=== PATIENT | female | born 1950 | race Caucasian/White ===

== ENCOUNTER 2016-12-25 07:48 | Inpatient (IN) | payer MEDICARE ==
[~2016-12-25] VITALS: Ht 157.5 cm; Wt 95.3 kg
[~2016-12-25 07:48] MED LIST: ASPI-482 PO; BENA40TA2 PO; CARV12.52 PO; CEPH-264 PO; DILT90TA PO; DOXA8TAB59 PO; FOLI0.8T3 PO; GABA-586 PO; GLIP5TAB10 PO; GLYB5TAB3 PO; LINA5TAB4 PO; LOSA50TA2 PO; LOVA40TA2 PO; SEVE800T9 PO
--- NOTE | 2016-12-25 08:13 | PHYS DOC ---
Past Medical History Past Medical History: CHF, Diabetes-Type II, High Cholesterol, Hypertension Past Surgical History: Other Additional Past Surgical Histo: FISTULA LUE Alcohol Use: None Drug Use: None Adult General Chief Complaint Chief Complaint: OTHER COMPLAINTS HPI HPI Patient is a 66 year old female who presents with her brother for altered mental status. They report that she has been more confused than usual, mildly disoriented. Began sometime yesterday after she felt more tired than usual. She had a mechanical trip & fall yesterday when she returned home from dialysis. She denies loss of consciousness, no definite head trauma. She denies fever, headache, vision changes, chest pain, palpitations, shortness of breath (though brother thinks she is breathing heavily), abdominal pain, nausea , vomiting, diarrhea, extremity numbness/weakness. She makes very minimal urine , denies dysuria. Her PCP is Dr. Barron. She has been compliant with dialysis. Review of Systems Review of Systems Constitutional: Denies fever or chills Eyes: Denies change in visual acuity HENT: Denies nasal congestion or sore throat Respiratory: Denies cough or shortness of breath Cardiovascular: Denies chest pain or edema GI: Denies abdominal pain, nausea, vomiting, bloody stools or diarrhea : Denies dysuria or hematuria Musculoskeletal: Denies back pain or joint pain Integument: Denies rash or skin lesions Neurologic: Reports altered mental status. Denies headache, focal weakness or sensory changes Allergies Allergies Allergies Coded Allergies Type Severity Reaction Last Updated Verified No Known Drug Allergies 12/05/13 No Physical Exam Physical Exam Constitutional: Well developed, well nourished, no acute distress, non-toxic appearance. HENT: Normocephalic, atraumatic, bilateral external ears normal, oropharynx moist, nose normal. erythematous kathy to left face. Eyes: PERRLA, EOMI, conjunctiva normal, no discharge. Neck: supple, no stridor. no meningismus Cardiovascular: RRR, no murmurs, no edema. Lungs & Thorax: LCTAB, no wheezing, no respiratory distress. Abdomen: soft, nontender, nondistended. Skin: Warm, dry, no erythema, no rash. facial kathy as above. Back: No tenderness. tiny right mid back ecchymosis without tenderness, no spinal tenderness or step offs Extremities: No tenderness, no edema. no bony tenderness to upper or lower extremities Neurologic: Alert and oriented to person & place, CN2-12 grossly intact, symmetric strength/sensation to UE & LE, no focal deficits noted. Psychologic: Affect normal, judgement normal, mood normal. Current Patient Data Vital Signs Vital Signs Date Time Temp Pulse Resp B/P (MAP) Pulse Ox O2 Delivery O2 Flow Rate FiO2 12/25/16 07:55 98.3 70 16 132/58 (82) 94 Room Air 98.3 Lab Values Laboratory Tests Test 12/25/16 08:10 White Blood Count 4.1 x10^3/uL (4.0-11.0) Red Blood Count 3.56 x10^6/uL (3.50-5.40) Hemoglobin 10.8 g/dL (12.0-15.5) L Hematocrit 33.8 % (36.0-47.0) L Mean Corpuscular Volume 95 fL (79-100) Mean Corpuscular Hemoglobin 30 pg (25-35) Mean Corpuscular Hemoglobin Concent 32 g/dL (31-37) Red Cell Distribution Width 17.4 % (11.5-14.5) H Platelet Count 67 x10^3/uL (140-400) L Neutrophils (%) (Auto) 83 % (31-73) H Lymphocytes (%) (Auto) 5 % (24-48) L Monocytes (%) (Auto) 10 % (0-9) H Eosinophils (%) (Auto) 1 % (0-3) Basophils (%) (Auto) 1 % (0-3) Neutrophils # (Auto) 3.4 x10^3uL (1.8-7.7) Lymphocytes # (Auto) 0.2 x10^3/uL (1.0-4.8) L Monocytes # (Auto) 0.4 x10^3/uL (0.0-1.1) Eosinophils # (Auto) 0.0 x10^3/uL (0.0-0.7) Basophils # (Auto) 0.0 x10^3/uL (0.0-0.2) Segmented Neutrophils % 86 % (35-66) H Band Neutrophils % 5 % (0-9) Lymphocytes % 5 % (24-48) L Monocytes % 2 % (0-10) Eosinophils % 1 % (0-5) Basophils % 1 % (0-3) Platelet Estimate Decreased (ADEQUATE) Anisocytosis Slight Prothrombin Time 14.4 SEC (11.7-14.0) H Prothrombin Time INR 1.2 (0.8-1.1) H PTT 30 SEC (24-38) Sodium Level 132 mmol/L (136-145) L Potassium Level 4.8 mmol/L (3.5-5.1) Chloride Level 93 mmol/L (98-107) L Carbon Dioxide Level 30 mmol/L (21-32) Anion Gap 9 (6-14) Blood Urea Nitrogen 38 mg/dL (7-20) H Creatinine 5.4 mg/dL (0.6-1.0) H Estimated GFR (Cockcroft-Gault) 8.0 BUN/Creatinine Ratio 7 (6-20) Glucose Level 620 mg/dL (70-99) *H Calcium Level 8.9 mg/dL (8.5-10.1) Total Bilirubin 0.4 mg/dL (0.2-1.0) Aspartate Amino Transferase (AST) 13 U/L (15-37) L Alanine Aminotransferase (ALT) 15 U/L (14-59) Alkaline Phosphatase 99 U/L (46-116) Troponin I Quantitative 0.029 ng/mL (0.000-0.055) TE-Dia-F-Type Natriuretic Peptide > 32956 pg/mL (0-124) H Total Protein 7.7 g/dL (6.4-8.2) Albumin 3.2 g/dL (3.4-5.0) L Albumin/Globulin Ratio 0.7 (1.0-1.7) L Laboratory Tests 12/25/16 08:10 Laboratory Tests 12/25/16 08:10 EKG EKG interpreted by me: NSR rate 69, no STEMI, T waves inverted without deprsesion in 1 & aVL, QTc prolonged 473 ms, no ectopy.[] Radiology/Procedures Radiology/Procedures PROCEDURE: CT HEAD WO CONTRAST Indication change in mental status. Noncontrast images of the head were obtained. No prior imaging of the head is available. The calvarium appears unremarkable. The visualized paranasal sinuses appear normal. There is no subdural or epidural hematoma. There is no mass or midline shift. Some physiologic calcification of the basal ganglia is noted. IMPRESSION: No acute finding seen in the head PQRS Compliance Statement: One or more of the following individualized dose reduction techniques were utilized for this examination: 1. Automated exposure control 2. Adjustment of the mA and/or kV according to patient size 3. Use of iterative reconstruction technique DICTATED and SIGNED BY: NICK LAI MD DATE: 12/25/16837 []PROCEDURE: CHEST AP ONLY Indication change in mental status. Suspect CVA. Protocol study. A single view of the chest was obtained. Comparison is made to an examination 08/12/2015. There is mild cardiomegaly. Gross congestive heart failure is not seen. There is fullness in both hilar areas which is likely all vascular in nature. The appearance is virtually identical to an examination 05/02/2015. Occasional calcified left hilar lymph nodes are noted. There is no acute parenchymal infiltrate there is no significant pleural fluid. IMPRESSION: Mild cardiomegaly. No acute or focal process seen in the chest DICTATED and SIGNED BY: NICK LAI MD DATE: 12/25/16826 Course & Med Decision Making Course & Med Decision Making Pertinent Labs and Imaging studies reviewed. (See chart for details) The patient presents with dizziness. She is found to be hyperglycemic with glucose > 600, not in DKA. Due to her end-stage renal disease unlikely volume overload state did not administer IV fluids. Additional workup did not show any other acute process. I discussed with Dr. Mcmahan who agrees to admit to inpatient status. Per his recommendation we'll start insulin drip with initial dose of 30 units, to continue at 2 units per hour thereafter. Patient agrees with plan for admission. Consult placed to nephrology for dialysis. Patient admitted in stable condition. Critical care time: 35 minutes [] Dragon Disclaimer Dragon Disclaimer This electronic medical record was generated, in whole or in part, using a voice recognition dictation system. Departure Departure Impression: Primary Impression: Hyperglycemia Additional Impressions: Altered mental status End stage renal disease Elevated brain natriuretic peptide (BNP) level Disposition: ADMITTED INPATIENT Admitting Physician: Martin Mcmahan Condition: STABLE Referrals: MELIZA BIGGS (PCP) Problem Qualifiers JODIE HUITRON MD Dec 25, 2016 08:13
[2016-12-25 08:23] LABS: BASO % 1 % (0-3); EOS % 1 % (0-3); HEMATOCRIT 33.8 % (36.0-47.0); HEMOGLOBIN 10.8 g/dL (12.0-15.5); LYMPH # 0.2 x10^3/uL (1.0-4.8); LYMPH % 5 % (24-48); MEAN CORPUSCULAR HEMOGLOBIN 30 pg (25-35); MEAN CORPUSCULAR HGB CONC 32 g/dL (31-37); MEAN CORPUSCULAR VOLUME 95 fL (79-100); MONO % 10 % (0-9); NEUT % 83 % (31-73); PLATELET COUNT 67 x10^3/uL (140-400); RED BLOOD COUNT 3.56 x10^6/uL (3.50-5.40); RED CELL DISTRIBUTION WIDTH 17.4 % (11.5-14.5); WHITE BLOOD COUNT 4.1 x10^3/uL (4.0-11.0)
--- NOTE | 2016-12-25 08:28 | ACF ---
Admission Forms Criteria MENTAL STATUS CHANGE Clinical Indications for Inpatient Care (Place 'X' for any and all applicable criteria): Ongoing inpatient care may be needed for 1 or more of the following(1)(2)(3)(5)( 6): [ ]I. Suspected serious etiology (eg, medical disorder, LABORATORY ASSISTANT event) of altered mental status [ ]II. Danger to self or others not manageable at lower level of care [ ]III. Grave disability (eg, inability to perform self care necessary at lower level of care) [ ]IV. Agitation or inappropriate behavior interfering with care for primary condition (eg, attempting to discontinue lines or drains prematurely, unable to cooperate with respiratory care) [ ]V. Delirium [A] [D][E] as described by 1 or more of the following(26): [ ]a) Delirium due to alcohol or sedative [F] withdrawal [ ]b) Delirium of uncertain etiology that has not responded to appropriate empiric treatment [ ]c) Delirium that prevents performance of a life-sustaining function (eg, feeding or hydrating oneself) [ ]. General contraindications and/or Inappropriate clinical situations for Observational Care in patients with Mental Status Change, when ANY ONE of the following is required: [ ]a) Prediction of prolongation of LOS based on ANY ONE of the following may be considered as a contraindication for observational care 2, 3, 4, 5, 6, 7, 8, 9, 10, 11 [ ]i) Age > 65 yrs. [ ]ii) Patient arriving by ambulance [ ]iii) Patient with high acuity [ ]iv) Patient requiring vital sign monitoring [ ]v) Patient on IV medication [ ]b) Systolic blood pressures greater than or equal to 180mmHg 3, 12 [ ]c) Patient with altered mental status including delirium and other alteration of consciousness, (3) [ ]d) Patient whose discharge disposition will be to a nursing home home or rehabilitation home should not be managed in Emergency Department Observation Unit. CMS rule requires 3 days hospital stay before such placement.3,13 [ ]e) Patient with failure to thrive due to broad array of etiologies 3,16,17 [ ]f) Inability to ambulate 3,14 Extended stay beyond goal length of stay for the primary condition may be needed until ALL of the following are present(3)(5): [ ]a) Underlying medical etiology of mental status change is absent, or has been established and adequately treated [ ]b) Danger to self or others is absent or manageable at lower level of care. [ ]c) Behavior crisis management, including physical or chemical restraints, is not required or available at lower level of car [ ]d) Substance or alcohol withdrawal is absent or manageable at lower level of care. [ ]e) Behavioral symptoms (eg, agitation, somnolence, inappropriate behavior) are absent, or are manageable at lower level of care. The original [facility] [employer] content created by [employer] [facility] [employer] has been revised. The portions of the content which have been revised are identified through the use of italic text or in bold, and [facility] has neither reviewed nor approved the modified material. All other unmodified content is copyright [facility] [employer]. Please see references footnoted in the original [employer] [facility] [employer] edition 2016 BRENDAN BONILLA Dec 25, 2016 08:28
--- NOTE | 2016-12-25 08:29 | EKG ---
[facility] [address] [place] [address] Test Date: 2016-12-25 Test Time: 08:05:41 Pat Name: JONATAN NAIR Department: Room: Gender: F [employer]: : 1950 Requested By: JODIE HUITRON Order Number: [id number] Reading MD: Measurements Intervals [place] Rate: 69 P: 42 DC: 194 QRS: -26 QRSD: 102 T: 117 QT: 440 QTc: 473 Interpretive Statements SINUS RHYTHM LEFTWARD AXIS LVH WITH REPOLARIZATION ABNORMALITY PROLONGED QT ABNORMAL ECG RI6.01 No previous ECG available for comparison
--- NOTE | 2016-12-25 08:31 | RAD ---
Indication change in mental status. Suspect CVA. Protocol study. A single view of the chest was obtained. Comparison is made to an examination 08/12/2015. There is mild cardiomegaly. Gross congestive heart failure is not seen. There is fullness in both hilar areas which is likely all vascular in nature. The appearance is virtually identical to an examination 05/02/2015. Occasional calcified left hilar lymph nodes are noted. There is no acute parenchymal infiltrate there is no significant pleural fluid. IMPRESSION: Mild cardiomegaly. No acute or focal process seen in the chest
[2016-12-25 08:33] LABS: INR 1.2 (0.8-1.1); PROTHROMBIN TIME PATIENT 14.4 SEC (11.7-14.0)
[2016-12-25 08:40] LABS: ALBUMIN 3.2 g/dL (3.4-5.0); ALBUMIN/GLOBULIN RATIO 0.7 (1.0-1.7); CALCIUM 8.9 mg/dL (8.5-10.1); CREATININE 5.4 mg/dL (0.6-1.0); POTASSIUM 4.8 mmol/L (3.5-5.1); TOTAL BILIRUBIN 0.4 mg/dL (0.2-1.0); TOTAL PROTEIN 7.7 g/dL (6.4-8.2)
--- NOTE | 2016-12-25 08:43 | RAD ---
Indication change in mental status. Noncontrast images of the head were obtained. No prior imaging of the head is available. The calvarium appears unremarkable. The visualized paranasal sinuses appear normal. There is no subdural or epidural hematoma. There is no mass or midline shift. Some physiologic calcification of the basal ganglia is noted. IMPRESSION: No acute finding seen in the head PQRS Compliance Statement: One or more of the following individualized dose reduction techniques were utilized for this examination: 1. Automated exposure control 2. Adjustment of the mA and/or kV according to patient size 3. Use of iterative reconstruction technique
[2016-12-25 09:25] LABS: % BASOS 1 % (0-3); % EOS 1 % (0-5)
[2016-12-25 09:27] LABS: ANISOCYTOSIS SLIGHT; PLT ESTIMATE DECREASED (ADEQUATE)
[2016-12-25] MEDS ORDERED: INSULIN,REGULAR 150 UNIT DRIP 150 ML IV ONE ×2 (09:30→11:30)
[2016-12-25] MEDS ORDERED: INSULIN REGULAR 100 UNIT/ML 10ML VIAL. IV ONE ×2 (09:30→11:00)
[2016-12-25] MEDS ORDERED: ONDANSETRON PF 4 MG/2 ML VIAL. IV PRN (10:15)
[2016-12-25] MEDS ORDERED: DEXTROSE 50% 25 GM / 50ML DISP.SYRIN. IV PRN (10:15)
[2016-12-25] MEDS ORDERED: MORPHINE SULFATE 2 MG/ML DISP.SYRIN. IV PRN (10:15)
[2016-12-25] MEDS ORDERED: ACETAMINOPHEN 325 MG TABLET. PO PRN (10:15)
--- NOTE | 2016-12-25 10:44 | ACF ---
Admission Forms Criteria DIABETES Clinical Indications for Admission to Inpatient Care (Place 'X' for any and all applicable criteria): Admission is indicated by presence of ALL (if I & II) or ANY ONE (if III or IV) of the following (1)(2)(3)(4): [X]I. Diabetes is uncontrolled as indicated by ANY ONE of the following: [ ]a) Diabetic ketoacidosis as indicated by ALL of the following (8): [ ]i) Hyperglycemia (eg, plasma glucose greater than 200 mg/ dL (11.1 mmol/L)) [ ]ii) Acidosis (eg, arterial pH less than 7.30, serum bicarbonate level less than 15 mEq/L (mmol/L)) [ ]iii) Moderate ketonuria or ketonemia [ ]b) Hyperglycemic hyperosmolar state as indicated by ALL of the following(9)(10): [ ]i) Neurologic dysfunction (eg, stupor, coma, hemiparesis , seizure)(13) [ ]ii) Plasma glucose greater than 600 mg/dL (33.3 mmol/L) [ ]iii) Serum osmolality greater than 320 mOsm/kg (mmol/kg) [X]c) Severe signs or symptoms secondary to hyperglycemia indicated by ANY ONE of the following: [X]i) Altered mental status(10) [ ]ii) Significant hypovolemia or dehydration [ ]iii) Intractable nausea or vomiting [ ]iv) Unexplained fever or severe infection [ ]v) Severe electrolyte abnormality (eg, hypokalemia, hyperkalemia, hypernatremia) [X]II. Management at other levels of care (Also use Diabetes: Observation Care as appropriate) is not feasible because of ANY ONE of the following: [X]a) Condition was not adequately corrected with treatment at other levels of care. [ ]b) Treatment at other levels of care is not appropriate because of condition severity (eg, hyperosmolar coma). [ ]III. Contraindications and/or Inappropriate clinical situations for Observational Care in patients with Diabetes, when ANY ONE of the following is required: [ ]a) Patient require specific diagnostic workup or therapeutic intervention 22 [ ]b) Patient with abnormal vital signs or altered mental status 23 [ ]IV. General contraindications and/or Inappropriate clinical situations for Observational Care in patients with Diabetes, when ANY ONE of the following is required: [ ]a) Prediction of prolongation of LOS based on ANY ONE of the following may be considered as a contraindication for observational care 2, 3, 4, 5, 6, 7, 8, 9, 10, 11 [ ]i) Age > 65 yrs. [ ]ii) Patient arriving by ambulance [ ]iii) Patient with high acuity [ ]iv) Patient requiring vital sign monitoring [ ]v) Patient on IV medication [ ]b) Systolic blood pressures 180mmHg 3,12 [ ]c) Patient with altered mental status including delirium and other alteration of consciousness, (3) [ ]d) Patient whose discharge disposition will be to a alf home or rehabilitation home should not be managed in Emergency Department Observation Unit. CMS rule requires 3 days hospital stay before such placement.3,13 [ ]e) Patient with failure to thrive due to broad array of etiologies 3,16,17 [ ]f) Inability to ambulate 3,14 Extended stay beyond goal length of stay may be needed for(3)(20): [ ]a) Treatment of precipitating causes [ ]b) Development of hypoglycemia [ ]c) Complications of treatment [ ]d) Complications of decompensated diabetes (eg, acute gastric dilatation, persistent metabolic or neurologic derangement) [ ]e) Active Comorbidities [ ]f) Older patients( 65 years or older) The original [employer] content created by [employer] has been revised. The portions of the content which have been revised are identified through the use of italic text or in bold,and [facility] has neither reviewed nor approved the modified material. All other unmodified content is copyright [employer]. Please see references footnoted in the original [facility] edition 2016 Admission Criteria Met?: Yes BRENDAN BONILLA Dec 25, 2016 10:44
[2016-12-25] MEDS ORDERED: INSULIN REGULAR VIAL 150 UNIT in 0.9 % SODIUM CHLORIDE 150ML 150 ML IV PRN (11:00)
--- NOTE | 2016-12-25 11:28 | HP ---
ADMIT DATE: 12/25/2016 CHIEF COMPLAINT: Mental status change. HISTORY OF PRESENT ILLNESS: The patient is a pleasant elderly female well known to our service. She is on dialysis. She has multiple comorbidities. Today she presented with mental status change. She was noted to have a glucose of 620. I have discussed the case with the ER physician. We are going to admit the patient on insulin drip. PAST MEDICAL HISTORY: End-stage renal disease, on dialysis; diabetes; CHF; hyperlipidemia; hypertension; left upper extremity fistula. ALLERGIES: None. FAMILY HISTORY: Diabetes. SOCIAL HISTORY: She is . She does not drink, smoke, or take drugs. MEDICATIONS: Reviewed, please refer to the MRAD. REVIEW OF SYSTEMS: GENERAL: No history of weight change, weakness or fevers. SKIN: No bruising, hair changes or rashes. EYES: No blurred, double or loss of vision. NOSE AND THROAT: No history of nosebleeds, hoarseness or sore throat. HEART: No history of palpitations, chest pain or shortness of breath on exertion. LUNGS: Denies cough, hemoptysis, wheezing or shortness of breath. GASTROINTESTINAL: Denies changes in appetite, nausea, vomiting, diarrhea or constipation. GENITOURINARY: No history of frequency, urgency, hesitancy or nocturia. NEUROLOGIC: Denies history of numbness, tingling, tremor or weakness. PSYCHIATRIC: No history of panic, anxiety or depression. ENDOCRINE: No history of heat or cold intolerance, polyuria or polydipsia. EXTREMITIES: Denies muscle weakness, joint pain, pain on walking or stiffness. PHYSICAL EXAMINATION: VITAL SIGNS: Temperature afebrile, pulse 92, respirations 18, blood pressure 144/90. GENERAL: She is back alert now. Her is present. HEART: Normal S1, S2. LUNGS: Clear. ABDOMEN: Soft, obese. EXTREMITIES: 1+ edema. SKIN: No rashes, although she has a large birthmark on her face. ENDOCRINE: No thyromegaly. LYMPHATICS: No cervical nodes. HEMATOPOIETIC: No bruising. ASSESSMENT AND PLAN: Hyperglycemic, hyperosmolar state. The patient will be admitted on insulin drip. Consult Dr. Julio for her dialysis. Resume home medicines, PT, OT, frequent labs. REILLY JACOBO DO DR: Margy JOB#: [id number] / [id number]
[2016-12-25] MEDS: INSULIN ASPART 300 UNITS/3 ML INSULN.PEN SQ SCH ×2 (12:00→17:36)
[2016-12-25 12:16] VITALS: BP 147/64
[2016-12-25 14:15] VITALS: BP 128/58
[2016-12-25] MEDS: CARVEDILOL 12.5 MG TABLET. PO SCH (17:32)
[2016-12-25] MEDS: SEVELAMER CARBONATE 800 MG TABLET. PO SCH (17:32)
[2016-12-25 19:59] VITALS: BP 136/66
[2016-12-25] MEDS: ATORVASTATIN CALCIUM 10 MG TABLET. PO SCH (20:38)
[2016-12-25] MEDS: GABAPENTIN 300 MG CAPSULE. PO SCH (20:38)
[2016-12-25 22:05] VITALS: BP 140/63
[2016-12-26 02:08] VITALS: BP 100/56
[2016-12-26 05:40] LABS: BASO % 1 % (0-3); EOS % 1 % (0-3); HEMATOCRIT 32.4 % (36.0-47.0); HEMOGLOBIN 10.3 g/dL (12.0-15.5); LYMPH # 0.5 x10^3/uL (1.0-4.8); LYMPH % 13 % (24-48); MEAN CORPUSCULAR HEMOGLOBIN 30 pg (25-35); MEAN CORPUSCULAR HGB CONC 32 g/dL (31-37); MEAN CORPUSCULAR VOLUME 94 fL (79-100); MONO % 10 % (0-9); NEUT % 75 % (31-73); PLATELET COUNT 76 x10^3/uL (140-400); RED BLOOD COUNT 3.45 x10^6/uL (3.50-5.40); RED CELL DISTRIBUTION WIDTH 17.2 % (11.5-14.5); WHITE BLOOD COUNT 4.2 x10^3/uL (4.0-11.0)
[2016-12-26 06:04] LABS: CALCIUM 9.4 mg/dL (8.5-10.1); CREATININE 6.5 mg/dL (0.6-1.0); GFR 6.4; POTASSIUM 4.5 mmol/L (3.5-5.1)
[2016-12-26 07:32] VITALS: BP 137/65
[2016-12-26] MEDS: CARVEDILOL 12.5 MG TABLET. PO SCH ×2 (08:00→18:13)
[2016-12-26] MEDS: SEVELAMER CARBONATE 800 MG TABLET. PO SCH ×3 (08:00→18:13)
[2016-12-26] MEDS ORDERED: IV NORMAL SALINE 1000ML BAG 1,000 ML IV PRN ×2 (08:02)
[2016-12-26] MEDS ORDERED: DIALYSIS PATIENT. MC PRN ×2 (08:15)
[2016-12-26] MEDS ORDERED: LABETALOL 20 MG/4 ML DISP.SYRIN. IVP PRN (08:15)
[2016-12-26] MEDS ORDERED: diphenhydrAMINE 50 MG/ML VIAL IV PRN ×2 (08:15)
[2016-12-26] MEDS: INSULIN ASPART 300 UNITS/3 ML INSULN.PEN SQ SCH ×3 (08:30→18:18)
[2016-12-26] MEDS: LOSARTAN POTASSIUM 50 MG TABLET. PO SCH (09:00)
--- NOTE | 2016-12-26 09:55 | PDOC2 ---
CONSULT Date of Consult Date of Consult DATE: 12/26/16 TIME: 09:54 Reason for Consult Reason for Consult: ESRD Referring Physician Referring Physician: Martir Identification/Chief Complaint Chief Complaint Confusion, weakness Problems: Source Source: Chart review, Patient History of Present Illness Reason for Visit: as dictated Current Problem List Problem List Problems Medical Problems: (1) Altered mental status Status: Acute (2) Elevated brain natriuretic peptide (BNP) level Status: Acute (3) End stage renal disease Status: Acute (4) Hyperglycemia Status: Acute Current Medications Current Medications Current Medications Insulin Human Regular (NovoLIN R VIAL) 30 unit 1X ONCE IV ; Start 12/25/16 at 09:30; Stop 12/25/16 at 11:05; Status DC Insulin Human Regular 150 ml @ 0 mls/hr 1X ONCE IV ; Start 12/25/16 at 09:30; Stop 12/25/16 at 09:31; Status Cancel Ondansetron HCl (Zofran) 4 mg PRN Q8HRS PRN IV NAUSEA/VOMITING; Start 12/25/16 at 10:15; Stop 12/26/16 at 10:14 Morphine Sulfate 2 mg PRN Q2HR PRN IV PAIN; Start 12/25/16 at 10:15; Stop 12/26 at 10:14 Acetaminophen (Tylenol) 650 mg PRN Q4HRS PRN PO FEVER; Start 12/25/16 at 10:15 ; Stop 12/26/16 at 10:14 Dextrose (Dextrose 50%-Water Syringe) 12.5 gm PRN Q15MIN PRN IV SEE COMMENTS; Start 12/25/16 at 10:15 Insulin Human Regular 150 unit/ Sodium Chloride 151.5 ml @ 0 mls/hr CONT PRN IV SEE I/O RECORD; Start 12/25/16 at 11:00 Insulin Human Regular (NovoLIN R VIAL) 15 unit 1X ONCE IV Last administered on 12/25/16 11:20; Start 12/25/16 at 11:00; Stop 12/25/16 at 11:11; Status DC Insulin Aspart (NovoLOG) 0-5 UNITS TIDWMEALS SQ Last administered on 12/26/16 08:30; Start 12/25/16 at 12:00 Insulin Human Regular 150 ml @ 0 mls/hr 1X ONCE IV Last administered on 11:32; Start 12/25/16 at 11:30; Stop 12/25/16 at 11:31; Status DC Aspirin (Ecotrin) 81 mg DAILYWBKFT PO ; Start 12/26/16 at 08:00 Carvedilol (Coreg) 12.5 mg BIDWMEALS PO Last administered on 12/25/16 17:32; Start 12/25/16 at 17:00 Vitamin B Complex/ Vitamin C (Amaya-Amie) 1 tab DAILY PO ; Start 12/26/16 at 09: 00 Glipizide (Glucotrol) 5 mg DAILYWBKFT PO ; Start 12/26/16 at 08:00 Losartan Potassium (Cozaar) 100 mg DAILY PO ; Start 12/26/16 at 09:00 Sevelamer Carbonate (Renvela) 1,600 mg TIDWMEALS PO Last administered on 17:32; Start 12/25/16 at 17:00 Doxazosin Mesylate (Cardura) 8 mg DAILY PO ; Start 12/26/16 at 09:00 Gabapentin (Neurontin) 300 mg QHS PO Last administered on 12/25/16 20:38; Start 12/25/16 at 21:00 Atorvastatin Calcium (Lipitor) 10 mg QHS PO Last administered on 12/25/16 20: 38; Start 12/25/16 at 21:00 Sodium Chloride 1,000 ml @ 1,000 mls/hr Q1H PRN IV hypotension; Start 12/26/16 at 08:02; Stop 12/26/16 at 14:01 Diphenhydramine HCl (Benadryl) 25 mg 1X PRN PRN IV ITCHING; Start 12/26/16 at 08:15; Stop 12/27/16 at 08:14 Diphenhydramine HCl (Benadryl) 25 mg 1X PRN PRN IV ITCHING; Start 12/26/16 at 08:15; Stop 12/27/16 at 08:14 Labetalol HCl (Normodyne) 10 mg PRN Q1HR PRN IVP SBP > 180; Start 12/26/16 at 08:15; Stop 12/27/16 at 08:14 Sodium Chloride 1,000 ml @ 400 mls/hr Q2H30M PRN IV PATENCY; Start 12/26/16 at 08:02; Stop 12/26/16 at 20:01 Info (PHARMACY MONITORING -- do not chart) 1 each PRN DAILY PRN MC SEE COMMENTS ; Start 12/26/16 at 08:15 Info (PHARMACY MONITORING -- do not chart) 1 each PRN DAILY PRN MC SEE COMMENTS ; Start 12/26/16 at 08:15; Status UNV Active Scripts Active Keflex (Cephalexin) 500 Mg Capsule 1 Cap PO TID n/a Cozaar (Losartan Potassium) 50 Mg Tablet 100 Mg PO DAILY Reported Glipizide 5 Mg Tablet 1 Tab PO DAILY Carvedilol 12.5 Mg Tablet 1 Tab PO BID Aspir 81 (Aspirin) 81 Mg Tablet.dr 1 Tab PO DAILY Gabapentin 300 Mg Capsule 300 Mg PO HS Renvela (Sevelamer Carbonate) 800 Mg Tablet 2 Tab PO TID Nephro-Amie Tablet (Folic Acid/Vitamin B Comp W-C) 0.8 Mg Tablet 1 Tab PO DAILY Doxazosin Mesylate 8 Mg Tablet 1 Tab PO DAILY Lovastatin 40 Mg Tablet 1 Tab PO DAILY Allergies Allergies: Coded Allergies: No Known Drug Allergies (Unverified , 12/05/13) ROS Review of System GEN: no Fevers no Chills Weakness, confusion, fatigue EYES: + Visual Complaints (blurriness - now better) ENT: no EN Drainage no Hearing deficiets CVS: no Orthopnea no CP RESP: no SOB no ONEILL GI: no Nausea no Vomiting : no Dysuria no Urgency HEME: no easy bruising no Palp Ly Nodes NEURO no Focal Weakness no Sz PSYCH: no Suicidal Ideation no Depression SKIN: no Rashes ENDO: no Polyuria or Polydipsia no Hot/Cold Intolerance MU SK: no Arthraigia no Myalgia Physical Exam Physical Exam General Appearance: Awake Alert Oriented x 3 In no Distress Eyes: VIsion Unchanged Conjunctiva Normal EN: No EN Drainage Mucous Memb. moist Neck: no JVD no JVP Supple no Thyromegaly CVS: S1 S2 no Murmur No Gallop No Rub no Edema Resp: no Rales no Rhonchi no Acc. Muscle use GI: BAS +ve NO Bruit Non Tender Non Distended : no CVA tenderness; no Suprapubic Tenderness SKIN: no Rashes Breast Exam deferred Mu.Sk: Adequate ROM no Muscle Atrophy Heme: Unable to palpate Obvious LAD no Splenomegaly NEURO: Good Strength and Tone Cranial Nerves II - XII grossly intact Psych: no t Depressed no Active hallucination Vital Signs Vital Signs Date Time Temp Pulse Resp B/P (MAP) Pulse Ox O2 Delivery O2 Flow Rate FiO2 12/26/16 07:32 98.0 66 19 137/65 (89) 95 Room Air 98.0 Assessment & Plan ESRD: Seen on HD [place] well for now: Vitals on HD: 146/69 66 afeb Dialysis as below: F 180 NR 3.5 Hrs 3 K 2.5 Ca 140 Na 3 5 HC03 Qb 350 + Qd 500+ Heparin 0 Units Uf 4 Kgs or to dry weight as tolerated May give 25-50 gms of 25% Albumin if needed to maintain Hemodynamic stability Treatment plan reviewed and discussed with bookkeeping service sales agent Anemia: Epogen will be ordered if hgb < 10. Transfuse with next HD as needed. HTN: Current BP meds reviewed. See orders for changes. JULIAN - follow phos. PTh management as OP Discussed Plan of Care and prognosis etc. at length with pt OK to D/c From Renal Standpoint once FSBS are better controlled Labs Labs Laboratory Tests Test 12/25/16 08:10 12/25/16 12:19 12/25/16 14:14 12/25/16 15:45 White Blood Count 4.1 x10^3/uL (4.0-11.0) Red Blood Count 3.56 x10^6/uL (3.50-5.40) Hemoglobin 10.8 g/dL (12.0-15.5) Hematocrit 33.8 % (36.0-47.0) Mean Corpuscular Volume 95 fL (79-100) Mean Corpuscular Hemoglobin 30 pg (25-35) Mean Corpuscular Hemoglobin Concent 32 g/dL (31-37) Red Cell Distribution Width 17.4 % (11.5-14.5) Platelet Count 67 x10^3/uL (140-400) Neutrophils (%) (Auto) 83 % (31-73) Lymphocytes (%) (Auto) 5 % (24-48) Monocytes (%) (Auto) 10 % (0-9) Eosinophils (%) (Auto) 1 % (0-3) Basophils (%) (Auto) 1 % (0-3) Neutrophils # (Auto) 3.4 x10^3uL (1.8-7.7) Lymphocytes # (Auto) 0.2 x10^3/uL (1.0-4.8) Monocytes # (Auto) 0.4 x10^3/uL (0.0-1.1) Eosinophils # (Auto) 0.0 x10^3/uL (0.0-0.7) Basophils # (Auto) 0.0 x10^3/uL (0.0-0.2) Segmented Neutrophils % 86 % (35-66) Band Neutrophils % 5 % (0-9) Lymphocytes % 5 % (24-48) Monocytes % 2 % (0-10) Eosinophils % 1 % (0-5) Basophils % 1 % (0-3) Platelet Estimate Decreased (ADEQUATE) Anisocytosis Slight Prothrombin Time 14.4 SEC (11.7-14.0) Prothromb Time International Ratio 1.2 (0.8-1.1) Activated Partial Thromboplast Time 30 SEC (24-38) Sodium Level 132 mmol/L (136-145) Potassium Level 4.8 mmol/L (3.5-5.1) Chloride Level 93 mmol/L (98-107) Carbon Dioxide Level 30 mmol/L (21-32) Anion Gap 9 (6-14) Blood Urea Nitrogen 38 mg/dL (7-20) Creatinine 5.4 mg/dL (0.6-1.0) Estimated GFR (Cockcroft-Gault) 8.0 BUN/Creatinine Ratio 7 (6-20) Glucose Level 620 mg/dL (70-99) Calcium Level 8.9 mg/dL (8.5-10.1) Total Bilirubin 0.4 mg/dL (0.2-1.0) Aspartate Amino Transf (AST/SGOT) 13 U/L (15-37) Alanine Aminotransferase (ALT/SGPT) 15 U/L (14-59) Alkaline Phosphatase 99 U/L (46-116) Troponin I Quantitative 0.029 ng/mL (0.000-0.055) RJ-Pla-T-Type Natriuretic Peptide > 79412 pg/mL (0-124) Total Protein 7.7 g/dL (6.4-8.2) Albumin 3.2 g/dL (3.4-5.0) Albumin/Globulin Ratio 0.7 (1.0-1.7) Glucose (Fingerstick) 305 mg/dL (70-99) 212 mg/dL (70-99) 191 mg/dL (70-99) Test 12/25/16 16:41 12/25/16 17:52 12/25/16 19:54 12/25/16 20:55 Glucose (Fingerstick) 216 mg/dL (70-99) 208 mg/dL (70-99) 223 mg/dL (70-99) 206 mg/dL (70-99) Test 12/25/16 22:07 12/25/16 23:02 12/26/16 00:03 12/26/16 01:07 Glucose (Fingerstick) 201 mg/dL (70-99) 209 mg/dL (70-99) 166 mg/dL (70-99) 180 mg/dL (70-99) Test 12/26/16 02:06 12/26/16 03:46 12/26/16 05:00 12/26/16 05:18 Glucose (Fingerstick) 190 mg/dL (70-99) 190 mg/dL (70-99) 224 mg/dL (70-99) White Blood Count 4.2 x10^3/uL (4.0-11.0) Red Blood Count 3.45 x10^6/uL (3.50-5.40) Hemoglobin 10.3 g/dL (12.0-15.5) Hematocrit 32.4 % (36.0-47.0) Mean Corpuscular Volume 94 fL (79-100) Mean Corpuscular Hemoglobin 30 pg (25-35) Mean Corpuscular Hemoglobin Concent 32 g/dL (31-37) Red Cell Distribution Width 17.2 % (11.5-14.5) Platelet Count 76 x10^3/uL (140-400) Neutrophils (%) (Auto) 75 % (31-73) Lymphocytes (%) (Auto) 13 % (24-48) Monocytes (%) (Auto) 10 % (0-9) Eosinophils (%) (Auto) 1 % (0-3) Basophils (%) (Auto) 1 % (0-3) Neutrophils # (Auto) 3.1 x10^3uL (1.8-7.7) Lymphocytes # (Auto) 0.5 x10^3/uL (1.0-4.8) Monocytes # (Auto) 0.4 x10^3/uL (0.0-1.1) Eosinophils # (Auto) 0.1 x10^3/uL (0.0-0.7) Basophils # (Auto) 0.0 x10^3/uL (0.0-0.2) Sodium Level 137 mmol/L (136-145) Potassium Level 4.5 mmol/L (3.5-5.1) Chloride Level 98 mmol/L (98-107) Carbon Dioxide Level 27 mmol/L (21-32) Anion Gap 12 (6-14) Blood Urea Nitrogen 50 mg/dL (7-20) Creatinine 6.5 mg/dL (0.6-1.0) Estimated GFR (Cockcroft-Gault) 6.4 Glucose Level 220 mg/dL (70-99) Calcium Level 9.4 mg/dL (8.5-10.1) Test 12/26/16 07:35 Glucose (Fingerstick) 223 mg/dL (70-99) Laboratory Tests Test 12/25/16 12:19 12/25/16 14:14 12/25/16 15:45 12/25/16 16:41 Glucose (Fingerstick) 305 mg/dL (70-99) 212 mg/dL (70-99) 191 mg/dL (70-99) 216 mg/dL (70-99) Test 12/25/16 17:52 12/25/16 19:54 12/25/16 20:55 12/25/16 22:07 Glucose (Fingerstick) 208 mg/dL (70-99) 223 mg/dL (70-99) 206 mg/dL (70-99) 201 mg/dL (70-99) Test 12/25/16 23:02 12/26/16 00:03 12/26/16 01:07 12/26/16 02:06 Glucose (Fingerstick) 209 mg/dL (70-99) 166 mg/dL (70-99) 180 mg/dL (70-99) 190 mg/dL (70-99) Test 12/26/16 03:46 12/26/16 05:00 12/26/16 05:18 12/26/16 07:35 Glucose (Fingerstick) 190 mg/dL (70-99) 224 mg/dL (70-99) 223 mg/dL (70-99) White Blood Count 4.2 x10^3/uL (4.0-11.0) Red Blood Count 3.45 x10^6/uL (3.50-5.40) Hemoglobin 10.3 g/dL (12.0-15.5) Hematocrit 32.4 % (36.0-47.0) Mean Corpuscular Volume 94 fL (79-100) Mean Corpuscular Hemoglobin 30 pg (25-35) Mean Corpuscular Hemoglobin Concent 32 g/dL (31-37) Red Cell Distribution Width 17.2 % (11.5-14.5) Platelet Count 76 x10^3/uL (140-400) Neutrophils (%) (Auto) 75 % (31-73) Lymphocytes (%) (Auto) 13 % (24-48) Monocytes (%) (Auto) 10 % (0-9) Eosinophils (%) (Auto) 1 % (0-3) Basophils (%) (Auto) 1 % (0-3) Neutrophils # (Auto) 3.1 x10^3uL (1.8-7.7) Lymphocytes # (Auto) 0.5 x10^3/uL (1.0-4.8) Monocytes # (Auto) 0.4 x10^3/uL (0.0-1.1) Eosinophils # (Auto) 0.1 x10^3/uL (0.0-0.7) Basophils # (Auto) 0.0 x10^3/uL (0.0-0.2) Sodium Level 137 mmol/L (136-145) Potassium Level 4.5 mmol/L (3.5-5.1) Chloride Level 98 mmol/L (98-107) Carbon Dioxide Level 27 mmol/L (21-32) Anion Gap 12 (6-14) Blood Urea Nitrogen 50 mg/dL (7-20) Creatinine 6.5 mg/dL (0.6-1.0) Estimated GFR (Cockcroft-Gault) 6.4 Glucose Level 220 mg/dL (70-99) Calcium Level 9.4 mg/dL (8.5-10.1) CLEMENTE AVILES MD Dec 26, 2016 09:55
[2016-12-26] MEDS ORDERED: DEXTROSE 50% 25 GM / 50ML DISP.SYRIN. IV PRN (11:30)
[2016-12-26] MEDS ORDERED: INSULIN ASPART 300 UNITS/3 ML INSULN.PEN SQ SCH (11:30)
--- NOTE | 2016-12-26 11:31 | PDOC ---
PROGRESS NOTES Chief Complaint Chief Complaint 1. s/p HONK 2. DM2 on OHA with hgba1c 8 ion 2014 3. 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 AOCD 6. Overweight BMI 39 History of Present Illness History of Present Illness Requiring only 1 -2 units insulin gtt per hr Insulin naive HAving HD PLAN: Dc insulin gtt Start levemir 15 qhs Start novolog 8 TID Recheck hgba1c Glipizide might be an option? will see how her BS trends with novolog TOD with meals PT/OT HD per renal Dw LAUREN White Vitals Vitals Vital Signs Date Time Temp Pulse Resp B/P (MAP) Pulse Ox O2 Delivery O2 Flow Rate FiO2 12/26/16 07:32 98.0 66 19 137/65 (89) 95 Room Air 98.0 Physical Exam General: Alert, Oriented X3, No acute distress Heart: Regular rate, Normal S1, Normal S2, No murmurs Lungs: Clear Abdomen: Normal bowel sounds, Soft, No tenderness Extremities: No clubbing, No cyanosis, No edema Skin: No rashes, No breakdown, No significant lesion Labs LABS Laboratory Tests Test 12/25/16 12:19 12/25/16 14:14 12/25/16 15:45 12/25/16 16:41 Glucose (Fingerstick) 305 mg/dL (70-99) 212 mg/dL (70-99) 191 mg/dL (70-99) 216 mg/dL (70-99) Test 12/25/16 17:52 12/25/16 19:54 12/25/16 20:55 12/25/16 22:07 Glucose (Fingerstick) 208 mg/dL (70-99) 223 mg/dL (70-99) 206 mg/dL (70-99) 201 mg/dL (70-99) Test 12/25/16 23:02 12/26/16 00:03 12/26/16 01:07 12/26/16 02:06 Glucose (Fingerstick) 209 mg/dL (70-99) 166 mg/dL (70-99) 180 mg/dL (70-99) 190 mg/dL (70-99) Test 12/26/16 03:46 12/26/16 05:00 12/26/16 05:18 12/26/16 07:35 Glucose (Fingerstick) 190 mg/dL (70-99) 224 mg/dL (70-99) 223 mg/dL (70-99) White Blood Count 4.2 x10^3/uL (4.0-11.0) Red Blood Count 3.45 x10^6/uL (3.50-5.40) Hemoglobin 10.3 g/dL (12.0-15.5) Hematocrit 32.4 % (36.0-47.0) Mean Corpuscular Volume 94 fL (79-100) Mean Corpuscular Hemoglobin 30 pg (25-35) Mean Corpuscular Hemoglobin Concent 32 g/dL (31-37) Red Cell Distribution Width 17.2 % (11.5-14.5) Platelet Count 76 x10^3/uL (140-400) Neutrophils (%) (Auto) 75 % (31-73) Lymphocytes (%) (Auto) 13 % (24-48) Monocytes (%) (Auto) 10 % (0-9) Eosinophils (%) (Auto) 1 % (0-3) Basophils (%) (Auto) 1 % (0-3) Neutrophils # (Auto) 3.1 x10^3uL (1.8-7.7) Lymphocytes # (Auto) 0.5 x10^3/uL (1.0-4.8) Monocytes # (Auto) 0.4 x10^3/uL (0.0-1.1) Eosinophils # (Auto) 0.1 x10^3/uL (0.0-0.7) Basophils # (Auto) 0.0 x10^3/uL (0.0-0.2) Sodium Level 137 mmol/L (136-145) Potassium Level 4.5 mmol/L (3.5-5.1) Chloride Level 98 mmol/L (98-107) Carbon Dioxide Level 27 mmol/L (21-32) Anion Gap 12 (6-14) Blood Urea Nitrogen 50 mg/dL (7-20) Creatinine 6.5 mg/dL (0.6-1.0) Estimated GFR (Cockcroft-Gault) 6.4 Glucose Level 220 mg/dL (70-99) Calcium Level 9.4 mg/dL (8.5-10.1) Review of Systems Review of Systems no cp, soa, abd pain, emesis etc Assessment and Plan Assessmemt and Plan Problems Medical Problems: (1) Altered mental status Status: Acute (2) Elevated brain natriuretic peptide (BNP) level Status: Acute (3) End stage renal disease Status: Acute (4) Hyperglycemia Status: Acute Problems: Comment Review of Relevant I have reviewed the following items kathy (where applicable) has been applied. Labs Laboratory Tests Test 12/25/16 08:10 12/25/16 12:19 12/25/16 14:14 12/25/16 15:45 White Blood Count 4.1 x10^3/uL (4.0-11.0) Red Blood Count 3.56 x10^6/uL (3.50-5.40) Hemoglobin 10.8 g/dL (12.0-15.5) Hematocrit 33.8 % (36.0-47.0) Mean Corpuscular Volume 95 fL (79-100) Mean Corpuscular Hemoglobin 30 pg (25-35) Mean Corpuscular Hemoglobin Concent 32 g/dL (31-37) Red Cell Distribution Width 17.4 % (11.5-14.5) Platelet Count 67 x10^3/uL (140-400) Neutrophils (%) (Auto) 83 % (31-73) Lymphocytes (%) (Auto) 5 % (24-48) Monocytes (%) (Auto) 10 % (0-9) Eosinophils (%) (Auto) 1 % (0-3) Basophils (%) (Auto) 1 % (0-3) Neutrophils # (Auto) 3.4 x10^3uL (1.8-7.7) Lymphocytes # (Auto) 0.2 x10^3/uL (1.0-4.8) Monocytes # (Auto) 0.4 x10^3/uL (0.0-1.1) Eosinophils # (Auto) 0.0 x10^3/uL (0.0-0.7) Basophils # (Auto) 0.0 x10^3/uL (0.0-0.2) Segmented Neutrophils % 86 % (35-66) Band Neutrophils % 5 % (0-9) Lymphocytes % 5 % (24-48) Monocytes % 2 % (0-10) Eosinophils % 1 % (0-5) Basophils % 1 % (0-3) Platelet Estimate Decreased (ADEQUATE) Anisocytosis Slight Prothrombin Time 14.4 SEC (11.7-14.0) Prothromb Time International Ratio 1.2 (0.8-1.1) Activated Partial Thromboplast Time 30 SEC (24-38) Sodium Level 132 mmol/L (136-145) Potassium Level 4.8 mmol/L (3.5-5.1) Chloride Level 93 mmol/L (98-107) Carbon Dioxide Level 30 mmol/L (21-32) Anion Gap 9 (6-14) Blood Urea Nitrogen 38 mg/dL (7-20) Creatinine 5.4 mg/dL (0.6-1.0) Estimated GFR (Cockcroft-Gault) 8.0 BUN/Creatinine Ratio 7 (6-20) Glucose Level 620 mg/dL (70-99) Calcium Level 8.9 mg/dL (8.5-10.1) Total Bilirubin 0.4 mg/dL (0.2-1.0) Aspartate Amino Transf (AST/SGOT) 13 U/L (15-37) Alanine Aminotransferase (ALT/SGPT) 15 U/L (14-59) Alkaline Phosphatase 99 U/L (46-116) Troponin I Quantitative 0.029 ng/mL (0.000-0.055) UR-Qsc-R-Type Natriuretic Peptide > 46617 pg/mL (0-124) Total Protein 7.7 g/dL (6.4-8.2) Albumin 3.2 g/dL (3.4-5.0) Albumin/Globulin Ratio 0.7 (1.0-1.7) Glucose (Fingerstick) 305 mg/dL (70-99) 212 mg/dL (70-99) 191 mg/dL (70-99) Test 12/25/16 16:41 12/25/16 17:52 12/25/16 19:54 12/25/16 20:55 Glucose (Fingerstick) 216 mg/dL (70-99) 208 mg/dL (70-99) 223 mg/dL (70-99) 206 mg/dL (70-99) Test 12/25/16 22:07 12/25/16 23:02 12/26/16 00:03 12/26/16 01:07 Glucose (Fingerstick) 201 mg/dL (70-99) 209 mg/dL (70-99) 166 mg/dL (70-99) 180 mg/dL (70-99) Test 12/26/16 02:06 12/26/16 03:46 12/26/16 05:00 12/26/16 05:18 Glucose (Fingerstick) 190 mg/dL (70-99) 190 mg/dL (70-99) 224 mg/dL (70-99) White Blood Count 4.2 x10^3/uL (4.0-11.0) Red Blood Count 3.45 x10^6/uL (3.50-5.40) Hemoglobin 10.3 g/dL (12.0-15.5) Hematocrit 32.4 % (36.0-47.0) Mean Corpuscular Volume 94 fL (79-100) Mean Corpuscular Hemoglobin 30 pg (25-35) Mean Corpuscular Hemoglobin Concent 32 g/dL (31-37) Red Cell Distribution Width 17.2 % (11.5-14.5) Platelet Count 76 x10^3/uL (140-400) Neutrophils (%) (Auto) 75 % (31-73) Lymphocytes (%) (Auto) 13 % (24-48) Monocytes (%) (Auto) 10 % (0-9) Eosinophils (%) (Auto) 1 % (0-3) Basophils (%) (Auto) 1 % (0-3) Neutrophils # (Auto) 3.1 x10^3uL (1.8-7.7) Lymphocytes # (Auto) 0.5 x10^3/uL (1.0-4.8) Monocytes # (Auto) 0.4 x10^3/uL (0.0-1.1) Eosinophils # (Auto) 0.1 x10^3/uL (0.0-0.7) Basophils # (Auto) 0.0 x10^3/uL (0.0-0.2) Sodium Level 137 mmol/L (136-145) Potassium Level 4.5 mmol/L (3.5-5.1) Chloride Level 98 mmol/L (98-107) Carbon Dioxide Level 27 mmol/L (21-32) Anion Gap 12 (6-14) Blood Urea Nitrogen 50 mg/dL (7-20) Creatinine 6.5 mg/dL (0.6-1.0) Estimated GFR (Cockcroft-Gault) 6.4 Glucose Level 220 mg/dL (70-99) Calcium Level 9.4 mg/dL (8.5-10.1) Test 12/26/16 07:35 Glucose (Fingerstick) 223 mg/dL (70-99) Laboratory Tests Test 12/25/16 12:19 12/25/16 14:14 12/25/16 15:45 12/25/16 16:41 Glucose (Fingerstick) 305 mg/dL (70-99) 212 mg/dL (70-99) 191 mg/dL (70-99) 216 mg/dL (70-99) Test 12/25/16 17:52 12/25/16 19:54 12/25/16 20:55 12/25/16 22:07 Glucose (Fingerstick) 208 mg/dL (70-99) 223 mg/dL (70-99) 206 mg/dL (70-99) 201 mg/dL (70-99) Test 12/25/16 23:02 12/26/16 00:03 12/26/16 01:07 12/26/16 02:06 Glucose (Fingerstick) 209 mg/dL (70-99) 166 mg/dL (70-99) 180 mg/dL (70-99) 190 mg/dL (70-99) Test 12/26/16 03:46 12/26/16 05:00 12/26/16 05:18 12/26/16 07:35 Glucose (Fingerstick) 190 mg/dL (70-99) 224 mg/dL (70-99) 223 mg/dL (70-99) White Blood Count 4.2 x10^3/uL (4.0-11.0) Red Blood Count 3.45 x10^6/uL (3.50-5.40) Hemoglobin 10.3 g/dL (12.0-15.5) Hematocrit 32.4 % (36.0-47.0) Mean Corpuscular Volume 94 fL (79-100) Mean Corpuscular Hemoglobin 30 pg (25-35) Mean Corpuscular Hemoglobin Concent 32 g/dL (31-37) Red Cell Distribution Width 17.2 % (11.5-14.5) Platelet Count 76 x10^3/uL (140-400) Neutrophils (%) (Auto) 75 % (31-73) Lymphocytes (%) (Auto) 13 % (24-48) Monocytes (%) (Auto) 10 % (0-9) Eosinophils (%) (Auto) 1 % (0-3) Basophils (%) (Auto) 1 % (0-3) Neutrophils # (Auto) 3.1 x10^3uL (1.8-7.7) Lymphocytes # (Auto) 0.5 x10^3/uL (1.0-4.8) Monocytes # (Auto) 0.4 x10^3/uL (0.0-1.1) Eosinophils # (Auto) 0.1 x10^3/uL (0.0-0.7) Basophils # (Auto) 0.0 x10^3/uL (0.0-0.2) Sodium Level 137 mmol/L (136-145) Potassium Level 4.5 mmol/L (3.5-5.1) Chloride Level 98 mmol/L (98-107) Carbon Dioxide Level 27 mmol/L (21-32) Anion Gap 12 (6-14) Blood Urea Nitrogen 50 mg/dL (7-20) Creatinine 6.5 mg/dL (0.6-1.0) Estimated GFR (Cockcroft-Gault) 6.4 Glucose Level 220 mg/dL (70-99) Calcium Level 9.4 mg/dL (8.5-10.1) Medications Current Medications Insulin Human Regular (NovoLIN R VIAL) 30 unit 1X ONCE IV ; Start 12/25/16 at 09:30; Stop 12/25/16 at 11:05; Status DC Insulin Human Regular 150 ml @ 0 mls/hr 1X ONCE IV ; Start 12/25/16 at 09:30; Stop 12/25/16 at 09:31; Status Cancel Ondansetron HCl (Zofran) 4 mg PRN Q8HRS PRN IV NAUSEA/VOMITING; Start 12/25/16 at 10:15; Stop 12/26/16 at 10:14; Status DC Morphine Sulfate 2 mg PRN Q2HR PRN IV PAIN; Start 12/25/16 at 10:15; Stop 12/26 at 10:14; Status DC Acetaminophen (Tylenol) 650 mg PRN Q4HRS PRN PO FEVER; Start 12/25/16 at 10:15 ; Stop 12/26/16 at 10:14; Status DC Dextrose (Dextrose 50%-Water Syringe) 12.5 gm PRN Q15MIN PRN IV SEE COMMENTS; Start 12/25/16 at 10:15 Insulin Human Regular 150 unit/ Sodium Chloride 151.5 ml @ 0 mls/hr CONT PRN IV SEE I/O RECORD; Start 12/25/16 at 11:00 Insulin Human Regular (NovoLIN R VIAL) 15 unit 1X ONCE IV Last administered on 12/25/16 11:20; Start 12/25/16 at 11:00; Stop 12/25/16 at 11:11; Status DC Insulin Aspart (NovoLOG) 0-5 UNITS TIDWMEALS SQ Last administered on 12/26/16 08:30; Start 12/25/16 at 12:00 Insulin Human Regular 150 ml @ 0 mls/hr 1X ONCE IV Last administered on 11:32; Start 12/25/16 at 11:30; Stop 12/25/16 at 11:31; Status DC Aspirin (Ecotrin) 81 mg DAILYWBKFT PO ; Start 12/26/16 at 08:00 Carvedilol (Coreg) 12.5 mg BIDWMEALS PO Last administered on 12/25/16 17:32; Start 12/25/16 at 17:00 Vitamin B Complex/ Vitamin C (Amaya-Amie) 1 tab DAILY PO ; Start 12/26/16 at 09: 00 Glipizide (Glucotrol) 5 mg DAILYWBKFT PO ; Start 12/26/16 at 08:00 Losartan Potassium (Cozaar) 100 mg DAILY PO ; Start 12/26/16 at 09:00 Sevelamer Carbonate (Renvela) 1,600 mg TIDWMEALS PO Last administered on 17:32; Start 12/25/16 at 17:00 Doxazosin Mesylate (Cardura) 8 mg DAILY PO ; Start 12/26/16 at 09:00 Gabapentin (Neurontin) 300 mg QHS PO Last administered on 12/25/16 20:38; Start 12/25/16 at 21:00 Atorvastatin Calcium (Lipitor) 10 mg QHS PO Last administered on 12/25/16t 20: 38; Start 12/25/16 at 21:00 Sodium Chloride 1,000 ml @ 1,000 mls/hr Q1H PRN IV hypotension; Start 12/26/16 at 08:02; Stop 12/26/16 at 14:01 Diphenhydramine HCl (Benadryl) 25 mg 1X PRN PRN IV ITCHING; Start 12/26/16 at 08:15; Stop 12/27/16 at 08:14 Diphenhydramine HCl (Benadryl) 25 mg 1X PRN PRN IV ITCHING; Start 12/26/16 at 08:15; Stop 12/27/16 at 08:14 Labetalol HCl (Normodyne) 10 mg PRN Q1HR PRN IVP SBP > 180; Start 12/26/16 at 08:15; Stop 12/27/16 at 08:14 Sodium Chloride 1,000 ml @ 400 mls/hr Q2H30M PRN IV PATENCY; Start 12/26/16 at 08:02; Stop 12/26/16 at 20:01 Info (PHARMACY MONITORING -- do not chart) 1 each PRN DAILY PRN MC SEE COMMENTS ; Start 12/26/16 at 08:15 Info (PHARMACY MONITORING -- do not chart) 1 each PRN DAILY PRN MC SEE COMMENTS ; Start 12/26/16 at 08:15; Status UNV Active Scripts Active Keflex (Cephalexin) 500 Mg Capsule 1 Cap PO TID n/a Cozaar (Losartan Potassium) 50 Mg Tablet 100 Mg PO DAILY Reported Glipizide 5 Mg Tablet 1 Tab PO DAILY Carvedilol 12.5 Mg Tablet 1 Tab PO BID Aspir 81 (Aspirin) 81 Mg Tablet.dr 1 Tab PO DAILY Gabapentin 300 Mg Capsule 300 Mg PO HS Renvela (Sevelamer Carbonate) 800 Mg Tablet 2 Tab PO TID Nephro-Amie Tablet (Folic Acid/Vitamin B Comp W-C) 0.8 Mg Tablet 1 Tab PO DAILY Doxazosin Mesylate 8 Mg Tablet 1 Tab PO DAILY Lovastatin 40 Mg Tablet 1 Tab PO DAILY Vitals/I & O Vital Sign - Last 24 Hours 12/25/16 12/25/16 12/25/16 12/25/16 11:45 12:16 14:15 17:32 Temp 97.7 98.2 97.7 98.2 Pulse 70 71 70 70 Resp 18 19 20 B/P (MAP) 125/55 (78) 147/64 (91) 128/58 (81) 128/58 Pulse Ox 94 95 97 O2 Delivery Room Air Room Air Room Air 12/25/16 12/25/16 12/25/16 12/26/16 19:58 19:59 22:05 02:08 Temp 98.5 97.9 97.3 98.5 97.9 97.3 Pulse 76 76 68 Resp 16 16 18 B/P (MAP) 136/66 (89) 140/63 (88) 100/56 (71) Pulse Ox 93 95 93 O2 Delivery Room Air Room Air Room Air Room Air 12/26/16 07:32 Temp 98.0 98.0 Pulse 66 Resp 19 B/P (MAP) 137/65 (89) Pulse Ox 95 O2 Delivery Room Air Intake and Output 12/25/16 12/25/16 12/26/16 15:00 23:00 07:00 Intake Total 500 ml 0 ml Balance 500 ml 0 ml KARYN JUDD MD Dec 26, 2016 11:31
[2016-12-26 14:29] VITALS: BP 139/62
[2016-12-26] MEDS: ASPIRIN ENTERIC COATED 81 MG TABLET.DR. PO SCH (14:49)
[2016-12-26] MEDS: glipiZIDE 5 MG TABLET PO SCH (14:49)
[2016-12-26] MEDS: FOLIC/VIT B COMP W-C (RENAL) TABLET. PO SCH (14:49)
[2016-12-26] MEDS: DOXAZOSIN MESYLATE 4 MG TABLET. PO SCH (14:50)
[2016-12-26 19:10] VITALS: BP 144/67
[2016-12-26] MEDS: GABAPENTIN 300 MG CAPSULE. PO SCH (20:52)
[2016-12-26] MEDS: ATORVASTATIN CALCIUM 10 MG TABLET. PO SCH (20:52)
[2016-12-26] MEDS ORDERED: INSULIN DETEMIR 300 UNITS/3 ML INSULN.PEN. SQ SCH (21:00)
[2016-12-26 23:25] VITALS: BP 138/65
[2016-12-27 03:17] VITALS: BP 122/60
[2016-12-27 05:16] LABS: CREATININE 4.9 mg/dL (0.6-1.0); GFR 8.9; POTASSIUM 4.7 mmol/L (3.5-5.1)
[2016-12-27 07:15] VITALS: BP 126/59
[2016-12-27] MEDS: glipiZIDE 5 MG TABLET PO SCH (08:55)
[2016-12-27] MEDS: SEVELAMER CARBONATE 800 MG TABLET. PO SCH ×2 (08:55→11:31)
[2016-12-27] MEDS: LOSARTAN POTASSIUM 50 MG TABLET. PO SCH (08:55)
[2016-12-27] MEDS: ASPIRIN ENTERIC COATED 81 MG TABLET.DR. PO SCH (08:56)
[2016-12-27] MEDS: CARVEDILOL 12.5 MG TABLET. PO SCH (08:56)
[2016-12-27] MEDS: DOXAZOSIN MESYLATE 4 MG TABLET. PO SCH (08:56)
[2016-12-27] MEDS: FOLIC/VIT B COMP W-C (RENAL) TABLET. PO SCH (08:56)
[2016-12-27] MEDS: INSULIN ASPART 300 UNITS/3 ML INSULN.PEN SQ SCH ×2 (09:00→11:34)
[2016-12-27] MEDS ORDERED: INSULIN DETEMIR 300 UNITS/3 ML INSULN.PEN. SQ ONE (09:45)
[2016-12-27 11:00] VITALS: BP 130/62
[2016-12-27] MEDS ORDERED: GLIP5TAB10 PO (11:43)
[2016-12-27] MEDS ORDERED: INSU100V13 SQ (11:43)
--- NOTE | 2016-12-27 11:46 | PDOC3 ---
Discharge Summary Visit Information Date of Admission: Dec 25, 2016 Date of Discharge: Dec 27, 2016 Admitting Diagnosis Comment: 1. s/p HONK 2. DM2 on OHA with hgba1c 2014 3. 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 AOCD 6. Overweight BMI 39 Final Diagnosis Problems Medical Problems: (1) Altered mental status Status: Acute (2) Elevated brain natriuretic peptide (BNP) level Status: Acute (3) End stage renal disease Status: Acute (4) Hyperglycemia Status: Acute Brief Hospital Course Allergies Allergies Coded Allergies Type Severity Reaction Last Updated Verified No Known Drug Allergies 12/05/13 No Vital Signs Vital Signs Date Time Temp Pulse Resp B/P (MAP) Pulse Ox O2 Delivery O2 Flow Rate FiO2 12/27/16 08:56 73 126/59 12/27/16 08:00 Room Air 12/27/16 07:15 98.4 18 98 98.4 Lab Results Laboratory Tests Test 12/25/16 12:19 12/25/16 14:14 12/25/16 15:45 12/25/16 16:41 Glucose (Fingerstick) 305 mg/dL (70-99) 212 mg/dL (70-99) 191 mg/dL (70-99) 216 mg/dL (70-99) Test 12/25/16 17:52 12/25/16 19:54 12/25/16 20:55 12/25/16 22:07 Glucose (Fingerstick) 208 mg/dL (70-99) 223 mg/dL (70-99) 206 mg/dL (70-99) 201 mg/dL (70-99) Test 12/25/16 23:02 12/26/16 00:03 12/26/16 01:07 12/26/16 02:00 Glucose (Fingerstick) 209 mg/dL (70-99) 166 mg/dL (70-99) 180 mg/dL (70-99) Hemoglobin A1c 14.1 % (4.8-5.6) Test 12/26/16 02:06 12/26/16 03:46 12/26/16 05:00 12/26/16 05:18 Glucose (Fingerstick) 190 mg/dL (70-99) 190 mg/dL (70-99) 224 mg/dL (70-99) White Blood Count 4.2 x10^3/uL (4.0-11.0) Red Blood Count 3.45 x10^6/uL (3.50-5.40) Hemoglobin 10.3 g/dL (12.0-15.5) Hematocrit 32.4 % (36.0-47.0) Mean Corpuscular Volume 94 fL (79-100) Mean Corpuscular Hemoglobin 30 pg (25-35) Mean Corpuscular Hemoglobin Concent 32 g/dL (31-37) Red Cell Distribution Width 17.2 % (11.5-14.5) Platelet Count 76 x10^3/uL (140-400) Neutrophils (%) (Auto) 75 % (31-73) Lymphocytes (%) (Auto) 13 % (24-48) Monocytes (%) (Auto) 10 % (0-9) Eosinophils (%) (Auto) 1 % (0-3) Basophils (%) (Auto) 1 % (0-3) Neutrophils # (Auto) 3.1 x10^3uL (1.8-7.7) Lymphocytes # (Auto) 0.5 x10^3/uL (1.0-4.8) Monocytes # (Auto) 0.4 x10^3/uL (0.0-1.1) Eosinophils # (Auto) 0.1 x10^3/uL (0.0-0.7) Basophils # (Auto) 0.0 x10^3/uL (0.0-0.2) Sodium Level 137 mmol/L (136-145) Potassium Level 4.5 mmol/L (3.5-5.1) Chloride Level 98 mmol/L (98-107) Carbon Dioxide Level 27 mmol/L (21-32) Anion Gap 12 (6-14) Blood Urea Nitrogen 50 mg/dL (7-20) Creatinine 6.5 mg/dL (0.6-1.0) Estimated GFR (Cockcroft-Gault) 6.4 Glucose Level 220 mg/dL (70-99) Calcium Level 9.4 mg/dL (8.5-10.1) Test 12/26/16 07:35 12/26/16 10:03 12/26/16 11:19 12/26/16 12:32 Glucose (Fingerstick) 223 mg/dL (70-99) 172 mg/dL (70-99) 125 mg/dL (70-99) 98 mg/dL (70-99) Test 12/26/16 17:11 12/26/16 20:35 12/27/16 04:00 12/27/16 07:19 Glucose (Fingerstick) 222 mg/dL (70-99) 220 mg/dL (70-99) 312 mg/dL (70-99) Sodium Level 137 mmol/L (136-145) Potassium Level 4.7 mmol/L (3.5-5.1) Chloride Level 98 mmol/L (98-107) Carbon Dioxide Level 28 mmol/L (21-32) Anion Gap 11 (6-14) Blood Urea Nitrogen 28 mg/dL (7-20) Creatinine 4.9 mg/dL (0.6-1.0) Estimated GFR (Cockcroft-Gault) 8.9 Glucose Level 359 mg/dL (70-99) Calcium Level 9.0 mg/dL (8.5-10.1) Test 12/27/16 11:23 Glucose (Fingerstick) 194 mg/dL (70-99) Laboratory Tests Test 12/26/16 12:32 12/26/16 17:11 12/26/16 20:35 12/27/16 04:00 Glucose (Fingerstick) 98 mg/dL (70-99) 222 mg/dL (70-99) 220 mg/dL (70-99) Sodium Level 137 mmol/L (136-145) Potassium Level 4.7 mmol/L (3.5-5.1) Chloride Level 98 mmol/L (98-107) Carbon Dioxide Level 28 mmol/L (21-32) Anion Gap 11 (6-14) Blood Urea Nitrogen 28 mg/dL (7-20) Creatinine 4.9 mg/dL (0.6-1.0) Estimated GFR (Cockcroft-Gault) 8.9 Glucose Level 359 mg/dL (70-99) Calcium Level 9.0 mg/dL (8.5-10.1) Test 12/27/16 07:19 12/27/16 11:23 Glucose (Fingerstick) 312 mg/dL (70-99) 194 mg/dL (70-99) Brief Hospital Course Ms. Win is a 66 old [ female, can speak sami admitted for mild HONK, Needed insulin gtt but was only running at 1-2 units an hr, NEeded to start levemir 15 qhs, On OHA glyburide 5 BID at home. Hgba1c pending,. COmpliant. I think this time she neds to start some moderate dose long acting insulin, COunselled > 50% time, Pt seen and examined Dipso: Home dw RN and pt at bedtime PRoc: none COnsults: renal She is DM 2 with ESRD HD mWF PCP Dr. Barron Discharge Information Condition at Discharge: Improved, Stable Follow Up: Weeks ([address] Barron) Disposition/Orders: D/C to Home Scheduled Aspirin (Aspir 81), 1 TAB PO DAILY, (Reported) Carvedilol (Carvedilol), 1 TAB PO BID, (Reported) Cephalexin (Keflex), 1 CAP PO TID Doxazosin Mesylate (Doxazosin Mesylate), 1 TAB PO DAILY, (Reported) Folic Acid/Vitamin B Comp W-C (Nephro-Amie Tablet), 1 TAB PO DAILY, (Reported) Gabapentin (Gabapentin), 300 MG PO HS, (Reported) Glipizide (Glipizide), 1 TAB PO DAILY, (Reported) Glipizide (Glipizide), 1 TAB PO BID Losartan Potassium (Cozaar), 100 MG PO DAILY Lovastatin (Lovastatin), 1 TAB PO DAILY, (Reported) Sevelamer Carbonate (Renvela), 2 TAB PO TID, (Reported) KARYN JUDD MD Dec 27, 2016 11:46
--- NOTE | 2016-12-27 13:45 | PDOC ---
SUBJECTIVE ROS ESRD Doign well and awaiting D/c OBJECTIVE Vital Signs Vital Signs Date Time Temp Pulse Resp B/P (MAP) Pulse Ox O2 Delivery O2 Flow Rate FiO2 12/27/16 11:00 98.4 70 18 130/62 (84) 91 Room Air 98.4 I & 0 Intake and Output 12/27/16 07:00 Intake Total 855 ml Balance 855 ml Intake Oral 850 ml IV Total 5 ml PHYSICAL EXAM Physical Exam General Appearance: Awake: Alert Oriented x 3 Neck: No JVD or JVP Chest: CTA [place] Heart: S1 S2 Abdomen - Soft NTND Extremities - No Edema DIAGNOSIS/ASSESSMENT Assessment & Plan ESRD: Current fluid and E-lyte status does not necessitate emergent need for dialysis. Will re-evaluate for dialysis in the am and continue on MWF schedule. Problems: COMMENT/RELEVANT DATA Meds Current Medications Medications (Trade) Dose Ordered Sig/Theresa Start Time Stop Time Status Last Admin Dose Admin Acetaminophen (Tylenol) 650 mg PRN Q4HRS PRN 12/25/16 10:15 12/26/16 10:14 DC Aspirin (Ecotrin) 81 mg DAILYWBKFT 12/26/16 08:00 12/27/16 08:56 81 MG Atorvastatin Calcium (Lipitor) 10 mg QHS 12/25/16 21:00 12/26/16 20:52 10 MG Carvedilol (Coreg) 12.5 mg BIDWMEALS 12/25/16 17:00 12/27/16 08:56 12.5 MG Dextrose (Dextrose 50%-Water Syringe) 12.5 gm PRN Q15MIN PRN 12/26/16 11:30 Diphenhydramine HCl (Benadryl) 25 mg 1X PRN PRN 12/26/16 08:15 12/27/16 08:14 DC Doxazosin Mesylate (Cardura) 8 mg DAILY 12/26/16 09:00 12/27/16 08:56 8 MG Gabapentin (Neurontin) 300 mg QHS 12/25/16 21:00 12/26/16 20:52 300 MG Glipizide (Glucotrol) 5 mg BIDWMEALS 12/27/16 17:00 Info (PHARMACY MONITORING -- do not chart) 1 each PRN DAILY PRN 12/26/16 08:15 UNV Insulin Aspart (NovoLOG) 0-9 UNITS TIDWMEALS 12/26/16 12:00 12/27/16 11:34 4 UNITS Insulin Detemir (Levemir) 15 units ONCE ONCE 12/27/16 09:45 12/27/16 11:43 DC Insulin Human Regular 150 ml @ 0 mls/hr 1X ONCE 12/25/16 11:30 12/26/16 11:28 DC 12/25/16 11:32 0 MLS/HR Insulin Human Regular (NovoLIN R VIAL) 15 unit 1X ONCE 12/25/16 11:00 12/25/16 11:11 DC 12/25/16 11:20 15 UNIT Insulin Human Regular 150 unit/ Sodium Chloride 151.5 ml @ 0 mls/hr CONT PRN 12/25/16 11:00 12/26/16 11:28 DC Labetalol HCl (Normodyne) 10 mg PRN Q1HR PRN 12/26/16 08:15 12/27/16 08:14 DC Losartan Potassium (Cozaar) 100 mg DAILY 12/26/16 09:00 12/27/16 08:55 100 MG Morphine Sulfate 2 mg PRN Q2HR PRN 12/25/16 10:15 12/26/16 10:14 DC Ondansetron HCl (Zofran) 4 mg PRN Q8HRS PRN 12/25/16 10:15 12/26/16 10:14 DC Sevelamer Carbonate (Renvela) 1,600 mg TIDWMEALS 12/25/16 17:00 12/27/16 11:31 1,600 MG Sodium Chloride 1,000 ml @ 400 mls/hr Q2H30M PRN 12/26/16 08:02 12/26/16 20:01 DC Vitamin B Complex/ Vitamin C (Amaya-Amie) 1 tab DAILY 12/26/16 09:00 12/27/16 08:56 1 TAB Lab Laboratory Tests Test 12/26/16 17:11 12/26/16 20:35 12/27/16 04:00 12/27/16 07:19 Glucose (Fingerstick) 222 mg/dL (70-99) 220 mg/dL (70-99) 312 mg/dL (70-99) Sodium Level 137 mmol/L (136-145) Potassium Level 4.7 mmol/L (3.5-5.1) Chloride Level 98 mmol/L (98-107) Carbon Dioxide Level 28 mmol/L (21-32) Anion Gap 11 (6-14) Blood Urea Nitrogen 28 mg/dL (7-20) Creatinine 4.9 mg/dL (0.6-1.0) Estimated GFR (Cockcroft-Gault) 8.9 Glucose Level 359 mg/dL (70-99) Calcium Level 9.0 mg/dL (8.5-10.1) Test 12/27/16 11:23 Glucose (Fingerstick) 194 mg/dL (70-99) CLEMENTE AVILES MD Dec 27, 2016 13:45
[2016-12-27] MEDS ORDERED: glipiZIDE 5 MG TABLET PO SCH (17:00)
== END 2016-12-27 14:38 | disposition home or self-care (01) | DRG 637 ==
LOC: ER 07:48 → 2 SOUTH 08:51
PROVIDERS: ADMIT Internal Medicine; ATTEND Internal Medicine
PROC: 5A1D00Z (ICD-10-PCS; principal; 2016-12-26)
DX: E11.00 Type 2 diabetes mellitus with hyperosmolarity without nonketotic hyperglycemic-hyperosmolar coma (NKHHC) (principal); N18.6 End stage renal disease; I13.2 Hypertensive heart and chronic kidney disease with heart failure and with stage 5 chronic kidney disease, or end stage renal disease; E11.65 Type 2 diabetes mellitus with hyperglycemia; E11.22 Type 2 diabetes mellitus with diabetic chronic kidney disease; D63.8 Anemia in other chronic diseases classified elsewhere; E78.5 Hyperlipidemia, unspecified; E66.9 Obesity, unspecified; E78.00 Pure hypercholesterolemia, unspecified; W19.XXXA Unspecified fall, initial encounter; I50.9 Heart failure, unspecified; Z83.3 Family history of diabetes mellitus; Z99.2 Dependence on renal dialysis; Z68.38 Body mass index [BMI] 38.0-38.9, adult; Z79.899 Other long term (current) drug therapy; Z79.1 Long term (current) use of non-steroidal anti-inflammatories (NSAID); Z79.2 Long term (current) use of antibiotics; Z79.4 Long term (current) use of insulin; Y93.89 Activity, other specified; Y92.89 Other specified places as the place of occurrence of the external cause; Y99.8 Other external cause status; Z79.82 Long term (current) use of aspirin
CPT/HCPCS: 36415; 70450; 71010; 80048; 80053; 82962; 83036; 83880; 84484; 85007; 85027; 85610; 85730; 93005; 96374; 96375; J1815; 99291-25

== ENCOUNTER 2017-01-15 08:25 | Inpatient (IN) | payer MEDICARE ==
[~2017-01-15] VITALS: Ht 157.5 cm; Wt 97.2 kg
[~2017-01-15 08:25] MED LIST changes: +INSU100V13 SQ
[2017-01-15 09:01] LABS: BASO % 1 % (0-3); EOS % 1 % (0-3); HEMATOCRIT 35.8 % (36.0-47.0); HEMOGLOBIN 11.3 g/dL (12.0-15.5); LYMPH # 0.3 x10^3/uL (1.0-4.8); LYMPH % 6 % (24-48); MEAN CORPUSCULAR HEMOGLOBIN 30 pg (25-35); MEAN CORPUSCULAR HGB CONC 31 g/dL (31-37); MEAN CORPUSCULAR VOLUME 94 fL (79-100); MONO % 7 % (0-9); NEUT % 86 % (31-73); PLATELET COUNT 97 x10^3/uL (140-400); RED BLOOD COUNT 3.81 x10^6/uL (3.50-5.40); RED CELL DISTRIBUTION WIDTH 17.4 % (11.5-14.5); WHITE BLOOD COUNT 5.4 x10^3/uL (4.0-11.0)
[2017-01-15 09:11] LABS: CALCIUM 9.8 mg/dL (8.5-10.1); CREATININE 5.2 mg/dL (0.6-1.0); GFR 8.3; POTASSIUM 5.2 mmol/L (3.5-5.1)
--- NOTE | 2017-01-15 09:16 | RAD ---
Left lower extremity venous ultrasound, 01/15/2017 : History: Leg swelling and cellulitis Duplex evaluation including grayscale, color flow and spectral Doppler analysis was performed. The femoral and popliteal veins show no filling defects to suggest DVT. The visualized calf veins are unremarkable. IMPRESSION: There is no sonographic evidence of deep vein thrombosis in the left lower extremity
[2017-01-15 09:18] LABS: ALBUMIN 3.2 g/dL (3.4-5.0); ALBUMIN/GLOBULIN RATIO 0.7 (1.0-1.7); TOTAL BILIRUBIN 0.4 mg/dL (0.2-1.0); TOTAL PROTEIN 7.7 g/dL (6.4-8.2)
--- NOTE | 2017-01-15 09:29 | PHYS DOC ---
Past Medical History Past Medical History: CAD, CHF, Diabetes-Type II, High Cholesterol, Hypertension, Renal Disease, Renal Failure Past Surgical History: Other Additional Past Surgical Histo: FISTULA LUE Alcohol Use: None Drug Use: None Adult General Chief Complaint Chief Complaint: LOWER EXTREMITY SWELLING [facility] HPI Patient is a 66 year old female resents to the emergency department with an abscess on her right lateral part of her breast. Patient also has cellulitis in the left lower leg with a diabetic ulcers noted. Patient does have swelling noted in the left lower leg. Patient states her glucoses been running approximately 200 at home. She is a dialysis patient which she has dialysis on Thursday and Thursday. Patient denies any fever, chills or any nausea or vomiting. She denies any drainage or discharge coming from either areas. Review of Systems Review of Systems Constitutional: Denies fever or chills [] Eyes: Denies change in visual acuity, redness, or eye pain [] HENT: Denies nasal congestion or sore throat [] Respiratory: Denies cough or shortness of breath [] Cardiovascular: No additional information not addressed in HPI [] GI: Denies abdominal pain, nausea, vomiting, bloody stools or diarrhea [] : Denies dysuria or hematuria [] Musculoskeletal: Denies back pain or joint pain [] Integument: Denies rash or skin lesions. Abscess right lateral breast, cellulitis with diabetic ulcers left lower leg. Neurologic: Denies headache, focal weakness or sensory changes [] Endocrine: Denies polyuria or polydipsia [] Allergies Allergies Allergies Coded Allergies Type Severity Reaction Last Updated Verified No Known Drug Allergies 12/05/13 No Physical Exam Physical Exam Constitutional: Well developed, well nourished, no acute distress, non-toxic appearance. [] HENT: Normocephalic, atraumatic, bilateral external ears normal, oropharynx moist, no oral exudates, nose normal. [] Eyes: PERRLA, EOMI, conjunctiva normal, no discharge. [] Neck: Normal range of motion, no tenderness, supple, no stridor. [] Cardiovascular:Heart rate regular rhythm, no murmur [] Lungs & Thorax: Bilateral breath sounds clear to auscultation [] Skin: Warm, dry, no erythema, no rash. She'll with an area on the right lateral breast that appears to be the size of a half dollar and is hard tender red with no drainage or discharge noted. Patient with 2 diabetic ulcers on the left lower leg with redness and bruising noted around the outer part of the area. Lower extremity appears to be swollen. Peripheral pulses palpable. Patient with good sensation to the feet. Back: No tenderness Extremities: No tenderness, no cyanosis, no clubbing, ROM intact, no edema. [] Neurologic: Alert and oriented X 3, normal motor function, normal sensory function, no focal deficits noted. [] Psychologic: Affect normal, judgement normal, mood normal. [] Current Patient Data Vital Signs Vital Signs Date Time Temp Pulse Resp B/P (MAP) Pulse Ox O2 Delivery O2 Flow Rate FiO2 01/15/17 08:30 98.3 62 16 151/65 (93) 98 Room Air 98.3 Lab Values EKG EKG [] Radiology/Procedures Radiology/Procedures [] Course & Med Decision Making Course & Med Decision Making Pertinent Labs and Imaging studies reviewed. (See chart for details) Spoke with Dr. Mcmahan regards to patient being admitted for left lower leg cellulitis and diabetic ulcers as well as an abscess to the right lateral breast. CBC was normal at this time. Cultures have been obtained. She'll be started on clindamycin. Dr. Mcmahan agrees with admission for this patient as well as ID consult. Patient agrees with admission at this time. Glucoses are elevated. Dr. Mcmahan is aware that this is a dialysis patient she has dialysis on Thursday. [] Dragon Disclaimer Dragon Disclaimer This electronic medical record was generated, in whole or in part, using a voice recognition dictation system. Departure Departure Impression: Primary Impression: Cellulitis Additional Impressions: Diabetic calf ulcer Abscess of right breast Disposition: ADMITTED INPATIENT Admitting Physician: Martin Mcmahan Condition: STABLE Referrals: CATHIE CAMPBELL MD (PCP) Problem Qualifiers SIVAN PINEDO TARIFF COUNSEL Jan 15, 2017 09:29
[2017-01-15] MEDS ORDERED: CLINDAMYCIN 600MG PREMIX 50 ML IV ONE (10:00)
[2017-01-15 10:09] LABS: ANISOCYTOSIS SLIGHT; PLT ESTIMATE DECREASED (ADEQUATE)
--- NOTE | 2017-01-15 10:41 | ACF ---
Admit Criteria Forms Admit Criteria Forms Admit Criteria Forms CELLULITIS Clinical Indications for Admission to Inpatient Care (Place 'X' for any and all applicable criteria): Admission is indicated for ANY ONE of the following(1)(2)(3)(4)(5): [ ]I. Limb-threatening infection [X ]II. High-risk comorbid condition as indicated by ANY ONE of the following: [X ]a) Uncontrolled diabetes (eg, HbA1c greater than 10% (0.1)) [ ]b) Cirrhosis [ ]c) Neutropenia [ ]d) Asplenia [ ]e) Immunosuppression [ ]f) Symptomatic heart failure [ ]III. Failure of outpatient therapy as indicated by ALL of the following: [ ]a) Progression or no improvement after adequate trial (minimum of 48 hours, with longer period for stable lower extremity infection) [ ]b) Adequate antibiotic regimen as indicated by use of ANY ONE of the following: [ ]i) First-generation cephalosporin (e.g., cephalexin) [ ]ii) Antistaphylococcal penicillin (e.g., dicloxacillin) [ ]iii) Penicillin-allergic patient regimen (clindamycin, extended-spectrum fluoroquinolone, or doxycycline) [ ]iv) Resistant organism (eg, methicillin-resistant Staphylococcus aureus) regimen (6) [ ]c) Outpatient intravenous therapy regimen is not appropriate due to ANY ONE of the following. (7)(8)(9)(10): [ ]i) It was tried and was not successful (eg, progression of infection). [ ]ii) It is not available or cannot be arranged in a clinically appropriate time frame (e.g., the next day). [ ]iii) Clinical presentation (eg, acuity of infection, rapidity of progression, confirmed or suspected bacteremia) is judged to require ALL of the following: [ ]1) Immediate initiation of intravenous therapy ( eg, cannot wait for next day) [ ]2) Intensity of patient monitoring and observation (eg, vital sign measurement, checks for infection progression) that cannot be provided at other than inpatient level of care [ ]IV. Mental status changes [ ]V. Bacteremia [ ]. Hemodynamic instability [ ]VII. Suspected necrotizing soft tissue infection (e.g., gas in tissue)(11)( 12) [ ]VIII. Orbital infection (13)(14) [ ]IX. Associated surgical procedure (e.g., abscess drainage, debridement) not amenable to outpatient, emergency department, or observation care [ ]X. Cutaneous gangrene [ ]XI. High fever (temperature greater than 39.5 degrees C (103.1 degrees F) (oral)) not responsive to outpatient, emergency department, or observation care therapy [ ]XIII. Inpatient admission required rather than observation care (Also use Cellulitis: Observation Care as appropriate) because of ANY ONE of the following : [ ]a) Periorbital or perineal infection that is severe or worsening [ ]b) Severe pain requiring acute inpatient management [ ]c) IV fluid to replace significant ongoing (e.g., for over 24 hours) losses (greater than 3L/m2 per day) [ ]d) Compartment syndrome monitoring (17) [ ]e) Strict or protective (eg, laminar flow) isolation [ ]f) Urgent debridement or skin grafting [ ]g) Bone or joint debridement [ ]h) Immediate inpatient surgery [ ]i) Other condition, treatment or monitoring requiring inpatient admission Extended stay beyond goal length of stay may be needed for (1)(18): [ ]a) Necrotizing soft tissue infection or fasciitis [ ]b) Gram-negative infection [ ]c) Methicillin-resistant Staphylococcal aureus (MRSA) infection [ ]d) Peripheral venous insufficiency with cellulitis [ ]e) Extensive edema [ ]f) Sepsis or continued Hemodynamic instability [ ]g) Continued high fever or mental status change [ ]h) Bacteremia [ ]i) Active serious comorbid conditions ( eg, heart failure, renal insufficiency) The original [facility] content created by [employer] has been revised. The portions of the content which have been revised are identified through the use of italic text or in bold, and [facility] has neither reviewed nor approved the modified material. All other unmodified content is copyright [facility] Please see references footnoted in the original [facility] [place] edition 2016 JOVANNY CORTES Jan 15, 2017 10:41
--- NOTE | 2017-01-15 11:30 | PDOC1 ---
History and Physical Date of Admission Date of Admission DATE: 01/15/17 TIME: 11:27 Identification/Chief Complaint Chief Complaint Breast lesion Leg cellulitis ESRD Problems: History of Present Illness History of Present Illness Elderly female well known to us with ESRD on HD. Presents with complaints of a R breast lesion and L leg cellulitis Also has Hyperkalemia and Hyperglycemia DW RN and ER doc Pt seen and examined Total time 34 minutes Current Medications Current Medications Current Medications Clindamycin Phosphate 50 ml @ 100 mls/hr Q8HRS IV ; Start 01/15/17 at 16:00 Clindamycin Phosphate 50 ml @ 100 mls/hr 1X ONCE IV Last administered on 01/15t 10:13; Start 01/15/17 at 10:00; Stop 01/15/17 at 10:29; Status DC Active Scripts Active Glipizide 5 Mg Tablet 1 Tab PO BID Levemir (Insulin Detemir) 100 Unit/1 Ml Vial 15 Unit SQ QHS 30 Days Keflex (Cephalexin) 500 Mg Capsule 1 Cap PO TID n/a Cozaar (Losartan Potassium) 50 Mg Tablet 100 Mg PO DAILY Reported Carvedilol 12.5 Mg Tablet 1 Tab PO BID Aspir 81 (Aspirin) 81 Mg Tablet.dr 1 Tab PO DAILY Gabapentin 300 Mg Capsule 300 Mg PO HS Renvela (Sevelamer Carbonate) 800 Mg Tablet 2 Tab PO TID Nephro-Amie Tablet (Folic Acid/Vitamin B Comp W-C) 0.8 Mg Tablet 1 Tab PO DAILY Doxazosin Mesylate 8 Mg Tablet 1 Tab PO DAILY Lovastatin 40 Mg Tablet 1 Tab PO DAILY Allergies Allergies: Coded Allergies: No Known Drug Allergies (Unverified , 12/05/13) Vitals Vitals Vital Signs Date Time Temp Pulse Resp B/P (MAP) Pulse Ox O2 Delivery O2 Flow Rate FiO2 01/15/17 08:30 98.3 150/72 (98) 98 Room Air 98.3 Labs Labs Laboratory Tests Test 01/15/17 08:45 White Blood Count 5.4 x10^3/uL (4.0-11.0) Red Blood Count 3.81 x10^6/uL (3.50-5.40) Hemoglobin 11.3 g/dL (12.0-15.5) Hematocrit 35.8 % (36.0-47.0) Mean Corpuscular Volume 94 fL (79-100) Mean Corpuscular Hemoglobin 30 pg (25-35) Mean Corpuscular Hemoglobin Concent 31 g/dL (31-37) Red Cell Distribution Width 17.4 % (11.5-14.5) Platelet Count 97 x10^3/uL (140-400) Neutrophils (%) (Auto) 86 % (31-73) Lymphocytes (%) (Auto) 6 % (24-48) Monocytes (%) (Auto) 7 % (0-9) Eosinophils (%) (Auto) 1 % (0-3) Basophils (%) (Auto) 1 % (0-3) Neutrophils # (Auto) 4.6 x10^3uL (1.8-7.7) Lymphocytes # (Auto) 0.3 x10^3/uL (1.0-4.8) Monocytes # (Auto) 0.4 x10^3/uL (0.0-1.1) Eosinophils # (Auto) 0.0 x10^3/uL (0.0-0.7) Basophils # (Auto) 0.0 x10^3/uL (0.0-0.2) Segmented Neutrophils % 87 % (35-66) Band Neutrophils % 1 % (0-9) Lymphocytes % 5 % (24-48) Monocytes % 7 % (0-10) Platelet Estimate Decreased (ADEQUATE) Anisocytosis Slight Sodium Level 136 mmol/L (136-145) Potassium Level 5.2 mmol/L (3.5-5.1) Chloride Level 96 mmol/L (98-107) Carbon Dioxide Level 30 mmol/L (21-32) Anion Gap 10 (6-14) Blood Urea Nitrogen 37 mg/dL (7-20) Creatinine 5.2 mg/dL (0.6-1.0) Estimated GFR (Cockcroft-Gault) 8.3 BUN/Creatinine Ratio 7 (6-20) Glucose Level 324 mg/dL (70-99) Calcium Level 9.8 mg/dL (8.5-10.1) Total Bilirubin 0.4 mg/dL (0.2-1.0) Aspartate Amino Transf (AST/SGOT) 11 U/L (15-37) Alanine Aminotransferase (ALT/SGPT) 14 U/L (14-59) Alkaline Phosphatase 84 U/L (46-116) Total Protein 7.7 g/dL (6.4-8.2) Albumin 3.2 g/dL (3.4-5.0) Albumin/Globulin Ratio 0.7 (1.0-1.7) Laboratory Tests Test 01/15/17 08:45 White Blood Count 5.4 x10^3/uL (4.0-11.0) Red Blood Count 3.81 x10^6/uL (3.50-5.40) Hemoglobin 11.3 g/dL (12.0-15.5) Hematocrit 35.8 % (36.0-47.0) Mean Corpuscular Volume 94 fL (79-100) Mean Corpuscular Hemoglobin 30 pg (25-35) Mean Corpuscular Hemoglobin Concent 31 g/dL (31-37) Red Cell Distribution Width 17.4 % (11.5-14.5) Platelet Count 97 x10^3/uL (140-400) Neutrophils (%) (Auto) 86 % (31-73) Lymphocytes (%) (Auto) 6 % (24-48) Monocytes (%) (Auto) 7 % (0-9) Eosinophils (%) (Auto) 1 % (0-3) Basophils (%) (Auto) 1 % (0-3) Neutrophils # (Auto) 4.6 x10^3uL (1.8-7.7) Lymphocytes # (Auto) 0.3 x10^3/uL (1.0-4.8) Monocytes # (Auto) 0.4 x10^3/uL (0.0-1.1) Eosinophils # (Auto) 0.0 x10^3/uL (0.0-0.7) Basophils # (Auto) 0.0 x10^3/uL (0.0-0.2) Segmented Neutrophils % 87 % (35-66) Band Neutrophils % 1 % (0-9) Lymphocytes % 5 % (24-48) Monocytes % 7 % (0-10) Platelet Estimate Decreased (ADEQUATE) Anisocytosis Slight Sodium Level 136 mmol/L (136-145) Potassium Level 5.2 mmol/L (3.5-5.1) Chloride Level 96 mmol/L (98-107) Carbon Dioxide Level 30 mmol/L (21-32) Anion Gap 10 (6-14) Blood Urea Nitrogen 37 mg/dL (7-20) Creatinine 5.2 mg/dL (0.6-1.0) Estimated GFR (Cockcroft-Gault) 8.3 BUN/Creatinine Ratio 7 (6-20) Glucose Level 324 mg/dL (70-99) Calcium Level 9.8 mg/dL (8.5-10.1) Total Bilirubin 0.4 mg/dL (0.2-1.0) Aspartate Amino Transf (AST/SGOT) 11 U/L (15-37) Alanine Aminotransferase (ALT/SGPT) 14 U/L (14-59) Alkaline Phosphatase 84 U/L (46-116) Total Protein 7.7 g/dL (6.4-8.2) Albumin 3.2 g/dL (3.4-5.0) Albumin/Globulin Ratio 0.7 (1.0-1.7) VTE Prophylaxis Ordered VTE Prophylaxis Devices: Yes VTE Pharmacological Prophylaxi: Yes REILLY JACOBO III DO Jan 15, 2017 11:30
[2017-01-15 12:00] VITALS: BP 138/66
[2017-01-15] MEDS: LOSARTAN POTASSIUM 50 MG TABLET. PO SCH (12:51)
[2017-01-15] MEDS: SEVELAMER CARBONATE 800 MG TABLET. PO SCH ×2 (12:51→17:55)
[2017-01-15] MEDS: ASPIRIN ENTERIC COATED 81 MG TABLET.DR. PO SCH (12:52)
[2017-01-15] MEDS: CARVEDILOL 12.5 MG TABLET. PO SCH ×2 (12:52→17:55)
[2017-01-15] MEDS: glipiZIDE 5 MG TABLET PO SCH ×2 (12:52→20:39)
[2017-01-15] MEDS: DOXAZOSIN MESYLATE 4 MG TABLET. PO SCH (12:52)
[2017-01-15] MEDS: FOLIC/VIT B COMP W-C (RENAL) TABLET. PO SCH (12:52)
[2017-01-15] MEDS ORDERED: NON FORMULARY ITEM (Cephalexin (Keflex) 1 CAP) PO SCH (14:00)
[2017-01-15 15:00] VITALS: BP 125/53
--- NOTE | 2017-01-15 17:02 | PDOC2 ---
CONSULT Date of Consult Date of Consult DATE: 01/15/17 TIME: 16:56 Reason for Consult Reason for Consult: Right breast mass/abscess Referring Physician Referring Physician: Dr Mcmahan Identification/Chief Complaint Chief Complaint Right breast mass/abscess Problems: History of Present Illness Reason for Visit: Patient is a 66 year old female resents to the emergency department 01/15/17 with an abscess on her right lateral part of her breast. Patient also has cellulitis in the left lower leg with a diabetic ulcers noted. Patient does have swelling noted in the left lower leg. Patient states her glucoses been running approximately 200 at home. She is a dialysis patient which she has dialysis on Thursday and Thursday. Patient denies any fever, chills or any nausea or vomiting. She denies any drainage or discharge coming from either areas. I was asked to evaluate right breast mass/abscess Current Problem List Problem List Problems Medical Problems: (1) Abscess of right breast Status: Acute (2) Diabetic calf ulcer Status: Acute Current Medications Current Medications Current Medications Clindamycin Phosphate 50 ml @ 100 mls/hr Q8HRS IV ; Start 01/15/17 at 16:00 Clindamycin Phosphate 50 ml @ 100 mls/hr 1X ONCE IV Last administered on 01/15 10:13; Start 01/15/17 at 10:00; Stop 01/15/17 at 10:29; Status DC Aspirin (Ecotrin) 81 mg DAILY PO Last administered on 01/15/17 12:52; Start at 12:00 Carvedilol (Coreg) 12.5 mg BIDWMEALS PO Last administered on 01/15/17 12:52; Start 01/15/17 at 12:00 Vitamin B Complex/ Vitamin C (Amaya-Amie) 1 tab DAILY PO Last administered on 12:52; Start 01/15/17 at 12:00 Glipizide (Glucotrol) 5 mg BID PO Last administered on 01/15/17 12:52; Start 01/15/17 at 12:00 Losartan Potassium (Cozaar) 100 mg DAILY PO Last administered on 01/15/17 12: 51; Start 01/15/17 at 12:00 Sevelamer Carbonate (Renvela) 1,600 mg TIDWMEALS PO Last administered on 12:51; Start 01/15/17 at 12:00 Non-Formulary Medication 1 cap TID PO ; Start 01/15/17 at 14:00; Status UNV Doxazosin Mesylate (Cardura) 8 mg DAILY PO Last administered on 01/15/17 12:52 ; Start 01/15/17 at 12:00 Gabapentin (Neurontin) 300 mg QHS PO ; Start 01/15/17 at 21:00 Insulin Detemir (Levemir) 15 units QHS SQ ; Start 01/15/17 at 21:00 Atorvastatin Calcium (Lipitor) 10 mg QHS PO ; Start 01/15/17 at 21:00 Active Scripts Active Glipizide 5 Mg Tablet 1 Tab PO BID Levemir (Insulin Detemir) 100 Unit/1 Ml Vial 15 Unit SQ QHS 30 Days Keflex (Cephalexin) 500 Mg Capsule 1 Cap PO TID n/a Cozaar (Losartan Potassium) 50 Mg Tablet 100 Mg PO DAILY Reported Carvedilol 12.5 Mg Tablet 1 Tab PO BID Aspir 81 (Aspirin) 81 Mg Tablet.dr 1 Tab PO DAILY Gabapentin 300 Mg Capsule 300 Mg PO HS Renvela (Sevelamer Carbonate) 800 Mg Tablet 2 Tab PO TID Nephro-Amie Tablet (Folic Acid/Vitamin B Comp W-C) 0.8 Mg Tablet 1 Tab PO DAILY Doxazosin Mesylate 8 Mg Tablet 1 Tab PO DAILY Lovastatin 40 Mg Tablet 1 Tab PO DAILY Allergies Allergies: Coded Allergies: No Known Drug Allergies (Unverified , 12/05/13) ROS Review of System A 12 point review of systems was performed and pertinent positives are mentioned in the history of presenting illness and the rest of the system review is negative. Physical Exam General: Alert, Oriented X3, Cooperative, No acute distress HEENT: Atraumatic Lungs: Clear to auscultation Heart: Normal S1, Normal S2 Abdomen: No tenderness Extremities: No clubbing Skin: No rashes Neuro: Normal speech Psych/Mental Status: Mental status NL MUSCULOSKELETAL: No deformity Vitals VITALS Vital Signs Date Time Temp Pulse Resp B/P (MAP) Pulse Ox O2 Delivery O2 Flow Rate FiO2 01/15/17 15:00 97.6 67 20 125/53 (77) 97 Room Air 97.6 Labs Labs Laboratory Tests Test 01/15/17 08:45 01/15/17 11:44 01/15/17 16:30 White Blood Count 5.4 x10^3/uL (4.0-11.0) Red Blood Count 3.81 x10^6/uL (3.50-5.40) Hemoglobin 11.3 g/dL (12.0-15.5) Hematocrit 35.8 % (36.0-47.0) Mean Corpuscular Volume 94 fL (79-100) Mean Corpuscular Hemoglobin 30 pg (25-35) Mean Corpuscular Hemoglobin Concent 31 g/dL (31-37) Red Cell Distribution Width 17.4 % (11.5-14.5) Platelet Count 97 x10^3/uL (140-400) Neutrophils (%) (Auto) 86 % (31-73) Lymphocytes (%) (Auto) 6 % (24-48) Monocytes (%) (Auto) 7 % (0-9) Eosinophils (%) (Auto) 1 % (0-3) Basophils (%) (Auto) 1 % (0-3) Neutrophils # (Auto) 4.6 x10^3uL (1.8-7.7) Lymphocytes # (Auto) 0.3 x10^3/uL (1.0-4.8) Monocytes # (Auto) 0.4 x10^3/uL (0.0-1.1) Eosinophils # (Auto) 0.0 x10^3/uL (0.0-0.7) Basophils # (Auto) 0.0 x10^3/uL (0.0-0.2) Segmented Neutrophils % 87 % (35-66) Band Neutrophils % 1 % (0-9) Lymphocytes % 5 % (24-48) Monocytes % 7 % (0-10) Platelet Estimate Decreased (ADEQUATE) Anisocytosis Slight Sodium Level 136 mmol/L (136-145) Potassium Level 5.2 mmol/L (3.5-5.1) Chloride Level 96 mmol/L (98-107) Carbon Dioxide Level 30 mmol/L (21-32) Anion Gap 10 (6-14) Blood Urea Nitrogen 37 mg/dL (7-20) Creatinine 5.2 mg/dL (0.6-1.0) Estimated GFR (Cockcroft-Gault) 8.3 BUN/Creatinine Ratio 7 (6-20) Glucose Level 324 mg/dL (70-99) Calcium Level 9.8 mg/dL (8.5-10.1) Total Bilirubin 0.4 mg/dL (0.2-1.0) Aspartate Amino Transf (AST/SGOT) 11 U/L (15-37) Alanine Aminotransferase (ALT/SGPT) 14 U/L (14-59) Alkaline Phosphatase 84 U/L (46-116) Total Protein 7.7 g/dL (6.4-8.2) Albumin 3.2 g/dL (3.4-5.0) Albumin/Globulin Ratio 0.7 (1.0-1.7) Glucose (Fingerstick) 274 mg/dL (70-99) 281 mg/dL (70-99) Laboratory Tests Test 01/15/17 08:45 01/15/17 11:44 01/15/17 16:30 White Blood Count 5.4 x10^3/uL (4.0-11.0) Red Blood Count 3.81 x10^6/uL (3.50-5.40) Hemoglobin 11.3 g/dL (12.0-15.5) Hematocrit 35.8 % (36.0-47.0) Mean Corpuscular Volume 94 fL (79-100) Mean Corpuscular Hemoglobin 30 pg (25-35) Mean Corpuscular Hemoglobin Concent 31 g/dL (31-37) Red Cell Distribution Width 17.4 % (11.5-14.5) Platelet Count 97 x10^3/uL (140-400) Neutrophils (%) (Auto) 86 % (31-73) Lymphocytes (%) (Auto) 6 % (24-48) Monocytes (%) (Auto) 7 % (0-9) Eosinophils (%) (Auto) 1 % (0-3) Basophils (%) (Auto) 1 % (0-3) Neutrophils # (Auto) 4.6 x10^3uL (1.8-7.7) Lymphocytes # (Auto) 0.3 x10^3/uL (1.0-4.8) Monocytes # (Auto) 0.4 x10^3/uL (0.0-1.1) Eosinophils # (Auto) 0.0 x10^3/uL (0.0-0.7) Basophils # (Auto) 0.0 x10^3/uL (0.0-0.2) Segmented Neutrophils % 87 % (35-66) Band Neutrophils % 1 % (0-9) Lymphocytes % 5 % (24-48) Monocytes % 7 % (0-10) Platelet Estimate Decreased (ADEQUATE) Anisocytosis Slight Sodium Level 136 mmol/L (136-145) Potassium Level 5.2 mmol/L (3.5-5.1) Chloride Level 96 mmol/L (98-107) Carbon Dioxide Level 30 mmol/L (21-32) Anion Gap 10 (6-14) Blood Urea Nitrogen 37 mg/dL (7-20) Creatinine 5.2 mg/dL (0.6-1.0) Estimated GFR (Cockcroft-Gault) 8.3 BUN/Creatinine Ratio 7 (6-20) Glucose Level 324 mg/dL (70-99) Calcium Level 9.8 mg/dL (8.5-10.1) Total Bilirubin 0.4 mg/dL (0.2-1.0) Aspartate Amino Transf (AST/SGOT) 11 U/L (15-37) Alanine Aminotransferase (ALT/SGPT) 14 U/L (14-59) Alkaline Phosphatase 84 U/L (46-116) Total Protein 7.7 g/dL (6.4-8.2) Albumin 3.2 g/dL (3.4-5.0) Albumin/Globulin Ratio 0.7 (1.0-1.7) Glucose (Fingerstick) 274 mg/dL (70-99) 281 mg/dL (70-99) Assessment/Plan Assessment/Plan 1. Right breast mass/abscess - There is evidence of erythema, warmth, and a central area of discoloration suggestive of an abscess. Rest of the breast examination is unremarkable examination of the left breast does not reveal any masses. I will consult surgery for further evaluation. I will obtain ultrasound. 2.Anemia due to end-stage renal disease. 3. Thrombocytopenia. This is likely reactive. I will continue to monitor. 4. End-stage renal disease - she is on hemodialysis. IRENE CAROLINA MD Jan 15, 2017 17:02
[2017-01-15 17:05] VITALS: BP 125/53
[2017-01-15] MEDS: CLINDAMYCIN 600MG PREMIX 50 ML IV SCH ×2 (17:54→22:20)
[2017-01-15 19:00] VITALS: BP 127/61
[2017-01-15] MEDS: ATORVASTATIN CALCIUM 10 MG TABLET. PO SCH (20:39)
[2017-01-15] MEDS: GABAPENTIN 300 MG CAPSULE. PO SCH (20:39)
[2017-01-15] MEDS: INSULIN DETEMIR 300 UNITS/3 ML INSULN.PEN. SQ SCH (20:47)
[2017-01-15 23:00] VITALS: BP 126/63
[2017-01-16 03:00] VITALS: BP 127/64
[2017-01-16 05:16] LABS: BASO % 1 % (0-3); EOS % 1 % (0-3); HEMATOCRIT 33.8 % (36.0-47.0); HEMOGLOBIN 10.8 g/dL (12.0-15.5); LYMPH # 0.4 x10^3/uL (1.0-4.8); LYMPH % 9 % (24-48); MEAN CORPUSCULAR HEMOGLOBIN 30 pg (25-35); MEAN CORPUSCULAR HGB CONC 32 g/dL (31-37); MEAN CORPUSCULAR VOLUME 94 fL (79-100); MONO % 10 % (0-9); NEUT % 80 % (31-73); PLATELET COUNT 97 x10^3/uL (140-400); RED BLOOD COUNT 3.61 x10^6/uL (3.50-5.40); RED CELL DISTRIBUTION WIDTH 17.3 % (11.5-14.5); WHITE BLOOD COUNT 4.8 x10^3/uL (4.0-11.0)
[2017-01-16 05:38] LABS: CALCIUM 9.3 mg/dL (8.5-10.1); CREATININE 6.4 mg/dL (0.6-1.0); GFR 6.6; POTASSIUM 5.1 mmol/L (3.5-5.1)
[2017-01-16] MEDS: CLINDAMYCIN 600MG PREMIX 50 ML IV SCH ×2 (06:21→14:00)
[2017-01-16 07:00] VITALS: BP 137/59
[2017-01-16] MEDS: DOXAZOSIN MESYLATE 4 MG TABLET. PO SCH (08:13)
[2017-01-16] MEDS: FOLIC/VIT B COMP W-C (RENAL) TABLET. PO SCH (08:13)
[2017-01-16] MEDS: SEVELAMER CARBONATE 800 MG TABLET. PO SCH ×3 (08:13→18:23)
[2017-01-16] MEDS: ASPIRIN ENTERIC COATED 81 MG TABLET.DR. PO SCH (08:14)
[2017-01-16] MEDS: CARVEDILOL 12.5 MG TABLET. PO SCH ×2 (08:14→18:23)
[2017-01-16] MEDS: glipiZIDE 5 MG TABLET PO SCH ×2 (08:14→20:17)
[2017-01-16] MEDS: LOSARTAN POTASSIUM 50 MG TABLET. PO SCH (08:14)
[2017-01-16] MEDS ORDERED: DIALYSIS PATIENT. MC PRN (09:00)
--- NOTE | 2017-01-16 09:07 | RAD ---
Right breast ultrasound 01/15/2017 at 1726 hours Indication: Right breast abscess for 2 to 3 days Comparison: None available Technique: Sonographic evaluation of the right breast at the 10:00 position in the area of abnormality was performed. Findings: There is a hypoechoic 1.1 x 1.4 x 1.8 cm region in the right breast at the 10:00 position, 14 cm from the nipple (upper outer quadrant). There is associated skin thickening and edema. There is no internal vascularity. Internal echoes are identified and multiple per the cyber engineer. Impression: 1.1 x 1.4 x 1.8 cm hypoechoic region with internal echoes is suggestive of an abscess. There is associated skin thickening and edema suggesting a component of cellulitis. Recommend follow-up breast ultrasound after treatment completion as well as short-term mammographic correlation.
--- NOTE | 2017-01-16 09:54 | PDOC2 ---
ABHISHEK BRITO IT COMPLIANCE ANALYST 01/16/17 0954: CONSULT Date of Consult Date of Consult DATE: 01/16/17 TIME: 09:46 Reason for Consult Reason for Consult: breast abscess Referring Physician Referring Physician: Dr Guzman Identification/Chief Complaint Chief Complaint breast swelling Problems: Source Source: Chart review, Patient History of Present Illness Reason for Visit: Reports breast lump for about a week, the swelling worsened, she denies pain to the area, no drainage to area. She also reports sore to left leg that has been causing her pain. She has never had a mammogram in past. Past Medical History Cardiovascular: CAD, CHF, HTN, Hyperlipidemia Renal/: Chronic renal failure Endocrine: Diabetes Past Surgical History Past Surgical History: Other Family History Family History: Cancer (breast in mother) Social History ALCOHOL: none Drugs: None Lives: Alone Current Problem List Problem List Problems Medical Problems: (1) Abscess of right breast Status: Acute (2) Diabetic calf ulcer Status: Acute Current Medications Current Medications Current Medications Clindamycin Phosphate 50 ml @ 100 mls/hr Q8HRS IV Last administered on 06:21; Start 01/15/17 at 16:00 Clindamycin Phosphate 50 ml @ 100 mls/hr 1X ONCE IV Last administered on 01/15 10:13; Start 01/15/17 at 10:00; Stop 01/15/17 at 10:29; Status DC Aspirin (Ecotrin) 81 mg DAILY PO Last administered on 01/16/17 08:14; Start at 12:00 Carvedilol (Coreg) 12.5 mg BIDWMEALS PO Last administered on 01/16/17 08:14; Start 01/15/17 at 12:00 Vitamin B Complex/ Vitamin C (Amaya-Amie) 1 tab DAILY PO Last administered on 08:13; Start 01/15/17 at 12:00 Glipizide (Glucotrol) 5 mg BID PO Last administered on 01/16/17 08:14; Start 01/15/17 at 12:00 Losartan Potassium (Cozaar) 100 mg DAILY PO Last administered on 01/16/17 08: 14; Start 01/15/17 at 12:00 Sevelamer Carbonate (Renvela) 1,600 mg TIDWMEALS PO Last administered on 08:13; Start 01/15/17 at 12:00 Non-Formulary Medication 1 cap TID PO ; Start 01/15/17 at 14:00; Status UNV Doxazosin Mesylate (Cardura) 8 mg DAILY PO Last administered on 01/16/17 08:13 ; Start 01/15/17 at 12:00 Gabapentin (Neurontin) 300 mg QHS PO Last administered on 01/15/17 20:39; Start 01/15/17 at 21:00 Insulin Detemir (Levemir) 15 units QHS SQ Last administered on 01/15/17 20:47 ; Start 01/15/17 at 21:00 Atorvastatin Calcium (Lipitor) 10 mg QHS PO Last administered on 01/15/17 20: 39; Start 01/15/17 at 21:00 Info (PHARMACY MONITORING -- do not chart) 1 each PRN DAILY PRN MC SEE COMMENTS ; Start 01/16/17 at 09:00 Active Scripts Active Glipizide 5 Mg Tablet 1 Tab PO BID Levemir (Insulin Detemir) 100 Unit/1 Ml Vial 15 Unit SQ QHS 30 Days Keflex (Cephalexin) 500 Mg Capsule 1 Cap PO TID n/a Cozaar (Losartan Potassium) 50 Mg Tablet 100 Mg PO DAILY Reported Carvedilol 12.5 Mg Tablet 1 Tab PO BID Aspir 81 (Aspirin) 81 Mg Tablet.dr 1 Tab PO DAILY Gabapentin 300 Mg Capsule 300 Mg PO HS Renvela (Sevelamer Carbonate) 800 Mg Tablet 2 Tab PO TID Nephro-Amie Tablet (Folic Acid/Vitamin B Comp W-C) 0.8 Mg Tablet 1 Tab PO DAILY Doxazosin Mesylate 8 Mg Tablet 1 Tab PO DAILY Lovastatin 40 Mg Tablet 1 Tab PO DAILY Allergies Allergies: Coded Allergies: No Known Drug Allergies (Unverified , 12/05/13) ROS General: No: Chills, Other (fevers) PSYCHOLOGICAL ROS: No: Anxiety, Depression Eyes: No Blurry vision, No Double vision HEENT: No: Heacaches, Sore Throat Hematological and Lymphatic: No: Bleeding Problems, Blood Clots Respiratory: No: Cough, Shortness of breath Cardiovascular: No Chest Pain, No Palpitations Gastrointestinal: No Nausea, No Vomiting Genitourinary: No Dysuria, No Hematuria Musculoskeletal: Yes Joint Pain, Yes Muscle Pain Neurological: No Confusion, No Impaired Coord/balance Skin: Yes Other (see hpi) Physical Exam Physical Exam right breast 10 oclock position--erythematous lesion with central pustule, no drainage, nontender, no axillary adenopathy Left breast without masses or lesions General: Alert, Oriented X3, Cooperative, No acute distress HEENT: PERRLA, Mucous membr. moist/pink Lungs: Clear to auscultation, Normal air movement Heart: Regular rate, Normal S1, Normal S2, No murmurs Abdomen: Soft, No tenderness Extremities: No clubbing, No cyanosis Skin: Other (lesion to left lower extr, bandage in place) Vitals VITALS Vital Signs Date Time Temp Pulse Resp B/P (MAP) Pulse Ox O2 Delivery O2 Flow Rate FiO2 01/16/17 08:14 66 127/64 01/16/17 07:00 97.1 18 91 Room Air 97.1 Labs Labs Laboratory Tests Test 01/15/17 08:45 01/15/17 11:44 01/15/17 16:30 01/15/17 20:41 White Blood Count 5.4 x10^3/uL (4.0-11.0) Red Blood Count 3.81 x10^6/uL (3.50-5.40) Hemoglobin 11.3 g/dL (12.0-15.5) Hematocrit 35.8 % (36.0-47.0) Mean Corpuscular Volume 94 fL (79-100) Mean Corpuscular Hemoglobin 30 pg (25-35) Mean Corpuscular Hemoglobin Concent 31 g/dL (31-37) Red Cell Distribution Width 17.4 % (11.5-14.5) Platelet Count 97 x10^3/uL (140-400) Neutrophils (%) (Auto) 86 % (31-73) Lymphocytes (%) (Auto) 6 % (24-48) Monocytes (%) (Auto) 7 % (0-9) Eosinophils (%) (Auto) 1 % (0-3) Basophils (%) (Auto) 1 % (0-3) Neutrophils # (Auto) 4.6 x10^3uL (1.8-7.7) Lymphocytes # (Auto) 0.3 x10^3/uL (1.0-4.8) Monocytes # (Auto) 0.4 x10^3/uL (0.0-1.1) Eosinophils # (Auto) 0.0 x10^3/uL (0.0-0.7) Basophils # (Auto) 0.0 x10^3/uL (0.0-0.2) Segmented Neutrophils % 87 % (35-66) Band Neutrophils % 1 % (0-9) Lymphocytes % 5 % (24-48) Monocytes % 7 % (0-10) Platelet Estimate Decreased (ADEQUATE) Anisocytosis Slight Sodium Level 136 mmol/L (136-145) Potassium Level 5.2 mmol/L (3.5-5.1) Chloride Level 96 mmol/L (98-107) Carbon Dioxide Level 30 mmol/L (21-32) Anion Gap 10 (6-14) Blood Urea Nitrogen 37 mg/dL (7-20) Creatinine 5.2 mg/dL (0.6-1.0) Estimated GFR (Cockcroft-Gault) 8.3 BUN/Creatinine Ratio 7 (6-20) Glucose Level 324 mg/dL (70-99) Calcium Level 9.8 mg/dL (8.5-10.1) Total Bilirubin 0.4 mg/dL (0.2-1.0) Aspartate Amino Transf (AST/SGOT) 11 U/L (15-37) Alanine Aminotransferase (ALT/SGPT) 14 U/L (14-59) Alkaline Phosphatase 84 U/L (46-116) Total Protein 7.7 g/dL (6.4-8.2) Albumin 3.2 g/dL (3.4-5.0) Albumin/Globulin Ratio 0.7 (1.0-1.7) Glucose (Fingerstick) 274 mg/dL (70-99) 281 mg/dL (70-99) 257 mg/dL (70-99) Test 01/16/17 03:25 01/16/17 08:01 White Blood Count 4.8 x10^3/uL (4.0-11.0) Red Blood Count 3.61 x10^6/uL (3.50-5.40) Hemoglobin 10.8 g/dL (12.0-15.5) Hematocrit 33.8 % (36.0-47.0) Mean Corpuscular Volume 94 fL (79-100) Mean Corpuscular Hemoglobin 30 pg (25-35) Mean Corpuscular Hemoglobin Concent 32 g/dL (31-37) Red Cell Distribution Width 17.3 % (11.5-14.5) Platelet Count 97 x10^3/uL (140-400) Neutrophils (%) (Auto) 80 % (31-73) Lymphocytes (%) (Auto) 9 % (24-48) Monocytes (%) (Auto) 10 % (0-9) Eosinophils (%) (Auto) 1 % (0-3) Basophils (%) (Auto) 1 % (0-3) Neutrophils # (Auto) 3.8 x10^3uL (1.8-7.7) Lymphocytes # (Auto) 0.4 x10^3/uL (1.0-4.8) Monocytes # (Auto) 0.5 x10^3/uL (0.0-1.1) Eosinophils # (Auto) 0.1 x10^3/uL (0.0-0.7) Basophils # (Auto) 0.0 x10^3/uL (0.0-0.2) Sodium Level 135 mmol/L (136-145) Potassium Level 5.1 mmol/L (3.5-5.1) Chloride Level 96 mmol/L (98-107) Carbon Dioxide Level 30 mmol/L (21-32) Anion Gap 9 (6-14) Blood Urea Nitrogen 46 mg/dL (7-20) Creatinine 6.4 mg/dL (0.6-1.0) Estimated GFR (Cockcroft-Gault) 6.6 Glucose Level 238 mg/dL (70-99) Calcium Level 9.3 mg/dL (8.5-10.1) Glucose (Fingerstick) 227 mg/dL (70-99) Laboratory Tests Test 01/15/17 11:44 01/15/17 16:30 01/15/17 20:41 01/16/17 03:25 Glucose (Fingerstick) 274 mg/dL (70-99) 281 mg/dL (70-99) 257 mg/dL (70-99) White Blood Count 4.8 x10^3/uL (4.0-11.0) Red Blood Count 3.61 x10^6/uL (3.50-5.40) Hemoglobin 10.8 g/dL (12.0-15.5) Hematocrit 33.8 % (36.0-47.0) Mean Corpuscular Volume 94 fL (79-100) Mean Corpuscular Hemoglobin 30 pg (25-35) Mean Corpuscular Hemoglobin Concent 32 g/dL (31-37) Red Cell Distribution Width 17.3 % (11.5-14.5) Platelet Count 97 x10^3/uL (140-400) Neutrophils (%) (Auto) 80 % (31-73) Lymphocytes (%) (Auto) 9 % (24-48) Monocytes (%) (Auto) 10 % (0-9) Eosinophils (%) (Auto) 1 % (0-3) Basophils (%) (Auto) 1 % (0-3) Neutrophils # (Auto) 3.8 x10^3uL (1.8-7.7) Lymphocytes # (Auto) 0.4 x10^3/uL (1.0-4.8) Monocytes # (Auto) 0.5 x10^3/uL (0.0-1.1) Eosinophils # (Auto) 0.1 x10^3/uL (0.0-0.7) Basophils # (Auto) 0.0 x10^3/uL (0.0-0.2) Sodium Level 135 mmol/L (136-145) Potassium Level 5.1 mmol/L (3.5-5.1) Chloride Level 96 mmol/L (98-107) Carbon Dioxide Level 30 mmol/L (21-32) Anion Gap 9 (6-14) Blood Urea Nitrogen 46 mg/dL (7-20) Creatinine 6.4 mg/dL (0.6-1.0) Estimated GFR (Cockcroft-Gault) 6.6 Glucose Level 238 mg/dL (70-99) Calcium Level 9.3 mg/dL (8.5-10.1) Test 01/16/17 08:01 Glucose (Fingerstick) 227 mg/dL (70-99) Assessment/Plan Assessment/Plan us reviewed, mass c/w abscess and cellulitis ESRD, CHF, HTN, HLD NPO, will review with Dr Falk about surgery timing ALLISON FALK MD 01/16/17 4355: CONSULT Allergies Allergies: Coded Allergies: No Known Drug Allergies (Unverified , 12/05/13) Assessment/Plan Assessment/Plan pt seen, interviewed and examined to OR for debridement Dr Ahumada will follow over the weekend Thanks for consult ABHISHEK BRITO APRN Jan 16, 2017 09:54 ALLISON FALK MD Jan 16, 2017 16:28
--- NOTE | 2017-01-16 10:26 | PDOC ---
PROGRESS NOTES Chief Complaint Chief Complaint R breast abscess LEft leg DM ulcer ESRD on HD AOCD Obesity DM 2 insulin requiring History of Present Illness History of Present Illness R breast lateral induration appreciable, tender to touch some moderate erythema - strated few days ago (Was just here 1 month ago for unrelated problems) NO fevers WBC 4.8 - US does confirm an abscess: 1.1 x 1.4 x 1.8 cm hypoechoic region with internal echoes is suggestive of an abscess. There is associated skin thickening and edema suggesting a component of cellulitis. Recommend follow-up breast ultrasound after treatment completion as well as short-term mammographic correlation. LEft leg DM ulcer inspected - dressing on, admits to might have traumatized it 1 week ago ON broad spectrum per iD GS consulted BS on high side CREat 6 US legs neg DVT PLAn: Will need I and D for the abscess Send aspirate to lab Follow CX cont IV antibiotics Add wound care REsume home insulin, might need adjusting if needed Hgba1c pending Follow ID recs HD per renal LAbs ryan Dw pt Vitals Vitals Vital Signs Date Time Temp Pulse Resp B/P (MAP) Pulse Ox O2 Delivery O2 Flow Rate FiO2 01/16/17 08:14 66 127/64 01/16/17 07:00 97.1 18 91 Room Air 97.1 Physical Exam General: Alert, Oriented X3, Cooperative, No acute distress Heart: Regular rate, Normal S1, Normal S2, No murmurs Lungs: Clear Abdomen: Soft, No tenderness Extremities: No clubbing, No cyanosis Skin: Other (lesion to left lower extr, bandage in place) Labs LABS Laboratory Tests Test 01/15/17 11:44 01/15/17 16:30 01/15/17 20:41 01/16/17 03:25 Glucose (Fingerstick) 274 mg/dL (70-99) 281 mg/dL (70-99) 257 mg/dL (70-99) White Blood Count 4.8 x10^3/uL (4.0-11.0) Red Blood Count 3.61 x10^6/uL (3.50-5.40) Hemoglobin 10.8 g/dL (12.0-15.5) Hematocrit 33.8 % (36.0-47.0) Mean Corpuscular Volume 94 fL (79-100) Mean Corpuscular Hemoglobin 30 pg (25-35) Mean Corpuscular Hemoglobin Concent 32 g/dL (31-37) Red Cell Distribution Width 17.3 % (11.5-14.5) Platelet Count 97 x10^3/uL (140-400) Neutrophils (%) (Auto) 80 % (31-73) Lymphocytes (%) (Auto) 9 % (24-48) Monocytes (%) (Auto) 10 % (0-9) Eosinophils (%) (Auto) 1 % (0-3) Basophils (%) (Auto) 1 % (0-3) Neutrophils # (Auto) 3.8 x10^3uL (1.8-7.7) Lymphocytes # (Auto) 0.4 x10^3/uL (1.0-4.8) Monocytes # (Auto) 0.5 x10^3/uL (0.0-1.1) Eosinophils # (Auto) 0.1 x10^3/uL (0.0-0.7) Basophils # (Auto) 0.0 x10^3/uL (0.0-0.2) Sodium Level 135 mmol/L (136-145) Potassium Level 5.1 mmol/L (3.5-5.1) Chloride Level 96 mmol/L (98-107) Carbon Dioxide Level 30 mmol/L (21-32) Anion Gap 9 (6-14) Blood Urea Nitrogen 46 mg/dL (7-20) Creatinine 6.4 mg/dL (0.6-1.0) Estimated GFR (Cockcroft-Gault) 6.6 Glucose Level 238 mg/dL (70-99) Calcium Level 9.3 mg/dL (8.5-10.1) Test 01/16/17 08:01 Glucose (Fingerstick) 227 mg/dL (70-99) Review of Systems Review of Systems breast pain, leg pain, all else is neg Assessment and Plan Assessmemt and Plan Problems Medical Problems: (1) Abscess of right breast Status: Acute (2) Diabetic calf ulcer Status: Acute Problems: Comment Review of Relevant I have reviewed the following items kathy (where applicable) has been applied. Labs Laboratory Tests Test 01/15/17 08:45 01/15/17 11:44 01/15/17 16:30 01/15/17 20:41 White Blood Count 5.4 x10^3/uL (4.0-11.0) Red Blood Count 3.81 x10^6/uL (3.50-5.40) Hemoglobin 11.3 g/dL (12.0-15.5) Hematocrit 35.8 % (36.0-47.0) Mean Corpuscular Volume 94 fL (79-100) Mean Corpuscular Hemoglobin 30 pg (25-35) Mean Corpuscular Hemoglobin Concent 31 g/dL (31-37) Red Cell Distribution Width 17.4 % (11.5-14.5) Platelet Count 97 x10^3/uL (140-400) Neutrophils (%) (Auto) 86 % (31-73) Lymphocytes (%) (Auto) 6 % (24-48) Monocytes (%) (Auto) 7 % (0-9) Eosinophils (%) (Auto) 1 % (0-3) Basophils (%) (Auto) 1 % (0-3) Neutrophils # (Auto) 4.6 x10^3uL (1.8-7.7) Lymphocytes # (Auto) 0.3 x10^3/uL (1.0-4.8) Monocytes # (Auto) 0.4 x10^3/uL (0.0-1.1) Eosinophils # (Auto) 0.0 x10^3/uL (0.0-0.7) Basophils # (Auto) 0.0 x10^3/uL (0.0-0.2) Segmented Neutrophils % 87 % (35-66) Band Neutrophils % 1 % (0-9) Lymphocytes % 5 % (24-48) Monocytes % 7 % (0-10) Platelet Estimate Decreased (ADEQUATE) Anisocytosis Slight Sodium Level 136 mmol/L (136-145) Potassium Level 5.2 mmol/L (3.5-5.1) Chloride Level 96 mmol/L (98-107) Carbon Dioxide Level 30 mmol/L (21-32) Anion Gap 10 (6-14) Blood Urea Nitrogen 37 mg/dL (7-20) Creatinine 5.2 mg/dL (0.6-1.0) Estimated GFR (Cockcroft-Gault) 8.3 BUN/Creatinine Ratio 7 (6-20) Glucose Level 324 mg/dL (70-99) Calcium Level 9.8 mg/dL (8.5-10.1) Total Bilirubin 0.4 mg/dL (0.2-1.0) Aspartate Amino Transf (AST/SGOT) 11 U/L (15-37) Alanine Aminotransferase (ALT/SGPT) 14 U/L (14-59) Alkaline Phosphatase 84 U/L (46-116) Total Protein 7.7 g/dL (6.4-8.2) Albumin 3.2 g/dL (3.4-5.0) Albumin/Globulin Ratio 0.7 (1.0-1.7) Glucose (Fingerstick) 274 mg/dL (70-99) 281 mg/dL (70-99) 257 mg/dL (70-99) Test 01/16/17 03:25 01/16/17 08:01 White Blood Count 4.8 x10^3/uL (4.0-11.0) Red Blood Count 3.61 x10^6/uL (3.50-5.40) Hemoglobin 10.8 g/dL (12.0-15.5) Hematocrit 33.8 % (36.0-47.0) Mean Corpuscular Volume 94 fL (79-100) Mean Corpuscular Hemoglobin 30 pg (25-35) Mean Corpuscular Hemoglobin Concent 32 g/dL (31-37) Red Cell Distribution Width 17.3 % (11.5-14.5) Platelet Count 97 x10^3/uL (140-400) Neutrophils (%) (Auto) 80 % (31-73) Lymphocytes (%) (Auto) 9 % (24-48) Monocytes (%) (Auto) 10 % (0-9) Eosinophils (%) (Auto) 1 % (0-3) Basophils (%) (Auto) 1 % (0-3) Neutrophils # (Auto) 3.8 x10^3uL (1.8-7.7) Lymphocytes # (Auto) 0.4 x10^3/uL (1.0-4.8) Monocytes # (Auto) 0.5 x10^3/uL (0.0-1.1) Eosinophils # (Auto) 0.1 x10^3/uL (0.0-0.7) Basophils # (Auto) 0.0 x10^3/uL (0.0-0.2) Sodium Level 135 mmol/L (136-145) Potassium Level 5.1 mmol/L (3.5-5.1) Chloride Level 96 mmol/L (98-107) Carbon Dioxide Level 30 mmol/L (21-32) Anion Gap 9 (6-14) Blood Urea Nitrogen 46 mg/dL (7-20) Creatinine 6.4 mg/dL (0.6-1.0) Estimated GFR (Cockcroft-Gault) 6.6 Glucose Level 238 mg/dL (70-99) Calcium Level 9.3 mg/dL (8.5-10.1) Glucose (Fingerstick) 227 mg/dL (70-99) Laboratory Tests Test 01/15/17 11:44 01/15/17 16:30 01/15/17 20:41 01/16/17 03:25 Glucose (Fingerstick) 274 mg/dL (70-99) 281 mg/dL (70-99) 257 mg/dL (70-99) White Blood Count 4.8 x10^3/uL (4.0-11.0) Red Blood Count 3.61 x10^6/uL (3.50-5.40) Hemoglobin 10.8 g/dL (12.0-15.5) Hematocrit 33.8 % (36.0-47.0) Mean Corpuscular Volume 94 fL (79-100) Mean Corpuscular Hemoglobin 30 pg (25-35) Mean Corpuscular Hemoglobin Concent 32 g/dL (31-37) Red Cell Distribution Width 17.3 % (11.5-14.5) Platelet Count 97 x10^3/uL (140-400) Neutrophils (%) (Auto) 80 % (31-73) Lymphocytes (%) (Auto) 9 % (24-48) Monocytes (%) (Auto) 10 % (0-9) Eosinophils (%) (Auto) 1 % (0-3) Basophils (%) (Auto) 1 % (0-3) Neutrophils # (Auto) 3.8 x10^3uL (1.8-7.7) Lymphocytes # (Auto) 0.4 x10^3/uL (1.0-4.8) Monocytes # (Auto) 0.5 x10^3/uL (0.0-1.1) Eosinophils # (Auto) 0.1 x10^3/uL (0.0-0.7) Basophils # (Auto) 0.0 x10^3/uL (0.0-0.2) Sodium Level 135 mmol/L (136-145) Potassium Level 5.1 mmol/L (3.5-5.1) Chloride Level 96 mmol/L (98-107) Carbon Dioxide Level 30 mmol/L (21-32) Anion Gap 9 (6-14) Blood Urea Nitrogen 46 mg/dL (7-20) Creatinine 6.4 mg/dL (0.6-1.0) Estimated GFR (Cockcroft-Gault) 6.6 Glucose Level 238 mg/dL (70-99) Calcium Level 9.3 mg/dL (8.5-10.1) Test 01/16/17 08:01 Glucose (Fingerstick) 227 mg/dL (70-99) Microbiology 01/15/17 Blood Culture - Preliminary, Resulted NO GROWTH AFTER 1 DAY Medications Current Medications Clindamycin Phosphate 50 ml @ 100 mls/hr Q8HRS IV Last administered on 06:21; Start 01/15/17 at 16:00 Clindamycin Phosphate 50 ml @ 100 mls/hr 1X ONCE IV Last administered on 01/15 10:13; Start 01/15/17 at 10:00; Stop 01/15/17 at 10:29; Status DC Aspirin (Ecotrin) 81 mg DAILY PO Last administered on 01/16/17 08:14; Start at 12:00 Carvedilol (Coreg) 12.5 mg BIDWMEALS PO Last administered on 01/16/17 08:14; Start 01/15/17 at 12:00 Vitamin B Complex/ Vitamin C (Amaya-Amie) 1 tab DAILY PO Last administered on 08:13; Start 01/15/17 at 12:00 Glipizide (Glucotrol) 5 mg BID PO Last administered on 01/16/17 08:14; Start 01/15/17 at 12:00 Losartan Potassium (Cozaar) 100 mg DAILY PO Last administered on 01/16/17 08: 14; Start 01/15/17 at 12:00 Sevelamer Carbonate (Renvela) 1,600 mg TIDWMEALS PO Last administered on 08:13; Start 01/15/17 at 12:00 Non-Formulary Medication 1 cap TID PO ; Start 01/15/17 at 14:00; Status UNV Doxazosin Mesylate (Cardura) 8 mg DAILY PO Last administered on 01/16/17 08:13 ; Start 01/15/17 at 12:00 Gabapentin (Neurontin) 300 mg QHS PO Last administered on 01/15/17 20:39; Start 01/15/17 at 21:00 Insulin Detemir (Levemir) 15 units QHS SQ Last administered on 01/15/17 20:47 ; Start 01/15/17 at 21:00 Atorvastatin Calcium (Lipitor) 10 mg QHS PO Last administered on 01/15/17 20: 39; Start 01/15/17 at 21:00 Info (PHARMACY MONITORING -- do not chart) 1 each PRN DAILY PRN MC SEE COMMENTS ; Start 01/16/17 at 09:00 Active Scripts Active Glipizide 5 Mg Tablet 1 Tab PO BID Levemir (Insulin Detemir) 100 Unit/1 Ml Vial 15 Unit SQ QHS 30 Days Keflex (Cephalexin) 500 Mg Capsule 1 Cap PO TID n/a Cozaar (Losartan Potassium) 50 Mg Tablet 100 Mg PO DAILY Reported Carvedilol 12.5 Mg Tablet 1 Tab PO BID Aspir 81 (Aspirin) 81 Mg Tablet. 1 Tab PO DAILY Gabapentin 300 Mg Capsule 300 Mg PO HS Renvela (Sevelamer Carbonate) 800 Mg Tablet 2 Tab PO TID Nephro-Amie Tablet (Folic Acid/Vitamin B Comp W-C) 0.8 Mg Tablet 1 Tab PO DAILY Doxazosin Mesylate 8 Mg Tablet 1 Tab PO DAILY Lovastatin 40 Mg Tablet 1 Tab PO DAILY Vitals/I & O Vital Sign - Last 24 Hours 01/15/17 01/15/17 01/15/17 01/15/17 12:00 12:51 12:52 12:52 Temp 97.9 97.9 Pulse 63 63 63 63 Resp 20 B/P (MAP) 138/66 (90) 138/66 138/66 138/66 Pulse Ox 97 O2 Delivery Room Air 01/15/17 01/15/17 01/15/17 01/15/17 15:00 16:37 17:05 17:55 Temp 97.6 97.6 97.6 97.6 Pulse 67 67 67 Resp 20 B/P (MAP) 125/53 (77) 125/53 (77) 125/53 Pulse Ox 97 97 O2 Delivery Room Air Room Air 01/15/17 01/15/17 01/15/17 01/16/17 19:00 20:00 23:00 03:00 Temp 98.1 97.5 97.5 98.1 97.5 97.5 Pulse 69 70 66 Resp 18 18 20 B/P (MAP) 127/61 (83) 126/63 (84) 127/64 (85) Pulse Ox 90 95 90 O2 Delivery Room Air Room Air Room Air Room Air 01/16/17 01/16/17 01/16/17 01/16/17 07:00 08:13 08:14 08:14 Temp 97.1 97.1 Pulse 66 66 66 66 Resp 18 B/P (MAP) 137/59 (85) 127/64 127/64 127/64 Pulse Ox 91 O2 Delivery Room Air Intake and Output 01/15/17 01/15/17 01/16/17 15:00 23:00 07:00 Intake Total 300 ml 850 ml 50 ml Output Total 0 ml Balance 300 ml 850 ml 50 ml KARYN JUDD MD Jan 16, 2017 10:26
[2017-01-16] MEDS ORDERED: IV RINGERS,LACTATED 1000ML 1,000 ML IV SCH (11:49)
[2017-01-16] MEDS ORDERED: LIDOCAINE 1% 1 ML SYRINGE. ID PRN (12:00)
[2017-01-16] MEDS ORDERED: ONDANSETRON PF 4 MG/2 ML VIAL. IV PRN (12:00)
[2017-01-16] MEDS ORDERED: HYDROmorphone 2 MG/ML VIAL IV PRN (12:00)
[2017-01-16] MEDS ORDERED: MORPHINE SULFATE 2 MG/ML DISP.SYRIN. IV PRN (12:00)
[2017-01-16] MEDS ORDERED: fentaNYL PF VIAL 100 MCG/2 ML VIAL IV PRN ×2 (12:00)
[2017-01-16] MEDS ORDERED: PROCHLORPERAZINE 10 MG/2 ML VIAL. IV PRN (12:00)
--- NOTE | 2017-01-16 12:16 | PDOC2 ---
CONSULT Date of Consult Date of Consult DATE: 01/16/17 TIME: 12:13 Reason for Consult Reason for Consult: ESRD Referring Physician Referring Physician: ODALIS Identification/Chief Complaint Chief Complaint L LE AND RIGHT BREAST PAIN Problems: Source Source: Chart review, Patient History of Present Illness Reason for Visit: THIS IS A 66 YR OLD ADMITTED WITH A DX OF RIGHT BREAST MASS VS CELLULITIS AND L LE CELLULITIS. SHE HAS ESRD AND IS ON HD ON MWF. LAST OP HD WAS ON THURSDAY. LABS ARE C/W ESRD Past Medical History Cardiovascular: CAD, CHF, HTN, Hyperlipidemia Heme/Onc: Anemia NOS Renal/: Chronic renal failure Endocrine: Diabetes, Hyperparathyroidism Past Surgical History Past Surgical History: Other Family History Family History: Cancer (breast in mother) Social History ALCOHOL: none Drugs: None Lives: Alone Current Problem List Problem List Problems Medical Problems: (1) Abscess of right breast Status: Acute (2) Diabetic calf ulcer Status: Acute Current Medications Current Medications Current Medications Clindamycin Phosphate 50 ml @ 100 mls/hr Q8HRS IV Last administered on 06:21; Start 01/15/17 at 16:00 Clindamycin Phosphate 50 ml @ 100 mls/hr 1X ONCE IV Last administered on 01/15 10:13; Start 01/15/17 at 10:00; Stop 01/15/17 at 10:29; Status DC Aspirin (Ecotrin) 81 mg DAILY PO Last administered on 01/16/17 08:14; Start at 12:00 Carvedilol (Coreg) 12.5 mg BIDWMEALS PO Last administered on 01/16/17 08:14; Start 01/15/17 at 12:00 Vitamin B Complex/ Vitamin C (Amaya-Amie) 1 tab DAILY PO Last administered on 08:13; Start 01/15/17 at 12:00 Glipizide (Glucotrol) 5 mg BID PO Last administered on 01/16/17 08:14; Start 01/15/17 at 12:00 Losartan Potassium (Cozaar) 100 mg DAILY PO Last administered on 01/16/17 08: 14; Start 01/15/17 at 12:00 Sevelamer Carbonate (Renvela) 1,600 mg TIDWMEALS PO Last administered on 08:13; Start 01/15/17 at 12:00 Non-Formulary Medication 1 cap TID PO ; Start 01/15/17 at 14:00; Status UNV Doxazosin Mesylate (Cardura) 8 mg DAILY PO Last administered on 01/16/17 08:13 ; Start 01/15/17 at 12:00 Gabapentin (Neurontin) 300 mg QHS PO Last administered on 01/15/17 20:39; Start 01/15/17 at 21:00 Insulin Detemir (Levemir) 15 units QHS SQ Last administered on 01/15/17 20:47 ; Start 01/15/17 at 21:00 Atorvastatin Calcium (Lipitor) 10 mg QHS PO Last administered on 01/15/17 20: 39; Start 01/15/17 at 21:00 Info (PHARMACY MONITORING -- do not chart) 1 each PRN DAILY PRN MC SEE COMMENTS ; Start 01/16/17 at 09:00 Ondansetron HCl (Zofran) 4 mg PRN Q6HRS PRN IV NAUSEA/VOMITING; Start 01/16/17 at 12:00; Stop 01/17/17 at 11:59 Fentanyl Citrate (Fentanyl 2ml Vial) 25 mcg PRN Q5MIN PRN IV MILD PAIN; Start 01/16/17 at 12:00; Stop 01/17/17 at 11:59 Fentanyl Citrate (Fentanyl 2ml Vial) 50 mcg PRN Q5MIN PRN IV MODERATE PAIN; Start 01/16/17 at 12:00; Stop 01/17/17 at 11:59 Morphine Sulfate 1 mg PRN Q10MIN PRN IV SEVERE PAIN; Start 01/16/17 at 12:00; Stop 01/17/17 at 11:59 Ringer's Solution 1,000 ml @ 30 mls/hr Q24H IV ; Start 01/16/17 at 11:49; Stop 01/16/17 at 23:48 Lidocaine HCl 2 ml PRN 1X PRN ID PRIOR TO IV START; Start 01/16/17 at 12:00; Stop 01/17/17 at 11:59 Hydromorphone HCl (Dilaudid) 0.5 mg PRN Q10MIN PRN IV SEV PAIN, Second choice; Start 01/16/17 at 12:00; Stop 01/17/17 at 11:59 Prochlorperazine Edisylate (Compazine) 5 mg PACU PRN PRN IV NAUSEA, MRX1; Start 01/16/17 at 12:00; Stop 01/17/17 at 11:59 Active Scripts Active Glipizide 5 Mg Tablet 1 Tab PO BID Levemir (Insulin Detemir) 100 Unit/1 Ml Vial 15 Unit SQ QHS 30 Days Keflex (Cephalexin) 500 Mg Capsule 1 Cap PO TID n/a Cozaar (Losartan Potassium) 50 Mg Tablet 100 Mg PO DAILY Reported Carvedilol 12.5 Mg Tablet 1 Tab PO BID Aspir 81 (Aspirin) 81 Mg Tablet.dr 1 Tab PO DAILY Gabapentin 300 Mg Capsule 300 Mg PO HS Renvela (Sevelamer Carbonate) 800 Mg Tablet 2 Tab PO TID Nephro-Amie Tablet (Folic Acid/Vitamin B Comp W-C) 0.8 Mg Tablet 1 Tab PO DAILY Doxazosin Mesylate 8 Mg Tablet 1 Tab PO DAILY Lovastatin 40 Mg Tablet 1 Tab PO DAILY Allergies Allergies: Coded Allergies: No Known Drug Allergies (Unverified , 12/05/13) ROS General: YES: Fatigue, Appetite PSYCHOLOGICAL ROS: YES: Anxiety, Depression Eyes: Yes Decreased vision HEENT: YES: Heacaches Respiratory: YES: Cough Gastrointestinal: Yes Constipation Genitourinary: YES Other (ANURIA) Musculoskeletal: Yes Muscular Weakness, Yes Pain In: (L LE AND REDNESS) Neurological: Yes Weakness Skin: Yes Skin Lesion Changes Physical Exam General: Alert, Oriented X3, Cooperative, No acute distress HEENT: Atraumatic, PERRLA Lungs: Clear to auscultation Heart: Regular rate, Normal S1, Normal S2 Abdomen: Normal bowel sounds, Soft Extremities: No clubbing Neuro: Normal speech, Cranial nerves 3-12 NL Psych/Mental Status: Mental status NL, Mood NL MUSCULOSKELETAL: No deformity, No swelling Vitals VITALS Vital Signs Date Time Temp Pulse Resp B/P (MAP) Pulse Ox O2 Delivery O2 Flow Rate FiO2 01/16/17 08:14 66 127/64 01/16/17 07:00 97.1 18 91 Room Air 97.1 Labs Labs Laboratory Tests Test 01/15/17 08:45 01/15/17 11:44 01/15/17 16:30 01/15/17 20:41 White Blood Count 5.4 x10^3/uL (4.0-11.0) Red Blood Count 3.81 x10^6/uL (3.50-5.40) Hemoglobin 11.3 g/dL (12.0-15.5) Hematocrit 35.8 % (36.0-47.0) Mean Corpuscular Volume 94 fL (79-100) Mean Corpuscular Hemoglobin 30 pg (25-35) Mean Corpuscular Hemoglobin Concent 31 g/dL (31-37) Red Cell Distribution Width 17.4 % (11.5-14.5) Platelet Count 97 x10^3/uL (140-400) Neutrophils (%) (Auto) 86 % (31-73) Lymphocytes (%) (Auto) 6 % (24-48) Monocytes (%) (Auto) 7 % (0-9) Eosinophils (%) (Auto) 1 % (0-3) Basophils (%) (Auto) 1 % (0-3) Neutrophils # (Auto) 4.6 x10^3uL (1.8-7.7) Lymphocytes # (Auto) 0.3 x10^3/uL (1.0-4.8) Monocytes # (Auto) 0.4 x10^3/uL (0.0-1.1) Eosinophils # (Auto) 0.0 x10^3/uL (0.0-0.7) Basophils # (Auto) 0.0 x10^3/uL (0.0-0.2) Segmented Neutrophils % 87 % (35-66) Band Neutrophils % 1 % (0-9) Lymphocytes % 5 % (24-48) Monocytes % 7 % (0-10) Platelet Estimate Decreased (ADEQUATE) Anisocytosis Slight Sodium Level 136 mmol/L (136-145) Potassium Level 5.2 mmol/L (3.5-5.1) Chloride Level 96 mmol/L (98-107) Carbon Dioxide Level 30 mmol/L (21-32) Anion Gap 10 (6-14) Blood Urea Nitrogen 37 mg/dL (7-20) Creatinine 5.2 mg/dL (0.6-1.0) Estimated GFR (Cockcroft-Gault) 8.3 BUN/Creatinine Ratio 7 (6-20) Glucose Level 324 mg/dL (70-99) Calcium Level 9.8 mg/dL (8.5-10.1) Total Bilirubin 0.4 mg/dL (0.2-1.0) Aspartate Amino Transf (AST/SGOT) 11 U/L (15-37) Alanine Aminotransferase (ALT/SGPT) 14 U/L (14-59) Alkaline Phosphatase 84 U/L (46-116) Total Protein 7.7 g/dL (6.4-8.2) Albumin 3.2 g/dL (3.4-5.0) Albumin/Globulin Ratio 0.7 (1.0-1.7) Glucose (Fingerstick) 274 mg/dL (70-99) 281 mg/dL (70-99) 257 mg/dL (70-99) Test 01/16/17 03:25 01/16/17 08:01 White Blood Count 4.8 x10^3/uL (4.0-11.0) Red Blood Count 3.61 x10^6/uL (3.50-5.40) Hemoglobin 10.8 g/dL (12.0-15.5) Hematocrit 33.8 % (36.0-47.0) Mean Corpuscular Volume 94 fL (79-100) Mean Corpuscular Hemoglobin 30 pg (25-35) Mean Corpuscular Hemoglobin Concent 32 g/dL (31-37) Red Cell Distribution Width 17.3 % (11.5-14.5) Platelet Count 97 x10^3/uL (140-400) Neutrophils (%) (Auto) 80 % (31-73) Lymphocytes (%) (Auto) 9 % (24-48) Monocytes (%) (Auto) 10 % (0-9) Eosinophils (%) (Auto) 1 % (0-3) Basophils (%) (Auto) 1 % (0-3) Neutrophils # (Auto) 3.8 x10^3uL (1.8-7.7) Lymphocytes # (Auto) 0.4 x10^3/uL (1.0-4.8) Monocytes # (Auto) 0.5 x10^3/uL (0.0-1.1) Eosinophils # (Auto) 0.1 x10^3/uL (0.0-0.7) Basophils # (Auto) 0.0 x10^3/uL (0.0-0.2) Sodium Level 135 mmol/L (136-145) Potassium Level 5.1 mmol/L (3.5-5.1) Chloride Level 96 mmol/L (98-107) Carbon Dioxide Level 30 mmol/L (21-32) Anion Gap 9 (6-14) Blood Urea Nitrogen 46 mg/dL (7-20) Creatinine 6.4 mg/dL (0.6-1.0) Estimated GFR (Cockcroft-Gault) 6.6 Glucose Level 238 mg/dL (70-99) Calcium Level 9.3 mg/dL (8.5-10.1) Glucose (Fingerstick) 227 mg/dL (70-99) Laboratory Tests Test 01/15/17 16:30 01/15/17 20:41 01/16/17 03:25 01/16/17 08:01 Glucose (Fingerstick) 281 mg/dL (70-99) 257 mg/dL (70-99) 227 mg/dL (70-99) White Blood Count 4.8 x10^3/uL (4.0-11.0) Red Blood Count 3.61 x10^6/uL (3.50-5.40) Hemoglobin 10.8 g/dL (12.0-15.5) Hematocrit 33.8 % (36.0-47.0) Mean Corpuscular Volume 94 fL (79-100) Mean Corpuscular Hemoglobin 30 pg (25-35) Mean Corpuscular Hemoglobin Concent 32 g/dL (31-37) Red Cell Distribution Width 17.3 % (11.5-14.5) Platelet Count 97 x10^3/uL (140-400) Neutrophils (%) (Auto) 80 % (31-73) Lymphocytes (%) (Auto) 9 % (24-48) Monocytes (%) (Auto) 10 % (0-9) Eosinophils (%) (Auto) 1 % (0-3) Basophils (%) (Auto) 1 % (0-3) Neutrophils # (Auto) 3.8 x10^3uL (1.8-7.7) Lymphocytes # (Auto) 0.4 x10^3/uL (1.0-4.8) Monocytes # (Auto) 0.5 x10^3/uL (0.0-1.1) Eosinophils # (Auto) 0.1 x10^3/uL (0.0-0.7) Basophils # (Auto) 0.0 x10^3/uL (0.0-0.2) Sodium Level 135 mmol/L (136-145) Potassium Level 5.1 mmol/L (3.5-5.1) Chloride Level 96 mmol/L (98-107) Carbon Dioxide Level 30 mmol/L (21-32) Anion Gap 9 (6-14) Blood Urea Nitrogen 46 mg/dL (7-20) Creatinine 6.4 mg/dL (0.6-1.0) Estimated GFR (Cockcroft-Gault) 6.6 Glucose Level 238 mg/dL (70-99) Calcium Level 9.3 mg/dL (8.5-10.1) Assessment/Plan Assessment/Plan IMP ESRD DM II HTN ANEMIA L LE CELLULITIS R BREAST MASS VS CELLULITIS PLAN ANTIBIOTICS HD TODAY UF TO DW START JORGE PINEDA MD Jan 16, 2017 12:16
[2017-01-16] MEDS: IV NORMAL SALINE 1000ML BAG 1,000 ML IV SCH (14:51)
[2017-01-16] MEDS ORDERED: FAMOTIDINE 20 MG/2 ML VIAL ONE (15:08)
[2017-01-16] MEDS ORDERED: ONDANSETRON PF 4 MG/2 ML VIAL. ONE (15:08)
[2017-01-16] MEDS ORDERED: PROPOFOL 20 ML IV ONE (15:08)
[2017-01-16] MEDS ORDERED: LIDOCAINE 2% PF Vial for OR 5 ML VIAL. ONE (15:08)
[2017-01-16] MEDS ORDERED: ePHEDrine PF IN SALINE 50 MG/5 ML DISP.SYRIN IV ONE (15:32)
[2017-01-16] MEDS ORDERED: 0.9 % SODIUM CHLORIDE 50 ML VIAL. IJ ONE (15:45)
[2017-01-16] MEDS ORDERED: VASOPRESSIN 20 UNIT/ML VIAL. ONE (15:45)
[2017-01-16] MEDS ORDERED: BUPIVACAINE-EPI 0.5%-1:200000 50 ML VIAL. ONE (15:53)
[2017-01-16] MEDS ORDERED: fentaNYL PF VIAL 100 MCG/2 ML VIAL ONE (15:58)
[2017-01-16] MEDS ORDERED: NEOMY/BACITR/POLYMYXIN OINT PACKET. TP ONE (16:02)
--- NOTE | 2017-01-16 16:12 | PDOC ---
PROGRESS NOTES Subjective Subjective c/c - f/u of Right breast mass/abscess Objective Objective Vital Signs Date Time Temp Pulse Resp B/P (MAP) Pulse Ox O2 Delivery O2 Flow Rate FiO2 01/16/17 14:43 98.1 71 16 136/68 96 Room Air 98.1 Intake and Output 01/16/17 07:00 Intake Total 1200 ml Output Total 0 ml Balance 1200 ml Intake Oral 1000 ml IV Total 200 ml Output Urine Total 0 ml Physical Exam Heart: Normal S1, Normal S2 General: Alert, Oriented X3 Lungs: Clear to auscultation Assessment Assessment Problems Medical Problems: (1) Abscess of right breast Status: Acute (2) Diabetic calf ulcer Status: Acute Assessment/Plan 1. Right breast mass/abscess - There is evidence of erythema, warmth, and a central area of discoloration suggestive of an abscess. Rest of the breast examination is unremarkable examination of the left breast does not reveal any masses. Appreciate surgery evaluation. Ultrasound 01/16/17 : 1.1 x 1.4 x 1.8 cm hypoechoic region with internal echoes is suggestive of an abscess. There is associated skin thickening and edema suggesting a component of cellulitis. Recommend follow-up breast ultrasound after treatment completion as well as short-term mammographic correlation. 2.Anemia due to end-stage renal disease. 3. Thrombocytopenia. This is likely reactive. I will continue to monitor. 4. End-stage renal disease - she is on hemodialysis. Comment Review of Relevant I have reviewed the following items kathy (where applicable) has been applied. Labs Laboratory Tests Test 01/15/17 08:45 01/15/17 11:44 01/15/17 16:30 01/15/17 20:41 White Blood Count 5.4 x10^3/uL (4.0-11.0) Red Blood Count 3.81 x10^6/uL (3.50-5.40) Hemoglobin 11.3 g/dL (12.0-15.5) Hematocrit 35.8 % (36.0-47.0) Mean Corpuscular Volume 94 fL (79-100) Mean Corpuscular Hemoglobin 30 pg (25-35) Mean Corpuscular Hemoglobin Concent 31 g/dL (31-37) Red Cell Distribution Width 17.4 % (11.5-14.5) Platelet Count 97 x10^3/uL (140-400) Neutrophils (%) (Auto) 86 % (31-73) Lymphocytes (%) (Auto) 6 % (24-48) Monocytes (%) (Auto) 7 % (0-9) Eosinophils (%) (Auto) 1 % (0-3) Basophils (%) (Auto) 1 % (0-3) Neutrophils # (Auto) 4.6 x10^3uL (1.8-7.7) Lymphocytes # (Auto) 0.3 x10^3/uL (1.0-4.8) Monocytes # (Auto) 0.4 x10^3/uL (0.0-1.1) Eosinophils # (Auto) 0.0 x10^3/uL (0.0-0.7) Basophils # (Auto) 0.0 x10^3/uL (0.0-0.2) Segmented Neutrophils % 87 % (35-66) Band Neutrophils % 1 % (0-9) Lymphocytes % 5 % (24-48) Monocytes % 7 % (0-10) Platelet Estimate Decreased (ADEQUATE) Anisocytosis Slight Sodium Level 136 mmol/L (136-145) Potassium Level 5.2 mmol/L (3.5-5.1) Chloride Level 96 mmol/L (98-107) Carbon Dioxide Level 30 mmol/L (21-32) Anion Gap 10 (6-14) Blood Urea Nitrogen 37 mg/dL (7-20) Creatinine 5.2 mg/dL (0.6-1.0) Estimated GFR (Cockcroft-Gault) 8.3 BUN/Creatinine Ratio 7 (6-20) Glucose Level 324 mg/dL (70-99) Calcium Level 9.8 mg/dL (8.5-10.1) Total Bilirubin 0.4 mg/dL (0.2-1.0) Aspartate Amino Transf (AST/SGOT) 11 U/L (15-37) Alanine Aminotransferase (ALT/SGPT) 14 U/L (14-59) Alkaline Phosphatase 84 U/L (46-116) Total Protein 7.7 g/dL (6.4-8.2) Albumin 3.2 g/dL (3.4-5.0) Albumin/Globulin Ratio 0.7 (1.0-1.7) Glucose (Fingerstick) 274 mg/dL (70-99) 281 mg/dL (70-99) 257 mg/dL (70-99) Test 01/16/17 03:25 01/16/17 08:01 White Blood Count 4.8 x10^3/uL (4.0-11.0) Red Blood Count 3.61 x10^6/uL (3.50-5.40) Hemoglobin 10.8 g/dL (12.0-15.5) Hematocrit 33.8 % (36.0-47.0) Mean Corpuscular Volume 94 fL (79-100) Mean Corpuscular Hemoglobin 30 pg (25-35) Mean Corpuscular Hemoglobin Concent 32 g/dL (31-37) Red Cell Distribution Width 17.3 % (11.5-14.5) Platelet Count 97 x10^3/uL (140-400) Neutrophils (%) (Auto) 80 % (31-73) Lymphocytes (%) (Auto) 9 % (24-48) Monocytes (%) (Auto) 10 % (0-9) Eosinophils (%) (Auto) 1 % (0-3) Basophils (%) (Auto) 1 % (0-3) Neutrophils # (Auto) 3.8 x10^3uL (1.8-7.7) Lymphocytes # (Auto) 0.4 x10^3/uL (1.0-4.8) Monocytes # (Auto) 0.5 x10^3/uL (0.0-1.1) Eosinophils # (Auto) 0.1 x10^3/uL (0.0-0.7) Basophils # (Auto) 0.0 x10^3/uL (0.0-0.2) Sodium Level 135 mmol/L (136-145) Potassium Level 5.1 mmol/L (3.5-5.1) Chloride Level 96 mmol/L (98-107) Carbon Dioxide Level 30 mmol/L (21-32) Anion Gap 9 (6-14) Blood Urea Nitrogen 46 mg/dL (7-20) Creatinine 6.4 mg/dL (0.6-1.0) Estimated GFR (Cockcroft-Gault) 6.6 Glucose Level 238 mg/dL (70-99) Calcium Level 9.3 mg/dL (8.5-10.1) Glucose (Fingerstick) 227 mg/dL (70-99) Laboratory Tests Test 01/15/17 16:30 01/15/17 20:41 01/16/17 03:25 01/16/17 08:01 Glucose (Fingerstick) 281 mg/dL (70-99) 257 mg/dL (70-99) 227 mg/dL (70-99) White Blood Count 4.8 x10^3/uL (4.0-11.0) Red Blood Count 3.61 x10^6/uL (3.50-5.40) Hemoglobin 10.8 g/dL (12.0-15.5) Hematocrit 33.8 % (36.0-47.0) Mean Corpuscular Volume 94 fL (79-100) Mean Corpuscular Hemoglobin 30 pg (25-35) Mean Corpuscular Hemoglobin Concent 32 g/dL (31-37) Red Cell Distribution Width 17.3 % (11.5-14.5) Platelet Count 97 x10^3/uL (140-400) Neutrophils (%) (Auto) 80 % (31-73) Lymphocytes (%) (Auto) 9 % (24-48) Monocytes (%) (Auto) 10 % (0-9) Eosinophils (%) (Auto) 1 % (0-3) Basophils (%) (Auto) 1 % (0-3) Neutrophils # (Auto) 3.8 x10^3uL (1.8-7.7) Lymphocytes # (Auto) 0.4 x10^3/uL (1.0-4.8) Monocytes # (Auto) 0.5 x10^3/uL (0.0-1.1) Eosinophils # (Auto) 0.1 x10^3/uL (0.0-0.7) Basophils # (Auto) 0.0 x10^3/uL (0.0-0.2) Sodium Level 135 mmol/L (136-145) Potassium Level 5.1 mmol/L (3.5-5.1) Chloride Level 96 mmol/L (98-107) Carbon Dioxide Level 30 mmol/L (21-32) Anion Gap 9 (6-14) Blood Urea Nitrogen 46 mg/dL (7-20) Creatinine 6.4 mg/dL (0.6-1.0) Estimated GFR (Cockcroft-Gault) 6.6 Glucose Level 238 mg/dL (70-99) Calcium Level 9.3 mg/dL (8.5-10.1) Microbiology 01/15/17 Blood Culture - Preliminary, Resulted NO GROWTH AFTER 1 DAY Medications Current Medications Clindamycin Phosphate 50 ml @ 100 mls/hr Q8HRS IV Last administered on 06:21; Start 01/15/17 at 16:00; Stop 01/16/17 at 15:43; Status DC Clindamycin Phosphate 50 ml @ 100 mls/hr 1X ONCE IV Last administered on 01/15 10:13; Start 01/15/17 at 10:00; Stop 01/15/17 at 10:29; Status DC Aspirin (Ecotrin) 81 mg DAILY PO Last administered on 01/16/17 08:14; Start at 12:00 Carvedilol (Coreg) 12.5 mg BIDWMEALS PO Last administered on 01/16/17 08:14; Start 01/15/17 at 12:00 Vitamin B Complex/ Vitamin C (Amaya-Amie) 1 tab DAILY PO Last administered on 08:13; Start 01/15/17 at 12:00 Glipizide (Glucotrol) 5 mg BID PO Last administered on 01/16/17 08:14; Start 01/15/17 at 12:00 Losartan Potassium (Cozaar) 100 mg DAILY PO Last administered on 01/16/17 08: 14; Start 01/15/17 at 12:00 Sevelamer Carbonate (Renvela) 1,600 mg TIDWMEALS PO Last administered on 08:13; Start 01/15/17 at 12:00 Non-Formulary Medication 1 cap TID PO ; Start 01/15/17 at 14:00; Status UNV Doxazosin Mesylate (Cardura) 8 mg DAILY PO Last administered on 01/16/17 08:13 ; Start 01/15/17 at 12:00 Gabapentin (Neurontin) 300 mg QHS PO Last administered on 01/15/17 20:39; Start 01/15/17 at 21:00 Insulin Detemir (Levemir) 15 units QHS SQ Last administered on 01/15/17 20:47 ; Start 01/15/17 at 21:00 Atorvastatin Calcium (Lipitor) 10 mg QHS PO Last administered on 01/15/17 20: 39; Start 01/15/17 at 21:00 Info (PHARMACY MONITORING -- do not chart) 1 each PRN DAILY PRN MC SEE COMMENTS ; Start 01/16/17 at 09:00 Ondansetron HCl (Zofran) 4 mg PRN Q6HRS PRN IV NAUSEA/VOMITING; Start 01/16/17 at 12:00; Stop 01/17/17 at 11:59 Fentanyl Citrate (Fentanyl 2ml Vial) 25 mcg PRN Q5MIN PRN IV MILD PAIN; Start 01/16/17 at 12:00; Stop 01/17/17 at 11:59 Fentanyl Citrate (Fentanyl 2ml Vial) 50 mcg PRN Q5MIN PRN IV MODERATE PAIN; Start 01/16/17 at 12:00; Stop 01/17/17 at 11:59 Morphine Sulfate 1 mg PRN Q10MIN PRN IV SEVERE PAIN; Start 01/16/17 at 12:00; Stop 01/17/17 at 11:59 Ringer's Solution 1,000 ml @ 30 mls/hr Q24H IV ; Start 01/16/17 at 11:49; Stop 01/16/17 at 23:48 Lidocaine HCl 2 ml PRN 1X PRN ID PRIOR TO IV START; Start 01/16/17 at 12:00; Stop 01/17/17 at 11:59 Hydromorphone HCl (Dilaudid) 0.5 mg PRN Q10MIN PRN IV SEV PAIN, Second choice; Start 01/16/17 at 12:00; Stop 01/17/17 at 11:59 Prochlorperazine Edisylate (Compazine) 5 mg PACU PRN PRN IV NAUSEA, MRX1; Start 01/16/17 at 12:00; Stop 01/17/17 at 11:59 Darbepoetin Franklin (Aranesp) 60 mcg WEEKLYHS SQ ; Start 01/23/17 at 21:00 Sodium Chloride 1,000 ml @ 75 mls/hr [id number] IV Last administered on 14:51; Start 01/16/17 at 15:00 Propofol 20 ml @ As Directed STK-MED ONCE IV ; Start 01/16/17 at 15:08; Stop at 15:09; Status DC Lidocaine HCl (Lidocaine Pf 2% Vial) 5 ml STK-MED ONCE .ROUTE ; Start 01/16/17 at 15:08; Stop 01/16/17 at 15:09; Status DC Famotidine (Pepcid) 20 mg STK-MED ONCE .ROUTE ; Start 01/16/17 at 15:08; Stop at 15:09; Status DC Ondansetron HCl (Zofran) 4 mg STK-MED ONCE .ROUTE ; Start 01/16/17 at 15:08; Stop 01/16/17 at 15:09; Status DC Ephedrine Sulfate 50 mg STK-MED ONCE IV ; Start 01/16/17 at 15:32; Stop at 15:33; Status DC Vancomycin HCl (Vanco Per Pharmacy) 1 each PRN DAILY PRN MC SEE COMMENTS; Start 01/16/17 at 15:45 Piperacillin Sod/ Tazobactam Sod 2.25 gm/Sodium Chloride 50 ml @ 100 mls/hr Q8HRS IV ; Start 01/16/17 at 17:01 Sodium Chloride (Sodium Chloride) 50 ml STK-MED ONCE IJ ; Start 01/16/17 at 15: 45; Stop 01/16/17 at 15:46; Status DC Vasopressin (Vasostrict) 20 unit STK-MED ONCE .ROUTE ; Start 01/16/17 at 15:45; Stop 01/16/17 at 15:46; Status DC Vancomycin HCl 2 gm/Sodium Chloride 500 ml @ 250 mls/hr 1X ONCE IV ; Start at 16:30; Stop 01/16/17 at 18:29 Bupivacaine HCl/ Epinephrine Bitart (Marcaine-Epi 0.5%-1:[id number]) 50 ml STK-MED ONCE .ROUTE Last administered on 01/16/17t 15:55; Start 01/16/17 at 15:53; Stop 01/16/17 at 15:54; Status DC Fentanyl Citrate (Fentanyl 2ml Vial) 100 mcg STK-MED ONCE .ROUTE ; Start at 15:58; Stop 01/16/17 at 15:59; Status DC Neomycin/ Polymyxin/ Bacitracin (Triple Antibiotic Ointment) 1 pkt STK-MED ONCE TP ; Start 01/16/17 at 16:02; Stop 01/16/17 at 16:03; Status DC Active Scripts Active Glipizide 5 Mg Tablet 1 Tab PO BID Levemir (Insulin Detemir) 100 Unit/1 Ml Vial 15 Unit SQ QHS 30 Days Keflex (Cephalexin) 500 Mg Capsule 1 Cap PO TID n/a Cozaar (Losartan Potassium) 50 Mg Tablet 100 Mg PO DAILY Reported Carvedilol 12.5 Mg Tablet 1 Tab PO BID Aspir 81 (Aspirin) 81 Mg Tablet.dr 1 Tab PO DAILY Gabapentin 300 Mg Capsule 300 Mg PO HS Renvela (Sevelamer Carbonate) 800 Mg Tablet 2 Tab PO TID Nephro-Amie Tablet (Folic Acid/Vitamin B Comp W-C) 0.8 Mg Tablet 1 Tab PO DAILY Doxazosin Mesylate 8 Mg Tablet 1 Tab PO DAILY Lovastatin 40 Mg Tablet 1 Tab PO DAILY Vitals/I & O Vital Sign - Last 24 Hours 01/15/17 01/15/17 01/15/17 01/15/17 16:37 17:05 17:55 19:00 Temp 97.6 98.1 97.6 98.1 Pulse 67 67 69 Resp 18 B/P (MAP) 125/53 (77) 125/53 127/61 (83) Pulse Ox 97 90 O2 Delivery Room Air Room Air 01/15/17 01/15/17 01/16/17 01/16/17 20:00 23:00 03:00 07:00 Temp 97.5 97.5 97.1 97.5 97.5 97.1 Pulse 70 66 66 Resp 18 20 18 B/P (MAP) 126/63 (84) 127/64 (85) 137/59 (85) Pulse Ox 95 90 91 O2 Delivery Room Air Room Air Room Air Room Air 01/16/17 01/16/17 01/16/17 01/16/17 08:00 08:13 08:14 08:14 Pulse 66 66 66 B/P (MAP) 127/64 127/64 127/64 O2 Delivery Room Air 01/16/17 14:43 Temp 98.1 98.1 Pulse 71 Resp 16 B/P (MAP) 136/68 Pulse Ox 96 O2 Delivery Room Air Intake and Output 701/15/17 01/16/17 15:00 23:00 07:00 Intake Total 300 ml 850 ml 50 ml Output Total 0 ml Balance 300 ml 850 ml 50 ml Nutrition Consultation Dietary Evaluation: Recommendations by RD: Increase Calorie Intake Comments: Rec. resume the renal/ada diets as medically appropriate Rec. double meats at meals to increase protein intake Expected Outcomes/Goals: meet 75% estimated nutrition needs Malnutrition Findings: Weight Status: Obese IRENE CAROLINA MD Jan 16, 2017 16:12
[2017-01-16] MEDS ORDERED: PHENYLEPHRINE in 0.9% NACL PF 1 MG/10 ML DISP.SYRIN. IV ONE (16:13)
--- NOTE | 2017-01-16 16:26 | PDOC4 ---
Operative Note Operative Note Date of procedure: January 16, 2017 Procedure: Debridement skin and subcutaneous tissue right axilla Preoperative diagnosis: Right axillary mass/abscess Postoperative diagnosis: Same Surgeon: Jered Anesthesia: Gen. LMA Indications: Hoa is a 66-year-old end-stage renal patient on hemodialysis with a painful palpable fullness in the right axilla. It is erythematous and has "pointed". She's here for debridement Operative report: Patient brought to the operating suite and while still on her hospital bed given a general LMA. The right axilla was prepped and draped in usual sterile fashion. Half percent Marcaine with epinephrine was infiltrated around the periphery of the lesion. Using cautery an elliptical skin incision was made in the skin and underlying process were removed en bloc. Cultures were made. Wound was irrigated, evacuated and checked for adequate hemostasis. When present and a correct sponge count had been obtained the wound was dressed with antibiotic ointment and 1 inch plain Nu Gauze soaked in saline. Sterile dressing applied. Patient awakened from her anesthetic and taken to the recovery room in satisfactory condition.. ALLISON FALK MD Jan 16, 2017 16:26
[2017-01-16] MEDS ORDERED: VANCOMYCIN 2 GM in IV NORMAL SALINE 500ML BAG 500 ML IV ONE (16:30)
[2017-01-16] MEDS: VANCOMYCIN PER PHARMACY MC PRN (17:41)
[2017-01-16] MEDS: PIPERACILLIN/TAZOBACTAM 2.25 GM in IV NORMAL SALINE 50ML 50 ML IV SCH ×2 (18:24→23:06)
[2017-01-16 19:00] VITALS: BP 144/66
[2017-01-16 19:15] VITALS: BP 157/85
[2017-01-16] MEDS: ATORVASTATIN CALCIUM 10 MG TABLET. PO SCH (20:16)
[2017-01-16] MEDS: GABAPENTIN 300 MG CAPSULE. PO SCH (20:16)
[2017-01-16] MEDS: INSULIN DETEMIR 300 UNITS/3 ML INSULN.PEN. SQ SCH (20:23)
[2017-01-16 23:06] VITALS: BP 117/53
[2017-01-17 03:57] VITALS: BP 128/59
[2017-01-17] MEDS: IV NORMAL SALINE 1000ML BAG 1,000 ML IV SCH ×2 (04:20→17:40)
[2017-01-17] MEDS: PIPERACILLIN/TAZOBACTAM 2.25 GM in IV NORMAL SALINE 50ML 50 ML IV SCH ×3 (05:00→20:58)
[2017-01-17 07:00] VITALS: BP 130/57
--- NOTE | 2017-01-17 07:27 | PDOC2 ---
IM Consult Reason for consult LLE cellulitis and DM ulcers Referring physician Dr. Lentz Date of Admission DATE: 01/17/17 TIME: 07:13 Chief Complaint Chief Complaint This 66 year old female has been admitted with a chief complaint of leg pain but found to have right axillary/breast mass. HPI: Reports right breast lump for about a week. Denies trauma or bug bites. Has never occurred before. It was not painful/red/hot. The swelling continued so she presented to [facility] ER. She also reports sore to left leg that has been causing her pain, She has had some problems with these in the past. Has been on HD for 4 years M/W/F. Taken to OR 01/16 for I and D of breast area Problems: Past Medical History Cardiovascular: CAD, CHF, HTN, Hyperlipidemia Heme/Onc: Anemia NOS Renal/: Chronic renal failure Endocrine: Diabetes, Hyperparathyroidism Past Surgical History Past Surgical History: Other Past Family History Family History: Cancer (breast in mother) Review of Symptoms Review of Symptoms General ROS: Neg Psychological ROS: negative Ophthalmic ROS: negative ENT ROS: negative Allergy and Immunology ROS: negative Hematology and Lymphatic: negative Endocrine ROS: negative Respiratory ROS: no cold, cough, dyspnea. Cardiovascular ROS: no chest pain or dyspnea on exertion Gastrointestinal ROS: no abdominal pain, change in bowel habits, or black or bloody stools Genito-Urinary ROS: no dysuria, trouble voiding, or hematuria Musculoskeletal ROS: As above Neurological ROS: negative Dermatological ROS: As above Medications Current Medications Bupivacaine HCl/ Epinephrine Bitart (Marcaine-Epi 0.5%-1:[id number]) 50 ml STK-MED ONCE .ROUTE Last administered on 01/16/17t 15:55; Start 01/16/17 at 15:53; Stop 01/16/17 at 15:54; Status DC Darbepoetin Franklin (Aranesp) 60 mcg WEEKLYHS SQ ; Start 01/23/17 at 21:00 Ephedrine Sulfate 50 mg STK-MED ONCE IV ; Start 01/16/17 at 15:32; Stop at 15:33; Status DC Famotidine (Pepcid) 20 mg STK-MED ONCE .ROUTE ; Start 01/16/17 at 15:08; Stop at 15:09; Status DC Fentanyl Citrate (Fentanyl 2ml Vial) 25 mcg PRN Q5MIN PRN IV MILD PAIN; Start 01/16/17 at 12:00; Stop 01/17/17 at 11:59 Fentanyl Citrate (Fentanyl 2ml Vial) 50 mcg PRN Q5MIN PRN IV MODERATE PAIN; Start 01/16/17 at 12:00; Stop 01/17/17 at 11:59 Fentanyl Citrate (Fentanyl 2ml Vial) 100 mcg STK-MED ONCE .ROUTE ; Start at 15:58; Stop 01/16/17 at 15:59; Status DC Hydromorphone HCl (Dilaudid) 0.5 mg PRN Q10MIN PRN IV SEV PAIN, Second choice; Start 01/16/17 at 12:00; Stop 01/17/17 at 11:59 Info (PHARMACY MONITORING -- do not chart) 1 each PRN DAILY PRN MC SEE COMMENTS ; Start 01/16/17 at 09:00 Lidocaine HCl 2 ml PRN 1X PRN ID PRIOR TO IV START; Start 01/16/17 at 12:00; Stop 01/17/17 at 11:59 Lidocaine HCl (Lidocaine Pf 2% Vial) 5 ml STK-MED ONCE .ROUTE ; Start 01/16/17 at 15:08; Stop 01/16/17 at 15:09; Status DC Morphine Sulfate 1 mg PRN Q10MIN PRN IV SEVERE PAIN; Start 01/16/17 at 12:00; Stop 01/17/17 at 11:59 Neomycin/ Polymyxin/ Bacitracin (Triple Antibiotic Ointment) 1 pkt STK-MED ONCE TP Last administered on 01/16/17t 15:55; Start 01/16/17 at 16:02; Stop at 16:03; Status DC Ondansetron HCl (Zofran) 4 mg PRN Q6HRS PRN IV NAUSEA/VOMITING; Start 01/16/17 at 12:00; Stop 01/17/17 at 11:59 Ondansetron HCl (Zofran) 4 mg STK-MED ONCE .ROUTE ; Start 01/16/17 at 15:08; Stop 01/16/17 at 15:09; Status DC Phenylephrine HCl 1 mg STK-MED ONCE IV ; Start 01/16/17 at 16:13; Stop 01/16/17 at 16:14; Status DC Piperacillin Sod/ Tazobactam Sod 2.25 gm/Sodium Chloride 50 ml @ 100 mls/hr Q8HRS IV Last administered on 01/17/17 05:00; Start 01/16/17 at 17:01 Prochlorperazine Edisylate (Compazine) 5 mg PACU PRN PRN IV NAUSEA, MRX1; Start 01/16/17 at 12:00; Stop 01/17/17 at 11:59 Propofol 20 ml @ As Directed STK-MED ONCE IV ; Start 01/16/17 at 15:08; Stop at 15:09; Status DC Ringer's Solution 1,000 ml @ 30 mls/hr Q24H IV ; Start 01/16/17 at 11:49; Stop 01/16/17 at 23:48; Status DC Sodium Chloride 1,000 ml @ 75 mls/hr [id number] IV Last administered on 14:51; Start 01/16/17 at 15:00 Sodium Chloride (Sodium Chloride) 50 ml STK-MED ONCE IJ ; Start 01/16/17 at 15: 45; Stop 01/16/17 at 15:46; Status DC Vancomycin HCl 1 each 1X ONCE MC ; Start 01/19/17 at 05:00; Stop 01/19/17 at 05 :01 Vancomycin HCl (Vanco Per Pharmacy) 1 each PRN DAILY PRN MC SEE COMMENTS Last administered on 01/16/17 17:41; Start 01/16/17 at 15:45 Vancomycin HCl 2 gm/Sodium Chloride 500 ml @ 250 mls/hr 1X ONCE IV Last administered on 01/16/17 19:27; Start 01/16/17 at 16:30; Stop 01/16/17 at 18:29 ; Status DC Vasopressin (Vasostrict) 20 unit STK-MED ONCE .ROUTE ; Start 01/16/17 at 15:45; Stop 01/16/17 at 15:46; Status DC Allergy Allergies Coded Allergies Type Severity Reaction Last Updated Verified No Known Drug Allergies 12/05/13 No Physical Exam Physical Exam General appearance - alert,well appearing, and in no distress Mental Status - alert, oriented to person, place, and time, affect appropriate to mood Head - PERRLA, OC/Op - dentures Chest - clear to auscultation, no wheezes, rales or rhonchi, symmetric air entry Heart - S1 and S2 normal Abdomen - soft, nontender, nondistended, no masses or organomegaly, Obese Neurological - alert and oriented Musculoskeletal - no muscular tenderness noted, Right axillary area wound dressed. packed and clean. Min serosanginous drainage Extremities - no pedal edema Skin - warm and dry. Lat LLE mild to mod erythema. Min tender. No gross swelling. Min ulceration Labs Laboratory Tests Test 01/15/17 08:45 01/15/17 11:44 01/15/17 16:30 01/15/17 20:41 White Blood Count 5.4 x10^3/uL (4.0-11.0) Red Blood Count 3.81 x10^6/uL (3.50-5.40) Hemoglobin 11.3 g/dL (12.0-15.5) Hematocrit 35.8 % (36.0-47.0) Mean Corpuscular Volume 94 fL (79-100) Mean Corpuscular Hemoglobin 30 pg (25-35) Mean Corpuscular Hemoglobin Concent 31 g/dL (31-37) Red Cell Distribution Width 17.4 % (11.5-14.5) Platelet Count 97 x10^3/uL (140-400) Neutrophils (%) (Auto) 86 % (31-73) Lymphocytes (%) (Auto) 6 % (24-48) Monocytes (%) (Auto) 7 % (0-9) Eosinophils (%) (Auto) 1 % (0-3) Basophils (%) (Auto) 1 % (0-3) Neutrophils # (Auto) 4.6 x10^3uL (1.8-7.7) Lymphocytes # (Auto) 0.3 x10^3/uL (1.0-4.8) Monocytes # (Auto) 0.4 x10^3/uL (0.0-1.1) Eosinophils # (Auto) 0.0 x10^3/uL (0.0-0.7) Basophils # (Auto) 0.0 x10^3/uL (0.0-0.2) Segmented Neutrophils % 87 % (35-66) Band Neutrophils % 1 % (0-9) Lymphocytes % 5 % (24-48) Monocytes % 7 % (0-10) Platelet Estimate Decreased (ADEQUATE) Anisocytosis Slight Sodium Level 136 mmol/L (136-145) Potassium Level 5.2 mmol/L (3.5-5.1) Chloride Level 96 mmol/L (98-107) Carbon Dioxide Level 30 mmol/L (21-32) Anion Gap 10 (6-14) Blood Urea Nitrogen 37 mg/dL (7-20) Creatinine 5.2 mg/dL (0.6-1.0) Estimated GFR (Cockcroft-Gault) 8.3 BUN/Creatinine Ratio 7 (6-20) Glucose Level 324 mg/dL (70-99) Calcium Level 9.8 mg/dL (8.5-10.1) Total Bilirubin 0.4 mg/dL (0.2-1.0) Aspartate Amino Transf (AST/SGOT) 11 U/L (15-37) Alanine Aminotransferase (ALT/SGPT) 14 U/L (14-59) Alkaline Phosphatase 84 U/L (46-116) Total Protein 7.7 g/dL (6.4-8.2) Albumin 3.2 g/dL (3.4-5.0) Albumin/Globulin Ratio 0.7 (1.0-1.7) Glucose (Fingerstick) 274 mg/dL (70-99) 281 mg/dL (70-99) 257 mg/dL (70-99) Test 01/16/17 03:25 01/16/17 08:01 01/16/17 17:14 01/16/17 20:15 White Blood Count 4.8 x10^3/uL (4.0-11.0) Red Blood Count 3.61 x10^6/uL (3.50-5.40) Hemoglobin 10.8 g/dL (12.0-15.5) Hematocrit 33.8 % (36.0-47.0) Mean Corpuscular Volume 94 fL (79-100) Mean Corpuscular Hemoglobin 30 pg (25-35) Mean Corpuscular Hemoglobin Concent 32 g/dL (31-37) Red Cell Distribution Width 17.3 % (11.5-14.5) Platelet Count 97 x10^3/uL (140-400) Neutrophils (%) (Auto) 80 % (31-73) Lymphocytes (%) (Auto) 9 % (24-48) Monocytes (%) (Auto) 10 % (0-9) Eosinophils (%) (Auto) 1 % (0-3) Basophils (%) (Auto) 1 % (0-3) Neutrophils # (Auto) 3.8 x10^3uL (1.8-7.7) Lymphocytes # (Auto) 0.4 x10^3/uL (1.0-4.8) Monocytes # (Auto) 0.5 x10^3/uL (0.0-1.1) Eosinophils # (Auto) 0.1 x10^3/uL (0.0-0.7) Basophils # (Auto) 0.0 x10^3/uL (0.0-0.2) Sodium Level 135 mmol/L (136-145) Potassium Level 5.1 mmol/L (3.5-5.1) Chloride Level 96 mmol/L (98-107) Carbon Dioxide Level 30 mmol/L (21-32) Anion Gap 9 (6-14) Blood Urea Nitrogen 46 mg/dL (7-20) Creatinine 6.4 mg/dL (0.6-1.0) Estimated GFR (Cockcroft-Gault) 6.6 Glucose Level 238 mg/dL (70-99) Calcium Level 9.3 mg/dL (8.5-10.1) Glucose (Fingerstick) 227 mg/dL (70-99) 186 mg/dL (70-99) 198 mg/dL (70-99) Laboratory Tests Test 01/16/17 08:01 01/16/17 17:14 01/16/17 20:15 Glucose (Fingerstick) 227 mg/dL (70-99) 186 mg/dL (70-99) 198 mg/dL (70-99) Vitals Vital Signs Date Time Temp Pulse Resp B/P (MAP) Pulse Ox O2 Delivery O2 Flow Rate FiO2 01/17/17 03:57 97.3 62 18 128/59 (82) 92 Room Air 97.3 01/16/17 17:25 3 Assessment Assessment UNABLE TO SEE 01/16 WAS IN OR Right breast mass developed over 5 days s/p I and D 01/16 LLE mild erythema ? cellulitis CKD on HD DM Plan Plan I d/c'd the Clindamycin 01/16 Cont Vanc/zosyn started 7/14 F/u labs and cults Local wound care Thank you CRYSTAL MARQUEZ MD Jan 17, 2017 07:27
[2017-01-17] MEDS: VANCOMYCIN PER PHARMACY MC PRN (08:51)
[2017-01-17] MEDS: CARVEDILOL 12.5 MG TABLET. PO SCH ×2 (09:11→17:08)
[2017-01-17] MEDS: ASPIRIN ENTERIC COATED 81 MG TABLET.DR. PO SCH (09:12)
[2017-01-17] MEDS: LOSARTAN POTASSIUM 50 MG TABLET. PO SCH (09:12)
[2017-01-17] MEDS: FOLIC/VIT B COMP W-C (RENAL) TABLET. PO SCH (09:12)
[2017-01-17] MEDS: SEVELAMER CARBONATE 800 MG TABLET. PO SCH ×3 (09:12→17:08)
[2017-01-17] MEDS: DOXAZOSIN MESYLATE 4 MG TABLET. PO SCH (09:13)
[2017-01-17 10:42] VITALS: BP 120/54
--- NOTE | 2017-01-17 11:10 | PDOC ---
PROGRESS NOTES Chief Complaint Chief Complaint R breast abscess s/p I and D 01/16/17 LEft leg DM ulcer ESRD on HD AOCD Obesity DM 2 insulin requiring History of Present Illness History of Present Illness s/p I and D - area of sx inspected, packing in, bloody, non tender, looks good - left to heal via secondary intention No fevers NO White ct Low BS this am - I just stuck to her home regimen Eating ok AMbulating fine PLAn:\ Dec levemir to 10 qhs from 15 Ambulate Follow wound cx and GS Cont vanc and zosyn for now Vitals Vitals Vital Signs Date Time Temp Pulse Resp B/P (MAP) Pulse Ox O2 Delivery O2 Flow Rate FiO2 01/17/17 10:42 97.7 67 18 120/54 (76) 94 Room Air 97.7 01/16/17 17:25 3 Physical Exam General: Alert, Oriented X3 Heart: Normal S1, Normal S2 Lungs: Clear Abdomen: Normal bowel sounds, Soft Extremities: No clubbing Skin: Other (lesion to left lower extr, bandage in place) Labs LABS Laboratory Tests Test 01/16/17 17:14 01/16/17 20:15 01/17/17 07:17 01/17/17 07:51 Glucose (Fingerstick) 186 mg/dL (70-99) 198 mg/dL (70-99) 59 mg/dL (70-99) 72 mg/dL (70-99) Test 01/17/17 10:06 Glucose (Fingerstick) 124 mg/dL (70-99) Review of Systems Review of Systems denies 14 pt reviewed Assessment and Plan Assessmemt and Plan Problems Medical Problems: (1) Abscess of right breast Status: Acute (2) Diabetic calf ulcer Status: Acute Problems: Comment Review of Relevant I have reviewed the following items kathy (where applicable) has been applied. Labs Laboratory Tests Test 01/15/17 11:44 01/15/17 16:30 01/15/17 20:41 01/16/17 03:25 Glucose (Fingerstick) 274 mg/dL (70-99) 281 mg/dL (70-99) 257 mg/dL (70-99) White Blood Count 4.8 x10^3/uL (4.0-11.0) Red Blood Count 3.61 x10^6/uL (3.50-5.40) Hemoglobin 10.8 g/dL (12.0-15.5) Hematocrit 33.8 % (36.0-47.0) Mean Corpuscular Volume 94 fL (79-100) Mean Corpuscular Hemoglobin 30 pg (25-35) Mean Corpuscular Hemoglobin Concent 32 g/dL (31-37) Red Cell Distribution Width 17.3 % (11.5-14.5) Platelet Count 97 x10^3/uL (140-400) Neutrophils (%) (Auto) 80 % (31-73) Lymphocytes (%) (Auto) 9 % (24-48) Monocytes (%) (Auto) 10 % (0-9) Eosinophils (%) (Auto) 1 % (0-3) Basophils (%) (Auto) 1 % (0-3) Neutrophils # (Auto) 3.8 x10^3uL (1.8-7.7) Lymphocytes # (Auto) 0.4 x10^3/uL (1.0-4.8) Monocytes # (Auto) 0.5 x10^3/uL (0.0-1.1) Eosinophils # (Auto) 0.1 x10^3/uL (0.0-0.7) Basophils # (Auto) 0.0 x10^3/uL (0.0-0.2) Sodium Level 135 mmol/L (136-145) Potassium Level 5.1 mmol/L (3.5-5.1) Chloride Level 96 mmol/L (98-107) Carbon Dioxide Level 30 mmol/L (21-32) Anion Gap 9 (6-14) Blood Urea Nitrogen 46 mg/dL (7-20) Creatinine 6.4 mg/dL (0.6-1.0) Estimated GFR (Cockcroft-Gault) 6.6 Glucose Level 238 mg/dL (70-99) Calcium Level 9.3 mg/dL (8.5-10.1) Test 01/16/17 08:01 01/16/17 17:14 01/16/17 20:15 01/17/17 07:17 Glucose (Fingerstick) 227 mg/dL (70-99) 186 mg/dL (70-99) 198 mg/dL (70-99) 59 mg/dL (70-99) Test 01/17/17 07:51 7/15/17 10:06 Glucose (Fingerstick) 72 mg/dL (70-99) 124 mg/dL (70-99) Laboratory Tests Test 01/16/17 17:14 01/16/17 20:15 01/17/17 07:17 01/17/17 07:51 Glucose (Fingerstick) 186 mg/dL (70-99) 198 mg/dL (70-99) 59 mg/dL (70-99) 72 mg/dL (70-99) Test 01/17/17 10:06 Glucose (Fingerstick) 124 mg/dL (70-99) Microbiology 01/15/17 Blood Culture - Preliminary, Resulted NO GROWTH AFTER 2 DAYS Medications Current Medications Clindamycin Phosphate 50 ml @ 100 mls/hr Q8HRS IV Last administered on 06:21; Start 01/15/17 at 16:00; Stop 01/16/17 at 15:43; Status DC Clindamycin Phosphate 50 ml @ 100 mls/hr 1X ONCE IV Last administered on 01/15 10:13; Start 01/15/17 at 10:00; Stop 01/15/17 at 10:29; Status DC Aspirin (Ecotrin) 81 mg DAILY PO Last administered on 01/17/17 09:12; Start at 12:00 Carvedilol (Coreg) 12.5 mg BIDWMEALS PO Last administered on 01/17/17 09:11; Start 01/15/17 at 12:00 Vitamin B Complex/ Vitamin C (Amaya-Amie) 1 tab DAILY PO Last administered on 09:12; Start 01/15/17 at 12:00 Glipizide (Glucotrol) 5 mg BID PO Last administered on 01/16/17 20:17; Start 01/15/17 at 12:00 Losartan Potassium (Cozaar) 100 mg DAILY PO Last administered on 01/17/17 09: 12; Start 01/15/17 at 12:00 Sevelamer Carbonate (Renvela) 1,600 mg TIDWMEALS PO Last administered on 09:12; Start 01/15/17 at 12:00 Non-Formulary Medication 1 cap TID PO ; Start 01/15/17 at 14:00; Status UNV Doxazosin Mesylate (Cardura) 8 mg DAILY PO Last administered on 01/17/17 09:13 ; Start 01/15/17 at 12:00 Gabapentin (Neurontin) 300 mg QHS PO Last administered on 01/16/17 20:16; Start 01/15/17 at 21:00 Insulin Detemir (Levemir) 15 units QHS SQ Last administered on 01/16/17 20:23 ; Start 01/15/17 at 21:00; Stop 01/17/17 at 09:41; Status DC Atorvastatin Calcium (Lipitor) 10 mg QHS PO Last administered on 01/16/17 20: 16; Start 01/15/17 at 21:00 Info (PHARMACY MONITORING -- do not chart) 1 each PRN DAILY PRN MC SEE COMMENTS ; Start 01/16/17 at 09:00 Ondansetron HCl (Zofran) 4 mg PRN Q6HRS PRN IV NAUSEA/VOMITING; Start 01/16/17 at 12:00; Stop 01/17/17 at 11:59 Fentanyl Citrate (Fentanyl 2ml Vial) 25 mcg PRN Q5MIN PRN IV MILD PAIN; Start 01/16/17 at 12:00; Stop 01/17/17 at 11:59 Fentanyl Citrate (Fentanyl 2ml Vial) 50 mcg PRN Q5MIN PRN IV MODERATE PAIN; Start 01/16/17 at 12:00; Stop 01/17/17 at 11:59 Morphine Sulfate 1 mg PRN Q10MIN PRN IV SEVERE PAIN; Start 01/16/17 at 12:00; Stop 01/17/17 at 11:59 Ringer's Solution 1,000 ml @ 30 mls/hr Q24H IV ; Start 01/16/17 at 11:49; Stop 01/16/17 at 23:48; Status DC Lidocaine HCl 2 ml PRN 1X PRN ID PRIOR TO IV START; Start 01/16/17 at 12:00; Stop 01/17/17 at 11:59 Hydromorphone HCl (Dilaudid) 0.5 mg PRN Q10MIN PRN IV SEV PAIN, Second choice; Start 01/16/17 at 12:00; Stop 01/17/17 at 11:59 Prochlorperazine Edisylate (Compazine) 5 mg PACU PRN PRN IV NAUSEA, MRX1; Start 01/16/17 at 12:00; Stop 01/17/17 at 11:59 Darbepoetin Franklin (Aranesp) 60 mcg WEEKLYHS SQ ; Start 01/23/17 at 21:00 Sodium Chloride 1,000 ml @ 75 mls/hr [id number] IV Last administered on t 14:51; Start 01/16/17 at 15:00 Propofol 20 ml @ As Directed STK-MED ONCE IV ; Start 01/16/17 at 15:08; Stop at 15:09; Status DC Lidocaine HCl (Lidocaine Pf 2% Vial) 5 ml STK-MED ONCE .ROUTE ; Start 01/16/17 at 15:08; Stop 01/16/17 at 15:09; Status DC Famotidine (Pepcid) 20 mg STK-MED ONCE .ROUTE ; Start 01/16/17 at 15:08; Stop at 15:09; Status DC Ondansetron HCl (Zofran) 4 mg STK-MED ONCE .ROUTE ; Start 01/16/17 at 15:08; Stop 01/16/17 at 15:09; Status DC Ephedrine Sulfate 50 mg STK-MED ONCE IV ; Start 01/16/17 at 15:32; Stop at 15:33; Status DC Vancomycin HCl (Vanco Per Pharmacy) 1 each PRN DAILY PRN MC SEE COMMENTS Last administered on 01/17/17 08:51; Start 01/16/17 at 15:45 Piperacillin Sod/ Tazobactam Sod 2.25 gm/Sodium Chloride 50 ml @ 100 mls/hr Q8HRS IV Last administered on 01/17/17 05:00; Start 01/16/17 at 17:01 Sodium Chloride (Sodium Chloride) 50 ml STK-MED ONCE IJ ; Start 01/16/17 at 15: 45; Stop 01/16/17 at 15:46; Status DC Vasopressin (Vasostrict) 20 unit STK-MED ONCE .ROUTE ; Start 01/16/17 at 15:45; Stop 01/16/17 at 15:46; Status DC Vancomycin HCl 2 gm/Sodium Chloride 500 ml @ 250 mls/hr 1X ONCE IV Last administered on 01/16/17 19:27; Start 01/16/17 at 16:30; Stop 01/16/17 at 18:29 ; Status DC Bupivacaine HCl/ Epinephrine Bitart (Marcaine-Epi 0.5%-1:[id number]) 50 ml STK-MED ONCE .ROUTE Last administered on 01/16/17 15:55; Start 01/16/17 at 15:53; Stop 01/16/17 at 15:54; Status DC Fentanyl Citrate (Fentanyl 2ml Vial) 100 mcg STK-MED ONCE .ROUTE ; Start at 15:58; Stop 01/16/17 at 15:59; Status DC Neomycin/ Polymyxin/ Bacitracin (Triple Antibiotic Ointment) 1 pkt STK-MED ONCE TP Last administered on 01/16/17 15:55; Start 01/16/17 at 16:02; Stop at 16:03; Status DC Phenylephrine HCl 1 mg STK-MED ONCE IV ; Start 01/16/17 at 16:13; Stop 01/16/17 at 16:14; Status DC Vancomycin HCl 1 each 1X ONCE MC ; Start 01/19/17 at 05:00; Stop 01/19/17 at 05 :01 Insulin Detemir (Levemir) 10 units QHS SQ ; Start 01/17/17 at 21:00 Active Scripts Active Glipizide 5 Mg Tablet 1 Tab PO BID Levemir (Insulin Detemir) 100 Unit/1 Ml Vial 15 Unit SQ QHS 30 Days Keflex (Cephalexin) 500 Mg Capsule 1 Cap PO TID n/a Cozaar (Losartan Potassium) 50 Mg Tablet 100 Mg PO DAILY Reported Carvedilol 12.5 Mg Tablet 1 Tab PO BID Aspir 81 (Aspirin) 81 Mg Tablet.dr 1 Tab PO DAILY Gabapentin 300 Mg Capsule 300 Mg PO HS Renvela (Sevelamer Carbonate) 800 Mg Tablet 2 Tab PO TID Nephro-Amie Tablet (Folic Acid/Vitamin B Comp W-C) 0.8 Mg Tablet 1 Tab PO DAILY Doxazosin Mesylate 8 Mg Tablet 1 Tab PO DAILY Lovastatin 40 Mg Tablet 1 Tab PO DAILY Vitals/I & O Vital Sign - Last 24 Hours 01/16/17 01/16/17 01/16/17 01/16/17 14:43 16:25 16:40 16:55 Temp 98.1 96.8 96.8 98.1 96.8 96.8 Pulse 71 66 66 66 Resp 16 16 17 20 B/P (MAP) 136/68 123/39 124/47 123/35 Pulse Ox 96 96 96 98 O2 Delivery Room Air Simple Mask Room Air Simple Mask O2 Flow Rate 8 8 01/16/17 01/16/17 01/16/17 01/16/17 17:10 17:25 18:23 19:00 Temp 97 96.8 97.0 96.8 Pulse 67 68 71 68 Resp 19 20 18 B/P (MAP) 120/37 142/42 136/68 144/66 (92) Pulse Ox 98 94 98 O2 Delivery Nasal Cannula Nasal Cannula Room Air O2 Flow Rate 5 3 01/16/17 01/16/17 01/16/17 01/17/17 19:15 20:07 23:06 03:57 Temp 97.5 97.3 97.5 97.3 Pulse 72 68 62 Resp 18 18 B/P (MAP) 157/85 (109) 117/53 (74) 128/59 (82) Pulse Ox 97 92 O2 Delivery Room Air Room Air Room Air 01/17/17 01/17/17 01/17/17 01/17/17 07:00 08:14 09:11 09:12 Temp 97.7 97.7 Pulse 63 63 63 Resp 18 B/P (MAP) 130/57 (81) 130/57 130/57 Pulse Ox 92 O2 Delivery Room Air Room Air 01/17/17 01/17/17 09:13 10:42 Temp 97.7 97.7 Pulse 63 67 Resp 18 B/P (MAP) 130/57 120/54 (76) Pulse Ox 94 O2 Delivery Room Air Intake and Output 01/16/17 01/16/17 01/17/17 15:00 23:00 07:00 Intake Total 300 ml 1120 ml 220 ml Output Total 0 ml Balance 300 ml 1120 ml 220 ml Nutrition Consultation Dietary Evaluation: Recommendations by RD: Increase Calorie Intake Comments: Rec. resume the renal/ada diets as medically appropriate Rec. double meats at meals to increase protein intake Expected Outcomes/Goals: meet 75% estimated nutrition needs Malnutrition Findings: Weight Status: Obese KARYN JUDD MD Jan 17, 2017 11:10
--- NOTE | 2017-01-17 11:43 | PDOC ---
Renal-Progress Notes Subjective Notes Notes FEELING BETTER, NO PAIN History of Present Illness Hx of present illness STABLE Vitals Vitals Vital Signs Date Time Temp Pulse Resp B/P (MAP) Pulse Ox O2 Delivery O2 Flow Rate FiO2 01/17/17 10:42 97.7 67 18 120/54 (76) 94 Room Air 97.7 01/16/17 17:25 3 Weight Weight [ ] I.O. Intake and Output Intake and Output 01/17/17 07:00 Intake Total 1640 ml Output Total 0 ml Balance 1640 ml Intake Oral 1240 ml IV Total 400 ml Output Urine Total 0 ml Estimated Blood Loss 0 ml # Voids 3 Labs Labs Laboratory Tests Test 01/16/17 17:14 01/16/17 20:15 01/17/17 07:17 01/17/17 07:51 Glucose (Fingerstick) 186 mg/dL (70-99) 198 mg/dL (70-99) 59 mg/dL (70-99) 72 mg/dL (70-99) Test 01/17/17 10:06 Glucose (Fingerstick) 124 mg/dL (70-99) Micro Micro Microbiology 01/15/17 Blood Culture - Preliminary, Resulted NO GROWTH AFTER 2 DAYS Review of Systems Constitutional: yes: alert, oriented Ears/Nose/Throat: Yes: no symptom reported Pulmonary: Yes no symptom reported Cardiovascular: Yes no symptom reported Musculoskeletal: Yes: muscle stiffness Skin: Yes no symptom reported Psychiatric/Neurological: Yes: no symptom reported Endocrine: Yes: no symptom reported Physical Exam General Appearance: no apparent distress Skin: warm Respiratory: bilateral CTA Heart: S1S2 Abdomen: soft, bowel sounds present Genitourinary: bladder flat Extremities: pulses present Neurology: alert, oriented Assessment Assessment IMP HTN ESRD ANEMIA L LE CELLULITIS RIGHT BREAST ABSCESS? PLAN HD THURSDAY ANTIBIOTICS JORGE BECKER MD Jan 17, 2017 11:42
[2017-01-17] MEDS: glipiZIDE 5 MG TABLET PO SCH ×2 (12:11→20:58)
[2017-01-17 15:04] VITALS: BP 144/60
--- NOTE | 2017-01-17 16:39 | PDOC ---
Provider Note Provider Note no concerns bandage dry cont abx. plan for wound care to assess wound thursday. JARROD LEMOS MD Jan 17, 2017 16:39
[2017-01-17 19:52] VITALS: BP 129/63
[2017-01-17] MEDS: GABAPENTIN 300 MG CAPSULE. PO SCH (20:57)
[2017-01-17] MEDS: ATORVASTATIN CALCIUM 10 MG TABLET. PO SCH (20:57)
[2017-01-17] MEDS: INSULIN DETEMIR 300 UNITS/3 ML INSULN.PEN. SQ SCH (20:58)
[2017-01-17 23:33] VITALS: BP 126/63
[2017-01-18 03:30] VITALS: BP 132/65
[2017-01-18] MEDS: PIPERACILLIN/TAZOBACTAM 2.25 GM in IV NORMAL SALINE 50ML 50 ML IV SCH ×3 (05:48→21:01)
[2017-01-18 07:00] VITALS: BP 129/61
[2017-01-18] MEDS: VANCOMYCIN PER PHARMACY MC PRN (07:49)
[2017-01-18] MEDS: CARVEDILOL 12.5 MG TABLET. PO SCH ×2 (08:35→17:20)
[2017-01-18] MEDS: SEVELAMER CARBONATE 800 MG TABLET. PO SCH ×3 (08:35→17:19)
[2017-01-18] MEDS: DOXAZOSIN MESYLATE 4 MG TABLET. PO SCH (08:36)
[2017-01-18] MEDS: LOSARTAN POTASSIUM 50 MG TABLET. PO SCH (08:36)
[2017-01-18] MEDS: glipiZIDE 5 MG TABLET PO SCH ×2 (08:36→21:01)
[2017-01-18] MEDS: FOLIC/VIT B COMP W-C (RENAL) TABLET. PO SCH (08:37)
[2017-01-18] MEDS: ASPIRIN ENTERIC COATED 81 MG TABLET.DR. PO SCH (08:37)
[2017-01-18 11:00] VITALS: BP 121/58
--- NOTE | 2017-01-18 11:26 | PDOC ---
PROGRESS NOTES Chief Complaint Chief Complaint R breast abscess s/p I and D 01/16/17 LEft leg DM ulcer ESRD on HD AOCD Obesity DM 2 insulin requiring History of Present Illness History of Present Illness R megan looking good! She is looking good, no pain whatsoever Needs wound care consult per GS NO hypoglycemia today (we are at a lower dose levemir than home dose) Gram stain neg NEg BC GPC on wound breast PLAN: Cont present antibiotic Wound care thursday MIght be able to dc on PO antibiotic thursday - await speciation and sensitivities Vitals Vitals Vital Signs Date Time Temp Pulse Resp B/P (MAP) Pulse Ox O2 Delivery O2 Flow Rate FiO2 01/18/17 08:36 71 129/61 01/18/17 08:00 Room Air 01/18/17 07:00 97.9 20 95 97.9 Physical Exam General: Alert, Oriented X3 Heart: Normal S1, Normal S2 Lungs: Clear Abdomen: Normal bowel sounds, Soft Extremities: No clubbing Skin: Other (lesion to left lower extr, bandage in place) Labs LABS Laboratory Tests Test 01/17/17 16:18 01/17/17 20:37 01/18/17 07:43 Glucose (Fingerstick) 115 mg/dL (70-99) 80 mg/dL (70-99) 237 mg/dL (70-99) Review of Systems Review of Systems denies 14 pt Assessment and Plan Assessmemt and Plan Problems Medical Problems: (1) Abscess of right breast Status: Acute (2) Diabetic calf ulcer Status: Acute Problems: Comment Review of Relevant I have reviewed the following items kathy (where applicable) has been applied. Labs Laboratory Tests Test 01/16/17 17:14 01/16/17 20:15 01/17/17 07:17 01/17/17 07:51 Glucose (Fingerstick) 186 mg/dL (70-99) 198 mg/dL (70-99) 59 mg/dL (70-99) 72 mg/dL (70-99) Test 01/17/17 10:06 01/17/17 16:18 01/17/17 20:37 01/18/17 07:43 Glucose (Fingerstick) 124 mg/dL (70-99) 115 mg/dL (70-99) 80 mg/dL (70-99) 237 mg/dL (70-99) Laboratory Tests Test 01/17/17 16:18 01/17/17 20:37 01/18/17 07:43 Glucose (Fingerstick) 115 mg/dL (70-99) 80 mg/dL (70-99) 237 mg/dL (70-99) Microbiology 01/15/17 Blood Culture - Preliminary, Resulted NO GROWTH AFTER 3 DAYS 01/16/17 Gram Stain - Final, Complete Medications Current Medications Clindamycin Phosphate 50 ml @ 100 mls/hr Q8HRS IV Last administered on 06:21; Start 01/15/17 at 16:00; Stop 01/16/17 at 15:43; Status DC Clindamycin Phosphate 50 ml @ 100 mls/hr 1X ONCE IV Last administered on 01/15 10:13; Start 01/15/17 at 10:00; Stop 01/15/17 at 10:29; Status DC Aspirin (Ecotrin) 81 mg DAILY PO Last administered on 01/18/17 08:37; Start at 12:00 Carvedilol (Coreg) 12.5 mg BIDWMEALS PO Last administered on 01/18/17 08:35; Start 01/15/17 at 12:00 Vitamin B Complex/ Vitamin C (Amaya-Amie) 1 tab DAILY PO Last administered on 08:37; Start 01/15/17 at 12:00 Glipizide (Glucotrol) 5 mg BID PO Last administered on 01/18/17 08:36; Start 01/15/17 at 12:00 Losartan Potassium (Cozaar) 100 mg DAILY PO Last administered on 01/18/17 08: 36; Start 01/15/17 at 12:00 Sevelamer Carbonate (Renvela) 1,600 mg TIDWMEALS PO Last administered on 08:35; Start 01/15/17 at 12:00 Non-Formulary Medication 1 cap TID PO ; Start 01/15/17 at 14:00; Status UNV Doxazosin Mesylate (Cardura) 8 mg DAILY PO Last administered on 01/18/17 08:36 ; Start 01/15/17 at 12:00 Gabapentin (Neurontin) 300 mg QHS PO Last administered on 01/17/17 20:57; Start 01/15/17 at 21:00 Insulin Detemir (Levemir) 15 units QHS SQ Last administered on 01/16/17 20:23 ; Start 01/15/17 at 21:00; Stop 01/17/17 at 09:41; Status DC Atorvastatin Calcium (Lipitor) 10 mg QHS PO Last administered on 01/17/17 20: 57; Start 01/15/17 at 21:00 Info (PHARMACY MONITORING -- do not chart) 1 each PRN DAILY PRN MC SEE COMMENTS ; Start 01/16/17 at 09:00 Ondansetron HCl (Zofran) 4 mg PRN Q6HRS PRN IV NAUSEA/VOMITING; Start 01/16/17 at 12:00; Stop 01/17/17 at 11:59; Status DC Fentanyl Citrate (Fentanyl 2ml Vial) 25 mcg PRN Q5MIN PRN IV MILD PAIN; Start 01/16/17 at 12:00; Stop 01/17/17 at 11:59; Status DC Fentanyl Citrate (Fentanyl 2ml Vial) 50 mcg PRN Q5MIN PRN IV MODERATE PAIN; Start 01/16/17 at 12:00; Stop 01/17/17 at 11:59; Status DC Morphine Sulfate 1 mg PRN Q10MIN PRN IV SEVERE PAIN; Start 01/16/17 at 12:00; Stop 01/17/17 at 11:59; Status DC Ringer's Solution 1,000 ml @ 30 mls/hr Q24H IV ; Start 01/16/17 at 11:49; Stop 01/16/17 at 23:48; Status DC Lidocaine HCl 2 ml PRN 1X PRN ID PRIOR TO IV START; Start 01/16/17 at 12:00; Stop 01/17/17 at 11:59; Status DC Hydromorphone HCl (Dilaudid) 0.5 mg PRN Q10MIN PRN IV SEV PAIN, Second choice; Start 01/16/17 at 12:00; Stop 01/17/17 at 11:59; Status DC Prochlorperazine Edisylate (Compazine) 5 mg PACU PRN PRN IV NAUSEA, MRX1; Start 01/16/17 at 12:00; Stop 01/17/17 at 11:59; Status DC Darbepoetin Franklin (Aranesp) 60 mcg WEEKLYHS SQ ; Start 01/23/17 at 21:00 Sodium Chloride 1,000 ml @ 75 mls/hr [id number] IV Last administered on 14:51; Start 01/16/17 at 15:00; Stop 01/18/17 at 05:56; Status DC Propofol 20 ml @ As Directed STK-MED ONCE IV ; Start 01/16/17 at 15:08; Stop at 15:09; Status DC Lidocaine HCl (Lidocaine Pf 2% Vial) 5 ml STK-MED ONCE .ROUTE ; Start 01/16/17 at 15:08; Stop 01/16/17 at 15:09; Status DC Famotidine (Pepcid) 20 mg STK-MED ONCE .ROUTE ; Start 01/16/17 at 15:08; Stop at 15:09; Status DC Ondansetron HCl (Zofran) 4 mg STK-MED ONCE .ROUTE ; Start 01/16/17 at 15:08; Stop 01/16/17 at 15:09; Status DC Ephedrine Sulfate 50 mg STK-MED ONCE IV ; Start 01/16/17 at 15:32; Stop at 15:33; Status DC Vancomycin HCl (Vanco Per Pharmacy) 1 each PRN DAILY PRN MC SEE COMMENTS Last administered on 01/18/17 07:49; Start 01/16/17 at 15:45 Piperacillin Sod/ Tazobactam Sod 2.25 gm/Sodium Chloride 50 ml @ 100 mls/hr Q8HRS IV Last administered on 01/18/17 05:48; Start 01/16/17 at 17:01 Sodium Chloride (Sodium Chloride) 50 ml STK-MED ONCE IJ ; Start 01/16/17 at 15: 45; Stop 01/16/17 at 15:46; Status DC Vasopressin (Vasostrict) 20 unit STK-MED ONCE .ROUTE ; Start 01/16/17 at 15:45; Stop 01/16/17 at 15:46; Status DC Vancomycin HCl 2 gm/Sodium Chloride 500 ml @ 250 mls/hr 1X ONCE IV Last administered on 01/16/17 19:27; Start 01/16/17 at 16:30; Stop 01/16/17 at 18:29 ; Status DC Bupivacaine HCl/ Epinephrine Bitart (Marcaine-Epi 0.5%-1:[id number]) 50 ml STK-MED ONCE .ROUTE Last administered on 01/16/17t 15:55; Start 01/16/17 at 15:53; Stop 01/16/17 at 15:54; Status DC Fentanyl Citrate (Fentanyl 2ml Vial) 100 mcg STK-MED ONCE .ROUTE ; Start at 15:58; Stop 01/16/17 at 15:59; Status DC Neomycin/ Polymyxin/ Bacitracin (Triple Antibiotic Ointment) 1 pkt STK-MED ONCE TP Last administered on 01/16/17t 15:55; Start 01/16/17 at 16:02; Stop at 16:03; Status DC Phenylephrine HCl 1 mg STK-MED ONCE IV ; Start 01/16/17 at 16:13; Stop 01/16/17 at 16:14; Status DC Vancomycin HCl 1 each 1X ONCE MC ; Start 01/19/17 at 05:00; Stop 01/19/17 at 05 :01 Insulin Detemir (Levemir) 10 units QHS SQ ; Start 01/17/17 at 21:00 Active Scripts Active Glipizide 5 Mg Tablet 1 Tab PO BID Levemir (Insulin Detemir) 100 Unit/1 Ml Vial 15 Unit SQ QHS 30 Days Keflex (Cephalexin) 500 Mg Capsule 1 Cap PO TID n/a Cozaar (Losartan Potassium) 50 Mg Tablet 100 Mg PO DAILY Reported Carvedilol 12.5 Mg Tablet 1 Tab PO BID Aspir 81 (Aspirin) 81 Mg Tablet.dr 1 Tab PO DAILY Gabapentin 300 Mg Capsule 300 Mg PO HS Renvela (Sevelamer Carbonate) 800 Mg Tablet 2 Tab PO TID Nephro-Amie Tablet (Folic Acid/Vitamin B Comp W-C) 0.8 Mg Tablet 1 Tab PO DAILY Doxazosin Mesylate 8 Mg Tablet 1 Tab PO DAILY Lovastatin 40 Mg Tablet 1 Tab PO DAILY Vitals/I & O Vital Sign - Last 24 Hours 01/17/17 01/17/17 01/17/17 01/17/17 15:04 17:08 19:10 19:52 Temp 97.7 96.9 97.7 96.9 Pulse 69 69 75 Resp 18 20 B/P (MAP) 144/60 (88) 144/60 129/63 (85) Pulse Ox 93 92 O2 Delivery Room Air Room Air Room Air 01/17/17 01/18/17 01/18/17 01/18/17 23:33 03:30 07:00 08:00 Temp 97.0 97.0 97.9 97.0 97.0 97.9 Pulse 78 77 71 Resp 20 20 20 B/P (MAP) 126/63 (84) 132/65 (87) 129/61 (83) Pulse Ox 95 93 95 O2 Delivery Room Air Room Air Room Air Room Air 01/18/17 01/18/17 01/18/17 08:35 08:36 08:36 Pulse 71 71 71 B/P (MAP) 129/61 129/61 129/61 Intake and Output 01/17/17 01/17/17 01/18/17 15:00 23:00 07:00 Intake Total 600 ml 950 ml 460 ml Balance 600 ml 950 ml 460 ml Nutrition Consultation Dietary Evaluation: Recommendations by RD: Increase Calorie Intake Comments: Rec. resume the renal/ada diets as medically appropriate Rec. double meats at meals to increase protein intake Expected Outcomes/Goals: meet 75% estimated nutrition needs Malnutrition Findings: Weight Status: Obese KARYN JUDD MD Jan 18, 2017 11:25
--- NOTE | 2017-01-18 12:58 | PDOC ---
Infectious Disease Note Subjective Subjective Doing well. min pain. Legs better ROS ROS GEN: Denies fevers, chills, sweats HEENT: Denies blurred vision, sore throat CV: Denies chest pain RESP: Denies shortness of air, cough GI: Denies n/v/d NEURO: Denies confusion, dizziness MSK: Denies weakness, joint pain/swelling Vital Sign Vital Signs Vital Signs Date Time Temp Pulse Resp B/P (MAP) Pulse Ox O2 Delivery O2 Flow Rate FiO2 01/18/17 11:00 97.9 67 20 121/58 (79) 96 Room Air 97.9 Physical Exam PHYSICAL EXAM GENERAL: NAD, Alert, in chair and just finished eating HEENT: PERRL, NECK: Supple, no JVD, no LN LUNGS: Clear HEART: S1S2, no gallop, no murmur ABD: Soft, NT, no organomegaly, no rebound, obese EXT: No edema, no cyanosis/LLE wound is dressed. 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 post op wound dressed IV: ok Labs Lab Laboratory Tests Test 01/17/17 16:18 01/17/17 20:37 01/18/17 07:43 Glucose (Fingerstick) 115 mg/dL (70-99) 80 mg/dL (70-99) 237 mg/dL (70-99) Objective Assessment Right breast mass developed over 5 days s/p I and D 01/16. Staph aureus LLE mild erythema ? cellulitis - better CKD on HD DM Plan Plan of Care Cont Vanc/zosyn started 01/16 F/u labs and cults Local wound care D/w family CRYSTAL MARQUEZ MD Jan 18, 2017 12:58
--- NOTE | 2017-01-18 13:10 | PDOC ---
Renal-Progress Notes Subjective Notes Notes FEELS WELL History of Present Illness Hx of present illness STABLE Vitals Vitals Vital Signs Date Time Temp Pulse Resp B/P (MAP) Pulse Ox O2 Delivery O2 Flow Rate FiO2 01/18/17 11:00 97.9 67 20 121/58 (79) 96 Room Air 97.9 Weight Weight [ ] I.O. Intake and Output Intake and Output 01/18/17 07:00 Intake Total 2009 ml Balance 2009 ml Intake Oral 1910 ml IV Total 100 ml Labs Labs Laboratory Tests Test 01/17/17 16:18 01/17/17 20:37 01/18/17 07:43 Glucose (Fingerstick) 115 mg/dL (70-99) 80 mg/dL (70-99) 237 mg/dL (70-99) Micro Micro Microbiology 01/15/17 Blood Culture - Preliminary, Resulted NO GROWTH AFTER 3 DAYS 01/16/17 Anaerobic/Aerobic Culture, Resulted Pending 01/16/17 Anaerobic Culture Result 1 (SHEFALI), Resulted Pending 01/16/17 Aerobic Culture - Preliminary, Resulted 01/16/17 Aerobic Culture Result 1 (SHEFALI) - Preliminary, Resulted Review of Systems Constitutional: yes: alert, oriented Ears/Nose/Throat: Yes: no symptom reported Pulmonary: Yes no symptom reported Cardiovascular: Yes no symptom reported Musculoskeletal: Yes: muscle stiffness Skin: Yes no symptom reported Psychiatric/Neurological: Yes: no symptom reported Endocrine: Yes: no symptom reported Physical Exam General Appearance: no apparent distress Skin: warm Respiratory: bilateral CTA Heart: S1S2 Abdomen: soft, bowel sounds present Genitourinary: bladder flat Extremities: pulses present Neurology: alert, oriented Assessment Assessment IMP HTN ESRD ANEMIA L LE CELLULITIS RIGHT BREAST LESION-S/P I&D PLAN HD TOMORROW ANTIBIOTICS WOUND CARE JORGE BECKER MD Jan 18, 2017 13:09
[2017-01-18 15:00] VITALS: BP 128/62
--- NOTE | 2017-01-18 16:51 | PDOC ---
Provider Note Provider Note pt without c/o nurse changed the packing and reports the wound appears healthy cont wound care. JARROD LEMOS MD Jan 18, 2017 16:51
[2017-01-18 19:00] VITALS: BP 125/65
[2017-01-18] MEDS: GABAPENTIN 300 MG CAPSULE. PO SCH (21:01)
[2017-01-18] MEDS: ATORVASTATIN CALCIUM 10 MG TABLET. PO SCH (21:01)
[2017-01-18] MEDS: INSULIN DETEMIR 300 UNITS/3 ML INSULN.PEN. SQ SCH (21:07)
[2017-01-18 23:08] VITALS: BP 111/60
[2017-01-19 03:19] VITALS: BP 113/58
[2017-01-19] MEDS ORDERED: VANCOMYCIN RANDOM LEVEL. MC ONE (05:00)
[2017-01-19] MEDS: PIPERACILLIN/TAZOBACTAM 2.25 GM in IV NORMAL SALINE 50ML 50 ML IV SCH ×2 (05:36→14:33)
[2017-01-19 06:03] LABS: HEMATOCRIT 32.9 % (36.0-47.0); HEMOGLOBIN 10.3 g/dL (12.0-15.5); RED BLOOD COUNT 3.48 x10^6/uL (3.50-5.40); WHITE BLOOD COUNT 4.7 x10^3/uL (4.0-11.0)
[2017-01-19 06:44] LABS: CALCIUM 8.7 mg/dL (8.5-10.1); CREATININE 7.3 mg/dL (0.6-1.0); GFR 5.6; POTASSIUM 5.5 mmol/L (3.5-5.1)
[2017-01-19 07:00] VITALS: BP 139/38
[2017-01-19] MEDS: VANCOMYCIN PER PHARMACY MC PRN ×2 (08:09→12:34)
[2017-01-19] MEDS ORDERED: IV NORMAL SALINE 1000ML BAG 1,000 ML IV PRN ×2 (08:55→09:38)
[2017-01-19] MEDS ORDERED: DIALYSIS PATIENT. MC PRN ×3 (09:00→09:45)
--- NOTE | 2017-01-19 09:37 | PDOC ---
Dialysis Progress Note Dialysis Note Dialysis Note Seen on Hemodialysis, tolerating treatment Okay so far Vitals on Hemodialysis: 137/38 69 afeb General Appearance: Awake: Alert Oriented x 3 Neck: No JVD or JVP Chest: CTA [place] Heart: S1 S2 Abdomen - Soft NTND Extremities - No Edema ESRD: Dialysis as below F 180 NR 3.5 Hrs 2 K 2.5 Ca 140 Na 35 HC03 Qb 350 + Qd 500+ Heparin 0 Units Uf 3 Kgs or to dry weight as tolerated May give 25-50 gms of 25% Albumin if needed to maintain Hemodynamic stability Treatment plan reviewed and discussed with automatic pilot mechanic Wts are grossly discrepant from OP Dry wt - so will need to be reweighed Vitals Vital Signs Vital Signs Date Time Temp Pulse Resp B/P (MAP) Pulse Ox O2 Delivery O2 Flow Rate FiO2 01/19/17 07:00 97.5 66 20 139/38 (71) 90 Room Air 97.5 01/16/17 17:25 3 Labs Last Labs Laboratory Tests Test 01/17/17 10:06 01/17/17 16:18 01/17/17 20:37 01/18/17 07:43 Glucose (Fingerstick) 124 mg/dL (70-99) 115 mg/dL (70-99) 80 mg/dL (70-99) 237 mg/dL (70-99) Test 01/18/17 11:10 01/18/17 16:34 01/18/17 20:51 01/19/17 04:40 Glucose (Fingerstick) 288 mg/dL (70-99) 208 mg/dL (70-99) 278 mg/dL (70-99) White Blood Count 4.7 x10^3/uL (4.0-11.0) Red Blood Count 3.48 x10^6/uL (3.50-5.40) Hemoglobin 10.3 g/dL (12.0-15.5) Hematocrit 32.9 % (36.0-47.0) Mean Corpuscular Volume 95 fL (79-100) Mean Corpuscular Hemoglobin 30 pg (25-35) Mean Corpuscular Hemoglobin Concent 31 g/dL (31-37) Red Cell Distribution Width 18.0 % (11.5-14.5) Platelet Count 87 x10^3/uL (140-400) Test 01/19/17 04:45 01/19/17 07:27 Sodium Level 136 mmol/L (136-145) Potassium Level 5.5 mmol/L (3.5-5.1) Chloride Level 97 mmol/L (98-107) Carbon Dioxide Level 26 mmol/L (21-32) Anion Gap 13 (6-14) Blood Urea Nitrogen 49 mg/dL (7-20) Creatinine 7.3 mg/dL (0.6-1.0) Estimated GFR (Cockcroft-Gault) 5.6 Glucose Level 175 mg/dL (70-99) Calcium Level 8.7 mg/dL (8.5-10.1) Random Vancomycin Level 20.2 mcg/mL Glucose (Fingerstick) 150 mg/dL (70-99) Laboratory Tests Test 01/18/17 11:10 01/18/17 16:34 01/18/17 20:51 01/19/17 04:40 Glucose (Fingerstick) 288 mg/dL (70-99) 208 mg/dL (70-99) 278 mg/dL (70-99) White Blood Count 4.7 x10^3/uL (4.0-11.0) Red Blood Count 3.48 x10^6/uL (3.50-5.40) Hemoglobin 10.3 g/dL (12.0-15.5) Hematocrit 32.9 % (36.0-47.0) Mean Corpuscular Volume 95 fL (79-100) Mean Corpuscular Hemoglobin 30 pg (25-35) Mean Corpuscular Hemoglobin Concent 31 g/dL (31-37) Red Cell Distribution Width 18.0 % (11.5-14.5) Platelet Count 87 x10^3/uL (140-400) Test 01/19/17 04:45 01/19/17 07:27 Sodium Level 136 mmol/L (136-145) Potassium Level 5.5 mmol/L (3.5-5.1) Chloride Level 97 mmol/L (98-107) Carbon Dioxide Level 26 mmol/L (21-32) Anion Gap 13 (6-14) Blood Urea Nitrogen 49 mg/dL (7-20) Creatinine 7.3 mg/dL (0.6-1.0) Estimated GFR (Cockcroft-Gault) 5.6 Glucose Level 175 mg/dL (70-99) Calcium Level 8.7 mg/dL (8.5-10.1) Random Vancomycin Level 20.2 mcg/mL Glucose (Fingerstick) 150 mg/dL (70-99) Assessment Assessment Problems Medical Problems: (1) Abscess of right breast Status: Acute (2) Diabetic calf ulcer Status: Acute Problems: Plan Plan of Care Problems Medical Problems: (1) Abscess of right breast Status: Acute (2) Diabetic calf ulcer Status: Acute CLEMENTE AVILES MD Jan 19, 2017 09:37
[2017-01-19] MEDS ORDERED: diphenhydrAMINE 50 MG/ML VIAL IV PRN ×2 (09:45)
--- NOTE | 2017-01-19 10:17 | PDOC ---
PROGRESS NOTES Chief Complaint Chief Complaint R breast abscess s/p I and D 01/16/17 LEft leg DM ulcer ESRD on HD AOCD Obesity DM 2 insulin requiring History of Present Illness History of Present Illness R megan looking good! She is looking good, no pain whatsoever Needs wound care consult per GS NO hypoglycemia today (we are at a lower dose levemir than home dose) Gram stain neg NEg BC GPC on wound breast PLAN: Cont present antibiotic Wound care thursday MIght be able to dc on PO antibiotic thursday - await speciation and sensitivities HD per renal Vitals Vitals Vital Signs Date Time Temp Pulse Resp B/P (MAP) Pulse Ox O2 Delivery O2 Flow Rate FiO2 01/19/17 07:00 97.5 66 20 139/38 (71) 90 Room Air 97.5 Physical Exam General: Alert, Oriented X3 Heart: Normal S1, Normal S2 Lungs: Clear Abdomen: Normal bowel sounds, Soft Extremities: No clubbing Skin: Other (lesion to left lower extr, bandage in place) Labs LABS Laboratory Tests Test 01/18/17 11:10 01/18/17 16:34 01/18/17 20:51 01/19/17 04:40 Glucose (Fingerstick) 288 mg/dL (70-99) 208 mg/dL (70-99) 278 mg/dL (70-99) White Blood Count 4.7 x10^3/uL (4.0-11.0) Red Blood Count 3.48 x10^6/uL (3.50-5.40) Hemoglobin 10.3 g/dL (12.0-15.5) Hematocrit 32.9 % (36.0-47.0) Mean Corpuscular Volume 95 fL (79-100) Mean Corpuscular Hemoglobin 30 pg (25-35) Mean Corpuscular Hemoglobin Concent 31 g/dL (31-37) Red Cell Distribution Width 18.0 % (11.5-14.5) Platelet Count 87 x10^3/uL (140-400) Test 01/19/17 04:45 01/19/17 07:27 Sodium Level 136 mmol/L (136-145) Potassium Level 5.5 mmol/L (3.5-5.1) Chloride Level 97 mmol/L (98-107) Carbon Dioxide Level 26 mmol/L (21-32) Anion Gap 13 (6-14) Blood Urea Nitrogen 49 mg/dL (7-20) Creatinine 7.3 mg/dL (0.6-1.0) Estimated GFR (Cockcroft-Gault) 5.6 Glucose Level 175 mg/dL (70-99) Calcium Level 8.7 mg/dL (8.5-10.1) Random Vancomycin Level 20.2 mcg/mL Glucose (Fingerstick) 150 mg/dL (70-99) Review of Systems Review of Systems neg 14 pt reviewed Assessment and Plan Assessmemt and Plan Problems Medical Problems: (1) Abscess of right breast Status: Acute (2) Diabetic calf ulcer Status: Acute Problems: Comment Review of Relevant I have reviewed the following items kathy (where applicable) has been applied. Labs Laboratory Tests Test 01/17/17 16:18 01/17/17 20:37 01/18/17 07:43 01/18/17 11:10 Glucose (Fingerstick) 115 mg/dL (70-99) 80 mg/dL (70-99) 237 mg/dL (70-99) 288 mg/dL (70-99) Test 01/18/17 16:34 01/18/17 20:51 01/19/17 04:40 01/19/17 04:45 Glucose (Fingerstick) 208 mg/dL (70-99) 278 mg/dL (70-99) White Blood Count 4.7 x10^3/uL (4.0-11.0) Red Blood Count 3.48 x10^6/uL (3.50-5.40) Hemoglobin 10.3 g/dL (12.0-15.5) Hematocrit 32.9 % (36.0-47.0) Mean Corpuscular Volume 95 fL (79-100) Mean Corpuscular Hemoglobin 30 pg (25-35) Mean Corpuscular Hemoglobin Concent 31 g/dL (31-37) Red Cell Distribution Width 18.0 % (11.5-14.5) Platelet Count 87 x10^3/uL (140-400) Sodium Level 136 mmol/L (136-145) Potassium Level 5.5 mmol/L (3.5-5.1) Chloride Level 97 mmol/L (98-107) Carbon Dioxide Level 26 mmol/L (21-32) Anion Gap 13 (6-14) Blood Urea Nitrogen 49 mg/dL (7-20) Creatinine 7.3 mg/dL (0.6-1.0) Estimated GFR (Cockcroft-Gault) 5.6 Glucose Level 175 mg/dL (70-99) Calcium Level 8.7 mg/dL (8.5-10.1) Random Vancomycin Level 20.2 mcg/mL Test 01/19/17 07:27 Glucose (Fingerstick) 150 mg/dL (70-99) Laboratory Tests Test 01/18/17 11:10 01/18/17 16:34 01/18/17 20:51 01/19/17 04:40 Glucose (Fingerstick) 288 mg/dL (70-99) 208 mg/dL (70-99) 278 mg/dL (70-99) White Blood Count 4.7 x10^3/uL (4.0-11.0) Red Blood Count 3.48 x10^6/uL (3.50-5.40) Hemoglobin 10.3 g/dL (12.0-15.5) Hematocrit 32.9 % (36.0-47.0) Mean Corpuscular Volume 95 fL (79-100) Mean Corpuscular Hemoglobin 30 pg (25-35) Mean Corpuscular Hemoglobin Concent 31 g/dL (31-37) Red Cell Distribution Width 18.0 % (11.5-14.5) Platelet Count 87 x10^3/uL (140-400) Test 01/19/17 04:45 01/19/17 07:27 Sodium Level 136 mmol/L (136-145) Potassium Level 5.5 mmol/L (3.5-5.1) Chloride Level 97 mmol/L (98-107) Carbon Dioxide Level 26 mmol/L (21-32) Anion Gap 13 (6-14) Blood Urea Nitrogen 49 mg/dL (7-20) Creatinine 7.3 mg/dL (0.6-1.0) Estimated GFR (Cockcroft-Gault) 5.6 Glucose Level 175 mg/dL (70-99) Calcium Level 8.7 mg/dL (8.5-10.1) Random Vancomycin Level 20.2 mcg/mL Glucose (Fingerstick) 150 mg/dL (70-99) Microbiology 01/15/17 Blood Culture - Preliminary, Resulted NO GROWTH AFTER 4 DAYS 01/16/17 Anaerobic/Aerobic Culture, Resulted Pending 01/16/17 Anaerobic Culture Result 1 (SHEFALI), Resulted Pending 01/16/17 Aerobic Culture - Preliminary, Resulted 01/16/17 Aerobic Culture Result 1 (SHEFALI) - Preliminary, Resulted Medications Current Medications Clindamycin Phosphate 50 ml @ 100 mls/hr Q8HRS IV Last administered on 06:21; Start 01/15/17 at 16:00; Stop 01/16/17 at 15:43; Status DC Clindamycin Phosphate 50 ml @ 100 mls/hr 1X ONCE IV Last administered on 01/15 10:13; Start 01/15/17 at 10:00; Stop 01/15/17 at 10:29; Status DC Aspirin (Ecotrin) 81 mg DAILY PO Last administered on 01/18/17 08:37; Start at 12:00 Carvedilol (Coreg) 12.5 mg BIDWMEALS PO Last administered on 01/18/17 17:20; Start 01/15/17 at 12:00 Vitamin B Complex/ Vitamin C (Amaya-Amie) 1 tab DAILY PO Last administered on 08:37; Start 01/15/17 at 12:00 Glipizide (Glucotrol) 5 mg BID PO Last administered on 01/18/17 21:01; Start 01/15/17 at 12:00 Losartan Potassium (Cozaar) 100 mg DAILY PO Last administered on 01/18/17 08: 36; Start 01/15/17 at 12:00 Sevelamer Carbonate (Renvela) 1,600 mg TIDWMEALS PO Last administered on 17:19; Start 01/15/17 at 12:00 Non-Formulary Medication 1 cap TID PO ; Start 01/15/17 at 14:00; Status UNV Doxazosin Mesylate (Cardura) 8 mg DAILY PO Last administered on 01/18/17 08:36 ; Start 01/15/17 at 12:00 Gabapentin (Neurontin) 300 mg QHS PO Last administered on 01/18/17 21:01; Start 01/15/17 at 21:00 Insulin Detemir (Levemir) 15 units QHS SQ Last administered on 01/16/17t 20:23 ; Start 01/15/17 at 21:00; Stop 01/17/17 at 09:41; Status DC Atorvastatin Calcium (Lipitor) 10 mg QHS PO Last administered on 01/18/17 21: 01; Start 01/15/17 at 21:00 Info (PHARMACY MONITORING -- do not chart) 1 each PRN DAILY PRN MC SEE COMMENTS ; Start 01/16/17 at 09:00 Ondansetron HCl (Zofran) 4 mg PRN Q6HRS PRN IV NAUSEA/VOMITING; Start 01/16/17 at 12:00; Stop 01/17/17 at 11:59; Status DC Fentanyl Citrate (Fentanyl 2ml Vial) 25 mcg PRN Q5MIN PRN IV MILD PAIN; Start 01/16/17 at 12:00; Stop 01/17/17 at 11:59; Status DC Fentanyl Citrate (Fentanyl 2ml Vial) 50 mcg PRN Q5MIN PRN IV MODERATE PAIN; Start 01/16/17 at 12:00; Stop 01/17/17 at 11:59; Status DC Morphine Sulfate 1 mg PRN Q10MIN PRN IV SEVERE PAIN; Start 01/16/17 at 12:00; Stop 01/17/17 at 11:59; Status DC Ringer's Solution 1,000 ml @ 30 mls/hr Q24H IV ; Start 01/16/17 at 11:49; Stop 01/16/17 at 23:48; Status DC Lidocaine HCl 2 ml PRN 1X PRN ID PRIOR TO IV START; Start 01/16/17 at 12:00; Stop 01/17/17 at 11:59; Status DC Hydromorphone HCl (Dilaudid) 0.5 mg PRN Q10MIN PRN IV SEV PAIN, Second choice; Start 01/16/17 at 12:00; Stop 01/17/17 at 11:59; Status DC Prochlorperazine Edisylate (Compazine) 5 mg PACU PRN PRN IV NAUSEA, MRX1; Start 01/16/17 at 12:00; Stop 01/17/17 at 11:59; Status DC Darbepoetin Franklin (Aranesp) 60 mcg [id number] SQ ; Start 01/23/17 at 21:00 Sodium Chloride 1,000 ml @ 75 mls/hr [id number] IV Last administered on 14:51; Start 01/16/17 at 15:00; Stop 01/18/17 at 05:56; Status DC Propofol 20 ml @ As Directed STK-MED ONCE IV ; Start 01/16/17 at 15:08; Stop at 15:09; Status DC Lidocaine HCl (Lidocaine Pf 2% Vial) 5 ml STK-MED ONCE .ROUTE ; Start 01/16/17 at 15:08; Stop 01/16/17 at 15:09; Status DC Famotidine (Pepcid) 20 mg STK-MED ONCE .ROUTE ; Start 01/16/17 at 15:08; Stop at 15:09; Status DC Ondansetron HCl (Zofran) 4 mg STK-MED ONCE .ROUTE ; Start 01/16/17 at 15:08; Stop 01/16/17 at 15:09; Status DC Ephedrine Sulfate 50 mg STK-MED ONCE IV ; Start 01/16/17 at 15:32; Stop at 15:33; Status DC Vancomycin HCl (Vanco Per Pharmacy) 1 each PRN DAILY PRN MC SEE COMMENTS Last administered on 01/19/17 08:09; Start 01/16/17 at 15:45 Piperacillin Sod/ Tazobactam Sod 2.25 gm/Sodium Chloride 50 ml @ 100 mls/hr Q8HRS IV Last administered on 01/19/17 05:36; Start 01/16/17 at 17:01 Sodium Chloride (Sodium Chloride) 50 ml STK-MED ONCE IJ ; Start 01/16/17 at 15: 45; Stop 01/16/17 at 15:46; Status DC Vasopressin (Vasostrict) 20 unit STK-MED ONCE .ROUTE ; Start 01/16/17 at 15:45; Stop 01/16/17 at 15:46; Status DC Vancomycin HCl 2 gm/Sodium Chloride 500 ml @ 250 mls/hr 1X ONCE IV Last administered on 01/16/17 19:27; Start 01/16/17 at 16:30; Stop 01/16/17 at 18:29 ; Status DC Bupivacaine HCl/ Epinephrine Bitart (Marcaine-Epi 0.5%-[id number]) 50 ml STK-MED ONCE .ROUTE Last administered on 01/16/17 15:55; Start 01/16/17 at 15:53; Stop 01/16/17 at 15:54; Status DC Fentanyl Citrate (Fentanyl 2ml Vial) 100 mcg STK-MED ONCE .ROUTE ; Start at 15:58; Stop 01/16/17 at 15:59; Status DC Neomycin/ Polymyxin/ Bacitracin (Triple Antibiotic Ointment) 1 pkt STK-MED ONCE TP Last administered on 01/16/17 15:55; Start 01/16/17 at 16:02; Stop at 16:03; Status DC Phenylephrine HCl 1 mg STK-MED ONCE IV ; Start 01/16/17 at 16:13; Stop 01/16/17 at 16:14; Status DC Vancomycin HCl 1 each 1X ONCE MC Last administered on 01/19/17 05:00; Start 01/19/17 at 05:00; Stop 01/19/17 at 05:01; Status DC Insulin Detemir (Levemir) 10 units QHS SQ Last administered on 01/18/17 21:07 ; Start 01/17/17 at 21:00 Vancomycin HCl 500 mg/Sodium Chloride 100 ml @ 100 mls/hr QMWF IV ; Start 01/19 at 16:00 Sodium Chloride 1,000 ml @ 1,000 mls/hr Q1H PRN IV hypotension; Start 01/19/17 at 08:55; Stop 01/19/17 at 14:54 Info (PHARMACY MONITORING -- do not chart) 1 each PRN DAILY PRN MC SEE COMMENTS ; Start 01/19/17 at 09:00; Status UNV Sodium Chloride 1,000 ml @ 1,000 mls/hr Q1H PRN IV hypotension; Start 01/19/17 at 09:38; Stop 01/19/17 at 15:37 Diphenhydramine HCl (Benadryl) 25 mg 1X PRN PRN IV ITCHING; Start 01/19/17 at 09:45; Stop 01/20/17 at 09:44 Diphenhydramine HCl (Benadryl) 25 mg 1X PRN PRN IV ITCHING; Start 01/19/17 at 09:45; Stop 01/20/17 at 09:44 Heparin Sodium (Porcine) (Heparin Sodium) 2,000 unit 1X PRN PRN INT CAT AP catheter pack; Start 01/19/17 at 09:45; Stop 01/20/17 at 09:44 Heparin Sodium (Porcine) (Heparin Sodium) 2,000 unit 1X PRN PRN INT CAT [employer] catheter pack; Start 01/19/17 at 09:45; Stop 01/20/17 at 09:44 Info (PHARMACY MONITORING -- do not chart) 1 each PRN DAILY PRN MC SEE COMMENTS ; Start 01/19/17 at 09:45; Status UNV Info (PHARMACY MONITORING -- do not chart) 1 each PRN DAILY PRN MC SEE COMMENTS ; Start 01/19/17 at 09:45; Status UNV Active Scripts Active Glipizide 5 Mg Tablet 1 Tab PO BID Levemir (Insulin Detemir) 100 Unit/1 Ml Vial 15 Unit SQ QHS 30 Days Keflex (Cephalexin) 500 Mg Capsule 1 Cap PO TID n/a Cozaar (Losartan Potassium) 50 Mg Tablet 100 Mg PO DAILY Reported Carvedilol 12.5 Mg Tablet 1 Tab PO BID Aspir 81 (Aspirin) 81 Mg Tablet.dr 1 Tab PO DAILY Gabapentin 300 Mg Capsule 300 Mg PO HS Renvela (Sevelamer Carbonate) 800 Mg Tablet 2 Tab PO TID Nephro-Amie Tablet (Folic Acid/Vitamin B Comp W-C) 0.8 Mg Tablet 1 Tab PO DAILY Doxazosin Mesylate 8 Mg Tablet 1 Tab PO DAILY Lovastatin 40 Mg Tablet 1 Tab PO DAILY Vitals/I & O Vital Sign - Last 24 Hours 01/18/17 01/18/17 01/18/17 01/18/17 11:00 15:00 17:20 19:00 Temp 97.9 97.9 97.9 97.9 Pulse 67 65 65 Resp 20 20 B/P (MAP) 121/58 (79) 128/62 (84) 128/62 Pulse Ox 96 96 O2 Delivery Room Air Room Air Room Air 01/18/17 01/18/17 01/19/17 01/19/17 19:00 23:08 03:19 07:00 Temp 97.4 97.5 97.8 97.5 97.4 97.5 97.8 97.5 Pulse 67 68 67 66 Resp 20 21 21 20 B/P (MAP) 125/65 (85) 111/60 (77) 113/58 (76) 139/38 (71) Pulse Ox 96 94 96 90 O2 Delivery Room Air Room Air Room Air Room Air Intake and Output 01/18/17 01/18/17 01/19/17 15:00 23:00 07:00 Intake Total 600 ml 950 ml 340 ml Balance 600 ml 950 ml 340 ml Nutrition Consultation Dietary Evaluation: Recommendations by RD: Increase Calorie Intake Comments: Rec. resume the renal/ada diets as medically appropriate Rec. double meats at meals to increase protein intake Expected Outcomes/Goals: meet 75% estimated nutrition needs Malnutrition Findings: Weight Status: Obese KARYN JUDD MD Jan 19, 2017 10:17
[2017-01-19 11:00] VITALS: BP 137/101
[2017-01-19] MEDS: SEVELAMER CARBONATE 800 MG TABLET. PO SCH ×3 (12:00→18:06)
--- NOTE | 2017-01-19 12:10 | PDOC ---
Infectious Disease Note Subjective Subjective Feeling alright Pain controlled Appetite ok ROS ROS GEN: Denies fevers, chills, sweats CV: Denies chest pain RESP: Denies shortness of air, cough GI: Denies n/v/d Vital Sign Vital Signs Vital Signs Date Time Temp Pulse Resp B/P (MAP) Pulse Ox O2 Delivery O2 Flow Rate FiO2 01/19/17 11:00 71 137/101 (113) 01/19/17 07:00 97.5 20 90 Room Air 97.5 Physical Exam PHYSICAL EXAM GENERAL: Alert, dialyzing HEENT: OP/OC pink, dentures in place NECK: Supple, no JVD, no LN LUNGS: Clear HEART: S1 and S2 ABD: Obese, soft, NT EXT: No edema, no cyanosis. LUE AV fistula IS TECHNICIAN: Alert, oriented x 3, no focal neurologic deficit SKIN: No rash. Right breast wound packed, + drainage on dressing Labs Lab Laboratory Tests Test 01/18/17 16:34 01/18/17 20:51 01/19/17 04:40 01/19/17 04:45 Glucose (Fingerstick) 208 mg/dL (70-99) 278 mg/dL (70-99) White Blood Count 4.7 x10^3/uL (4.0-11.0) Red Blood Count 3.48 x10^6/uL (3.50-5.40) Hemoglobin 10.3 g/dL (12.0-15.5) Hematocrit 32.9 % (36.0-47.0) Mean Corpuscular Volume 95 fL (79-100) Mean Corpuscular Hemoglobin 30 pg (25-35) Mean Corpuscular Hemoglobin Concent 31 g/dL (31-37) Red Cell Distribution Width 18.0 % (11.5-14.5) Platelet Count 87 x10^3/uL (140-400) Sodium Level 136 mmol/L (136-145) Potassium Level 5.5 mmol/L (3.5-5.1) Chloride Level 97 mmol/L (98-107) Carbon Dioxide Level 26 mmol/L (21-32) Anion Gap 13 (6-14) Blood Urea Nitrogen 49 mg/dL (7-20) Creatinine 7.3 mg/dL (0.6-1.0) Estimated GFR (Cockcroft-Gault) 5.6 Glucose Level 175 mg/dL (70-99) Calcium Level 8.7 mg/dL (8.5-10.1) Random Vancomycin Level 20.2 mcg/mL Test 01/19/17 07:27 01/19/17 11:04 Glucose (Fingerstick) 150 mg/dL (70-99) 117 mg/dL (70-99) Micro taphylococcus aureus Heavy growth Methicillin resistant (MRSA) Based on resistance to oxacillin this isolate would be resistant to all currently available beta-lactam antimicrobial agents, with the exception of the newer cephalosporins with anti-MRSA activity, such as Ceftaroline ANTIMICROBIAL SUSCEPTIBILITY Final Comment S = Susceptible; I = Intermediate; R = Resistant P = Positive; N = Negative MICS are expressed in micrograms per mL Antibiotic RSLT#1 RSLT#2 RSLT#3 RSLT#4 Ciprofloxacin S Clindamycin S Erythromycin R Gentamicin S Levofloxacin S Linezolid S Oxacillin R Penicillin R Rifampin S CONTINUED ON NEXT PAGE RUN DATE: 01/19/17 PAGE 2 RUN TIME: 1319 [facility] [address] [place] [address] Jose Butt M.D., Production Cor[employer]ator SPEC: [id number] PATIENT: JONATAN NAIR [id number] ( Continued) Procedure Result ANTIMICROBIAL SUSCEPTIBILITY Final (continued) Tetracycline S Trimethoprim/Sulfa S Vancomycin S Objective Assessment Right breast mass developed over 5 days s/p I and D 01/16. Staph aureus MRSA LLE mild erythema ? cellulitis - better. looks post trauma with old blood blister now CKD on HD DM Plan Plan of Care Cont Vanc started 01/16. Change to po soon D/c Zosyn Contact isolation F/u labs Local wound care D/w son Attending Co-Sign Attending Co-Sign The patient was seen and interviewed as well as examined at the bedside. The chart was reviewed. The case was discussed. Agree with the plan of care. ALBERTO ARRIAZA APRN Jan 19, 2017 12:10 CRYSTAL MARQUEZ MD Jan 19, 2017 16:58
--- NOTE | 2017-01-19 12:36 | PDOC ---
Provider Note Provider Note SURG seen in dialysis no new complaints right axillary dressing intact no new surg recs continue dressing changes ask WC to see ALLISON FALK MD Jan 19, 2017 12:36
[2017-01-19] MEDS: LOSARTAN POTASSIUM 50 MG TABLET. PO SCH (14:33)
[2017-01-19] MEDS: FOLIC/VIT B COMP W-C (RENAL) TABLET. PO SCH (14:33)
[2017-01-19] MEDS: glipiZIDE 5 MG TABLET PO SCH ×2 (14:34→21:01)
[2017-01-19] MEDS: CARVEDILOL 12.5 MG TABLET. PO SCH ×2 (14:34→18:06)
[2017-01-19] MEDS: ASPIRIN ENTERIC COATED 81 MG TABLET.DR. PO SCH (14:34)
[2017-01-19] MEDS: DOXAZOSIN MESYLATE 4 MG TABLET. PO SCH (14:35)
[2017-01-19 15:00] VITALS: BP 113/60
--- NOTE | 2017-01-19 15:07 | PDOC ---
PROGRESS NOTES Subjective Subjective c/c - f/u of Right breast mass/abscess Objective Objective Vital Signs Date Time Temp Pulse Resp B/P (MAP) Pulse Ox O2 Delivery O2 Flow Rate FiO2 01/19/17 14:35 71 137/101 01/19/17 07:00 97.5 20 90 Room Air 97.5 01/16/17 17:25 3 Intake and Output 01/19/17 07:00 Intake Total 1890 ml Balance 1890 ml Intake Oral 1790 ml IV Total 100 ml # Bowel Movements 2 Physical Exam Heart: Normal S1, Normal S2 General: Alert, Oriented X3 Lungs: Clear to auscultation Assessment Assessment Problems Medical Problems: (1) Abscess of right breast Status: Acute (2) Diabetic calf ulcer Status: Acute Assessment/Plan 1. Right breast mass/abscess - There is evidence of erythema, warmth, and a central area of discoloration suggestive of an abscess. Rest of the breast examination is unremarkable examination of the left breast does not reveal any masses. Appreciate surgery evaluation. Ultrasound 01/16/17 : 1.1 x 1.4 x 1.8 cm hypoechoic region with internal echoes is suggestive of an abscess. There is associated skin thickening and edema suggesting a component of cellulitis. s/p Debridement skin and subcutaneous tissue right axilla 01/16/17. 2.Anemia due to end-stage renal disease. 3. Thrombocytopenia. This is likely reactive. I will continue to monitor. 4. End-stage renal disease - she is on hemodialysis. Comment Review of Relevant I have reviewed the following items kathy (where applicable) has been applied. Labs Laboratory Tests Test 01/17/17 16:18 01/17/17 20:37 01/18/17 07:43 01/18/17 11:10 Glucose (Fingerstick) 115 mg/dL (70-99) 80 mg/dL (70-99) 237 mg/dL (70-99) 288 mg/dL (70-99) Test 01/18/17 16:34 01/18/17 20:51 01/19/17 04:40 01/19/17 04:45 Glucose (Fingerstick) 208 mg/dL (70-99) 278 mg/dL (70-99) White Blood Count 4.7 x10^3/uL (4.0-11.0) Red Blood Count 3.48 x10^6/uL (3.50-5.40) Hemoglobin 10.3 g/dL (12.0-15.5) Hematocrit 32.9 % (36.0-47.0) Mean Corpuscular Volume 95 fL (79-100) Mean Corpuscular Hemoglobin 30 pg (25-35) Mean Corpuscular Hemoglobin Concent 31 g/dL (31-37) Red Cell Distribution Width 18.0 % (11.5-14.5) Platelet Count 87 x10^3/uL (140-400) Sodium Level 136 mmol/L (136-145) Potassium Level 5.5 mmol/L (3.5-5.1) Chloride Level 97 mmol/L (98-107) Carbon Dioxide Level 26 mmol/L (21-32) Anion Gap 13 (6-14) Blood Urea Nitrogen 49 mg/dL (7-20) Creatinine 7.3 mg/dL (0.6-1.0) Estimated GFR (Cockcroft-Gault) 5.6 Glucose Level 175 mg/dL (70-99) Calcium Level 8.7 mg/dL (8.5-10.1) Random Vancomycin Level 20.2 mcg/mL Test 01/19/17 07:27 01/19/17 11:04 Glucose (Fingerstick) 150 mg/dL (70-99) 117 mg/dL (70-99) Laboratory Tests Test 01/18/17 16:34 01/18/17 20:51 01/19/17 04:40 01/19/17 04:45 Glucose (Fingerstick) 208 mg/dL (70-99) 278 mg/dL (70-99) White Blood Count 4.7 x10^3/uL (4.0-11.0) Red Blood Count 3.48 x10^6/uL (3.50-5.40) Hemoglobin 10.3 g/dL (12.0-15.5) Hematocrit 32.9 % (36.0-47.0) Mean Corpuscular Volume 95 fL (79-100) Mean Corpuscular Hemoglobin 30 pg (25-35) Mean Corpuscular Hemoglobin Concent 31 g/dL (31-37) Red Cell Distribution Width 18.0 % (11.5-14.5) Platelet Count 87 x10^3/uL (140-400) Sodium Level 136 mmol/L (136-145) Potassium Level 5.5 mmol/L (3.5-5.1) Chloride Level 97 mmol/L (98-107) Carbon Dioxide Level 26 mmol/L (21-32) Anion Gap 13 (6-14) Blood Urea Nitrogen 49 mg/dL (7-20) Creatinine 7.3 mg/dL (0.6-1.0) Estimated GFR (Cockcroft-Gault) 5.6 Glucose Level 175 mg/dL (70-99) Calcium Level 8.7 mg/dL (8.5-10.1) Random Vancomycin Level 20.2 mcg/mL Test 01/19/17 07:27 01/19/17 11:04 Glucose (Fingerstick) 150 mg/dL (70-99) 117 mg/dL (70-99) Microbiology 01/15/17 Blood Culture - Preliminary, Resulted NO GROWTH AFTER 4 DAYS 01/16/17 Anaerobic/Aerobic Culture - Preliminary, Resulted 01/16/17 Anaerobic Culture Result 1 (SHEFALI) - Preliminary, Resulted 01/16/17 Aerobic Culture - Final, Resulted 01/16/17 Aerobic Culture Result 1 (SHEFALI) - Final, Resulted 01/16/17 Antimicrobic Susceptibility - Final, Resulted Medications Current Medications Clindamycin Phosphate 50 ml @ 100 mls/hr Q8HRS IV Last administered on 06:21; Start 01/15/17 at 16:00; Stop 01/16/17 at 15:43; Status DC Clindamycin Phosphate 50 ml @ 100 mls/hr 1X ONCE IV Last administered on 01/15 10:13; Start 01/15/17 at 10:00; Stop 01/15/17 at 10:29; Status DC Aspirin (Ecotrin) 81 mg DAILY PO Last administered on 01/19/17 14:34; Start at 12:00 Carvedilol (Coreg) 12.5 mg BIDWMEALS PO Last administered on 01/19/17 14:34; Start 01/15/17 at 12:00 Vitamin B Complex/ Vitamin C (Amaya-Amie) 1 tab DAILY PO Last administered on 14:33; Start 01/15/17 at 12:00 Glipizide (Glucotrol) 5 mg BID PO Last administered on 01/19/17 14:34; Start 01/15/17 at 12:00 Losartan Potassium (Cozaar) 100 mg DAILY PO Last administered on 01/19/17 14: 33; Start 01/15/17 at 12:00 Sevelamer Carbonate (Renvela) 1,600 mg TIDWMEALS PO Last administered on 14:33; Start 01/15/17 at 12:00 Non-Formulary Medication 1 cap TID PO ; Start 01/15/17 at 14:00; Status UNV Doxazosin Mesylate (Cardura) 8 mg DAILY PO Last administered on 01/19/17 14:35 ; Start 01/15/17 at 12:00 Gabapentin (Neurontin) 300 mg QHS PO Last administered on 01/18/17 21:01; Start 01/15/17 at 21:00 Insulin Detemir (Levemir) 15 units QHS SQ Last administered on 01/16/17 20:23 ; Start 01/15/17 at 21:00; Stop 01/17/17 at 09:41; Status DC Atorvastatin Calcium (Lipitor) 10 mg QHS PO Last administered on 01/18/17 21: 01; Start 01/15/17 at 21:00 Info (PHARMACY MONITORING -- do not chart) 1 each PRN DAILY PRN MC SEE COMMENTS ; Start 01/16/17 at 09:00 Ondansetron HCl (Zofran) 4 mg PRN Q6HRS PRN IV NAUSEA/VOMITING; Start 01/16/17 at 12:00; Stop 01/17/17 at 11:59; Status DC Fentanyl Citrate (Fentanyl 2ml Vial) 25 mcg PRN Q5MIN PRN IV MILD PAIN; Start 01/16/17 at 12:00; Stop 01/17/17 at 11:59; Status DC Fentanyl Citrate (Fentanyl 2ml Vial) 50 mcg PRN Q5MIN PRN IV MODERATE PAIN; Start 01/16/17 at 12:00; Stop 01/17/17 at 11:59; Status DC Morphine Sulfate 1 mg PRN Q10MIN PRN IV SEVERE PAIN; Start 01/16/17 at 12:00; Stop 01/17/17 at 11:59; Status DC Ringer's Solution 1,000 ml @ 30 mls/hr Q24H IV ; Start 01/16/17 at 11:49; Stop 01/16/17 at 23:48; Status DC Lidocaine HCl 2 ml PRN 1X PRN ID PRIOR TO IV START; Start 01/16/17 at 12:00; Stop 01/17/17 at 11:59; Status DC Hydromorphone HCl (Dilaudid) 0.5 mg PRN Q10MIN PRN IV SEV PAIN, Second choice; Start 01/16/17 at 12:00; Stop 01/17/17 at 11:59; Status DC Prochlorperazine Edisylate (Compazine) 5 mg PACU PRN PRN IV NAUSEA, MRX1; Start 01/16/17 at 12:00; Stop 01/17/17 at 11:59; Status DC Darbepoetin Franklin (Aranesp) 60 mcg [id number] SQ ; Start 01/23/17 at 21:00 Sodium Chloride 1,000 ml @ 75 mls/hr [id number] IV Last administered on t 14:51; Start 01/16/17 at 15:00; Stop 01/18/17 at 05:56; Status DC Propofol 20 ml @ As Directed STK-MED ONCE IV ; Start 01/16/17 at 15:08; Stop at 15:09; Status DC Lidocaine HCl (Lidocaine Pf 2% Vial) 5 ml STK-MED ONCE .ROUTE ; Start 01/16/17 at 15:08; Stop 01/16/17 at 15:09; Status DC Famotidine (Pepcid) 20 mg STK-MED ONCE .ROUTE ; Start 01/16/17 at 15:08; Stop at 15:09; Status DC Ondansetron HCl (Zofran) 4 mg STK-MED ONCE .ROUTE ; Start 01/16/17 at 15:08; Stop 01/16/17 at 15:09; Status DC Ephedrine Sulfate 50 mg STK-MED ONCE IV ; Start 01/16/17 at 15:32; Stop at 15:33; Status DC Vancomycin HCl (Vanco Per Pharmacy) 1 each PRN DAILY PRN MC SEE COMMENTS Last administered on 01/19/17t 12:34; Start 01/16/17 at 15:45 Piperacillin Sod/ Tazobactam Sod 2.25 gm/Sodium Chloride 50 ml @ 100 mls/hr Q8HRS IV Last administered on 01/19/17 14:33; Start 01/16/17 at 17:01 Sodium Chloride (Sodium Chloride) 50 ml STK-MED ONCE IJ ; Start 01/16/17 at 15: 45; Stop 01/16/17 at 15:46; Status DC Vasopressin (Vasostrict) 20 unit STK-MED ONCE .ROUTE ; Start 01/16/17 at 15:45; Stop 01/16/17 at 15:46; Status DC Vancomycin HCl 2 gm/Sodium Chloride 500 ml @ 250 mls/hr 1X ONCE IV Last administered on 01/16/17 19:27; Start 01/16/17 at 16:30; Stop 01/16/17 at 18:29 ; Status DC Bupivacaine HCl/ Epinephrine Bitart (Marcaine-Epi 0.5%-1:[id number]) 50 ml STK-MED ONCE .ROUTE Last administered on 01/16/17 15:55; Start 01/16/17 at 15:53; Stop 01/16/17 at 15:54; Status DC Fentanyl Citrate (Fentanyl 2ml Vial) 100 mcg STK-MED ONCE .ROUTE ; Start at 15:58; Stop 01/16/17 at 15:59; Status DC Neomycin/ Polymyxin/ Bacitracin (Triple Antibiotic Ointment) 1 pkt STK-MED ONCE TP Last administered on 01/16/17 15:55; Start 01/16/17 at 16:02; Stop at 16:03; Status DC Phenylephrine HCl 1 mg STK-MED ONCE IV ; Start 01/16/17 at 16:13; Stop 01/16/17 at 16:14; Status DC Vancomycin HCl 1 each 1X ONCE MC Last administered on 01/19/17 05:00; Start 01/19/17 at 05:00; Stop 01/19/17 at 05:01; Status DC Insulin Detemir (Levemir) 10 units QHS SQ Last administered on 01/18/17 21:07 ; Start 01/17/17 at 21:00 Vancomycin HCl 500 mg/Sodium Chloride 100 ml @ 100 mls/hr QMWF IV ; Start 01/19 at 16:00 Sodium Chloride 1,000 ml @ 1,000 mls/hr Q1H PRN IV hypotension; Start 01/19/17 at 08:55; Stop 01/19/17 at 14:54; Status DC Info (PHARMACY MONITORING -- do not chart) 1 each PRN DAILY PRN MC SEE COMMENTS ; Start 01/19/17 at 09:00; Status UNV Sodium Chloride 1,000 ml @ 1,000 mls/hr Q1H PRN IV hypotension; Start 01/19/17 at 09:38; Stop 01/19/17 at 15:37 Diphenhydramine HCl (Benadryl) 25 mg 1X PRN PRN IV ITCHING; Start 01/19/17 at 09:45; Stop 01/20/17 at 09:44 Diphenhydramine HCl (Benadryl) 25 mg 1X PRN PRN IV ITCHING; Start 01/19/17 at 09:45; Stop 01/20/17 at 09:44 Heparin Sodium (Porcine) (Heparin Sodium) 2,000 unit 1X PRN PRN INT CAT AP catheter pack; Start 01/19/17 at 09:45; Stop 01/20/17 at 09:44 Heparin Sodium (Porcine) (Heparin Sodium) 2,000 unit 1X PRN PRN INT CAT [employer] catheter pack; Start 01/19/17 at 09:45; Stop 01/20/17 at 09:44 Info (PHARMACY MONITORING -- do not chart) 1 each PRN DAILY PRN MC SEE COMMENTS ; Start 01/19/17 at 09:45; Status UNV Info (PHARMACY MONITORING -- do not chart) 1 each PRN DAILY PRN MC SEE COMMENTS ; Start 01/19/17 at 09:45; Status UNV Active Scripts Active Glipizide 5 Mg Tablet 1 Tab PO BID Levemir (Insulin Detemir) 100 Unit/1 Ml Vial 15 Unit SQ QHS 30 Days Keflex (Cephalexin) 500 Mg Capsule 1 Cap PO TID n/a Cozaar (Losartan Potassium) 50 Mg Tablet 100 Mg PO DAILY Reported Carvedilol 12.5 Mg Tablet 1 Tab PO BID Aspir 81 (Aspirin) 81 Mg Tablet.dr 1 Tab PO DAILY Gabapentin 300 Mg Capsule 300 Mg PO HS Renvela (Sevelamer Carbonate) 800 Mg Tablet 2 Tab PO TID Nephro-Amie Tablet (Folic Acid/Vitamin B Comp W-C) 0.8 Mg Tablet 1 Tab PO DAILY Doxazosin Mesylate 8 Mg Tablet 1 Tab PO DAILY Lovastatin 40 Mg Tablet 1 Tab PO DAILY Vitals/I & O Vital Sign - Last 24 Hours 01/18/17 01/18/17 01/18/17 01/18/17 17:20 19:00 19:00 23:08 Temp 97.4 97.5 97.4 97.5 Pulse 65 67 68 Resp 20 21 B/P (MAP) 128/62 125/65 (85) 111/60 (77) Pulse Ox 96 94 O2 Delivery Room Air Room Air Room Air 01/19/17 01/19/17 01/19/17 01/19/17 03:19 07:00 11:00 14:33 Temp 97.8 97.5 97.8 97.5 Pulse 67 66 71 71 Resp 21 20 B/P (MAP) 113/58 (76) 139/38 (71) 137/101 (113) 137/101 Pulse Ox 96 90 O2 Delivery Room Air Room Air 01/19/17 01/19/17 14:34 14:35 Pulse 71 71 B/P (MAP) 137/101 137/101 Intake and Output 01/18/17 01/18/17 01/19/17 15:00 23:00 07:00 Intake Total 600 ml 950 ml 340 ml Balance 600 ml 950 ml 340 ml Nutrition Consultation Dietary Evaluation: Recommendations by RD: Increase Calorie Intake Comments: Rec. resume the renal/ada diets as medically appropriate Rec. double meats at meals to increase protein intake Expected Outcomes/Goals: meet 75% estimated nutrition needs Malnutrition Findings: Weight Status: Obese IRENE CAROLINA MD Jan 19, 2017 15:07
[2017-01-19] MEDS: VANCOMYCIN 500 MG in IV NORMAL SALINE 100ML 100 ML IV SCH (15:54)
[2017-01-19 19:00] VITALS: BP 130/62
[2017-01-19] MEDS: GABAPENTIN 300 MG CAPSULE. PO SCH (21:00)
[2017-01-19] MEDS: ATORVASTATIN CALCIUM 10 MG TABLET. PO SCH (21:00)
[2017-01-19] MEDS: INSULIN DETEMIR 300 UNITS/3 ML INSULN.PEN. SQ SCH (21:09)
[2017-01-19 23:00] VITALS: BP 103/55
[2017-01-20 03:00] VITALS: BP 112/62
[2017-01-20 07:00] VITALS: BP 136/61
[2017-01-20] MEDS: LOSARTAN POTASSIUM 50 MG TABLET. PO SCH (08:47)
[2017-01-20] MEDS: SEVELAMER CARBONATE 800 MG TABLET. PO SCH ×3 (08:47→17:03)
[2017-01-20] MEDS: DOXAZOSIN MESYLATE 4 MG TABLET. PO SCH (08:48)
[2017-01-20] MEDS: FOLIC/VIT B COMP W-C (RENAL) TABLET. PO SCH (08:48)
[2017-01-20] MEDS: CARVEDILOL 12.5 MG TABLET. PO SCH ×2 (08:48→17:03)
[2017-01-20] MEDS: ASPIRIN ENTERIC COATED 81 MG TABLET.DR. PO SCH (08:48)
[2017-01-20] MEDS: glipiZIDE 5 MG TABLET PO SCH ×2 (08:49→22:05)
--- NOTE | 2017-01-20 09:38 | PDOC ---
SUBJECTIVE ROS ESRD Doing and feeling well overall today CVS: no Orthopnea, no CP RESP: no SOB, no ONEILL GI: no Nausea, no Vomiting : no Dysuria, no Urgency OBJECTIVE Vital Signs Vital Signs Date Time Temp Pulse Resp B/P (MAP) Pulse Ox O2 Delivery O2 Flow Rate FiO2 01/20/17 08:48 72 136/61 01/20/17 07:00 98.3 20 93 Room Air 98.3 I & 0 Intake and Output 01/20/17 07:00 Intake Total 660 ml Balance 660 ml Intake Oral 660 ml # Voids 3 # Bowel Movements 1 PHYSICAL EXAM Physical Exam GEN: Awake, Oriented x 3, In no distress EYES: Vision Unchanged, Conjunctiva Normal EN: No EN Drainage, Mucous Membranes mosit NECK: no JVD, min JVP, Supple, no Thyromegaly CVS: S1S2, + Murmur, No Gallop, No Rub,no Edema RESP: no Rales, no Rhonchi,n Acc. Muscle Use GI: BS + ve, NO Bruit, Non Tender, Non Distended : n o CVA tenderness, no Suprapubic Tenderness DIAGNOSIS/ASSESSMENT Assessment & Plan ESRD: Current fluid and E-lyte status does not necessitate emergent need for dialysis. Will re-evaluate for dialysis in the am and continue on MWF schedule. ^K - anticipate resolution with Yesterdays HD Breast Abscess - MRSA - will co-ordinate IV Abx with Hd if needed as OP - await ID reccs ANEMIA; Aranap as ordered, Transfuse with next HD as needed HTN: Current BP meds as reviewed. See orders for changes. BONE & MINERAL: follow phos levels and alter binder regimen based on PO intake and trend Discussed Plan of Care with pt at bedside Problems: COMMENT/RELEVANT DATA Meds Current Medications Medications (Trade) Dose Ordered Sig/Theresa Start Time Stop Time Status Last Admin Dose Admin Aspirin (Ecotrin) 81 mg DAILY 01/15/17 12:00 01/20/17 08:48 81 MG Atorvastatin Calcium (Lipitor) 10 mg QHS 01/15/17 21:00 01/19/17 21:00 10 MG Bupivacaine HCl/ Epinephrine Bitart (Marcaine-Epi 0.5%-1:[id number]) 50 ml STK-MED ONCE 01/16/17 15:53 01/16/17 15:54 DC 01/16/17 15:55 5 ML Carvedilol (Coreg) 12.5 mg BIDWMEALS 01/15/17 12:00 01/20/17 08:48 12.5 MG Clindamycin Phosphate 50 ml @ 100 mls/hr 1X ONCE 01/15/17 10:00 01/15/17 10:29 DC 01/15/17 10:13 100 MLS/HR Darbepoetin Franklin (Aranesp) 60 mcg WEEKLYHS 01/23/17 21:00 Diphenhydramine HCl (Benadryl) 25 mg 1X PRN PRN 01/19/17 09:45 01/20/17 09:44 Doxazosin Mesylate (Cardura) 8 mg DAILY 01/15/17 12:00 01/20/17 08:48 8 MG Ephedrine Sulfate 50 mg STK-MED ONCE 01/16/17 15:32 01/16/17 15:33 DC Famotidine (Pepcid) 20 mg STK-MED ONCE 01/16/17 15:08 01/16/17 15:09 DC Fentanyl Citrate (Fentanyl 2ml Vial) 100 mcg STK-MED ONCE 01/16/17 15:58 01/16/17 15:59 DC Gabapentin (Neurontin) 300 mg QHS 01/15/17 21:00 01/19/17 21:00 300 MG Glipizide (Glucotrol) 5 mg BID 01/15/17 12:00 01/20/17 08:49 5 MG Heparin Sodium (Porcine) (Heparin Sodium) 2,000 unit 1X PRN PRN 01/19/17 09:45 01/20/17 09:44 Hydromorphone HCl (Dilaudid) 0.5 mg PRN Q10MIN PRN 01/16/17 12:00 01/17/17 11:59 DC Info (PHARMACY MONITORING -- do not chart) 1 each PRN DAILY PRN 01/19/17 09:45 UNV Insulin Detemir (Levemir) 10 units QHS 01/17/17 21:00 01/19/17 21:09 10 UNITS Lidocaine HCl (Lidocaine Pf 2% Vial) 5 ml STK-MED ONCE 01/16/17 15:08 01/16/17 15:09 DC Losartan Potassium (Cozaar) 100 mg DAILY 01/15/17 12:00 7/18/17 08:47 100 MG Morphine Sulfate 1 mg PRN Q10MIN PRN 01/16/17 12:00 01/17/17 11:59 DC Neomycin/ Polymyxin/ Bacitracin (Triple Antibiotic Ointment) 1 pkt STK-MED ONCE 01/16/17 16:02 01/16/17 16:03 DC 01/16/17 15:55 1 PKT Non-Formulary Medication 1 cap TID 01/15/17 14:00 UNV Ondansetron HCl (Zofran) 4 mg STK-MED ONCE 01/16/17 15:08 01/16/17 15:09 DC Phenylephrine HCl 1 mg STK-MED ONCE 01/16/17 16:13 01/16/17 16:14 DC Piperacillin Sod/ Tazobactam Sod 2.25 gm/Sodium Chloride 50 ml @ 100 mls/hr Q8HRS 01/16/17 17:01 01/19/17 16:58 DC 01/19/17 14:33 100 MLS/HR Prochlorperazine Edisylate (Compazine) 5 mg PACU PRN PRN 01/16/17 12:00 01/17/17 11:59 DC Propofol 20 ml @ As Directed STK-MED ONCE 01/16/17 15:08 01/16/17 15:09 DC Ringer's Solution 1,000 ml @ 30 mls/hr Q24H 01/16/17 11:49 01/16/17 23:48 DC Sevelamer Carbonate (Renvela) 1,600 mg TIDWMEALS 01/15/17 12:00 01/20/17 08:47 1,600 MG Sodium Chloride 1,000 ml @ 1,000 mls/hr Q1H PRN 01/19/17 09:38 01/19/17 15:37 DC Sodium Chloride (Sodium Chloride) 50 ml STK-MED ONCE 01/16/17 15:45 01/16/17 15:46 DC Vancomycin HCl (Vanco Per Pharmacy) 1 each PRN DAILY PRN 01/16/17 15:45 01/19/17 12:34 1 EACH Vancomycin HCl 500 mg/Sodium Chloride 100 ml @ 100 mls/hr QMWF 01/19/17 16:00 01/19/17 15:54 100 MLS/HR Vancomycin HCl 2 gm/Sodium Chloride 500 ml @ 250 mls/hr 1X ONCE 01/16/17 16:30 01/16/17 18:29 DC 01/16/17 19:27 250 MLS/HR Vasopressin (Vasostrict) 20 unit STK-MED ONCE 01/16/17 15:45 01/16/17 15:46 DC Vitamin B Complex/ Vitamin C (Amaya-Amie) 1 tab DAILY 01/15/17 12:00 01/20/17 08:48 1 TAB Lab Laboratory Tests Test 01/19/17 11:04 01/19/17 16:22 01/19/17 21:01 01/20/17 07:14 Glucose (Fingerstick) 117 mg/dL (70-99) 106 mg/dL (70-99) 144 mg/dL (70-99) 159 mg/dL (70-99) CLEMENTE AVILES MD Jan 20, 2017 09:38
[2017-01-20] MEDS ORDERED: MAGNESIUM SULFATE 2GM 50 ML IV PRN (09:45)
--- NOTE | 2017-01-20 10:29 | PDOC ---
Provider Note Provider Note SURG POD 4 no new complaints right axillary dressing intact path is PND no new surg recs await path, cultures ALLISON FALK MD Jan 20, 2017 10:29
[2017-01-20 10:51] VITALS: BP 123/64
--- NOTE | 2017-01-20 11:31 | PDOC ---
Infectious Disease Note Subjective Subjective Feeling alright Pain controlled Appetite ok ROS ROS GEN: Denies fevers, chills, sweats HEENT: Denies blurred vision, sore throat CV: Denies chest pain RESP: Denies shortness of air, cough GI: Denies n/v/d NEURO: Denies confusion, dizziness MSK: Denies weakness, joint pain/swelling Vital Sign Vital Signs Vital Signs Date Time Temp Pulse Resp B/P (MAP) Pulse Ox O2 Delivery O2 Flow Rate FiO2 01/20/17 10:51 99.0 73 20 123/64 (83) 95 Room Air 99.0 Physical Exam PHYSICAL EXAM GENERAL: NAD, Alert HEENT: PERRL, OC/OP NECK: Supple, no JVD, no LN LUNGS: Clear HEART: S1S2, no gallop, no murmur ABD: Soft, NT, no organomegaly, no rebound EXT: No edema, no cyanosis [employer]: Alert, oriented x 3, no focal neurologic deficit SKIN: No rash IV: ok Labs Lab Laboratory Tests Test 01/19/17 16:22 01/19/17 21:01 01/20/17 07:14 01/20/17 10:29 Glucose (Fingerstick) 106 mg/dL (70-99) 144 mg/dL (70-99) 159 mg/dL (70-99) 187 mg/dL (70-99) Objective Assessment Right breast mass developed over 5 days s/p I and D 01/16. Staph aureus MRSA LLE mild erythema ? cellulitis - better. looks post trauma with old blood blister now CKD on HD DM Plan Plan of Care Cont Vanc started 01/16. Contact isolation F/u labs Local wound care d/w son pt can be d/c ed on po zyvox or iv vanc through HD for 1 more wk BULMARO AVILES MD Jan 20, 2017 11:31
--- NOTE | 2017-01-20 12:26 | PDOC ---
PROGRESS NOTES Subjective Subjective c/c - f/u of Right breast mass/abscess ROS - no fever Objective Objective Vital Signs Date Time Temp Pulse Resp B/P (MAP) Pulse Ox O2 Delivery O2 Flow Rate FiO2 01/20/17 10:51 99.0 73 20 123/64 (83) 95 Room Air 99.0 01/16/17 17:25 3 Intake and Output 01/20/17 07:00 Intake Total 660 ml Balance 660 ml Intake Oral 660 ml # Voids 3 # Bowel Movements 1 Physical Exam General: Alert, Oriented X3 Neuro: Normal speech Psych/Mental Status: Mental status NL Assessment Assessment Problems Medical Problems: (1) Abscess of right breast Status: Acute (2) Diabetic calf ulcer Status: Acute Assessment/Plan 1. Right breast mass/abscess - There is evidence of erythema, warmth, and a central area of discoloration suggestive of an abscess. Rest of the breast examination is unremarkable examination of the left breast does not reveal any masses. Appreciate surgery evaluation. Ultrasound 01/16/17 : 1.1 x 1.4 x 1.8 cm hypoechoic region with internal echoes is suggestive of an abscess. There is associated skin thickening and edema suggesting a component of cellulitis. s/p Debridement skin and subcutaneous tissue right axilla 01/16/17. Appreciate surgical management. f/u with surgery. f/u with PCP for routine mammograms. No further recommendations. Please call if needed. 2.Anemia due to end-stage renal disease. 3. Thrombocytopenia. This is likely reactive. I will continue to monitor. 4. End-stage renal disease - she is on hemodialysis. Comment Review of Relevant I have reviewed the following items kathy (where applicable) has been applied. Labs Laboratory Tests Test 01/18/17 16:34 01/18/17 20:51 01/19/17 04:40 01/19/17 04:45 Glucose (Fingerstick) 208 mg/dL (70-99) 278 mg/dL (70-99) White Blood Count 4.7 x10^3/uL (4.0-11.0) Red Blood Count 3.48 x10^6/uL (3.50-5.40) Hemoglobin 10.3 g/dL (12.0-15.5) Hematocrit 32.9 % (36.0-47.0) Mean Corpuscular Volume 95 fL (79-100) Mean Corpuscular Hemoglobin 30 pg (25-35) Mean Corpuscular Hemoglobin Concent 31 g/dL (31-37) Red Cell Distribution Width 18.0 % (11.5-14.5) Platelet Count 87 x10^3/uL (140-400) Sodium Level 136 mmol/L (136-145) Potassium Level 5.5 mmol/L (3.5-5.1) Chloride Level 97 mmol/L (98-107) Carbon Dioxide Level 26 mmol/L (21-32) Anion Gap 13 (6-14) Blood Urea Nitrogen 49 mg/dL (7-20) Creatinine 7.3 mg/dL (0.6-1.0) Estimated GFR (Cockcroft-Gault) 5.6 Glucose Level 175 mg/dL (70-99) Calcium Level 8.7 mg/dL (8.5-10.1) Random Vancomycin Level 20.2 mcg/mL Test 01/19/17 07:27 01/19/17 11:04 01/19/17 16:22 01/19/17 21:01 Glucose (Fingerstick) 150 mg/dL (70-99) 117 mg/dL (70-99) 106 mg/dL (70-99) 144 mg/dL (70-99) Test 01/20/17 07:14 01/20/17 10:29 Glucose (Fingerstick) 159 mg/dL (70-99) 187 mg/dL (70-99) Laboratory Tests Test 01/19/17 16:22 01/19/17 21:01 01/20/17 07:14 01/20/17 10:29 Glucose (Fingerstick) 106 mg/dL (70-99) 144 mg/dL (70-99) 159 mg/dL (70-99) 187 mg/dL (70-99) Microbiology 01/15/17 Blood Culture - Final, Complete NO GROWTH AFTER 5 DAYS 01/16/17 Anaerobic/Aerobic Culture - Final, Complete 01/16/17 Anaerobic Culture Result 1 (SHEFALI) - Final, Complete 01/16/17 Aerobic Culture - Final, Complete 01/16/17 Aerobic Culture Result 1 (SHEFALI) - Final, Complete 01/16/17 Antimicrobic Susceptibility - Final, Complete Medications Current Medications Clindamycin Phosphate 50 ml @ 100 mls/hr Q8HRS IV Last administered on 06:21; Start 01/15/17 at 16:00; Stop 01/16/17 at 15:43; Status DC Clindamycin Phosphate 50 ml @ 100 mls/hr 1X ONCE IV Last administered on 01/15 10:13; Start 01/15/17 at 10:00; Stop 01/15/17 at 10:29; Status DC Aspirin (Ecotrin) 81 mg DAILY PO Last administered on 01/20/17 08:48; Start at 12:00 Carvedilol (Coreg) 12.5 mg BIDWMEALS PO Last administered on 01/20/17 08:48; Start 01/15/17 at 12:00 Vitamin B Complex/ Vitamin C (Amaya-Amie) 1 tab DAILY PO Last administered on 08:48; Start 01/15/17 at 12:00 Glipizide (Glucotrol) 5 mg BID PO Last administered on 01/20/17 08:49; Start 01/15/17 at 12:00 Losartan Potassium (Cozaar) 100 mg DAILY PO Last administered on 01/20/17 08: 47; Start 01/15/17 at 12:00 Sevelamer Carbonate (Renvela) 1,600 mg TIDWMEALS PO Last administered on 08:47; Start 01/15/17 at 12:00 Non-Formulary Medication 1 cap TID PO ; Start 01/15/17 at 14:00; Status UNV Doxazosin Mesylate (Cardura) 8 mg DAILY PO Last administered on 01/20/17 08:48 ; Start 01/15/17 at 12:00 Gabapentin (Neurontin) 300 mg QHS PO Last administered on 01/19/17 21:00; Start 01/15/17 at 21:00 Insulin Detemir (Levemir) 15 units QHS SQ Last administered on 01/16/17 20:23 ; Start 01/15/17 at 21:00; Stop 01/17/17 at 09:41; Status DC Atorvastatin Calcium (Lipitor) 10 mg QHS PO Last administered on 01/19/17 21: 00; Start 01/15/17 at 21:00 Info (PHARMACY MONITORING -- do not chart) 1 each PRN DAILY PRN MC SEE COMMENTS ; Start 01/16/17 at 09:00 Ondansetron HCl (Zofran) 4 mg PRN Q6HRS PRN IV NAUSEA/VOMITING; Start 01/16/17 at 12:00; Stop 01/17/17 at 11:59; Status DC Fentanyl Citrate (Fentanyl 2ml Vial) 25 mcg PRN Q5MIN PRN IV MILD PAIN; Start 01/16/17 at 12:00; Stop 01/17/17 at 11:59; Status DC Fentanyl Citrate (Fentanyl 2ml Vial) 50 mcg PRN Q5MIN PRN IV MODERATE PAIN; Start 01/16/17 at 12:00; Stop 01/17/17 at 11:59; Status DC Morphine Sulfate 1 mg PRN Q10MIN PRN IV SEVERE PAIN; Start 01/16/17 at 12:00; Stop 01/17/17 at 11:59; Status DC Ringer's Solution 1,000 ml @ 30 mls/hr Q24H IV ; Start 01/16/17 at 11:49; Stop 01/16/17 at 23:48; Status DC Lidocaine HCl 2 ml PRN 1X PRN ID PRIOR TO IV START; Start 01/16/17 at 12:00; Stop 01/17/17 at 11:59; Status DC Hydromorphone HCl (Dilaudid) 0.5 mg PRN Q10MIN PRN IV SEV PAIN, Second choice; Start 01/16/17 at 12:00; Stop 01/17/17 at 11:59; Status DC Prochlorperazine Edisylate (Compazine) 5 mg PACU PRN PRN IV NAUSEA, MRX1; Start 01/16/17 at 12:00; Stop 01/17/17 at 11:59; Status DC Darbepoetin Franklin (Aranesp) 60 mcg WEEKLYHS SQ ; Start 01/23/17 at 21:00 Sodium Chloride 1,000 ml @ 75 mls/hr [id number] IV Last administered on t 14:51; Start 01/16/17 at 15:00; Stop 01/18/17 at 05:56; Status DC Propofol 20 ml @ As Directed STK-MED ONCE IV ; Start 01/16/17 at 15:08; Stop at 15:09; Status DC Lidocaine HCl (Lidocaine Pf 2% Vial) 5 ml STK-MED ONCE .ROUTE ; Start 01/16/17 at 15:08; Stop 01/16/17 at 15:09; Status DC Famotidine (Pepcid) 20 mg STK-MED ONCE .ROUTE ; Start 01/16/17 at 15:08; Stop at 15:09; Status DC Ondansetron HCl (Zofran) 4 mg STK-MED ONCE .ROUTE ; Start 01/16/17 at 15:08; Stop 01/16/17 at 15:09; Status DC Ephedrine Sulfate 50 mg STK-MED ONCE IV ; Start 01/16/17 at 15:32; Stop at 15:33; Status DC Vancomycin HCl (Vanco Per Pharmacy) 1 each PRN DAILY PRN MC SEE COMMENTS Last administered on 01/19/17 12:34; Start 01/16/17 at 15:45 Piperacillin Sod/ Tazobactam Sod 2.25 gm/Sodium Chloride 50 ml @ 100 mls/hr Q8HRS IV Last administered on 01/19/17 14:33; Start 01/16/17 at 17:01; Stop at 16:58; Status DC Sodium Chloride (Sodium Chloride) 50 ml STK-MED ONCE IJ ; Start 01/16/17 at 15: 45; Stop 01/16/17 at 15:46; Status DC Vasopressin (Vasostrict) 20 unit STK-MED ONCE .ROUTE ; Start 01/16/17 at 15:45; Stop 01/16/17 at 15:46; Status DC Vancomycin HCl 2 gm/Sodium Chloride 500 ml @ 250 mls/hr 1X ONCE IV Last administered on 01/16/17 19:27; Start 01/16/17 at 16:30; Stop 01/16/17 at 18:29 ; Status DC Bupivacaine HCl/ Epinephrine Bitart (Marcaine-Epi 0.5%-1:[id number]) 50 ml STK-MED ONCE .ROUTE Last administered on 01/16/17 15:55; Start 01/16/17 at 15:53; Stop 01/16/17 at 15:54; Status DC Fentanyl Citrate (Fentanyl 2ml Vial) 100 mcg STK-MED ONCE .ROUTE ; Start at 15:58; Stop 01/16/17 at 15:59; Status DC Neomycin/ Polymyxin/ Bacitracin (Triple Antibiotic Ointment) 1 pkt STK-MED ONCE TP Last administered on 01/16/17 15:55; Start 01/16/17 at 16:02; Stop at 16:03; Status DC Phenylephrine HCl 1 mg STK-MED ONCE IV ; Start 01/16/17 at 16:13; Stop 01/16/17 at 16:14; Status DC Vancomycin HCl 1 each 1X ONCE MC Last administered on 01/19/17 05:00; Start 01/19/17 at 05:00; Stop 01/19/17 at 05:01; Status DC Insulin Detemir (Levemir) 10 units QHS SQ Last administered on 01/19/17 21:09 ; Start 01/17/17 at 21:00 Vancomycin HCl 500 mg/Sodium Chloride 100 ml @ 100 mls/hr QMWF IV Last administered on 01/19/17 15:54; Start 01/19/17 at 16:00 Sodium Chloride 1,000 ml @ 1,000 mls/hr Q1H PRN IV hypotension; Start 01/19/17 at 08:55; Stop 01/19/17 at 14:54; Status DC Info (PHARMACY MONITORING -- do not chart) 1 each PRN DAILY PRN MC SEE COMMENTS ; Start 01/19/17 at 09:00; Status UNV Sodium Chloride 1,000 ml @ 1,000 mls/hr Q1H PRN IV hypotension; Start 01/19/17 at 09:38; Stop 01/19/17 at 15:37; Status DC Diphenhydramine HCl (Benadryl) 25 mg 1X PRN PRN IV ITCHING; Start 01/19/17 at 09:45; Stop 01/20/17 at 09:44; Status DC Diphenhydramine HCl (Benadryl) 25 mg 1X PRN PRN IV ITCHING; Start 01/19/17 at 09:45; Stop 01/20/17 at 09:44; Status DC Heparin Sodium (Porcine) (Heparin Sodium) 2,000 unit 1X PRN PRN INT CAT AP catheter pack; Start 01/19/17 at 09:45; Stop 01/20/17 at 09:44; Status DC Heparin Sodium (Porcine) (Heparin Sodium) 2,000 unit 1X PRN PRN INT CAT RAIL CAR WELDER catheter pack; Start 01/19/17 at 09:45; Stop 01/20/17 at 09:44; Status DC Info (PHARMACY MONITORING -- do not chart) 1 each PRN DAILY PRN MC SEE COMMENTS ; Start 01/19/17 at 09:45; Status UNV Info (PHARMACY MONITORING -- do not chart) 1 each PRN DAILY PRN MC SEE COMMENTS ; Start 01/19/17 at 09:45; Status UNV Magnesium Sulfate/ Dextrose 50 ml @ 25 mls/hr PRN DAILY PRN IV for Mag < 1.7 on am labs; Start 01/20/17 at 09:45 Active Scripts Active Glipizide 5 Mg Tablet 1 Tab PO BID Levemir (Insulin Detemir) 100 Unit/1 Ml Vial 15 Unit SQ QHS 30 Days Keflex (Cephalexin) 500 Mg Capsule 1 Cap PO TID n/a Cozaar (Losartan Potassium) 50 Mg Tablet 100 Mg PO DAILY Reported Carvedilol 12.5 Mg Tablet 1 Tab PO BID Aspir 81 (Aspirin) 81 Mg Tablet.dr 1 Tab PO DAILY Gabapentin 300 Mg Capsule 300 Mg PO HS Renvela (Sevelamer Carbonate) 800 Mg Tablet 2 Tab PO TID Nephro-Amie Tablet (Folic Acid/Vitamin B Comp W-C) 0.8 Mg Tablet 1 Tab PO DAILY Doxazosin Mesylate 8 Mg Tablet 1 Tab PO DAILY Lovastatin 40 Mg Tablet 1 Tab PO DAILY Vitals/I & O Vital Sign - Last 24 Hours 01/19/17 01/19/17 01/19/17 01/19/17 14:33 14:34 14:35 15:00 Temp 98.0 98.0 Pulse 71 71 71 75 Resp 20 B/P (MAP) 137/101 137/101 137/101 113/60 (77) Pulse Ox 92 O2 Delivery Room Air 01/19/17 01/19/17 01/19/17 01/19/17 18:06 19:00 19:05 23:00 Temp 98.8 99.5 98.8 99.5 Pulse 75 82 75 Resp 19 17 B/P (MAP) 113/60 130/62 (84) 103/55 (71) Pulse Ox 95 94 O2 Delivery Room Air Room Air Room Air 01/20/17 01/20/17 01/20/17 01/20/17 03:00 07:00 08:47 08:48 Temp 97.7 98.3 97.7 98.3 Pulse 74 72 72 72 Resp 17 20 B/P (MAP) 112/62 (79) 136/61 (86) 136/61 136/61 Pulse Ox 93 93 O2 Delivery Room Air Room Air 01/20/17 01/20/17 08:48 10:51 Temp 99.0 99.0 Pulse 72 73 Resp 20 B/P (MAP) 136/61 123/64 (83) Pulse Ox 95 O2 Delivery Room Air Intake and Output 01/19/17 01/19/17 01/20/17 15:00 23:00 07:00 Intake Total 240 ml 120 ml 300 ml Balance 240 ml 120 ml 300 ml Nutrition Consultation Dietary Evaluation: Recommendations by RD: Increase Calorie Intake Comments: Rec. resume the renal/ada diets as medically appropriate Rec. double meats at meals to increase protein intake Expected Outcomes/Goals: meet 75% estimated nutrition needs Malnutrition Findings: Weight Status: Obese IRENE CAROLINA MD Jan 20, 2017 12:26
--- NOTE | 2017-01-20 14:24 | PDOC ---
PROGRESS NOTES Chief Complaint Chief Complaint R breast abscess s/p I and D 01/16/17 MRSA R breast on final wound cx LEft leg DM ulcer ESRD on HD AOCD Obesity DM 2 insulin requiring History of Present Illness History of Present Illness R breast looks good BUT GREW MRSA On wound BS , BP everything else is good NAEROBIC-AEROBIC CULTURE Final Final report ANAEROBIC RES 1 Final Comment No anaerobic growth in 72 hours. AEROBIC CULT Final Final report AEROBIC RES 1 Final Staphylococcus aureus Heavy growth Methicillin resistant (MRSA) Based on resistance to oxacillin this isolate would be resistant to all currently available beta-lactam antimicrobial agents, with the exception of the newer cephalosporins with anti-MRSA activity, such as Ceftaroline ANTIMICROBIAL SUSCEPTIBILITY Final Comment S = Susceptible; I = Intermediate; R = Resistant P = Positive; N = Negative MICS are expressed in micrograms per mL Antibiotic RSLT#1 RSLT#2 RSLT#3 RSLT#4 Ciprofloxacin S Clindamycin S Erythromycin R Gentamicin S Levofloxacin S Linezolid S Oxacillin R Penicillin R Rifampin S PLAN: sara palmsytracy VAnc in this renal HD pt HD per renal Follow ID recs MRSA result new today 01/20 - Vitals Vitals Vital Signs Date Time Temp Pulse Resp B/P (MAP) Pulse Ox O2 Delivery O2 Flow Rate FiO2 01/20/17 10:51 99.0 73 20 123/64 (83) 95 Room Air 99.0 Physical Exam General: Alert, Oriented X3 Heart: Normal S1, Normal S2 Lungs: Clear Abdomen: Normal bowel sounds, Soft Extremities: No clubbing Skin: Other (lesion to left lower extr, bandage in place) Labs LABS Laboratory Tests Test 01/19/17 16:22 01/19/17 21:01 01/20/17 07:14 01/20/17 10:29 Glucose (Fingerstick) 106 mg/dL (70-99) 144 mg/dL (70-99) 159 mg/dL (70-99) 187 mg/dL (70-99) Review of Systems Review of Systems denies 14 pt reviewed Assessment and Plan Assessmemt and Plan Problems Medical Problems: (1) Abscess of right breast Status: Acute (2) Diabetic calf ulcer Status: Acute Problems: Comment Review of Relevant I have reviewed the following items kathy (where applicable) has been applied. Labs Laboratory Tests Test 01/18/17 16:34 01/18/17 20:51 01/19/17 04:40 01/19/17 04:45 Glucose (Fingerstick) 208 mg/dL (70-99) 278 mg/dL (70-99) White Blood Count 4.7 x10^3/uL (4.0-11.0) Red Blood Count 3.48 x10^6/uL (3.50-5.40) Hemoglobin 10.3 g/dL (12.0-15.5) Hematocrit 32.9 % (36.0-47.0) Mean Corpuscular Volume 95 fL (79-100) Mean Corpuscular Hemoglobin 30 pg (25-35) Mean Corpuscular Hemoglobin Concent 31 g/dL (31-37) Red Cell Distribution Width 18.0 % (11.5-14.5) Platelet Count 87 x10^3/uL (140-400) Sodium Level 136 mmol/L (136-145) Potassium Level 5.5 mmol/L (3.5-5.1) Chloride Level 97 mmol/L (98-107) Carbon Dioxide Level 26 mmol/L (21-32) Anion Gap 13 (6-14) Blood Urea Nitrogen 49 mg/dL (7-20) Creatinine 7.3 mg/dL (0.6-1.0) Estimated GFR (Cockcroft-Gault) 5.6 Glucose Level 175 mg/dL (70-99) Calcium Level 8.7 mg/dL (8.5-10.1) Random Vancomycin Level 20.2 mcg/mL Test 01/19/17 07:27 01/19/17 11:04 01/19/17 16:22 01/19/17 21:01 Glucose (Fingerstick) 150 mg/dL (70-99) 117 mg/dL (70-99) 106 mg/dL (70-99) 144 mg/dL (70-99) Test 01/20/17 07:14 01/20/17 10:29 Glucose (Fingerstick) 159 mg/dL (70-99) 187 mg/dL (70-99) Laboratory Tests Test 01/19/17 16:22 01/19/17 21:01 01/20/17 07:14 01/20/17 10:29 Glucose (Fingerstick) 106 mg/dL (70-99) 144 mg/dL (70-99) 159 mg/dL (70-99) 187 mg/dL (70-99) Microbiology 01/15/17 Blood Culture - Final, Complete NO GROWTH AFTER 5 DAYS 01/16/17 Anaerobic/Aerobic Culture - Final, Complete 01/16/17 Anaerobic Culture Result 1 (SHEFALI) - Final, Complete 01/16/17 Aerobic Culture - Final, Complete 01/16/17 Aerobic Culture Result 1 (SHEFALI) - Final, Complete 01/16/17 Antimicrobic Susceptibility - Final, Complete Medications Current Medications Clindamycin Phosphate 50 ml @ 100 mls/hr Q8HRS IV Last administered on 06:21; Start 01/15/17 at 16:00; Stop 01/16/17 at 15:43; Status DC Clindamycin Phosphate 50 ml @ 100 mls/hr 1X ONCE IV Last administered on 01/15 10:13; Start 01/15/17 at 10:00; Stop 01/15/17 at 10:29; Status DC Aspirin (Ecotrin) 81 mg DAILY PO Last administered on 01/20/17 08:48; Start at 12:00 Carvedilol (Coreg) 12.5 mg BIDWMEALS PO Last administered on 01/20/17 08:48; Start 01/15/17 at 12:00 Vitamin B Complex/ Vitamin C (Amaya-Amie) 1 tab DAILY PO Last administered on 08:48; Start 01/15/17 at 12:00 Glipizide (Glucotrol) 5 mg BID PO Last administered on 01/20/17 08:49; Start 01/15/17 at 12:00 Losartan Potassium (Cozaar) 100 mg DAILY PO Last administered on 01/20/17 08: 47; Start 01/15/17 at 12:00 Sevelamer Carbonate (Renvela) 1,600 mg TIDWMEALS PO Last administered on 12:37; Start 01/15/17 at 12:00 Non-Formulary Medication 1 cap TID PO ; Start 01/15/17 at 14:00; Status UNV Doxazosin Mesylate (Cardura) 8 mg DAILY PO Last administered on 01/20/17 08:48 ; Start 01/15/17 at 12:00 Gabapentin (Neurontin) 300 mg QHS PO Last administered on 01/19/17 21:00; Start 01/15/17 at 21:00 Insulin Detemir (Levemir) 15 units QHS SQ Last administered on 01/16/17 20:23 ; Start 01/15/17 at 21:00; Stop 01/17/17 at 09:41; Status DC Atorvastatin Calcium (Lipitor) 10 mg QHS PO Last administered on 01/19/17 21: 00; Start 01/15/17 at 21:00 Info (PHARMACY MONITORING -- do not chart) 1 each PRN DAILY PRN MC SEE COMMENTS ; Start 01/16/17 at 09:00 Ondansetron HCl (Zofran) 4 mg PRN Q6HRS PRN IV NAUSEA/VOMITING; Start 01/16/17 at 12:00; Stop 01/17/17 at 11:59; Status DC Fentanyl Citrate (Fentanyl 2ml Vial) 25 mcg PRN Q5MIN PRN IV MILD PAIN; Start 01/16/17 at 12:00; Stop 01/17/17 at 11:59; Status DC Fentanyl Citrate (Fentanyl 2ml Vial) 50 mcg PRN Q5MIN PRN IV MODERATE PAIN; Start 01/16/17 at 12:00; Stop 01/17/17 at 11:59; Status DC Morphine Sulfate 1 mg PRN Q10MIN PRN IV SEVERE PAIN; Start 01/16/17 at 12:00; Stop 01/17/17 at 11:59; Status DC Ringer's Solution 1,000 ml @ 30 mls/hr Q24H IV ; Start 01/16/17 at 11:49; Stop 01/16/17 at 23:48; Status DC Lidocaine HCl 2 ml PRN 1X PRN ID PRIOR TO IV START; Start 01/16/17 at 12:00; Stop 01/17/17 at 11:59; Status DC Hydromorphone HCl (Dilaudid) 0.5 mg PRN Q10MIN PRN IV SEV PAIN, Second choice; Start 01/16/17 at 12:00; Stop 01/17/17 at 11:59; Status DC Prochlorperazine Edisylate (Compazine) 5 mg PACU PRN PRN IV NAUSEA, MRX1; Start 01/16/17 at 12:00; Stop 01/17/17 at 11:59; Status DC Darbepoetin Franklin (Aranesp) 60 mcg WEEKLYHS SQ ; Start 01/23/17 at 21:00 Sodium Chloride 1,000 ml @ 75 mls/hr [id number] IV Last administered on 14:51; Start 01/16/17 at 15:00; Stop 01/18/17 at 05:56; Status DC Propofol 20 ml @ As Directed STK-MED ONCE IV ; Start 01/16/17 at 15:08; Stop at 15:09; Status DC Lidocaine HCl (Lidocaine Pf 2% Vial) 5 ml STK-MED ONCE .ROUTE ; Start 01/16/17 at 15:08; Stop 01/16/17 at 15:09; Status DC Famotidine (Pepcid) 20 mg STK-MED ONCE .ROUTE ; Start 01/16/17 at 15:08; Stop at 15:09; Status DC Ondansetron HCl (Zofran) 4 mg STK-MED ONCE .ROUTE ; Start 01/16/17 at 15:08; Stop 01/16/17 at 15:09; Status DC Ephedrine Sulfate 50 mg STK-MED ONCE IV ; Start 01/16/17 at 15:32; Stop at 15:33; Status DC Vancomycin HCl (Vanco Per Pharmacy) 1 each PRN DAILY PRN MC SEE COMMENTS Last administered on 01/19/17 12:34; Start 01/16/17 at 15:45 Piperacillin Sod/ Tazobactam Sod 2.25 gm/Sodium Chloride 50 ml @ 100 mls/hr Q8HRS IV Last administered on 01/19/17 14:33; Start 01/16/17 at 17:01; Stop at 16:58; Status DC Sodium Chloride (Sodium Chloride) 50 ml STK-MED ONCE IJ ; Start 01/16/17 at 15: 45; Stop 01/16/17 at 15:46; Status DC Vasopressin (Vasostrict) 20 unit STK-MED ONCE .ROUTE ; Start 01/16/17 at 15:45; Stop 01/16/17 at 15:46; Status DC Vancomycin HCl 2 gm/Sodium Chloride 500 ml @ 250 mls/hr 1X ONCE IV Last administered on 01/16/17 19:27; Start 01/16/17 at 16:30; Stop 01/16/17 at 18:29 ; Status DC Bupivacaine HCl/ Epinephrine Bitart (Marcaine-Epi 0.5%-1:[id number]) 50 ml STK-MED ONCE .ROUTE Last administered on 01/16/17 15:55; Start 01/16/17 at 15:53; Stop 01/16/17 at 15:54; Status DC Fentanyl Citrate (Fentanyl 2ml Vial) 100 mcg STK-MED ONCE .ROUTE ; Start at 15:58; Stop 01/16/17 at 15:59; Status DC Neomycin/ Polymyxin/ Bacitracin (Triple Antibiotic Ointment) 1 pkt STK-MED ONCE TP Last administered on 01/16/17 15:55; Start 01/16/17 at 16:02; Stop at 16:03; Status DC Phenylephrine HCl 1 mg STK-MED ONCE IV ; Start 01/16/17 at 16:13; Stop 01/16/17 at 16:14; Status DC Vancomycin HCl 1 each 1X ONCE MC Last administered on 01/19/17 05:00; Start 01/19/17 at 05:00; Stop 01/19/17 at 05:01; Status DC Insulin Detemir (Levemir) 10 units QHS SQ Last administered on 01/19/17 21:09 ; Start 01/17/17 at 21:00 Vancomycin HCl 500 mg/Sodium Chloride 100 ml @ 100 mls/hr QMWF IV Last administered on 01/19/17 15:54; Start 01/19/17 at 16:00 Sodium Chloride 1,000 ml @ 1,000 mls/hr Q1H PRN IV hypotension; Start 01/19/17 at 08:55; Stop 01/19/17 at 14:54; Status DC Info (PHARMACY MONITORING -- do not chart) 1 each PRN DAILY PRN MC SEE COMMENTS ; Start 01/19/17 at 09:00; Status UNV Sodium Chloride 1,000 ml @ 1,000 mls/hr Q1H PRN IV hypotension; Start 01/19/17 at 09:38; Stop 01/19/17 at 15:37; Status DC Diphenhydramine HCl (Benadryl) 25 mg 1X PRN PRN IV ITCHING; Start 01/19/17 at 09:45; Stop 01/20/17 at 09:44; Status DC Diphenhydramine HCl (Benadryl) 25 mg 1X PRN PRN IV ITCHING; Start 01/19/17 at 09:45; Stop 01/20/17 at 09:44; Status DC Heparin Sodium (Porcine) (Heparin Sodium) 2,000 unit 1X PRN PRN INT CAT AP catheter pack; Start 01/19/17 at 09:45; Stop 01/20/17 at 09:44; Status DC Heparin Sodium (Porcine) (Heparin Sodium) 2,000 unit 1X PRN PRN INT CAT TUGBOAT MATE catheter pack; Start 01/19/17 at 09:45; Stop 01/20/17 at 09:44; Status DC Info (PHARMACY MONITORING -- do not chart) 1 each PRN DAILY PRN MC SEE COMMENTS ; Start 01/19/17 at 09:45; Status UNV Info (PHARMACY MONITORING -- do not chart) 1 each PRN DAILY PRN MC SEE COMMENTS ; Start 01/19/17 at 09:45; Status UNV Magnesium Sulfate/ Dextrose 50 ml @ 25 mls/hr PRN DAILY PRN IV for Mag < 1.7 on am labs; Start 01/20/17 at 09:45 Active Scripts Active Glipizide 5 Mg Tablet 1 Tab PO BID Levemir (Insulin Detemir) 100 Unit/1 Ml Vial 15 Unit SQ QHS 30 Days Keflex (Cephalexin) 500 Mg Capsule 1 Cap PO TID n/a Cozaar (Losartan Potassium) 50 Mg Tablet 100 Mg PO DAILY Reported Carvedilol 12.5 Mg Tablet 1 Tab PO BID Aspir 81 (Aspirin) 81 Mg Tablet.dr 1 Tab PO DAILY Gabapentin 300 Mg Capsule 300 Mg PO HS Renvela (Sevelamer Carbonate) 800 Mg Tablet 2 Tab PO TID Nephro-Amie Tablet (Folic Acid/Vitamin B Comp W-C) 0.8 Mg Tablet 1 Tab PO DAILY Doxazosin Mesylate 8 Mg Tablet 1 Tab PO DAILY Lovastatin 40 Mg Tablet 1 Tab PO DAILY Vitals/I & O Vital Sign - Last 24 Hours 01/19/17 01/19/17 01/19/17 01/19/17 14:33 14:34 14:35 15:00 Temp 98.0 98.0 Pulse 71 71 71 75 Resp 20 B/P (MAP) 137/101 137/101 137/101 113/60 (77) Pulse Ox 92 O2 Delivery Room Air 01/19/17 01/19/17 01/19/17 01/19/17 18:06 19:00 19:05 23:00 Temp 98.8 99.5 98.8 99.5 Pulse 75 82 75 Resp 17 B/P (MAP) 113/60 130/62 (84) 103/55 (71) Pulse Ox 95 94 O2 Delivery Room Air Room Air Room Air 01/20/17 01/20/17 01/20/17 01/20/17 03:00 07:00 08:47 08:48 Temp 97.7 98.3 97.7 98.3 Pulse 74 72 72 72 Resp 17 20 B/P (MAP) 112/62 (79) 136/61 (86) 136/61 136/61 Pulse Ox 93 93 O2 Delivery Room Air Room Air 01/20/17 01/20/17 08:48 10:51 Temp 99.0 99.0 Pulse 72 73 Resp 20 B/P (MAP) 136/61 123/64 (83) Pulse Ox 95 O2 Delivery Room Air Intake and Output 01/19/17 01/19/17 01/20/17 15:00 23:00 07:00 Intake Total 240 ml 120 ml 300 ml Balance 240 ml 120 ml 300 ml Nutrition Consultation Dietary Evaluation: Recommendations by RD: Increase Calorie Intake Comments: Rec. resume the renal/ada diets as medically appropriate Rec. double meats at meals to increase protein intake Expected Outcomes/Goals: meet 75% estimated nutrition needs Malnutrition Findings: Weight Status: Obese KARYN JUDD MD Jan 20, 2017 14:24
[2017-01-20 14:49] VITALS: BP 121/68
[2017-01-20 19:00] VITALS: BP 131/67
[2017-01-20] MEDS: ATORVASTATIN CALCIUM 10 MG TABLET. PO SCH (22:05)
[2017-01-20] MEDS: GABAPENTIN 300 MG CAPSULE. PO SCH (22:05)
[2017-01-20] MEDS: INSULIN DETEMIR 300 UNITS/3 ML INSULN.PEN. SQ SCH (22:10)
[2017-01-20 23:00] VITALS: BP 118/64
[2017-01-21 03:00] VITALS: BP 120/54
[2017-01-21 05:15] LABS: BASO % 1 % (0-3); EOS % 2 % (0-3); HEMATOCRIT 32.2 % (36.0-47.0); HEMOGLOBIN 10.5 g/dL (12.0-15.5); LYMPH # 0.5 x10^3/uL (1.0-4.8); LYMPH % 11 % (24-48); MEAN CORPUSCULAR HEMOGLOBIN 30 pg (25-35); MEAN CORPUSCULAR HGB CONC 33 g/dL (31-37); MEAN CORPUSCULAR VOLUME 93 fL (79-100); MONO % 12 % (0-9); NEUT % 74 % (31-73); PLATELET COUNT 92 x10^3/uL (140-400); RED BLOOD COUNT 3.47 x10^6/uL (3.50-5.40); RED CELL DISTRIBUTION WIDTH 17.7 % (11.5-14.5); WHITE BLOOD COUNT 4.6 x10^3/uL (4.0-11.0)
[2017-01-21 05:35] LABS: ALBUMIN 2.6 g/dL (3.4-5.0); CALCIUM 9.1 mg/dL (8.5-10.1); CREATININE 7.4 mg/dL (0.6-1.0); GFR 5.5; PHOSPHORUS 5.8 mg/dL (2.6-4.7); POTASSIUM 5.3 mmol/L (3.5-5.1)
[2017-01-21 07:00] VITALS: BP 117/65
[2017-01-21] MEDS ORDERED: IV NORMAL SALINE 1000ML BAG 1,000 ML IV PRN (07:36)
[2017-01-21] MEDS ORDERED: DIALYSIS PATIENT. MC PRN ×2 (07:45)
[2017-01-21] MEDS ORDERED: diphenhydrAMINE 50 MG/ML VIAL IV PRN ×2 (07:45)
[2017-01-21] MEDS: glipiZIDE 5 MG TABLET PO SCH ×2 (09:44→21:25)
[2017-01-21] MEDS: SEVELAMER CARBONATE 800 MG TABLET. PO SCH ×3 (09:44→16:59)
[2017-01-21] MEDS: CARVEDILOL 12.5 MG TABLET. PO SCH ×2 (09:45→17:00)
--- NOTE | 2017-01-21 10:49 | PDOC ---
Dialysis Progress Note Dialysis Note Dialysis Note Seen on Hemodialysis, tolerating treatment Okay so far Vitals on Hemodialysis: 145/78 69 afeb General Appearance: Awake: Alert Oriented x 3 Neck: No JVD or JVP Chest: CTA [place] Heart: S1 S2 Abdomen - Soft NTND Extremities - No Edema ESRD: Dialysis as below F 180 NR 3.5 Hrs 2 K 2.5 Ca 140 Na 35 HC03 Qb 350 + Qd 500+ Heparin 0 Units Uf 3 Kgs or to dry weight as tolerated May give 25-50 gms of 25% Albumin if needed to maintain Hemodynamic stability Treatment plan reviewed and discussed with business excellence leader Vanc as OP - D/w Dr Tuan Aviles Vitals Vital Signs Vital Signs Date Time Temp Pulse Resp B/P (MAP) Pulse Ox O2 Delivery O2 Flow Rate FiO2 01/21/17 09:45 66 117/65 01/21/17 08:00 Room Air 01/21/17 07:00 97.3 16 98 97.3 01/20/17 08:00 3.0 Labs Last Labs Laboratory Tests Test 01/19/17 11:04 01/19/17 16:22 01/19/17 21:01 01/20/17 07:14 Glucose (Fingerstick) 117 mg/dL (70-99) 106 mg/dL (70-99) 144 mg/dL (70-99) 159 mg/dL (70-99) Test 01/20/17 10:29 01/20/17 16:24 01/20/17 20:54 01/21/17 04:30 Glucose (Fingerstick) 187 mg/dL (70-99) 202 mg/dL (70-99) 165 mg/dL (70-99) White Blood Count 4.6 x10^3/uL (4.0-11.0) Red Blood Count 3.47 x10^6/uL (3.50-5.40) Hemoglobin 10.5 g/dL (12.0-15.5) Hematocrit 32.2 % (36.0-47.0) Mean Corpuscular Volume 93 fL (79-100) Mean Corpuscular Hemoglobin 30 pg (25-35) Mean Corpuscular Hemoglobin Concent 33 g/dL (31-37) Red Cell Distribution Width 17.7 % (11.5-14.5) Platelet Count 92 x10^3/uL (140-400) Neutrophils (%) (Auto) 74 % (31-73) Lymphocytes (%) (Auto) 11 % (24-48) Monocytes (%) (Auto) 12 % (0-9) Eosinophils (%) (Auto) 2 % (0-3) Basophils (%) (Auto) 1 % (0-3) Neutrophils # (Auto) 3.4 x10^3uL (1.8-7.7) Lymphocytes # (Auto) 0.5 x10^3/uL (1.0-4.8) Monocytes # (Auto) 0.5 x10^3/uL (0.0-1.1) Eosinophils # (Auto) 0.1 x10^3/uL (0.0-0.7) Basophils # (Auto) 0.0 x10^3/uL (0.0-0.2) Sodium Level 136 mmol/L (136-145) Potassium Level 5.3 mmol/L (3.5-5.1) Chloride Level 97 mmol/L (98-107) Carbon Dioxide Level 27 mmol/L (21-32) Anion Gap 12 (6-14) Blood Urea Nitrogen 46 mg/dL (7-20) Creatinine 7.4 mg/dL (0.6-1.0) Estimated GFR (Cockcroft-Gault) 5.5 Glucose Level 162 mg/dL (70-99) Calcium Level 9.1 mg/dL (8.5-10.1) Phosphorus Level 5.8 mg/dL (2.6-4.7) Magnesium Level 2.2 mg/dL (1.8-2.4) Albumin 2.6 g/dL (3.4-5.0) Test 01/21/17 07:14 Glucose (Fingerstick) 166 mg/dL (70-99) Laboratory Tests Test 01/20/17 16:24 01/20/17 20:54 01/21/17 04:30 01/21/17 07:14 Glucose (Fingerstick) 202 mg/dL (70-99) 165 mg/dL (70-99) 166 mg/dL (70-99) White Blood Count 4.6 x10^3/uL (4.0-11.0) Red Blood Count 3.47 x10^6/uL (3.50-5.40) Hemoglobin 10.5 g/dL (12.0-15.5) Hematocrit 32.2 % (36.0-47.0) Mean Corpuscular Volume 93 fL (79-100) Mean Corpuscular Hemoglobin 30 pg (25-35) Mean Corpuscular Hemoglobin Concent 33 g/dL (31-37) Red Cell Distribution Width 17.7 % (11.5-14.5) Platelet Count 92 x10^3/uL (140-400) Neutrophils (%) (Auto) 74 % (31-73) Lymphocytes (%) (Auto) 11 % (24-48) Monocytes (%) (Auto) 12 % (0-9) Eosinophils (%) (Auto) 2 % (0-3) Basophils (%) (Auto) 1 % (0-3) Neutrophils # (Auto) 3.4 x10^3uL (1.8-7.7) Lymphocytes # (Auto) 0.5 x10^3/uL (1.0-4.8) Monocytes # (Auto) 0.5 x10^3/uL (0.0-1.1) Eosinophils # (Auto) 0.1 x10^3/uL (0.0-0.7) Basophils # (Auto) 0.0 x10^3/uL (0.0-0.2) Sodium Level 136 mmol/L (136-145) Potassium Level 5.3 mmol/L (3.5-5.1) Chloride Level 97 mmol/L (98-107) Carbon Dioxide Level 27 mmol/L (21-32) Anion Gap 12 (6-14) Blood Urea Nitrogen 46 mg/dL (7-20) Creatinine 7.4 mg/dL (0.6-1.0) Estimated GFR (Cockcroft-Gault) 5.5 Glucose Level 162 mg/dL (70-99) Calcium Level 9.1 mg/dL (8.5-10.1) Phosphorus Level 5.8 mg/dL (2.6-4.7) Magnesium Level 2.2 mg/dL (1.8-2.4) Albumin 2.6 g/dL (3.4-5.0) Assessment Assessment Problems Medical Problems: (1) Abscess of right breast Status: Acute (2) Diabetic calf ulcer Status: Acute Problems: Plan Plan of Care Problems Medical Problems: (1) Abscess of right breast Status: Acute (2) Diabetic calf ulcer Status: Acute CLEMENTE AVILES MD Jan 21, 2017 10:49
--- NOTE | 2017-01-21 11:22 | PDOC ---
Infectious Disease Note Subjective Subjective Feeling good ROS ROS GEN: Denies fevers, chills, sweats HEENT: Denies blurred vision, sore throat CV: Denies chest pain RESP: Denies shortness of air, cough GI: Denies n/v/d NEURO: Denies confusion, dizziness MSK: Denies weakness, joint pain/swelling Vital Sign Vital Signs Vital Signs Date Time Temp Pulse Resp B/P (MAP) Pulse Ox O2 Delivery O2 Flow Rate FiO2 01/21/17 09:45 66 117/65 01/21/17 08:00 Room Air 01/21/17 07:00 97.3 16 98 97.3 01/20/17 08:00 3.0 Physical Exam PHYSICAL EXAM GENERAL: NAD, Alert HEENT: PERRL, OC/OP NECK: Supple, no JVD, no LN LUNGS: Clear HEART: S1S2, no gallop, no murmur ABD: Soft, NT, no organomegaly, no rebound EXT: No edema, no cyanosis HURRICANE TRACKER: Alert, oriented x 3, no focal neurologic deficit SKIN: No rash IV: ok Labs Lab Laboratory Tests Test 01/20/17 16:24 01/20/17 20:54 01/21/17 04:30 01/21/17 07:14 Glucose (Fingerstick) 202 mg/dL (70-99) 165 mg/dL (70-99) 166 mg/dL (70-99) White Blood Count 4.6 x10^3/uL (4.0-11.0) Red Blood Count 3.47 x10^6/uL (3.50-5.40) Hemoglobin 10.5 g/dL (12.0-15.5) Hematocrit 32.2 % (36.0-47.0) Mean Corpuscular Volume 93 fL (79-100) Mean Corpuscular Hemoglobin 30 pg (25-35) Mean Corpuscular Hemoglobin Concent 33 g/dL (31-37) Red Cell Distribution Width 17.7 % (11.5-14.5) Platelet Count 92 x10^3/uL (140-400) Neutrophils (%) (Auto) 74 % (31-73) Lymphocytes (%) (Auto) 11 % (24-48) Monocytes (%) (Auto) 12 % (0-9) Eosinophils (%) (Auto) 2 % (0-3) Basophils (%) (Auto) 1 % (0-3) Neutrophils # (Auto) 3.4 x10^3uL (1.8-7.7) Lymphocytes # (Auto) 0.5 x10^3/uL (1.0-4.8) Monocytes # (Auto) 0.5 x10^3/uL (0.0-1.1) Eosinophils # (Auto) 0.1 x10^3/uL (0.0-0.7) Basophils # (Auto) 0.0 x10^3/uL (0.0-0.2) Sodium Level 136 mmol/L (136-145) Potassium Level 5.3 mmol/L (3.5-5.1) Chloride Level 97 mmol/L (98-107) Carbon Dioxide Level 27 mmol/L (21-32) Anion Gap 12 (6-14) Blood Urea Nitrogen 46 mg/dL (7-20) Creatinine 7.4 mg/dL (0.6-1.0) Estimated GFR (Cockcroft-Gault) 5.5 Glucose Level 162 mg/dL (70-99) Calcium Level 9.1 mg/dL (8.5-10.1) Phosphorus Level 5.8 mg/dL (2.6-4.7) Magnesium Level 2.2 mg/dL (1.8-2.4) Albumin 2.6 g/dL (3.4-5.0) Objective Assessment Right breast mass developed over 5 days s/p I and D 01/16. Staph aureus MRSA LLE mild erythema ? cellulitis - better. looks post trauma with old blood blister now CKD on HD DM Plan Plan of Care Cont Vanc started 01/16. Contact isolation F/u labs Local wound care pt can be d/c ed on po zyvox or iv vanc through HD for 1 more wk d/w dr Jaylen Aviles f/u with us in 2 wks BULMARO AVILES MD Jan 21, 2017 11:22
--- NOTE | 2017-01-21 12:12 | PATHOLOGY ---
PATHOLOGY REPORT * * * * * * * * FINAL DIAGNOSIS: Segments of skin and subcutaneous tissue, right axilla: - Abscess. COMMENT: There is no evidence of malignancy. (JPM:mgr; 01/20/2017) REPORT ELECTRONICALLY SIGNED BY: Jose Butt M.D. DATE/TIME: 01/20/2017 13:41 * * * * * * * * GROSS PATHOLOGY: The specimen is received in formalin labeled "Jonatan Nair, right axillary abscess". Received are multiple segments of yellow-anderson fibroadipose tissue measuring 8.5 x 7.6 x 3.2 cm in aggregate dimensions with a slight amount of attached pale anderson, wrinkled skin. Sectioning reveals yellow-anderson to dusky barrett-anderson, friable cut surfaces. The specimen is submitted representatively in cassette A1. (CAA; 01/19/2017) INITIAL CPT CODE(S): A; 22805 Professional services performed by [facility] [place] [address] Technical services performed by [facility] at [address] [place] [address]. SPECIMEN(S) RECEIVED: A.Right axillary abscess CLINICAL HISTORY: None provided PATIENT: JONATAN NAIR /AGE: 2 1950 (Age: 66) PATIENT #: [id number] ALT CASE #: SPECIMEN COLLECTION DATE: 01/16/2017 SPECIMEN RECEIVED DATE: 01/19/2017 [facility] - [address] [place] [address] - PHONE: [phone] * * * END OF REPORT * * *
[2017-01-21] MEDS: FOLIC/VIT B COMP W-C (RENAL) TABLET. PO SCH (14:48)
[2017-01-21] MEDS: ASPIRIN ENTERIC COATED 81 MG TABLET.DR. PO SCH (14:48)
[2017-01-21] MEDS: LOSARTAN POTASSIUM 50 MG TABLET. PO SCH (14:49)
[2017-01-21 14:50] VITALS: BP 145/70
[2017-01-21] MEDS: DOXAZOSIN MESYLATE 4 MG TABLET. PO SCH (14:50)
[2017-01-21] MEDS: VANCOMYCIN 500 MG in IV NORMAL SALINE 100ML 100 ML IV SCH (16:05)
--- NOTE | 2017-01-21 18:40 | PDOC ---
PROGRESS NOTES Chief Complaint Chief Complaint R breast abscess s/p I and D 01/16/17 MRSA R breast on final wound cx LEft leg DM ulcer ESRD on HD AOCD Obesity DM 2 insulin requiring History of Present Illness History of Present Illness R breast looks good BUT GREW MRSA On wound BS , BP everything else is good NAEROBIC-AEROBIC CULTURE Final Final report ANAEROBIC RES 1 Final Comment No anaerobic growth in 72 hours. AEROBIC CULT Final Final report AEROBIC RES 1 Final Staphylococcus aureus Heavy growth Methicillin resistant (MRSA) Based on resistance to oxacillin this isolate would be resistant to all currently available beta-lactam antimicrobial agents, with the exception of the newer cephalosporins with anti-MRSA activity, such as Ceftaroline ANTIMICROBIAL SUSCEPTIBILITY Final Comment S = Susceptible; I = Intermediate; R = Resistant P = Positive; N = Negative MICS are expressed in micrograms per mL Antibiotic RSLT#1 RSLT#2 RSLT#3 RSLT#4 Ciprofloxacin S Clindamycin S Erythromycin R Gentamicin S Levofloxacin S Linezolid S Oxacillin R Penicillin R Rifampin S PLAN: dc zosyn VAnc in this renal HD pt HD per renal Follow ID recs MRSA result new today 01/20 - Vitals Vitals Vital Signs Date Time Temp Pulse Resp B/P (MAP) Pulse Ox O2 Delivery O2 Flow Rate FiO2 01/21/17 17:00 71 144/70 01/21/17 14:50 98.1 18 94 Room Air 98.1 01/20/17 08:00 3.0 Physical Exam General: Alert, Oriented X3 Heart: Normal S1, Normal S2 Lungs: Clear Abdomen: Normal bowel sounds, Soft Extremities: No clubbing Skin: Other (lesion to left lower extr, bandage in place) Labs LABS Laboratory Tests Test 01/20/17 20:54 01/21/17 04:30 01/21/17 07:14 01/21/17 14:37 Glucose (Fingerstick) 165 mg/dL (70-99) 166 mg/dL (70-99) 111 mg/dL (70-99) White Blood Count 4.6 x10^3/uL (4.0-11.0) Red Blood Count 3.47 x10^6/uL (3.50-5.40) Hemoglobin 10.5 g/dL (12.0-15.5) Hematocrit 32.2 % (36.0-47.0) Mean Corpuscular Volume 93 fL (79-100) Mean Corpuscular Hemoglobin 30 pg (25-35) Mean Corpuscular Hemoglobin Concent 33 g/dL (31-37) Red Cell Distribution Width 17.7 % (11.5-14.5) Platelet Count 92 x10^3/uL (140-400) Neutrophils (%) (Auto) 74 % (31-73) Lymphocytes (%) (Auto) 11 % (24-48) Monocytes (%) (Auto) 12 % (0-9) Eosinophils (%) (Auto) 2 % (0-3) Basophils (%) (Auto) 1 % (0-3) Neutrophils # (Auto) 3.4 x10^3uL (1.8-7.7) Lymphocytes # (Auto) 0.5 x10^3/uL (1.0-4.8) Monocytes # (Auto) 0.5 x10^3/uL (0.0-1.1) Eosinophils # (Auto) 0.1 x10^3/uL (0.0-0.7) Basophils # (Auto) 0.0 x10^3/uL (0.0-0.2) Sodium Level 136 mmol/L (136-145) Potassium Level 5.3 mmol/L (3.5-5.1) Chloride Level 97 mmol/L (98-107) Carbon Dioxide Level 27 mmol/L (21-32) Anion Gap 12 (6-14) Blood Urea Nitrogen 46 mg/dL (7-20) Creatinine 7.4 mg/dL (0.6-1.0) Estimated GFR (Cockcroft-Gault) 5.5 Glucose Level 162 mg/dL (70-99) Calcium Level 9.1 mg/dL (8.5-10.1) Phosphorus Level 5.8 mg/dL (2.6-4.7) Magnesium Level 2.2 mg/dL (1.8-2.4) Albumin 2.6 g/dL (3.4-5.0) Review of Systems Review of Systems co weakness co pain Assessment and Plan Assessmemt and Plan Problems Medical Problems: (1) Abscess of right breast Status: Acute (2) Diabetic calf ulcer Status: Acute R breast abscess s/p I and D 01/16/17 MRSA R breast on final wound cx LEft leg DM ulcer ESRD on HD AOCD Obesity DM 2 insulin requiring Plan IV Vanco HD PTOT Home meds Recheck labs Problems: Comment Review of Relevant I have reviewed the following items kathy (where applicable) has been applied. Labs Laboratory Tests Test 01/19/17 21:01 01/20/17 07:14 01/20/17 10:29 01/20/17 16:24 Glucose (Fingerstick) 144 mg/dL (70-99) 159 mg/dL (70-99) 187 mg/dL (70-99) 202 mg/dL (70-99) Test 01/20/17 20:54 01/21/17 04:30 01/21/17 07:14 01/21/17 14:37 Glucose (Fingerstick) 165 mg/dL (70-99) 166 mg/dL (70-99) 111 mg/dL (70-99) White Blood Count 4.6 x10^3/uL (4.0-11.0) Red Blood Count 3.47 x10^6/uL (3.50-5.40) Hemoglobin 10.5 g/dL (12.0-15.5) Hematocrit 32.2 % (36.0-47.0) Mean Corpuscular Volume 93 fL (79-100) Mean Corpuscular Hemoglobin 30 pg (25-35) Mean Corpuscular Hemoglobin Concent 33 g/dL (31-37) Red Cell Distribution Width 17.7 % (11.5-14.5) Platelet Count 92 x10^3/uL (140-400) Neutrophils (%) (Auto) 74 % (31-73) Lymphocytes (%) (Auto) 11 % (24-48) Monocytes (%) (Auto) 12 % (0-9) Eosinophils (%) (Auto) 2 % (0-3) Basophils (%) (Auto) 1 % (0-3) Neutrophils # (Auto) 3.4 x10^3uL (1.8-7.7) Lymphocytes # (Auto) 0.5 x10^3/uL (1.0-4.8) Monocytes # (Auto) 0.5 x10^3/uL (0.0-1.1) Eosinophils # (Auto) 0.1 x10^3/uL (0.0-0.7) Basophils # (Auto) 0.0 x10^3/uL (0.0-0.2) Sodium Level 136 mmol/L (136-145) Potassium Level 5.3 mmol/L (3.5-5.1) Chloride Level 97 mmol/L (98-107) Carbon Dioxide Level 27 mmol/L (21-32) Anion Gap 12 (6-14) Blood Urea Nitrogen 46 mg/dL (7-20) Creatinine 7.4 mg/dL (0.6-1.0) Estimated GFR (Cockcroft-Gault) 5.5 Glucose Level 162 mg/dL (70-99) Calcium Level 9.1 mg/dL (8.5-10.1) Phosphorus Level 5.8 mg/dL (2.6-4.7) Magnesium Level 2.2 mg/dL (1.8-2.4) Albumin 2.6 g/dL (3.4-5.0) Laboratory Tests Test 01/20/17 20:54 01/21/17 04:30 01/21/17 07:14 01/21/17 14:37 Glucose (Fingerstick) 165 mg/dL (70-99) 166 mg/dL (70-99) 111 mg/dL (70-99) White Blood Count 4.6 x10^3/uL (4.0-11.0) Red Blood Count 3.47 x10^6/uL (3.50-5.40) Hemoglobin 10.5 g/dL (12.0-15.5) Hematocrit 32.2 % (36.0-47.0) Mean Corpuscular Volume 93 fL (79-100) Mean Corpuscular Hemoglobin 30 pg (25-35) Mean Corpuscular Hemoglobin Concent 33 g/dL (31-37) Red Cell Distribution Width 17.7 % (11.5-14.5) Platelet Count 92 x10^3/uL (140-400) Neutrophils (%) (Auto) 74 % (31-73) Lymphocytes (%) (Auto) 11 % (24-48) Monocytes (%) (Auto) 12 % (0-9) Eosinophils (%) (Auto) 2 % (0-3) Basophils (%) (Auto) 1 % (0-3) Neutrophils # (Auto) 3.4 x10^3uL (1.8-7.7) Lymphocytes # (Auto) 0.5 x10^3/uL (1.0-4.8) Monocytes # (Auto) 0.5 x10^3/uL (0.0-1.1) Eosinophils # (Auto) 0.1 x10^3/uL (0.0-0.7) Basophils # (Auto) 0.0 x10^3/uL (0.0-0.2) Sodium Level 136 mmol/L (136-145) Potassium Level 5.3 mmol/L (3.5-5.1) Chloride Level 97 mmol/L (98-107) Carbon Dioxide Level 27 mmol/L (21-32) Anion Gap 12 (6-14) Blood Urea Nitrogen 46 mg/dL (7-20) Creatinine 7.4 mg/dL (0.6-1.0) Estimated GFR (Cockcroft-Gault) 5.5 Glucose Level 162 mg/dL (70-99) Calcium Level 9.1 mg/dL (8.5-10.1) Phosphorus Level 5.8 mg/dL (2.6-4.7) Magnesium Level 2.2 mg/dL (1.8-2.4) Albumin 2.6 g/dL (3.4-5.0) Microbiology 01/15/17 Blood Culture - Final, Complete NO GROWTH AFTER 5 DAYS 01/16/17 Anaerobic/Aerobic Culture - Final, Complete 01/16/17 Anaerobic Culture Result 1 (SHEFALI) - Final, Complete 01/16/17 Aerobic Culture - Final, Complete 01/16/17 Aerobic Culture Result 1 (SHEFALI) - Final, Complete 01/16/17 Antimicrobic Susceptibility - Final, Complete Medications Current Medications Clindamycin Phosphate 50 ml @ 100 mls/hr Q8HRS IV Last administered on 06:21; Start 01/15/17 at 16:00; Stop 01/16/17 at 15:43; Status DC Clindamycin Phosphate 50 ml @ 100 mls/hr 1X ONCE IV Last administered on 01/15 10:13; Start 01/15/17 at 10:00; Stop 01/15/17 at 10:29; Status DC Aspirin (Ecotrin) 81 mg DAILY PO Last administered on 01/21/17 14:48; Start at 12:00 Carvedilol (Coreg) 12.5 mg BIDWMEALS PO Last administered on 01/21/17 17:00; Start 01/15/17 at 12:00 Vitamin B Complex/ Vitamin C (Amaya-Amie) 1 tab DAILY PO Last administered on 14:48; Start 01/15/17 at 12:00 Glipizide (Glucotrol) 5 mg BID PO Last administered on 01/21/17 09:44; Start 01/15/17 at 12:00 Losartan Potassium (Cozaar) 100 mg DAILY PO Last administered on 01/21/17 14: 49; Start 01/15/17 at 12:00 Sevelamer Carbonate (Renvela) 1,600 mg TIDWMEALS PO Last administered on 16:59; Start 01/15/17 at 12:00 Non-Formulary Medication 1 cap TID PO ; Start 01/15/17 at 14:00; Status UNV Doxazosin Mesylate (Cardura) 8 mg DAILY PO Last administered on 01/21/17 14:50 ; Start 01/15/17 at 12:00 Gabapentin (Neurontin) 300 mg QHS PO Last administered on 01/20/17 22:05; Start 01/15/17 at 21:00 Insulin Detemir (Levemir) 15 units QHS SQ Last administered on 01/16/17 20:23 ; Start 01/15/17 at 21:00; Stop 01/17/17 at 09:41; Status DC Atorvastatin Calcium (Lipitor) 10 mg QHS PO Last administered on 01/20/17 22: 05; Start 01/15/17 at 21:00 Info (PHARMACY MONITORING -- do not chart) 1 each PRN DAILY PRN MC SEE COMMENTS ; Start 01/16/17 at 09:00 Ondansetron HCl (Zofran) 4 mg PRN Q6HRS PRN IV NAUSEA/VOMITING; Start 01/16/17 at 12:00; Stop 01/17/17 at 11:59; Status DC Fentanyl Citrate (Fentanyl 2ml Vial) 25 mcg PRN Q5MIN PRN IV MILD PAIN; Start 01/16/17 at 12:00; Stop 01/17/17 at 11:59; Status DC Fentanyl Citrate (Fentanyl 2ml Vial) 50 mcg PRN Q5MIN PRN IV MODERATE PAIN; Start 01/16/17 at 12:00; Stop 01/17/17 at 11:59; Status DC Morphine Sulfate 1 mg PRN Q10MIN PRN IV SEVERE PAIN; Start 01/16/17 at 12:00; Stop 01/17/17 at 11:59; Status DC Ringer's Solution 1,000 ml @ 30 mls/hr Q24H IV ; Start 01/16/17 at 11:49; Stop 01/16/17 at 23:48; Status DC Lidocaine HCl 2 ml PRN 1X PRN ID PRIOR TO IV START; Start 01/16/17 at 12:00; Stop 01/17/17 at 11:59; Status DC Hydromorphone HCl (Dilaudid) 0.5 mg PRN Q10MIN PRN IV SEV PAIN, Second choice; Start 01/16/17 at 12:00; Stop 01/17/17 at 11:59; Status DC Prochlorperazine Edisylate (Compazine) 5 mg PACU PRN PRN IV NAUSEA, MRX1; Start 01/16/17 at 12:00; Stop 01/17/17 at 11:59; Status DC Darbepoetin Franklin (Aranesp) 60 mcg [id number] SQ ; Start 01/23/17 at 21:00 Sodium Chloride 1,000 ml @ 75 mls/hr [id number] IV Last administered on t 14:51; Start 01/16/17 at 15:00; Stop 01/18/17 at 05:56; Status DC Propofol 20 ml @ As Directed STK-MED ONCE IV ; Start 01/16/17 at 15:08; Stop at 15:09; Status DC Lidocaine HCl (Lidocaine Pf 2% Vial) 5 ml STK-MED ONCE .ROUTE ; Start 01/16/17 at 15:08; Stop 01/16/17 at 15:09; Status DC Famotidine (Pepcid) 20 mg STK-MED ONCE .ROUTE ; Start 01/16/17 at 15:08; Stop at 15:09; Status DC Ondansetron HCl (Zofran) 4 mg STK-MED ONCE .ROUTE ; Start 01/16/17 at 15:08; Stop 01/16/17 at 15:09; Status DC Ephedrine Sulfate 50 mg STK-MED ONCE IV ; Start 01/16/17 at 15:32; Stop at 15:33; Status DC Vancomycin HCl (Vanco Per Pharmacy) 1 each PRN DAILY PRN MC SEE COMMENTS Last administered on 01/19/17 12:34; Start 01/16/17 at 15:45 Piperacillin Sod/ Tazobactam Sod 2.25 gm/Sodium Chloride 50 ml @ 100 mls/hr Q8HRS IV Last administered on 01/19/17 14:33; Start 01/16/17 at 17:01; Stop at 16:58; Status DC Sodium Chloride (Sodium Chloride) 50 ml STK-MED ONCE IJ ; Start 01/16/17 at 15: 45; Stop 01/16/17 at 15:46; Status DC Vasopressin (Vasostrict) 20 unit STK-MED ONCE .ROUTE ; Start 01/16/17 at 15:45; Stop 01/16/17 at 15:46; Status DC Vancomycin HCl 2 gm/Sodium Chloride 500 ml @ 250 mls/hr 1X ONCE IV Last administered on 01/16/17 19:27; Start 01/16/17 at 16:30; Stop 01/16/17 at 18:29 ; Status DC Bupivacaine HCl/ Epinephrine Bitart (Marcaine-Epi 0.5%-1:[id number]) 50 ml STK-MED ONCE .ROUTE Last administered on 01/16/17 15:55; Start 01/16/17 at 15:53; Stop 01/16/17 at 15:54; Status DC Fentanyl Citrate (Fentanyl 2ml Vial) 100 mcg STK-MED ONCE .ROUTE ; Start at 15:58; Stop 01/16/17 at 15:59; Status DC Neomycin/ Polymyxin/ Bacitracin (Triple Antibiotic Ointment) 1 pkt STK-MED ONCE TP Last administered on 01/16/17 15:55; Start 01/16/17 at 16:02; Stop at 16:03; Status DC Phenylephrine HCl 1 mg STK-MED ONCE IV ; Start 01/16/17 at 16:13; Stop 01/16/17 at 16:14; Status DC Vancomycin HCl 1 each 1X ONCE MC Last administered on 01/19/17 05:00; Start 01/19/17 at 05:00; Stop 01/19/17 at 05:01; Status DC Insulin Detemir (Levemir) 10 units QHS SQ Last administered on 01/20/17 22:10 ; Start 01/17/17 at 21:00 Vancomycin HCl 500 mg/Sodium Chloride 100 ml @ 100 mls/hr QMWF IV Last administered on 01/21/17 16:05; Start 01/19/17 at 16:00 Sodium Chloride 1,000 ml @ 1,000 mls/hr Q1H PRN IV hypotension; Start 01/19/17 at 08:55; Stop 01/19/17 at 14:54; Status DC Info (PHARMACY MONITORING -- do not chart) 1 each PRN DAILY PRN MC SEE COMMENTS ; Start 01/19/17 at 09:00; Status UNV Sodium Chloride 1,000 ml @ 1,000 mls/hr Q1H PRN IV hypotension; Start 01/19/17 at 09:38; Stop 01/19/17 at 15:37; Status DC Diphenhydramine HCl (Benadryl) 25 mg 1X PRN PRN IV ITCHING; Start 01/19/17 at 09:45; Stop 01/20/17 at 09:44; Status DC Diphenhydramine HCl (Benadryl) 25 mg 1X PRN PRN IV ITCHING; Start 01/19/17 at 09:45; Stop 01/20/17 at 09:44; Status DC Heparin Sodium (Porcine) (Heparin Sodium) 2,000 unit 1X PRN PRN INT CAT AP catheter pack; Start 01/19/17 at 09:45; Stop 01/20/17 at 09:44; Status DC Heparin Sodium (Porcine) (Heparin Sodium) 2,000 unit 1X PRN PRN INT CAT DIRECTOR OF [employer]TER[employer]CHITECTURE catheter pack; Start 01/19/17 at 09:45; Stop 01/20/17 at 09:44; Status DC Info (PHARMACY MONITORING -- do not chart) 1 each PRN DAILY PRN MC SEE COMMENTS ; Start 01/19/17 at 09:45; Status UNV Info (PHARMACY MONITORING -- do not chart) 1 each PRN DAILY PRN MC SEE COMMENTS ; Start 01/19/17 at 09:45; Status UNV Magnesium Sulfate/ Dextrose 50 ml @ 25 mls/hr PRN DAILY PRN IV for Mag < 1.7 on am labs; Start 01/20/17 at 09:45 Sodium Chloride 1,000 ml @ 1,000 mls/hr Q1H PRN IV hypotension; Start 01/21/17 at 07:36; Stop 01/21/17 at 13:35; Status DC Diphenhydramine HCl (Benadryl) 25 mg 1X PRN PRN IV ITCHING; Start 01/21/17 at 07:45; Stop 01/22/17 at 07:44 Diphenhydramine HCl (Benadryl) 25 mg 1X PRN PRN IV ITCHING; Start 01/21/17 at 07:45; Stop 01/22/17 at 07:44 Info (PHARMACY MONITORING -- do not chart) 1 each PRN DAILY PRN MC SEE COMMENTS ; Start 01/21/17 at 07:45; Status UNV Info (PHARMACY MONITORING -- do not chart) 1 each PRN DAILY PRN MC SEE COMMENTS ; Start 01/21/17 at 07:45; Status UNV Active Scripts Active Glipizide 5 Mg Tablet 1 Tab PO BID Levemir (Insulin Detemir) 100 Unit/1 Ml Vial 15 Unit SQ QHS 30 Days Keflex (Cephalexin) 500 Mg Capsule 1 Cap PO TID n/a Cozaar (Losartan Potassium) 50 Mg Tablet 100 Mg PO DAILY Reported Carvedilol 12.5 Mg Tablet 1 Tab PO BID Aspir 81 (Aspirin) 81 Mg Tablet.dr 1 Tab PO DAILY Gabapentin 300 Mg Capsule 300 Mg PO HS Renvela (Sevelamer Carbonate) 800 Mg Tablet 2 Tab PO TID Nephro-Amie Tablet (Folic Acid/Vitamin B Comp W-C) 0.8 Mg Tablet 1 Tab PO DAILY Doxazosin Mesylate 8 Mg Tablet 1 Tab PO DAILY Lovastatin 40 Mg Tablet 1 Tab PO DAILY Vitals/I & O Vital Sign - Last 24 Hours 01/20/17 01/20/17 01/20/17 01/21/17 19:00 20:20 23:00 03:00 Temp 99.1 96.6 97.7 99.1 96.6 97.7 Pulse 72 75 68 Resp 20 18 18 B/P (MAP) 131/67 (88) 118/64 (82) 120/54 (76) Pulse Ox 92 93 94 O2 Delivery Room Air Room Air Room Air Room Air 01/21/17 01/21/17 01/21/17 01/21/17 07:00 08:00 09:45 14:49 Temp 97.3 97.3 Pulse 66 66 71 Resp 16 B/P (MAP) 117/65 (82) 117/65 144/70 Pulse Ox 98 O2 Delivery Room Air Room Air 01/21/17 01/21/17 01/21/17 14:50 14:50 17:00 Temp 98.1 98.1 Pulse 71 71 71 Resp 18 B/P (MAP) 144/70 145/70 (95) 144/70 Pulse Ox 94 O2 Delivery Room Air Intake and Output 01/20/17 01/20/17 01/21/17 15:00 23:00 07:00 Intake Total 240 ml 520 ml 240 ml Output Total 0 ml Balance 240 ml 520 ml 240 ml Nutrition Consultation Dietary Evaluation: Recommendations by RD: Protein supplementation Comments: DBL protein portions Arginaid tid Expected Outcomes/Goals: meet >75% estimated nutrition needs Malnutrition Findings: Weight Status: Obese REILLY JACOBO III DO Jan 21, 2017 18:40
[2017-01-21 19:00] VITALS: BP 127/57
[2017-01-21] MEDS: ATORVASTATIN CALCIUM 10 MG TABLET. PO SCH (21:25)
[2017-01-21] MEDS: GABAPENTIN 300 MG CAPSULE. PO SCH (21:25)
[2017-01-21] MEDS: INSULIN DETEMIR 300 UNITS/3 ML INSULN.PEN. SQ SCH (21:28)
[2017-01-21 23:00] VITALS: BP 138/67
[2017-01-22 02:34] VITALS: BP 131/58
[2017-01-22 06:29] LABS: ALBUMIN 2.7 g/dL (3.4-5.0); CALCIUM 8.5 mg/dL (8.5-10.1); CREATININE 5.5 mg/dL (0.6-1.0); GFR 7.8; PHOSPHORUS 4.5 mg/dL (2.6-4.7); POTASSIUM 4.8 mmol/L (3.5-5.1)
[2017-01-22 07:00] VITALS: BP_SYST 120; BP_SYST 121; BP_DIAS 53; BP_DIAS 54
--- NOTE | 2017-01-22 08:07 | PDOC ---
SUBJECTIVE ROS ESRD Doign and feeling better overall CVS: no Orthopnea, no CP RESP: no SOB, no ONEILL GI: no Nausea, no Vomiting : no Dysuria, no Urgency OBJECTIVE Vital Signs Vital Signs Date Time Temp Pulse Resp B/P (MAP) Pulse Ox O2 Delivery O2 Flow Rate FiO2 01/22/17 02:34 97.5 69 18 131/58 (82) 97 Room Air 97.5 I & 0 Intake and Output 01/22/17 06:59 Intake Total 240 ml Output Total 0 ml Balance 240 ml Intake Oral 240 ml Output Urine Total 0 ml PHYSICAL EXAM Physical Exam GEN: Awake, Oriented x 3, In no distress EYES: Vision Unchanged, Conjunctiva Normal EN: No EN Drainage, Mucous Membranes mosit NECK: no JVD, min JVP, Supple, no Thyromegaly CVS: S1S2, + Murmur, No Gallop, No Rub,no Edema RESP: no Rales, no Rhonchi,n Acc. Muscle Use GI: BS + ve, NO Bruit, Non Tender, Non Distended : n o CVA tenderness, no Suprapubic Tenderness DIAGNOSIS/ASSESSMENT Assessment & Plan ESRD: Current fluid and E-lyte status does not necessitate emergent need for dialysis. Will re-evaluate for dialysis in the am and continue on MWF schedule. Breast Abscess - MRSA - will co-ordinate IV Abx with OP HD as ordered ANEMIA; Aranesp as ordered, Transfuse with next HD as needed if hgb < 7 HTN: Current BP meds as reviewed. See orders for changes. BONE & MINERAL: follow phos levels and alter binder regimen based on PO intake and trend HypoAlbuminemia - encourage PO Protein in diet - D/w Pt Discussed Plan of Care with pt at bedside COMMENT/RELEVANT DATA Meds Current Medications Medications (Trade) Dose Ordered Sig/Theresa Start Time Stop Time Status Last Admin Dose Admin Aspirin (Ecotrin) 81 mg DAILY 01/15/17 12:00 01/21/17 14:48 81 MG Atorvastatin Calcium (Lipitor) 10 mg QHS 01/15/17 21:00 01/21/17 21:25 10 MG Bupivacaine HCl/ Epinephrine Bitart (Marcaine-Epi 0.5%-1:[id number]) 50 ml STK-MED ONCE 01/16/17 15:53 01/16/17 15:54 DC 01/16/17 15:55 5 ML Carvedilol (Coreg) 12.5 mg BIDWMEALS 01/15/17 12:00 01/21/17 17:00 12.5 MG Clindamycin Phosphate 50 ml @ 100 mls/hr 1X ONCE 01/15/17 10:00 01/15/17 10:29 DC 01/15/17 10:13 100 MLS/HR Darbepoetin Franklin (Aranesp) 60 mcg WEEKLYHS 01/23/17 21:00 Diphenhydramine HCl (Benadryl) 25 mg 1X PRN PRN 01/21/17 07:45 01/22/17 07:44 DC Doxazosin Mesylate (Cardura) 8 mg DAILY 01/15/17 12:00 01/21/17 14:50 8 MG Ephedrine Sulfate 50 mg STK-MED ONCE 01/16/17 15:32 01/16/17 15:33 DC Famotidine (Pepcid) 20 mg STK-MED ONCE 01/16/17 15:08 01/16/17 15:09 DC Fentanyl Citrate (Fentanyl 2ml Vial) 100 mcg STK-MED ONCE 01/16/17 15:58 01/16/17 15:59 DC Gabapentin (Neurontin) 300 mg QHS 01/15/17 21:00 01/21/17 21:25 300 MG Glipizide (Glucotrol) 5 mg BID 01/15/17 12:00 01/21/17 21:25 5 MG Heparin Sodium (Porcine) (Heparin Sodium) 2,000 unit 1X PRN PRN 01/19/17 09:45 01/20/17 09:44 DC Hydromorphone HCl (Dilaudid) 0.5 mg PRN Q10MIN PRN 01/16/17 12:00 01/17/17 11:59 DC Info (PHARMACY MONITORING -- do not chart) 1 each PRN DAILY PRN 01/21/17 07:45 UNV Insulin Detemir (Levemir) 10 units QHS 01/17/17 21:00 01/21/17 21:28 10 UNITS Lidocaine HCl (Lidocaine Pf 2% Vial) 5 ml STK-MED ONCE 01/16/17 15:08 01/16/17 15:09 DC Losartan Potassium (Cozaar) 100 mg DAILY 01/15/17 12:00 01/21/17 14:49 100 MG Magnesium Sulfate/ Dextrose 50 ml @ 25 mls/hr PRN DAILY PRN 01/20/17 09:45 Morphine Sulfate 1 mg PRN Q10MIN PRN 01/16/17 12:00 01/17/17 11:59 DC Neomycin/ Polymyxin/ Bacitracin (Triple Antibiotic Ointment) 1 pkt STK-MED ONCE 01/16/17 16:02 01/16/17 16:03 DC 01/16/17 15:55 1 PKT Non-Formulary Medication 1 cap TID 01/15/17 14:00 UNV Ondansetron HCl (Zofran) 4 mg STK-MED ONCE 01/16/17 15:08 01/16/17 15:09 DC Phenylephrine HCl 1 mg STK-MED ONCE 01/16/17 16:13 01/16/17 16:14 DC Piperacillin Sod/ Tazobactam Sod 2.25 gm/Sodium Chloride 50 ml @ 100 mls/hr Q8HRS 01/16/17 17:01 01/19/17 16:58 DC 01/19/17 14:33 100 MLS/HR Prochlorperazine Edisylate (Compazine) 5 mg PACU PRN PRN 01/16/17 12:00 01/17/17 11:59 DC Propofol 20 ml @ As Directed STK-MED ONCE 01/16/17 15:08 01/16/17 15:09 DC Ringer's Solution 1,000 ml @ 30 mls/hr Q24H 01/16/17 11:49 01/16/17 23:48 DC Sevelamer Carbonate (Renvela) 1,600 mg TIDWMEALS 01/15/17 12:00 01/21/17 16:59 1,600 MG Sodium Chloride 1,000 ml @ 1,000 mls/hr Q1H PRN 01/21/17 07:36 01/21/17 13:35 DC Sodium Chloride (Sodium Chloride) 50 ml STK-MED ONCE 01/16/17 15:45 01/16/17 15:46 DC Vancomycin HCl (Vanco Per Pharmacy) 1 each PRN DAILY PRN 01/16/17 15:45 01/19/17 12:34 1 EACH Vancomycin HCl 500 mg/Sodium Chloride 100 ml @ 100 mls/hr QMWF 01/19/17 16:00 01/21/17 16:05 100 MLS/HR Vancomycin HCl 2 gm/Sodium Chloride 500 ml @ 250 mls/hr 1X ONCE 01/16/17 16:30 01/16/17 18:29 DC 01/16/17 19:27 250 MLS/HR Vasopressin (Vasostrict) 20 unit STK-MED ONCE 01/16/17 15:45 01/16/17 15:46 DC Vitamin B Complex/ Vitamin C (Amaya-Amie) 1 tab DAILY 01/15/17 12:00 01/21/17 14:48 1 TAB Lab Laboratory Tests Test 01/21/17 14:37 01/21/17 16:33 01/21/17 20:41 01/22/17 05:20 Glucose (Fingerstick) 111 mg/dL (70-99) 134 mg/dL (70-99) 199 mg/dL (70-99) Sodium Level 140 mmol/L (136-145) Potassium Level 4.8 mmol/L (3.5-5.1) Chloride Level 99 mmol/L (98-107) Carbon Dioxide Level 32 mmol/L (21-32) Anion Gap 9 (6-14) Blood Urea Nitrogen 33 mg/dL (7-20) Creatinine 5.5 mg/dL (0.6-1.0) Estimated GFR (Cockcroft-Gault) 7.8 Glucose Level 125 mg/dL (70-99) Calcium Level 8.5 mg/dL (8.5-10.1) Phosphorus Level 4.5 mg/dL (2.6-4.7) Magnesium Level 1.9 mg/dL (1.8-2.4) Albumin 2.7 g/dL (3.4-5.0) Test 01/22/17 07:25 Glucose (Fingerstick) 114 mg/dL (70-99) CLEMENTE AVILES MD Jan 22, 2017 08:07
[2017-01-22] MEDS: CARVEDILOL 12.5 MG TABLET. PO SCH ×2 (08:44→18:12)
[2017-01-22] MEDS: SEVELAMER CARBONATE 800 MG TABLET. PO SCH ×3 (08:44→18:12)
[2017-01-22] MEDS: DOXAZOSIN MESYLATE 4 MG TABLET. PO SCH (08:45)
[2017-01-22] MEDS: LOSARTAN POTASSIUM 50 MG TABLET. PO SCH (08:46)
[2017-01-22] MEDS: FOLIC/VIT B COMP W-C (RENAL) TABLET. PO SCH (08:47)
[2017-01-22] MEDS: ASPIRIN ENTERIC COATED 81 MG TABLET.DR. PO SCH (08:47)
[2017-01-22] MEDS: glipiZIDE 5 MG TABLET PO SCH ×2 (08:47→18:12)
--- NOTE | 2017-01-22 10:30 | PDOC ---
Infectious Disease Note Subjective Subjective Feeling good ROS ROS GEN: Denies fevers, chills, sweats HEENT: Denies blurred vision, sore throat CV: Denies chest pain RESP: Denies shortness of air, cough GI: Denies n/v/d NEURO: Denies confusion, dizziness MSK: Denies weakness, joint pain/swelling Vital Sign Vital Signs Vital Signs Date Time Temp Pulse Resp B/P (MAP) Pulse Ox O2 Delivery O2 Flow Rate FiO2 01/22/17 08:46 63 120/54 01/22/17 07:00 98.2 20 96 Room Air 98.2 Physical Exam PHYSICAL EXAM GENERAL: NAD, Alert HEENT: PERRL, OC/OP NECK: Supple, no JVD, no LN LUNGS: Clear HEART: S1S2, no gallop, no murmur ABD: Soft, NT, no organomegaly, no rebound EXT: No edema, no cyanosis CHAINMAN: Alert, oriented x 3, no focal neurologic deficit SKIN: No rash,, rt breast dressing IV: ok Labs Lab Laboratory Tests Test 01/21/17 14:37 01/21/17 16:33 01/21/17 20:41 01/22/17 05:20 Glucose (Fingerstick) 111 mg/dL (70-99) 134 mg/dL (70-99) 199 mg/dL (70-99) Sodium Level 140 mmol/L (136-145) Potassium Level 4.8 mmol/L (3.5-5.1) Chloride Level 99 mmol/L (98-107) Carbon Dioxide Level 32 mmol/L (21-32) Anion Gap 9 (6-14) Blood Urea Nitrogen 33 mg/dL (7-20) Creatinine 5.5 mg/dL (0.6-1.0) Estimated GFR (Cockcroft-Gault) 7.8 Glucose Level 125 mg/dL (70-99) Calcium Level 8.5 mg/dL (8.5-10.1) Phosphorus Level 4.5 mg/dL (2.6-4.7) Magnesium Level 1.9 mg/dL (1.8-2.4) Albumin 2.7 g/dL (3.4-5.0) Test 01/22/17 07:25 Glucose (Fingerstick) 114 mg/dL (70-99) Objective Assessment Right breast mass developed over 5 days s/p I and D 01/16. Staph aureus MRSA LLE mild erythema ? cellulitis - better. looks post trauma with old blood blister now CKD on HD DM Plan Plan of Care Cont Vanc started 01/16. Contact isolation F/u labs Local wound care pt can be d/c ed on po zyvox or iv vanc through HD for 1 more wk d/w dr Jaylen Aviles f/u with us in 2 wks BULMARO AVILES MD Jan 22, 2017 10:30
[2017-01-22 11:00] VITALS: BP 132/66
[2017-01-22] MEDS: VANCOMYCIN PER PHARMACY MC PRN (13:21)
--- NOTE | 2017-01-22 13:31 | PDOC ---
PROGRESS NOTES Chief Complaint Chief Complaint R breast abscess s/p I and D, on 01/16/17 MRSA R breast on final wound cx Left leg DM ulcer ESRD on HD AOCD Obesity, BMI 38 DM. 2 insulin requiring History of Present Illness History of Present Illness MRSA On wound BS , BP everything else is good VAnc in this renal HD pt, cont MWF w/ HD HD per renal Follow ID recs may DC with wound vac, likely tomorrow Vitals Vitals Vital Signs Date Time Temp Pulse Resp B/P (MAP) Pulse Ox O2 Delivery O2 Flow Rate FiO2 01/22/17 11:00 98.4 73 20 132/66 (88) 95 Room Air 98.4 Physical Exam General: Alert, Oriented X3 Heart: Normal S1, Normal S2 Lungs: Clear Abdomen: Normal bowel sounds, Soft Extremities: No clubbing Skin: Other (lesion to left lower extr, bandage in place) Labs LABS Laboratory Tests Test 01/21/17 14:37 01/21/17 16:33 01/21/17 20:41 01/22/17 05:20 Glucose (Fingerstick) 111 mg/dL (70-99) 134 mg/dL (70-99) 199 mg/dL (70-99) Sodium Level 140 mmol/L (136-145) Potassium Level 4.8 mmol/L (3.5-5.1) Chloride Level 99 mmol/L (98-107) Carbon Dioxide Level 32 mmol/L (21-32) Anion Gap 9 (6-14) Blood Urea Nitrogen 33 mg/dL (7-20) Creatinine 5.5 mg/dL (0.6-1.0) Estimated GFR (Cockcroft-Gault) 7.8 Glucose Level 125 mg/dL (70-99) Calcium Level 8.5 mg/dL (8.5-10.1) Phosphorus Level 4.5 mg/dL (2.6-4.7) Magnesium Level 1.9 mg/dL (1.8-2.4) Albumin 2.7 g/dL (3.4-5.0) Test 01/22/17 07:25 01/22/17 11:08 Glucose (Fingerstick) 114 mg/dL (70-99) 122 mg/dL (70-99) Review of Systems Review of Systems + weakness and lethargy Assessment and Plan Assessmemt and Plan Problems Medical Problems: (1) Abscess of right breast Status: Acute (2) Diabetic calf ulcer Status: Acute Problems: Comment Review of Relevant I have reviewed the following items kathy (where applicable) has been applied. Labs Laboratory Tests Test 01/20/17 16:24 01/20/17 20:54 01/21/17 04:30 01/21/17 07:14 Glucose (Fingerstick) 202 mg/dL (70-99) 165 mg/dL (70-99) 166 mg/dL (70-99) White Blood Count 4.6 x10^3/uL (4.0-11.0) Red Blood Count 3.47 x10^6/uL (3.50-5.40) Hemoglobin 10.5 g/dL (12.0-15.5) Hematocrit 32.2 % (36.0-47.0) Mean Corpuscular Volume 93 fL (79-100) Mean Corpuscular Hemoglobin 30 pg (25-35) Mean Corpuscular Hemoglobin Concent 33 g/dL (31-37) Red Cell Distribution Width 17.7 % (11.5-14.5) Platelet Count 92 x10^3/uL (140-400) Neutrophils (%) (Auto) 74 % (31-73) Lymphocytes (%) (Auto) 11 % (24-48) Monocytes (%) (Auto) 12 % (0-9) Eosinophils (%) (Auto) 2 % (0-3) Basophils (%) (Auto) 1 % (0-3) Neutrophils # (Auto) 3.4 x10^3uL (1.8-7.7) Lymphocytes # (Auto) 0.5 x10^3/uL (1.0-4.8) Monocytes # (Auto) 0.5 x10^3/uL (0.0-1.1) Eosinophils # (Auto) 0.1 x10^3/uL (0.0-0.7) Basophils # (Auto) 0.0 x10^3/uL (0.0-0.2) Sodium Level 136 mmol/L (136-145) Potassium Level 5.3 mmol/L (3.5-5.1) Chloride Level 97 mmol/L (98-107) Carbon Dioxide Level 27 mmol/L (21-32) Anion Gap 12 (6-14) Blood Urea Nitrogen 46 mg/dL (7-20) Creatinine 7.4 mg/dL (0.6-1.0) Estimated GFR (Cockcroft-Gault) 5.5 Glucose Level 162 mg/dL (70-99) Calcium Level 9.1 mg/dL (8.5-10.1) Phosphorus Level 5.8 mg/dL (2.6-4.7) Magnesium Level 2.2 mg/dL (1.8-2.4) Albumin 2.6 g/dL (3.4-5.0) Test 01/21/17 14:37 01/21/17 16:33 01/21/17 20:41 01/22/17 05:20 Glucose (Fingerstick) 111 mg/dL (70-99) 134 mg/dL (70-99) 199 mg/dL (70-99) Sodium Level 140 mmol/L (136-145) Potassium Level 4.8 mmol/L (3.5-5.1) Chloride Level 99 mmol/L (98-107) Carbon Dioxide Level 32 mmol/L (21-32) Anion Gap 9 (6-14) Blood Urea Nitrogen 33 mg/dL (7-20) Creatinine 5.5 mg/dL (0.6-1.0) Estimated GFR (Cockcroft-Gault) 7.8 Glucose Level 125 mg/dL (70-99) Calcium Level 8.5 mg/dL (8.5-10.1) Phosphorus Level 4.5 mg/dL (2.6-4.7) Magnesium Level 1.9 mg/dL (1.8-2.4) Albumin 2.7 g/dL (3.4-5.0) Test 01/22/17 07:25 01/22/17 11:08 Glucose (Fingerstick) 114 mg/dL (70-99) 122 mg/dL (70-99) Laboratory Tests Test 01/21/17 14:37 01/21/17 16:33 01/21/17 20:41 01/22/17 05:20 Glucose (Fingerstick) 111 mg/dL (70-99) 134 mg/dL (70-99) 199 mg/dL (70-99) Sodium Level 140 mmol/L (136-145) Potassium Level 4.8 mmol/L (3.5-5.1) Chloride Level 99 mmol/L (98-107) Carbon Dioxide Level 32 mmol/L (21-32) Anion Gap 9 (6-14) Blood Urea Nitrogen 33 mg/dL (7-20) Creatinine 5.5 mg/dL (0.6-1.0) Estimated GFR (Cockcroft-Gault) 7.8 Glucose Level 125 mg/dL (70-99) Calcium Level 8.5 mg/dL (8.5-10.1) Phosphorus Level 4.5 mg/dL (2.6-4.7) Magnesium Level 1.9 mg/dL (1.8-2.4) Albumin 2.7 g/dL (3.4-5.0) Test 01/22/17 07:25 01/22/17 11:08 Glucose (Fingerstick) 114 mg/dL (70-99) 122 mg/dL (70-99) Microbiology 01/15/17 Blood Culture - Final, Complete NO GROWTH AFTER 5 DAYS 01/16/17 Anaerobic/Aerobic Culture - Final, Complete 01/16/17 Anaerobic Culture Result 1 (SHEFALI) - Final, Complete 01/16/17 Aerobic Culture - Final, Complete 01/16/17 Aerobic Culture Result 1 (SHEFALI) - Final, Complete 01/16/17 Antimicrobic Susceptibility - Final, Complete Medications Current Medications Clindamycin Phosphate 50 ml @ 100 mls/hr Q8HRS IV Last administered on 06:21; Start 01/15/17 at 16:00; Stop 01/16/17 at 15:43; Status DC Clindamycin Phosphate 50 ml @ 100 mls/hr 1X ONCE IV Last administered on 01/15 10:13; Start 01/15/17 at 10:00; Stop 01/15/17 at 10:29; Status DC Aspirin (Ecotrin) 81 mg DAILY PO Last administered on 01/22/17 08:47; Start at 12:00 Carvedilol (Coreg) 12.5 mg BIDWMEALS PO Last administered on 01/22/17 08:44; Start 01/15/17 at 12:00 Vitamin B Complex/ Vitamin C (Amaya-Amie) 1 tab DAILY PO Last administered on 08:47; Start 01/15/17 at 12:00 Glipizide (Glucotrol) 5 mg BID PO Last administered on 01/22/17 08:47; Start 01/15/17 at 12:00 Losartan Potassium (Cozaar) 100 mg DAILY PO Last administered on 01/22/17 08: 46; Start 01/15/17 at 12:00 Sevelamer Carbonate (Renvela) 1,600 mg TIDWMEALS PO Last administered on 12:20; Start 01/15/17 at 12:00 Non-Formulary Medication 1 cap TID PO ; Start 01/15/17 at 14:00; Status UNV Doxazosin Mesylate (Cardura) 8 mg DAILY PO Last administered on 01/22/17 08:45 ; Start 01/15/17 at 12:00 Gabapentin (Neurontin) 300 mg QHS PO Last administered on 01/21/17 21:25; Start 01/15/17 at 21:00 Insulin Detemir (Levemir) 15 units QHS SQ Last administered on 01/16/17 20:23 ; Start 01/15/17 at 21:00; Stop 01/17/17 at 09:41; Status DC Atorvastatin Calcium (Lipitor) 10 mg QHS PO Last administered on 01/21/17 21: 25; Start 01/15/17 at 21:00 Info (PHARMACY MONITORING -- do not chart) 1 each PRN DAILY PRN MC SEE COMMENTS ; Start 01/16/17 at 09:00 Ondansetron HCl (Zofran) 4 mg PRN Q6HRS PRN IV NAUSEA/VOMITING; Start 01/16/17 at 12:00; Stop 01/17/17 at 11:59; Status DC Fentanyl Citrate (Fentanyl 2ml Vial) 25 mcg PRN Q5MIN PRN IV MILD PAIN; Start 01/16/17 at 12:00; Stop 01/17/17 at 11:59; Status DC Fentanyl Citrate (Fentanyl 2ml Vial) 50 mcg PRN Q5MIN PRN IV MODERATE PAIN; Start 01/16/17 at 12:00; Stop 01/17/17 at 11:59; Status DC Morphine Sulfate 1 mg PRN Q10MIN PRN IV SEVERE PAIN; Start 01/16/17 at 12:00; Stop 01/17/17 at 11:59; Status DC Ringer's Solution 1,000 ml @ 30 mls/hr Q24H IV ; Start 01/16/17 at 11:49; Stop 01/16/17 at 23:48; Status DC Lidocaine HCl 2 ml PRN 1X PRN ID PRIOR TO IV START; Start 01/16/17 at 12:00; Stop 01/17/17 at 11:59; Status DC Hydromorphone HCl (Dilaudid) 0.5 mg PRN Q10MIN PRN IV SEV PAIN, Second choice; Start 01/16/17 at 12:00; Stop 01/17/17 at 11:59; Status DC Prochlorperazine Edisylate (Compazine) 5 mg PACU PRN PRN IV NAUSEA, MRX1; Start 01/16/17 at 12:00; Stop 01/17/17 at 11:59; Status DC Darbepoetin Franklin (Aranesp) 60 mcg WEEKLYHS SQ ; Start 01/23/17 at 21:00 Sodium Chloride 1,000 ml @ 75 mls/hr [id number] IV Last administered on t 14:51; Start 01/16/17 at 15:00; Stop 01/18/17 at 05:56; Status DC Propofol 20 ml @ As Directed STK-MED ONCE IV ; Start 01/16/17 at 15:08; Stop at 15:09; Status DC Lidocaine HCl (Lidocaine Pf 2% Vial) 5 ml STK-MED ONCE .ROUTE ; Start 01/16/17 at 15:08; Stop 01/16/17 at 15:09; Status DC Famotidine (Pepcid) 20 mg STK-MED ONCE .ROUTE ; Start 01/16/17 at 15:08; Stop at 15:09; Status DC Ondansetron HCl (Zofran) 4 mg STK-MED ONCE .ROUTE ; Start 01/16/17 at 15:08; Stop 01/16/17 at 15:09; Status DC Ephedrine Sulfate 50 mg STK-MED ONCE IV ; Start 01/16/17 at 15:32; Stop at 15:33; Status DC Vancomycin HCl (Vanco Per Pharmacy) 1 each PRN DAILY PRN MC SEE COMMENTS Last administered on 01/22/17t 13:21; Start 01/16/17 at 15:45 Piperacillin Sod/ Tazobactam Sod 2.25 gm/Sodium Chloride 50 ml @ 100 mls/hr Q8HRS IV Last administered on 01/19/17 14:33; Start 01/16/17 at 17:01; Stop at 16:58; Status DC Sodium Chloride (Sodium Chloride) 50 ml STK-MED ONCE IJ ; Start 01/16/17 at 15: 45; Stop 01/16/17 at 15:46; Status DC Vasopressin (Vasostrict) 20 unit STK-MED ONCE .ROUTE ; Start 01/16/17 at 15:45; Stop 01/16/17 at 15:46; Status DC Vancomycin HCl 2 gm/Sodium Chloride 500 ml @ 250 mls/hr 1X ONCE IV Last administered on 01/16/17 19:27; Start 01/16/17 at 16:30; Stop 01/16/17 at 18:29 ; Status DC Bupivacaine HCl/ Epinephrine Bitart (Marcaine-Epi 0.5%-1:[id number]) 50 ml STK-MED ONCE .ROUTE Last administered on 01/16/17 15:55; Start 01/16/17 at 15:53; Stop 01/16/17 at 15:54; Status DC Fentanyl Citrate (Fentanyl 2ml Vial) 100 mcg STK-MED ONCE .ROUTE ; Start at 15:58; Stop 01/16/17 at 15:59; Status DC Neomycin/ Polymyxin/ Bacitracin (Triple Antibiotic Ointment) 1 pkt STK-MED ONCE TP Last administered on 01/16/17 15:55; Start 01/16/17 at 16:02; Stop at 16:03; Status DC Phenylephrine HCl 1 mg STK-MED ONCE IV ; Start 01/16/17 at 16:13; Stop 01/16/17 at 16:14; Status DC Vancomycin HCl 1 each 1X ONCE MC Last administered on 01/19/17 05:00; Start 01/19/17 at 05:00; Stop 01/19/17 at 05:01; Status DC Insulin Detemir (Levemir) 10 units QHS SQ Last administered on 01/21/17 21:28 ; Start 01/17/17 at 21:00 Vancomycin HCl 500 mg/Sodium Chloride 100 ml @ 100 mls/hr QMWF IV Last administered on 01/21/17t 16:05; Start 01/19/17 at 16:00 Sodium Chloride 1,000 ml @ 1,000 mls/hr Q1H PRN IV hypotension; Start 01/19/17 at 08:55; Stop 01/19/17 at 14:54; Status DC Info (PHARMACY MONITORING -- do not chart) 1 each PRN DAILY PRN MC SEE COMMENTS ; Start 01/19/17 at 09:00; Status UNV Sodium Chloride 1,000 ml @ 1,000 mls/hr Q1H PRN IV hypotension; Start 01/19/17 at 09:38; Stop 01/19/17 at 15:37; Status DC Diphenhydramine HCl (Benadryl) 25 mg 1X PRN PRN IV ITCHING; Start 01/19/17 at 09:45; Stop 01/20/17 at 09:44; Status DC Diphenhydramine HCl (Benadryl) 25 mg 1X PRN PRN IV ITCHING; Start 01/19/17 at 09:45; Stop 01/20/17 at 09:44; Status DC Heparin Sodium (Porcine) (Heparin Sodium) 2,000 unit 1X PRN PRN INT CAT AP catheter pack; Start 01/19/17 at 09:45; Stop 01/20/17 at 09:44; Status DC Heparin Sodium (Porcine) (Heparin Sodium) 2,000 unit 1X PRN PRN INT CAT LASTER HAND catheter pack; Start 01/19/17 at 09:45; Stop 01/20/17 at 09:44; Status DC Info (PHARMACY MONITORING -- do not chart) 1 each PRN DAILY PRN MC SEE COMMENTS ; Start 01/19/17 at 09:45; Status UNV Info (PHARMACY MONITORING -- do not chart) 1 each PRN DAILY PRN MC SEE COMMENTS ; Start 01/19/17 at 09:45; Status UNV Magnesium Sulfate/ Dextrose 50 ml @ 25 mls/hr PRN DAILY PRN IV for Mag < 1.7 on am labs; Start 01/20/17 at 09:45 Sodium Chloride 1,000 ml @ 1,000 mls/hr Q1H PRN IV hypotension; Start 01/21/17 at 07:36; Stop 01/21/17 at 13:35; Status DC Diphenhydramine HCl (Benadryl) 25 mg 1X PRN PRN IV ITCHING; Start 01/21/17 at 07:45; Stop 01/22/17 at 07:44; Status DC Diphenhydramine HCl (Benadryl) 25 mg 1X PRN PRN IV ITCHING; Start 01/21/17 at 07:45; Stop 01/22/17 at 07:44; Status DC Info (PHARMACY MONITORING -- do not chart) 1 each PRN DAILY PRN MC SEE COMMENTS ; Start 01/21/17 at 07:45; Status UNV Info (PHARMACY MONITORING -- do not chart) 1 each PRN DAILY PRN MC SEE COMMENTS ; Start 01/21/17 at 07:45; Status UNV Active Scripts Active Glipizide 5 Mg Tablet 1 Tab PO BID Levemir (Insulin Detemir) 100 Unit/1 Ml Vial 15 Unit SQ QHS 30 Days Keflex (Cephalexin) 500 Mg Capsule 1 Cap PO TID n/a Cozaar (Losartan Potassium) 50 Mg Tablet 100 Mg PO DAILY Reported Carvedilol 12.5 Mg Tablet 1 Tab PO BID Aspir 81 (Aspirin) 81 Mg Tablet.dr 1 Tab PO DAILY Gabapentin 300 Mg Capsule 300 Mg PO HS Renvela (Sevelamer Carbonate) 800 Mg Tablet 2 Tab PO TID Nephro-Amie Tablet (Folic Acid/Vitamin B Comp W-C) 0.8 Mg Tablet 1 Tab PO DAILY Doxazosin Mesylate 8 Mg Tablet 1 Tab PO DAILY Lovastatin 40 Mg Tablet 1 Tab PO DAILY Vitals/I & O Vital Sign - Last 24 Hours 01/21/17 01/21/17 01/21/17 01/21/17 14:49 14:50 14:50 17:00 Temp 98.1 98.1 Pulse 71 71 71 71 Resp 18 B/P (MAP) 144/70 144/70 145/70 (95) 144/70 Pulse Ox 94 O2 Delivery Room Air 01/21/17 01/21/17 01/22/17 01/22/17 19:00 23:00 02:34 07:00 Temp 97.9 97.9 97.5 97.9 97.9 97.5 Pulse 73 75 69 Resp 18 18 18 B/P (MAP) 127/57 (80) 138/67 (90) 131/58 (82) 120/54 (76) Pulse Ox 94 94 97 O2 Delivery Room Air Room Air Room Air 01/22/17 01/22/17 01/22/17 01/22/17 07:00 08:44 08:45 08:46 Temp 98.2 98.2 Pulse 63 63 63 63 Resp 20 B/P (MAP) 121/53 (75) 120/54 120/54 120/54 Pulse Ox 96 O2 Delivery Room Air 01/22/17 11:00 Temp 98.4 98.4 Pulse 73 Resp 20 B/P (MAP) 132/66 (88) Pulse Ox 95 O2 Delivery Room Air Intake and Output 01/21/17 01/21/17 01/22/17 15:00 23:00 07:00 Intake Total 240 ml Output Total 0 ml Balance 240 ml 0 ml Nutrition Consultation Dietary Evaluation: Recommendations by RD: Protein supplementation Comments: DBL protein portions Arginaid tid Expected Outcomes/Goals: meet >75% estimated nutrition needs Malnutrition Findings: Weight Status: Obese BOGDAN LOCO MD Jan 22, 2017 13:31
[2017-01-22 15:00] VITALS: BP 166/52
[2017-01-22 19:00] VITALS: BP 140/63
[2017-01-22] MEDS: ATORVASTATIN CALCIUM 10 MG TABLET. PO SCH (20:34)
[2017-01-22] MEDS: GABAPENTIN 300 MG CAPSULE. PO SCH (20:35)
[2017-01-22] MEDS: INSULIN DETEMIR 300 UNITS/3 ML INSULN.PEN. SQ SCH (20:46)
[2017-01-22 22:57] VITALS: BP 132/65
[2017-01-23 03:00] VITALS: BP 119/62
[2017-01-23 04:44] LABS: ALBUMIN 2.6 g/dL (3.4-5.0); CALCIUM 8.5 mg/dL (8.5-10.1); GFR 5.9; PHOSPHORUS 4.5 mg/dL (2.6-4.7); POTASSIUM 5.2 mmol/L (3.5-5.1)
[2017-01-23 07:00] VITALS: BP 112/64
[2017-01-23] MEDS: CARVEDILOL 12.5 MG TABLET. PO SCH (08:19)
[2017-01-23] MEDS: ASPIRIN ENTERIC COATED 81 MG TABLET.DR. PO SCH (08:20)
[2017-01-23] MEDS: SEVELAMER CARBONATE 800 MG TABLET. PO SCH ×2 (08:20→14:13)
[2017-01-23] MEDS: FOLIC/VIT B COMP W-C (RENAL) TABLET. PO SCH (08:21)
[2017-01-23] MEDS: glipiZIDE 5 MG TABLET PO SCH (08:22)
--- NOTE | 2017-01-23 09:53 | PDOC ---
Infectious Disease Note Subjective Subjective Feeling good ROS ROS GEN: Denies fevers, chills, sweats HEENT: Denies blurred vision, sore throat CV: Denies chest pain RESP: Denies shortness of air, cough GI: Denies n/v/d NEURO: Denies confusion, dizziness MSK: Denies weakness, joint pain/swelling Vital Sign Vital Signs Vital Signs Date Time Temp Pulse Resp B/P (MAP) Pulse Ox O2 Delivery O2 Flow Rate FiO2 01/23/17 08:19 76 112/64 01/23/17 08:00 Room Air 01/23/17 07:00 98.1 18 98 98.1 Physical Exam PHYSICAL EXAM GENERAL: NAD, Alert HEENT: PERRL, OC/OP NECK: Supple, no JVD, no LN LUNGS: Clear HEART: S1S2, no gallop, no murmur ABD: Soft, NT, no organomegaly, no rebound EXT: No edema, no cyanosis [employer]: Alert, oriented x 3, no focal neurologic deficit SKIN: No rash IV: ok Labs Lab Laboratory Tests Test 01/22/17 11:08 01/22/17 17:00 01/22/17 20:33 01/23/17 03:45 Glucose (Fingerstick) 122 mg/dL (70-99) 106 mg/dL (70-99) 117 mg/dL (70-99) Sodium Level 138 mmol/L (136-145) Potassium Level 5.2 mmol/L (3.5-5.1) Chloride Level 99 mmol/L (98-107) Carbon Dioxide Level 30 mmol/L (21-32) Anion Gap 9 (6-14) Blood Urea Nitrogen 46 mg/dL (7-20) Creatinine 7.0 mg/dL (0.6-1.0) Estimated GFR (Cockcroft-Gault) 5.9 Glucose Level 70 mg/dL (70-99) Calcium Level 8.5 mg/dL (8.5-10.1) Phosphorus Level 4.5 mg/dL (2.6-4.7) Magnesium Level 2.0 mg/dL (1.8-2.4) Albumin 2.6 g/dL (3.4-5.0) Test 01/23/17 07:43 Glucose (Fingerstick) 81 mg/dL (70-99) Objective Assessment Right breast mass developed over 5 days s/p I and D 01/16. Staph aureus MRSA LLE mild erythema ? cellulitis - better. looks post trauma with old blood blister now CKD on HD DM Plan Plan of Care Cont Vanc started 01/16. Contact isolation F/u labs Local wound care pt can be d/c ed on po zyvox or iv vanc through HD for 1 more wk d/w dr Jaylen Aviles f/u with us in 2 wks BULMARO AVILES MD Jan 23, 2017 09:53
[2017-01-23] MEDS ORDERED: IV NORMAL SALINE 1000ML BAG 1,000 ML IV PRN (10:08)
--- NOTE | 2017-01-23 10:10 | PDOC ---
Infectious Disease Note Subjective Subjective Feeling good ROS ROS GEN: Denies fevers, chills, sweats HEENT: Denies blurred vision, sore throat CV: Denies chest pain RESP: Denies shortness of air, cough GI: Denies n/v/d NEURO: Denies confusion, dizziness MSK: Denies weakness, joint pain/swelling Vital Sign Vital Signs Vital Signs Date Time Temp Pulse Resp B/P (MAP) Pulse Ox O2 Delivery O2 Flow Rate FiO2 01/23/17 08:19 76 112/64 01/23/17 08:00 Room Air 01/23/17 07:00 98.1 18 98 98.1 Physical Exam PHYSICAL EXAM GENERAL: NAD, Alert HEENT: PERRL, OC/OP NECK: Supple, no JVD, no LN LUNGS: Clear HEART: S1S2, no gallop, no murmur ABD: Soft, NT, no organomegaly, no rebound EXT: No edema, no cyanosis 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: Alert, oriented x 3, no focal neurologic deficit SKIN: No rash IV: ok Labs Lab Laboratory Tests Test 01/22/17 11:08 01/22/17 17:00 01/22/17 20:33 01/23/17 03:45 Glucose (Fingerstick) 122 mg/dL (70-99) 106 mg/dL (70-99) 117 mg/dL (70-99) Sodium Level 138 mmol/L (136-145) Potassium Level 5.2 mmol/L (3.5-5.1) Chloride Level 99 mmol/L (98-107) Carbon Dioxide Level 30 mmol/L (21-32) Anion Gap 9 (6-14) Blood Urea Nitrogen 46 mg/dL (7-20) Creatinine 7.0 mg/dL (0.6-1.0) Estimated GFR (Cockcroft-Gault) 5.9 Glucose Level 70 mg/dL (70-99) Calcium Level 8.5 mg/dL (8.5-10.1) Phosphorus Level 4.5 mg/dL (2.6-4.7) Magnesium Level 2.0 mg/dL (1.8-2.4) Albumin 2.6 g/dL (3.4-5.0) Test 01/23/17 07:43 Glucose (Fingerstick) 81 mg/dL (70-99) Objective Assessment Right breast abscess s/p I and D 01/16. Staph aureus MRSA LLE mild erythema ? cellulitis - better. looks post trauma with old blood blister now CKD on HD DM Plan Plan of Care Cont Vanc started 01/16. Contact isolation F/u labs Local wound care pt can be d/c ed on po zyvox or iv vanc through HD for 1 more wk d/w dr Jaylen Aviles f/u with us in 2 wks BULMARO AVILES MD Jan 23, 2017 10:10
[2017-01-23] MEDS ORDERED: DIALYSIS PATIENT. MC PRN (10:15)
[2017-01-23] MEDS ORDERED: VANC1VIA3 MC (10:25)
--- NOTE | 2017-01-23 11:00 | PDOC ---
Dialysis Progress Note Dialysis Note Dialysis Note Seen on Hemodialysis, tolerating treatment Okay so far Vitals on Hemodialysis: 144/43 68 afeb General Appearance: Awake: Alert Oriented x 3 Neck: No JVD or JVP Chest: CTA [place] Heart: S1 S2 Abdomen - Soft NTND Extremities - No Edema ESRD: Dialysis as below F 180 NR 3.5 Hrs 2 K 2.5 Ca 140 Na 35 HC03 Qb 350 + Qd 500+ Heparin 0 Units Uf 3 Kgs or to dry weight as tolerated May give 25-50 gms of 25% Albumin if needed to maintain Hemodynamic stability Treatment plan reviewed and discussed with head correction officer Vitals Vital Signs Vital Signs Date Time Temp Pulse Resp B/P (MAP) Pulse Ox O2 Delivery O2 Flow Rate FiO2 01/23/17 08:19 76 112/64 01/23/17 08:00 Room Air 01/23/17 07:00 98.1 18 98 98.1 01/20/17 08:00 3.0 Labs Last Labs Laboratory Tests Test 01/21/17 14:37 01/21/17 16:33 01/21/17 20:41 01/22/17 05:20 Glucose (Fingerstick) 111 mg/dL (70-99) 134 mg/dL (70-99) 199 mg/dL (70-99) Sodium Level 140 mmol/L (136-145) Potassium Level 4.8 mmol/L (3.5-5.1) Chloride Level 99 mmol/L (98-107) Carbon Dioxide Level 32 mmol/L (21-32) Anion Gap 9 (6-14) Blood Urea Nitrogen 33 mg/dL (7-20) Creatinine 5.5 mg/dL (0.6-1.0) Estimated GFR (Cockcroft-Gault) 7.8 Glucose Level 125 mg/dL (70-99) Calcium Level 8.5 mg/dL (8.5-10.1) Phosphorus Level 4.5 mg/dL (2.6-4.7) Magnesium Level 1.9 mg/dL (1.8-2.4) Albumin 2.7 g/dL (3.4-5.0) Test 01/22/17 07:25 01/22/17 11:08 01/22/17 17:00 01/22/17 20:33 Glucose (Fingerstick) 114 mg/dL (70-99) 122 mg/dL (70-99) 106 mg/dL (70-99) 117 mg/dL (70-99) Test 01/23/17 03:45 01/23/17 07:43 Sodium Level 138 mmol/L (136-145) Potassium Level 5.2 mmol/L (3.5-5.1) Chloride Level 99 mmol/L (98-107) Carbon Dioxide Level 30 mmol/L (21-32) Anion Gap 9 (6-14) Blood Urea Nitrogen 46 mg/dL (7-20) Creatinine 7.0 mg/dL (0.6-1.0) Estimated GFR (Cockcroft-Gault) 5.9 Glucose Level 70 mg/dL (70-99) Calcium Level 8.5 mg/dL (8.5-10.1) Phosphorus Level 4.5 mg/dL (2.6-4.7) Magnesium Level 2.0 mg/dL (1.8-2.4) Albumin 2.6 g/dL (3.4-5.0) Glucose (Fingerstick) 81 mg/dL (70-99) Laboratory Tests Test 01/22/17 11:08 01/22/17 17:00 01/22/17 20:33 01/23/17 03:45 Glucose (Fingerstick) 122 mg/dL (70-99) 106 mg/dL (70-99) 117 mg/dL (70-99) Sodium Level 138 mmol/L (136-145) Potassium Level 5.2 mmol/L (3.5-5.1) Chloride Level 99 mmol/L (98-107) Carbon Dioxide Level 30 mmol/L (21-32) Anion Gap 9 (6-14) Blood Urea Nitrogen 46 mg/dL (7-20) Creatinine 7.0 mg/dL (0.6-1.0) Estimated GFR (Cockcroft-Gault) 5.9 Glucose Level 70 mg/dL (70-99) Calcium Level 8.5 mg/dL (8.5-10.1) Phosphorus Level 4.5 mg/dL (2.6-4.7) Magnesium Level 2.0 mg/dL (1.8-2.4) Albumin 2.6 g/dL (3.4-5.0) Test 01/23/17 07:43 Glucose (Fingerstick) 81 mg/dL (70-99) Assessment Assessment Problems Medical Problems: (1) Abscess of right breast Status: Acute (2) Diabetic calf ulcer Status: Acute Problems: Plan Plan of Care Problems Medical Problems: (1) Abscess of right breast Status: Acute (2) Diabetic calf ulcer Status: Acute CLEMENTE AVILES MD Jan 23, 2017 11:00
[2017-01-23] MEDS: VANCOMYCIN PER PHARMACY MC PRN (12:21)
[2017-01-23] MEDS: DOXAZOSIN MESYLATE 4 MG TABLET. PO SCH (14:11)
[2017-01-23] MEDS: LOSARTAN POTASSIUM 50 MG TABLET. PO SCH (14:12)
[2017-01-23] MEDS: VANCOMYCIN 500 MG in IV NORMAL SALINE 100ML 100 ML IV SCH (14:14)
[2017-01-23 15:00] VITALS: BP 120/56
[2017-01-23] MEDS ORDERED: DARBEPOETIN ALFA 60 MCG/0.3 ML DISP.SYRIN. SQ SCH (21:00)
== END 2017-01-23 16:05 | disposition home health service (06) | DRG 602 ==
LOC: ER 08:25 → 5 NORTH 08:44
PROVIDERS: ADMIT Internal Medicine; ATTEND Internal Medicine
PROC: 0XB40ZX Excision of Right Axilla, Open Approach, Diagnostic (ICD-10-PCS; principal; 2017-01-16 15:00)
DX: L03.116 Cellulitis of left lower limb (principal); N18.6 End stage renal disease; I13.2 Hypertensive heart and chronic kidney disease with heart failure and with stage 5 chronic kidney disease, or end stage renal disease; L97.209 Non-pressure chronic ulcer of unspecified calf with unspecified severity; L97.929 Non-pressure chronic ulcer of unspecified part of left lower leg with unspecified severity; N61.1 Abscess of the breast and nipple; D63.1 Anemia in chronic kidney disease; D69.6 Thrombocytopenia, unspecified; E11.22 Type 2 diabetes mellitus with diabetic chronic kidney disease; E11.622 Type 2 diabetes mellitus with other skin ulcer; E11.65 Type 2 diabetes mellitus with hyperglycemia; E66.9 Obesity, unspecified; Z68.39 Body mass index [BMI] 39.0-39.9, adult; E78.00 Pure hypercholesterolemia, unspecified; E78.5 Hyperlipidemia, unspecified; E87.5 Hyperkalemia; I25.10 Atherosclerotic heart disease of native coronary artery without angina pectoris; I50.9 Heart failure, unspecified; N64.4 Mastodynia; Z79.4 Long term (current) use of insulin; Z80.3 Family history of malignant neoplasm of breast; Z99.2 Dependence on renal dialysis
CPT/HCPCS: 36415; 76641; 80048; 80053; 80069; 80202; 82962; 83735; 85007; 85027; 86850; 86900; 86901; 87040; 87071; 87075; 87186; 87205; 88304; 93971; 96365; C1769; J1815; J2001; J2370; J2405; J2543; J2704; J3010; J3370; J3490; J7030; J7040; S0028; 97110; 97530; 97535; 99285-25; A6539

== ENCOUNTER → 2017-02-02 | Outpatient (CLI) | payer MEDICARE ==
[2017-01-23 07:00] VITALS: BP 112/64
[~2017-02-02] MED LIST changes: +VANC1VIA3 MC
== END | disposition home or self-care (01) ==
LOC: PMGWOUND 13:01
PROVIDERS: ATTEND Emergency Medicine Undersea and Hyperbaric Medicine
DX: T81.31XA Disruption of external operation (surgical) wound, not elsewhere classified, initial encounter (principal); I87.312 Chronic venous hypertension (idiopathic) with ulcer of left lower extremity; E11.622 Type 2 diabetes mellitus with other skin ulcer; L97.222 Non-pressure chronic ulcer of left calf with fat layer exposed; N61.1 Abscess of the breast and nipple; I25.10 Atherosclerotic heart disease of native coronary artery without angina pectoris; M19.90 Unspecified osteoarthritis, unspecified site; E66.9 Obesity, unspecified; Z68.39 Body mass index [BMI] 39.0-39.9, adult; E11.22 Type 2 diabetes mellitus with diabetic chronic kidney disease; I13.2 Hypertensive heart and chronic kidney disease with heart failure and with stage 5 chronic kidney disease, or end stage renal disease; I50.9 Heart failure, unspecified; N18.6 End stage renal disease; Z79.4 Long term (current) use of insulin; E78.5 Hyperlipidemia, unspecified; E78.00 Pure hypercholesterolemia, unspecified; Z86.14 Personal history of Methicillin resistant Staphylococcus aureus infection; Y83.8 Other surgical procedures as the cause of abnormal reaction of the patient, or of later complication, without mention of misadventure at the time of the procedure
CPT/HCPCS: 97605

== ENCOUNTER → 2017-02-09 | Outpatient (CLI) | payer MEDICARE ==
[2017-01-23 07:00] VITALS: BP 112/64
== END | disposition home or self-care (01) ==
LOC: PMGWOUND 12:56
PROVIDERS: ATTEND Emergency Medicine Undersea and Hyperbaric Medicine
DX: I87.312 Chronic venous hypertension (idiopathic) with ulcer of left lower extremity (principal); L97.222 Non-pressure chronic ulcer of left calf with fat layer exposed; T81.31XD Disruption of external operation (surgical) wound, not elsewhere classified, subsequent encounter; I25.10 Atherosclerotic heart disease of native coronary artery without angina pectoris; E11.22 Type 2 diabetes mellitus with diabetic chronic kidney disease; I13.2 Hypertensive heart and chronic kidney disease with heart failure and with stage 5 chronic kidney disease, or end stage renal disease; N18.6 End stage renal disease; I50.9 Heart failure, unspecified; E78.5 Hyperlipidemia, unspecified; E66.9 Obesity, unspecified; E78.00 Pure hypercholesterolemia, unspecified; M19.90 Unspecified osteoarthritis, unspecified site; Z79.4 Long term (current) use of insulin; Z68.39 Body mass index [BMI] 39.0-39.9, adult; Z86.14 Personal history of Methicillin resistant Staphylococcus aureus infection; Z85.3 Personal history of malignant neoplasm of breast; Z99.2 Dependence on renal dialysis; Y83.8 Other surgical procedures as the cause of abnormal reaction of the patient, or of later complication, without mention of misadventure at the time of the procedure
CPT/HCPCS: 97605

== ENCOUNTER → 2017-02-16 | Outpatient (CLI) | payer MEDICARE ==
[2017-01-23 07:00] VITALS: BP 112/64
== END | disposition home or self-care (01) ==
LOC: PMGWOUND 12:30
PROVIDERS: ATTEND Emergency Medicine Undersea and Hyperbaric Medicine
DX: I87.312 Chronic venous hypertension (idiopathic) with ulcer of left lower extremity (principal); L97.222 Non-pressure chronic ulcer of left calf with fat layer exposed; T81.31XD Disruption of external operation (surgical) wound, not elsewhere classified, subsequent encounter; I25.10 Atherosclerotic heart disease of native coronary artery without angina pectoris; E11.22 Type 2 diabetes mellitus with diabetic chronic kidney disease; I13.2 Hypertensive heart and chronic kidney disease with heart failure and with stage 5 chronic kidney disease, or end stage renal disease; N18.6 End stage renal disease; I50.9 Heart failure, unspecified; E66.9 Obesity, unspecified; E78.00 Pure hypercholesterolemia, unspecified; M19.90 Unspecified osteoarthritis, unspecified site; E78.5 Hyperlipidemia, unspecified; Z68.39 Body mass index [BMI] 39.0-39.9, adult; Z99.2 Dependence on renal dialysis; Z79.4 Long term (current) use of insulin; Z86.14 Personal history of Methicillin resistant Staphylococcus aureus infection; Z85.3 Personal history of malignant neoplasm of breast; Y83.8 Other surgical procedures as the cause of abnormal reaction of the patient, or of later complication, without mention of misadventure at the time of the procedure
CPT/HCPCS: 97597; 97598

== ENCOUNTER → 2017-02-23 | Outpatient (CLI) | payer MEDICARE | END | disposition home or self-care (01) | LOC: PMGWOUND 10:47 | PROVIDERS: ATTEND Emergency Medicine Undersea and Hyperbaric Medicine | DX: T81.31XD Disruption of external operation (surgical) wound, not elsewhere classified, subsequent encounter (principal); I87.312 Chronic venous hypertension (idiopathic) with ulcer of left lower extremity; E11.622 Type 2 diabetes mellitus with other skin ulcer; L97.222 Non-pressure chronic ulcer of left calf with fat layer exposed; I25.10 Atherosclerotic heart disease of native coronary artery without angina pectoris; M19.90 Unspecified osteoarthritis, unspecified site; Z86.14 Personal history of Methicillin resistant Staphylococcus aureus infection; E78.5 Hyperlipidemia, unspecified; E11.22 Type 2 diabetes mellitus with diabetic chronic kidney disease; I13.2 Hypertensive heart and chronic kidney disease with heart failure and with stage 5 chronic kidney disease, or end stage renal disease; I50.9 Heart failure, unspecified; N18.6 End stage renal disease; Z99.2 Dependence on renal dialysis; Z79.4 Long term (current) use of insulin; Y83.8 Other surgical procedures as the cause of abnormal reaction of the patient, or of later complication, without mention of misadventure at the time of the procedure | CPT/HCPCS: 97597; 97598 ==

== ENCOUNTER → 2017-02-25 | Outpatient (CLI) | payer MEDICARE | END | disposition home or self-care (01) | LOC: PMGWOUND 10:48 | PROVIDERS: ATTEND Preventive Medicine Undersea and Hyperbaric Medicine | DX: I87.312 Chronic venous hypertension (idiopathic) with ulcer of left lower extremity (principal); E11.622 Type 2 diabetes mellitus with other skin ulcer; L97.222 Non-pressure chronic ulcer of left calf with fat layer exposed; N61.1 Abscess of the breast and nipple; I25.10 Atherosclerotic heart disease of native coronary artery without angina pectoris; E11.22 Type 2 diabetes mellitus with diabetic chronic kidney disease; I13.2 Hypertensive heart and chronic kidney disease with heart failure and with stage 5 chronic kidney disease, or end stage renal disease; N18.6 End stage renal disease; I50.9 Heart failure, unspecified; M19.90 Unspecified osteoarthritis, unspecified site; E66.9 Obesity, unspecified; E78.5 Hyperlipidemia, unspecified; Z99.2 Dependence on renal dialysis; Z79.4 Long term (current) use of insulin; Z86.14 Personal history of Methicillin resistant Staphylococcus aureus infection; Z68.39 Body mass index [BMI] 39.0-39.9, adult; Z85.3 Personal history of malignant neoplasm of breast | CPT/HCPCS: 97602 ==

== ENCOUNTER → 2017-02-27 | Outpatient (CLI) | payer MEDICARE ==
--- NOTE | 2017-02-27 17:41 | RAD ---
Left lower extremity arterial ultrasound, 02/27/2017: History: Nonhealing ulcer Duplex evaluation of the major arteries in the left lower extremity was performed including grayscale, color flow and spectral Doppler analysis. There are moderate scattered partially calcified atherosclerotic plaques. The left common femoral artery demonstrates a triphasic Doppler waveform. The proximal superficial femoral artery demonstrates a biphasic Doppler waveform. No significant focal velocity acceleration is seen in the left femoral or popliteal arteries to suggest high-grade focal stenosis. At and distal to the popliteal artery level the Doppler waveforms are predominantly monophasic, but of good amplitude. Patent anterior tibial, posterior tibial and peroneal arteries are present in the left lower leg. The left dorsalis pedis artery is patent and of good amplitude. IMPRESSION: Moderate generalized atherosclerotic plaquing without evidence of high-grade focal arterial stenosis.
== END | disposition home or self-care (01) ==
LOC: US 15:23
PROVIDERS: ATTEND Emergency Medicine Undersea and Hyperbaric Medicine
DX: L97.829 Non-pressure chronic ulcer of other part of left lower leg with unspecified severity (principal); I70.8 Atherosclerosis of other arteries
CPT/HCPCS: 93926

== ENCOUNTER → 2017-02-27 | Outpatient (CLI) | payer MEDICARE | LOC: PMGWOUND 12:01 | PROVIDERS: ATTEND Preventive Medicine Undersea and Hyperbaric Medicine | DX: T81.31XD Disruption of external operation (surgical) wound, not elsewhere classified, subsequent encounter (principal); I87.312 Chronic venous hypertension (idiopathic) with ulcer of left lower extremity; E11.622 Type 2 diabetes mellitus with other skin ulcer; L97.222 Non-pressure chronic ulcer of left calf with fat layer exposed; I11.0 Hypertensive heart disease with heart failure; I50.9 Heart failure, unspecified; I25.10 Atherosclerotic heart disease of native coronary artery without angina pectoris; M19.90 Unspecified osteoarthritis, unspecified site; Z86.14 Personal history of Methicillin resistant Staphylococcus aureus infection; Y83.8 Other surgical procedures as the cause of abnormal reaction of the patient, or of later complication, without mention of misadventure at the time of the procedure | CPT/HCPCS: 99214 ==

== ENCOUNTER → 2017-03-02 | Outpatient (CLI) | payer MEDICARE | END | disposition home or self-care (01) | LOC: PMGWOUND 10:50 | PROVIDERS: ATTEND Preventive Medicine Undersea and Hyperbaric Medicine | DX: T81.31XD Disruption of external operation (surgical) wound, not elsewhere classified, subsequent encounter (principal); I87.312 Chronic venous hypertension (idiopathic) with ulcer of left lower extremity; E11.622 Type 2 diabetes mellitus with other skin ulcer; L97.222 Non-pressure chronic ulcer of left calf with fat layer exposed; I11.0 Hypertensive heart disease with heart failure; I50.9 Heart failure, unspecified; I25.10 Atherosclerotic heart disease of native coronary artery without angina pectoris; M19.90 Unspecified osteoarthritis, unspecified site; Z86.14 Personal history of Methicillin resistant Staphylococcus aureus infection; Y83.8 Other surgical procedures as the cause of abnormal reaction of the patient, or of later complication, without mention of misadventure at the time of the procedure | CPT/HCPCS: 97597; 97598; 99214 ==

== ENCOUNTER → 2017-03-05 | Outpatient (CLI) | payer MEDICARE | END | disposition home or self-care (01) | LOC: PMGWOUND 10:44 | PROVIDERS: ATTEND Emergency Medicine Undersea and Hyperbaric Medicine | DX: T81.31XD Disruption of external operation (surgical) wound, not elsewhere classified, subsequent encounter (principal); I87.312 Chronic venous hypertension (idiopathic) with ulcer of left lower extremity; L97.222 Non-pressure chronic ulcer of left calf with fat layer exposed; I25.10 Atherosclerotic heart disease of native coronary artery without angina pectoris; M19.90 Unspecified osteoarthritis, unspecified site; E78.5 Hyperlipidemia, unspecified; E11.22 Type 2 diabetes mellitus with diabetic chronic kidney disease; I13.2 Hypertensive heart and chronic kidney disease with heart failure and with stage 5 chronic kidney disease, or end stage renal disease; N18.6 End stage renal disease; I50.9 Heart failure, unspecified; E66.9 Obesity, unspecified; Z68.39 Body mass index [BMI] 39.0-39.9, adult; Z86.14 Personal history of Methicillin resistant Staphylococcus aureus infection; Z85.3 Personal history of malignant neoplasm of breast; Z99.2 Dependence on renal dialysis; Z79.4 Long term (current) use of insulin; Y83.8 Other surgical procedures as the cause of abnormal reaction of the patient, or of later complication, without mention of misadventure at the time of the procedure | CPT/HCPCS: 97597; 97598 ==

== ENCOUNTER → 2017-03-11 | Outpatient (CLI) | payer MEDICARE | END | disposition home or self-care (01) | LOC: PMGWOUND 13:15 | PROVIDERS: ATTEND Surgery | DX: T81.31XD Disruption of external operation (surgical) wound, not elsewhere classified, subsequent encounter (principal); I87.312 Chronic venous hypertension (idiopathic) with ulcer of left lower extremity; L97.222 Non-pressure chronic ulcer of left calf with fat layer exposed; I25.10 Atherosclerotic heart disease of native coronary artery without angina pectoris; E11.22 Type 2 diabetes mellitus with diabetic chronic kidney disease; I13.2 Hypertensive heart and chronic kidney disease with heart failure and with stage 5 chronic kidney disease, or end stage renal disease; N18.6 End stage renal disease; I50.9 Heart failure, unspecified; E78.5 Hyperlipidemia, unspecified; E66.9 Obesity, unspecified; M19.90 Unspecified osteoarthritis, unspecified site; Z85.3 Personal history of malignant neoplasm of breast; Z86.14 Personal history of Methicillin resistant Staphylococcus aureus infection; Z79.4 Long term (current) use of insulin; Z68.39 Body mass index [BMI] 39.0-39.9, adult; Z99.2 Dependence on renal dialysis; Y83.8 Other surgical procedures as the cause of abnormal reaction of the patient, or of later complication, without mention of misadventure at the time of the procedure | CPT/HCPCS: 99214 ==

== ENCOUNTER → 2017-03-17 | Day surgery (SDC) | payer MEDICARE ==
[~2017-03-17] VITALS: Ht 157.5 cm; Wt 97.5 kg
[~2017-03-17] MED LIST changes: +DEXAMETHASONE SOD PHOS 20 MG/5 ML VIAL. ONE; +FAMOTIDINE 20 MG/2 ML VIAL ONE; +GLYCOPYRROLATE 1 MG/5 ML VIAL. ONE; +HYDROcodone/APAP 10/325 1 TAB TABLET PO ONE; +HYDROmorphone 2 MG/ML VIAL IV PRN; +IV NORMAL SALINE 1000ML BAG 1,000 ML IV SCH; +IV RINGERS,LACTATED 1000ML 1,000 ML IV SCH; +LIDOCAINE 1% 1 ML SYRINGE. ID PRN; +LIDOCAINE 2% PF Vial for OR 5 ML VIAL. ONE; +MIDAZOLAM HCL/PF 2 MG/2 ML VIAL. ONE; +MORPHINE SULFATE 2 MG/ML DISP.SYRIN. ONE; +ONDANSETRON PF 4 MG/2 ML VIAL. IV PRN; +ONDANSETRON PF 4 MG/2 ML VIAL. ONE; +PROCHLORPERAZINE 10 MG/2 ML VIAL. IV PRN; +PROPOFOL 20 ML IV ONE; +ePHEDrine PF IN SALINE 50 MG/5 ML DISP.SYRIN IV ONE; +fentaNYL PF VIAL 100 MCG/2 ML VIAL IV PRN; +fentaNYL PF VIAL 100 MCG/2 ML VIAL ONE; +oxyCODONE/APAP 5/325 1 TAB TABLET PO ONE
--- NOTE | 2017-03-17 09:55 | PDOC1 ---
History and Physical Date of Admission Date of Admission DATE: 03/17/17 TIME: 09:49 Identification/Chief Complaint Chief Complaint chronic wound LLE Problems: Source Source: Chart review, Patient History of Present Illness History of Present Illness Ms Win is a 66 yo ESRD patient on HD who has a chronic wound on her LLE. She comes in today for debridement and placement of a wound vac. Past Medical History Cardiovascular: CAD, CHF, HTN, Hyperlipidemia Heme/Onc: Anemia NOS Renal/: Chronic renal failure Endocrine: Diabetes, Hyperparathyroidism Past Surgical History Past Surgical History: Other (vascular access, debridement right axillary abscess) Family History Family History: Cancer Social History Smoke: No ALCOHOL: none Drugs: None Current Medications Current Medications Current Medications Ondansetron HCl (Zofran) 4 mg PRN Q6HRS PRN IV NAUSEA/VOMITING; Start 03/17/17 at 07:00; Stop 03/18/17 at 06:59 Fentanyl Citrate (Fentanyl 2ml Vial) 25 mcg PRN Q5MIN PRN IV MILD PAIN; Start 03/17/17 at 07:00; Stop 03/18/17 at 06:59 Fentanyl Citrate (Fentanyl 2ml Vial) 50 mcg PRN Q5MIN PRN IV MODERATE PAIN; Start 03/17/17 at 07:00; Stop 03/18/17 at 06:59 Morphine Sulfate 1 mg PRN Q10MIN PRN IV SEVERE PAIN; Start 03/17/17 at 07:00; Stop 03/18/17 at 06:59 Ringer's Solution 1,000 ml @ 30 mls/hr Q24H IV ; Start 03/17/17 at 07:00; Stop 03/17/17 at 18:59 Lidocaine HCl 2 ml PRN 1X PRN ID PRIOR TO IV START; Start 03/17/17 at 07:00; Stop 03/18/17 at 06:59 Hydromorphone HCl (Dilaudid) 0.5 mg PRN Q10MIN PRN IV SEV PAIN, Second choice; Start 03/17/17 at 07:00; Stop 03/18/17 at 06:59 Prochlorperazine Edisylate (Compazine) 5 mg PACU PRN PRN IV NAUSEA, MRX1; Start 03/17/17 at 07:00; Stop 03/18/17 at 06:59 Cefazolin Sodium/ Dextrose 50 ml @ 100 mls/hr 1X PREOP PRN IV PRIOR TO PROCEDURE; Start 03/17/17 at 06:00; Stop 03/17/17 at 18:00 Active Scripts Active Glipizide 5 Mg Tablet 1 Tab PO BID Levemir (Insulin Detemir) 100 Unit/1 Ml Vial 15 Unit SQ QHS 30 Days Cozaar (Losartan Potassium) 50 Mg Tablet 100 Mg PO DAILY Reported Carvedilol 12.5 Mg Tablet 1 Tab PO BID Aspir 81 (Aspirin) 81 Mg Tablet.dr 1 Tab PO DAILY Gabapentin 300 Mg Capsule 300 Mg PO HS Renvela (Sevelamer Carbonate) 800 Mg Tablet 2 Tab PO TID Nephro-Amie Tablet (Folic Acid/Vitamin B Comp W-C) 0.8 Mg Tablet 1 Tab PO DAILY Doxazosin Mesylate 8 Mg Tablet 1 Tab PO DAILY Lovastatin 40 Mg Tablet 1 Tab PO DAILY Allergies Allergies: Coded Allergies: I S O L A T I O N *CONTACT* (Verified Allergy, Unknown, 03/16/17) mrsa No Known Medication Allergies (Verified Allergy, Unknown, 03/16/17) ROS Musculoskeletal: Yes Joint Pain, Yes Muscle Pain Physical Exam General: Alert, Oriented X3, Cooperative, No acute distress HEENT: Atraumatic, PERRLA Lungs: Clear to auscultation Heart: RRR Abdomen: Soft, No tenderness Extremities: Other (LLE with open wound, eschar, moderate serous drainage) Neuro: Normal speech VTE Prophylaxis Ordered VTE Prophylaxis Devices: Yes VTE Pharmacological Prophylaxi: Yes Assessment/Plan Assessment/Plan chronic LLE wound debridement with placement wound vac R/B/A discussed She will proceed. ALLISON FALK MD Mar 17, 2017 09:55
[2017-03-17 10:20] LABS: CALCIUM 9.4 mg/dL (8.5-10.1); CREATININE 4.9 mg/dL (0.6-1.0); GFR 8.9; POTASSIUM 4.2 mmol/L (3.5-5.1)
[2017-03-17] MEDS: fentaNYL PF VIAL 100 MCG/2 ML VIAL IV PRN ×3 (12:33→13:07)
[2017-03-17] MEDS: MORPHINE SULFATE 2 MG/ML DISP.SYRIN. IV PRN ×4 (12:42→13:56)
--- NOTE | 2017-03-17 12:43 | DISCH ---
DISCHARGE INSTRUCTIONS Condition on Discharge Condition on Discharge: Stable Activity After Discharge Activity Instructions for Disc: Activity as tolerated, Avoid exertion Driving Instructions after Dis: Do not drive Diet after Discharge Diet after Discharge: Renal Dialysis Wound Incision Care Wound/Incision Care: Keep wound elevated Follow-Up Follow Up With: Howard 03/25 ALLISON FALK MD Mar 17, 2017 12:43
--- NOTE | 2017-03-17 12:50 | PDOC ---
BRIEF OPERATIVE NOTE Date: Mar 17, 2017 Pre-Op Diagnosis chronic wound LLE Post-Op Diagnosis same Procedure Performed sharp debridement of skin and subcutaneous tissue, down to tendon and muscle, placement wound vac Surgeon Jered Anesthesia Type: General Blood Loss 25cc IV Fluid 100cc Specimens Obtained necrotic tissue Findings extensive eschar Complications none OPerative Note Wk # [id number] ALLISON FALK MD Mar 17, 2017 12:50
--- NOTE | 2017-03-17 13:10 | OP ---
DATE OF SURGERY: 03/17/2017 POSTOPERATIVE DIAGNOSIS: Chronic wound, left lower extremity. POSTOPERATIVE DIAGNOSIS: Chronic wound, left lower extremity. PROCEDURE: Sharp debridement of skin and subcutaneous tissue down to tendon and muscle and placement of wound VAC. SURGEON: Jan Falk M.D. ANESTHESIA: General LMA. ESTIMATED BLOOD LOSS: 25 mL. IV FLUID: 100 mL. INDICATIONS: The patient is a 66-year-old end-stage renal patient, on hemodialysis, with a chronic nonhealing wound of her left lower extremity, brought for sharp debridement. DESCRIPTION OF PROCEDURE: The patient brought to the operating suite, given a general LMA and the left lower extremity is prepped and draped in usual sterile fashion. Cautery and sharp dissection was used to remove skin, subcutaneous fat, down to healthy bleeding fat, muscle or down to the tendon posteriorly. Hemostasis obtained with 3-0 Vicryl stick ties as needed. The wound was then irrigated with Pulsavac. Wound VAC was then placed by the wound center personnel. The patient awakened from her anesthetic and taken to the recovery room in satisfactory condition. JAN FALK MD DR: LI/yelitza JOB#: [id number] / [id number] BRADY Pereyra VENU MD
[2017-03-17 14:36] VITALS: BP 151/86
--- NOTE | 2017-03-18 01:21 | ACF ---
Admission Forms Criteria SKIN AND WOUND CARE ( Place 'X' for any and all applicable criteria): Ongoing inpatient care may be indicated for skin complications with 1 or more of the following [ ]I. Hemodynamic Instability((2)(8)(9)(28)(42)(43)(44) [ ]II. Dehydration that is severe or persistent [ ]III. Severe pain requiring acute inpatient management [X]IV. Inpatient treatment needed as indicated by 1 or more of the following: Pressure ulcer closure procedures [ ] i. Skin grafting(45) [ ]ii. Opthalmic surgical procedure (eg amniotic membrane grafting) [ ]iii. Serial ocular examinations [X]iv. Wound debridement [ ]v. Dressing change under general anesthesia [ ]vi. Diverting colostomy [ ]vii. Intravenous immunosuppressant therapy [ ]V. Significant burn as indicated by 1 or more of the following [ ]i. Full thickness burn greater than 10% of body surface area [ ]ii. Any burn greater than 15% of body surface area [ ]iii. Serious burn of hand, foot, genitals, face or joint [ ]iv. Burn accompanied by other significant medical problems or injuries (eg altered mental [ ]v. status, arrhythmia, inability to maintain oral hydration, significant wound) [ ]vi. Serious chemical burn [ ]vii. High voltage (e.g. 1000 volts or more) electrical burn [ ]viii. Circumferential burn [ ] . Skin infection requiring inpatient care as indicated by ALL of the following: [ ]a) Infection suspected as indicated by 1 or more of the following: [ ] i. Excessive drainage [ ]ii. Pus [ ]iii. Increased redness [ ]iv. Foul Odor [ ]v. Fever [ ]b) Clinically significant infection as indicated by 1 or more of the following: [ ]i. Vital signs abnormality [ ]ii. Persistantly high temperatures greater than 103.1 degrees F (39.5degrees C)(Oral) [ ]iii. Unexplained metabolic acidosis (eg lactic acidosis) [ ]iv. Evidence of end organ dysfunction (eg rising creatinine, myocardial ischemia, liver function tests) [ ]v. Hypoxemia [ ]vi. Tachypnea [ ]vii. Altered mental status [ ]viii. Dehydration that is severe or persistent Extended stay beyond goal length of stay for primary condition may be needed until ALL of the following are present(1)(2)(13)(21)(27): [ ]a) Hemodynamic instability [ ]b) Volume status acceptable [ ]c) Mental status at baseline [ ]d) Tissue necrosis absent or treatment plan manageable at lower level of care [ ]e) Fever absent or temperature as expected for disease process and acceptable for next level of care [ ]f) Hypoxemia present [ ]g) Tachypnea present [ ]h) Fistulas, tunneling, or underlying deep tissue infection absent or treated [ ]i) Purulence and tissue breakdown absent or improved [ ]j) Ulcer surgical repair absent or healing without complications [ ]k) Wound infection absent or manageable at lower level of care [ ]l) Comorbidities absent or manageable at lower level of care The original [facility] [employer] content created by [facility] [employer] has been revised. The portions of the content which have been revised are identified through the use of italic text, and [facility] has neither reviewed nor approved the modified material. All other unmodified content is copyright [facility]. Please see references footnoted in the original [facility] edition 2014 Admission Criteria Met?: Yes DAVID MENA Mar 18, 2017 01:21
--- NOTE | 2017-03-19 13:44 | PATHOLOGY ---
PATHOLOGY REPORT * * * * * * * * FINAL DIAGNOSIS: Skin, left lower leg biopsy: - Extensive ulceration with necrotic acute inflammatory exudate with gangrenous necrosis and with calcification of medial vessel wall. - See comment. 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 Suggest clinical correlation. (SHA:mgmarjorie; 03/19/2017) REPORT ELECTRONICALLY SIGNED BY: Rich Schwartz M.D. DATE/TIME: 03/19/2017 13:43 * * * * * * * * GROSS PATHOLOGY: The specimen is received in formalin labeled "Jonatan Nair, left lower leg biopsy". Received are multiple segments of pink-barrett to dusky barrett-anderson brown possible necrotic-appearing skin with attached underlying yellow-anderson fibroadipose tissue measuring 10.8 x 8.7 x 1.7 cm in aggregate dimensions. The specimen is submitted representatively in cassette A1. ([facility]; 03/18/2017) INITIAL CPT CODE(S): 59841 Professional services performed [place] [place] [address] Technical services performed by [facility] at [address] [place] [address] [address] [address]. SPECIMEN(S) RECEIVED: A.Left lower leg biopsy CLINICAL HISTORY: Chronic wound LLE, biopsy, debridement of lower extremity wound PATIENT: JONATAN NAIR /AGE: 2 1950 (Age: 66) PATIENT #: [id number] ALT CASE #: SPECIMEN COLLECTION DATE: 03/17/2017 SPECIMEN RECEIVED DATE: 03/17/2017 [facility] - [address] [place] [address] - PHONE: [phone] * * * END OF REPORT * * *
== END | disposition home or self-care (01) ==
LOC: SURG 08:48
PROVIDERS: ATTEND Surgery
DX: T81.89XA Other complications of procedures, not elsewhere classified, initial encounter (principal); Y84.8 Other medical procedures as the cause of abnormal reaction of the patient, or of later complication, without mention of misadventure at the time of the procedure; I13.0 Hypertensive heart and chronic kidney disease with heart failure and stage 1 through stage 4 chronic kidney disease, or unspecified chronic kidney disease; E11.22 Type 2 diabetes mellitus with diabetic chronic kidney disease; N18.9 Chronic kidney disease, unspecified; I50.9 Heart failure, unspecified; M19.91 Primary osteoarthritis, unspecified site; Z86.14 Personal history of Methicillin resistant Staphylococcus aureus infection; Z86.39 Personal history of other endocrine, nutritional and metabolic disease
CPT/HCPCS: 11043; 36415; 80048; 82962; 88304; J0690; J0780; J1100; J2250; J2270; J2405; J2704; J3010; J3490; J7030; S0028; J2001

== ENCOUNTER 2017-03-24 11:10 | Emergency (ER) | payer MEDICARE ==
[~2017-03-24] VITALS: Ht 157.5 cm; Wt 99.8 kg
[~2017-03-24 11:10] MED LIST changes: -DEXAMETHASONE SOD PHOS 20 MG/5 ML VIAL. ONE; -FAMOTIDINE 20 MG/2 ML VIAL ONE; -GLYCOPYRROLATE 1 MG/5 ML VIAL. ONE; -HYDROcodone/APAP 10/325 1 TAB TABLET PO ONE; -HYDROmorphone 2 MG/ML VIAL IV PRN; -IV NORMAL SALINE 1000ML BAG 1,000 ML IV SCH; -IV RINGERS,LACTATED 1000ML 1,000 ML IV SCH; -LIDOCAINE 1% 1 ML SYRINGE. ID PRN; -LIDOCAINE 2% PF Vial for OR 5 ML VIAL. ONE; -MIDAZOLAM HCL/PF 2 MG/2 ML VIAL. ONE; -MORPHINE SULFATE 2 MG/ML DISP.SYRIN. ONE; -ONDANSETRON PF 4 MG/2 ML VIAL. IV PRN; -ONDANSETRON PF 4 MG/2 ML VIAL. ONE; -PROCHLORPERAZINE 10 MG/2 ML VIAL. IV PRN; -PROPOFOL 20 ML IV ONE; -ePHEDrine PF IN SALINE 50 MG/5 ML DISP.SYRIN IV ONE; -fentaNYL PF VIAL 100 MCG/2 ML VIAL IV PRN; -fentaNYL PF VIAL 100 MCG/2 ML VIAL ONE; -oxyCODONE/APAP 5/325 1 TAB TABLET PO ONE
--- NOTE | 2017-03-24 11:29 | RAD ---
Portable chest, 03/24/2017: History: Fall, confusion Comparison is made to a study from 12/25/2016. The heart is enlarged. There is calcific plaquing of the aorta. The pulmonary vascularity is normal. No pulmonary infiltrates are seen. There is no evidence of pleural fluid. IMPRESSION: 1. Cardiomegaly and aortic atherosclerosis. 2. No acute abnormality is detected.
--- NOTE | 2017-03-24 11:40 | RAD ---
Indication closed head injury. Fall. Noncontrast images of the head were obtained and are compared to an examination 12/25/2016. No acute or significant calvarial finding is seen. A bony density is noted attached to the inner table of the right frontal bone. The appearance is unchanged relative to the previous exam. The visualized paranasal sinuses appear normal. There is some mild underlying atrophy. There is no subdural or epidural hematoma. There is no mass or midline shift. No hemorrhage is seen. A significant change compared to the previous exam is not apparent. IMPRESSION: No acute finding. No significant change PQRS Compliance Statement: One or more of the following individualized dose reduction techniques were utilized for this examination: 1. Automated exposure control 2. Adjustment of the mA and/or kV according to patient size 3. Use of iterative reconstruction technique
--- NOTE | 2017-03-24 11:45 | PHYS DOC ---
Past Medical History Past Medical History: CAD, CHF, Diabetes-Type II, High Cholesterol, Hypertension, Renal Disease, Renal Failure Past Surgical History: Other Additional Past Surgical Histo: FISTULA LUE Alcohol Use: None Drug Use: None Adult General Chief Complaint Chief Complaint: ALTERED MENTAL STATUS [facility] HPI Patient is a 66 year old female with multiple medical problems including end- stage renal disease on dialysis diabetes CHF who presents with episode prior to arrival at home where she fell getting out of bed denies any injury or pain apparently her sister thought she was confused so she was transported here by EMS. No loss of consciousness. No fever nausea vomiting diarrhea. Dialyzed yesterday. No chest pain shortness of breath cough or fever. Review of Systems Review of Systems Constitutional: Denies fever or chills [] Eyes: Denies change in visual acuity, redness, or eye pain [] HENT: Denies nasal congestion or sore throat [] Respiratory: Denies cough or shortness of breath [] Cardiovascular: No additional information not addressed in HPI [] GI: Denies abdominal pain, nausea, vomiting, bloody stools or diarrhea [] : Denies dysuria or hematuria [] Musculoskeletal: Denies back pain or joint pain [] Integument: Denies rash or skin lesions [] Neurologic: Denies headache, focal weakness or sensory changes [] Endocrine: Denies polyuria or polydipsia [] Allergies Allergies Allergies Coded Allergies Type Severity Reaction Last Updated Verified I S O L A T I O N *CONTACT* Allergy Unknown 03/16/17 Yes No Known Medication Allergies Allergy Unknown 03/16/17 Yes Physical Exam Physical Exam Constitutional: Well developed, well nourished, no acute distress, non-toxic appearance. [] HENT: Normocephalic, atraumatic, bilateral external ears normal, oropharynx moist, no oral exudates, nose normal. [] Eyes: PERRLA, EOMI, conjunctiva normal, no discharge. [] Neck: Normal range of motion, no tenderness, supple, no stridor. [] Cardiovascular:Heart rate regular rhythm, no murmur [] Lungs & Thorax: Bilateral breath sounds clear to auscultation [] Abdomen: Bowel sounds normal, soft, no tenderness, no masses, no pulsatile masses. [] Skin: Warm, dry, no erythema, no rash. [] Back: No tenderness, no CVA tenderness. [] Extremities: No tenderness, no cyanosis, no clubbing, ROM intact, no edema. Fistula with palpable pulse left forearm[] Neurologic: Alert and oriented X 3, normal motor function, normal sensory function, no focal deficits noted. [] Psychologic: Affect normal, judgement normal, mood normal. [] Current Patient Data Vital Signs Vital Signs Date Time Temp Pulse Resp B/P (MAP) Pulse Ox O2 Delivery O2 Flow Rate FiO2 03/24/17 11:10 97.9 74 18 126/62 (83) 96 Room Air 97.9 Lab Values Laboratory Tests Test 03/24/17 11:45 03/24/17 12:01 White Blood Count 7.3 x10^3/uL (4.0-11.0) Red Blood Count 3.70 x10^6/uL (3.50-5.40) Hemoglobin 11.0 g/dL (12.0-15.5) L Hematocrit 34.7 % (36.0-47.0) L Mean Corpuscular Volume 94 fL (79-100) Mean Corpuscular Hemoglobin 30 pg (25-35) Mean Corpuscular Hemoglobin Concent 32 g/dL (31-37) Red Cell Distribution Width 19.9 % (11.5-14.5) H Platelet Count 76 x10^3/uL (140-400) L Neutrophils (%) (Auto) 85 % (31-73) H Lymphocytes (%) (Auto) 5 % (24-48) L Monocytes (%) (Auto) 9 % (0-9) Eosinophils (%) (Auto) 1 % (0-3) Basophils (%) (Auto) 0 % (0-3) Neutrophils # (Auto) 6.2 x10^3uL (1.8-7.7) Lymphocytes # (Auto) 0.3 x10^3/uL (1.0-4.8) L Monocytes # (Auto) 0.6 x10^3/uL (0.0-1.1) Eosinophils # (Auto) 0.0 x10^3/uL (0.0-0.7) Basophils # (Auto) 0.0 x10^3/uL (0.0-0.2) Platelet Estimate Pending Sodium Level 137 mmol/L (136-145) Potassium Level 4.9 mmol/L (3.5-5.1) Chloride Level 99 mmol/L (98-107) Carbon Dioxide Level 30 mmol/L (21-32) Anion Gap 8 (6-14) Blood Urea Nitrogen 44 mg/dL (7-20) H Creatinine 5.8 mg/dL (0.6-1.0) H Estimated GFR (Cockcroft-Gault) 7.3 BUN/Creatinine Ratio 8 (6-20) Glucose Level 208 mg/dL (70-99) H Calcium Level 9.6 mg/dL (8.5-10.1) Total Bilirubin 0.5 mg/dL (0.2-1.0) Aspartate Amino Transferase (AST) 24 U/L (15-37) Alanine Aminotransferase (ALT) 8 U/L (14-59) L Alkaline Phosphatase 73 U/L (46-116) Total Protein 7.4 g/dL (6.4-8.2) Albumin 2.7 g/dL (3.4-5.0) L Albumin/Globulin Ratio 0.6 (1.0-1.7) L Glucose (Fingerstick) 178 mg/dL (70-99) H Laboratory Tests 03/24/17 11:45 Laboratory Tests 03/24/17 11:45 EKG EKG EKG sinus rhythm rate of 74 no STEMI QTC normal my interpretation[] Radiology/Procedures Radiology/Procedures CT head: Negative per radiology Chest x-ray:[] Negative per radiology Course & Med Decision Making Course & Med Decision Making Pertinent Labs and Imaging studies reviewed. (See chart for details) Plan to obtain labs and CAT scan and chest x-ray and then reassess.[ Imaging and labs were unremarkable. Patient's mental status was stable and appropriate during her stay in the ED.] Dragon Disclaimer Dragon Disclaimer This electronic medical record was generated, in whole or in part, using a voice recognition dictation system. Departure Departure Impression: Primary Impression: Fall from standing Disposition: 01 HOME, SELF-CARE Condition: STABLE Referrals: CATHIE CAMPBELL MD (PCP) Patient Instructions: Fall Prevention and Home Safety, [id number] OZ MILLER MD Mar 24, 2017 11:44
--- NOTE | 2017-03-24 11:48 | EKG ---
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
[2017-03-24 12:04] LABS: BASO % 0 % (0-3); EOS % 1 % (0-3); HEMATOCRIT 34.7 % (36.0-47.0); LYMPH # 0.3 x10^3/uL (1.0-4.8); LYMPH % 5 % (24-48); MEAN CORPUSCULAR HEMOGLOBIN 30 pg (25-35); MEAN CORPUSCULAR HGB CONC 32 g/dL (31-37); MEAN CORPUSCULAR VOLUME 94 fL (79-100); MONO % 9 % (0-9); NEUT % 85 % (31-73); PLATELET COUNT 76 x10^3/uL (140-400); RED CELL DISTRIBUTION WIDTH 19.9 % (11.5-14.5); WHITE BLOOD COUNT 7.3 x10^3/uL (4.0-11.0)
[2017-03-24 12:14] LABS: CALCIUM 9.6 mg/dL (8.5-10.1); CREATININE 5.8 mg/dL (0.6-1.0); GFR 7.3; POTASSIUM 4.9 mmol/L (3.5-5.1)
[2017-03-24 12:19] LABS: ALBUMIN 2.7 g/dL (3.4-5.0); ALBUMIN/GLOBULIN RATIO 0.6 (1.0-1.7); TOTAL BILIRUBIN 0.5 mg/dL (0.2-1.0); TOTAL PROTEIN 7.4 g/dL (6.4-8.2)
[2017-03-24 14:01] VITALS: BP 118/72
[2017-03-24 15:10] LABS: % EOS 1 % (0-5)
[2017-03-24 15:11] LABS: PLT ESTIMATE ADEQUATE (ADEQUATE)
== END 2017-03-24 14:00 | disposition home or self-care (01) ==
LOC: ER 11:10
DX: R41.0 Disorientation, unspecified (principal); I13.2 Hypertensive heart and chronic kidney disease with heart failure and with stage 5 chronic kidney disease, or end stage renal disease; E11.22 Type 2 diabetes mellitus with diabetic chronic kidney disease; N18.6 End stage renal disease; I50.9 Heart failure, unspecified; Z99.2 Dependence on renal dialysis; Z91.041 Radiographic dye allergy status; W06.XXXA Fall from bed, initial encounter; Y93.89 Activity, other specified; Y92.89 Other specified places as the place of occurrence of the external cause; Y99.8 Other external cause status
CPT/HCPCS: 36415; 70450; 71010; 80053; 82962; 85007; 85025; 93005; 99285-25

== ENCOUNTER → 2017-03-25 | Outpatient (CLI) | payer MEDICARE ==
[2017-03-24 14:01] VITALS: BP 118/72
== END | disposition home or self-care (01) ==
LOC: PMGWOUND 11:40
PROVIDERS: ATTEND Preventive Medicine Undersea and Hyperbaric Medicine
DX: I87.312 Chronic venous hypertension (idiopathic) with ulcer of left lower extremity (principal); L97.222 Non-pressure chronic ulcer of left calf with fat layer exposed; T81.31XD Disruption of external operation (surgical) wound, not elsewhere classified, subsequent encounter; E11.22 Type 2 diabetes mellitus with diabetic chronic kidney disease; I13.2 Hypertensive heart and chronic kidney disease with heart failure and with stage 5 chronic kidney disease, or end stage renal disease; N18.6 End stage renal disease; I50.9 Heart failure, unspecified; M19.91 Primary osteoarthritis, unspecified site; I25.10 Atherosclerotic heart disease of native coronary artery without angina pectoris; E78.5 Hyperlipidemia, unspecified; E66.9 Obesity, unspecified; Z85.3 Personal history of malignant neoplasm of breast; Z86.14 Personal history of Methicillin resistant Staphylococcus aureus infection; Z68.39 Body mass index [BMI] 39.0-39.9, adult; Z79.4 Long term (current) use of insulin; Z99.2 Dependence on renal dialysis; Y83.8 Other surgical procedures as the cause of abnormal reaction of the patient, or of later complication, without mention of misadventure at the time of the procedure
CPT/HCPCS: 11042; 11045; 97606

== ENCOUNTER → 2017-03-30 | Outpatient (CLI) | payer MEDICARE ==
[2017-03-24 14:01] VITALS: BP 118/72
== END | disposition home or self-care (01) ==
LOC: PMGWOUND 10:54
PROVIDERS: ATTEND Emergency Medicine Undersea and Hyperbaric Medicine
DX: I87.312 Chronic venous hypertension (idiopathic) with ulcer of left lower extremity (principal); E11.622 Type 2 diabetes mellitus with other skin ulcer; L97.222 Non-pressure chronic ulcer of left calf with fat layer exposed; E11.22 Type 2 diabetes mellitus with diabetic chronic kidney disease; I13.2 Hypertensive heart and chronic kidney disease with heart failure and with stage 5 chronic kidney disease, or end stage renal disease; I50.9 Heart failure, unspecified; N18.6 End stage renal disease; Z99.2 Dependence on renal dialysis; I25.10 Atherosclerotic heart disease of native coronary artery without angina pectoris; M19.90 Unspecified osteoarthritis, unspecified site; Z86.14 Personal history of Methicillin resistant Staphylococcus aureus infection
CPT/HCPCS: 97597; 97598

== ENCOUNTER → 2017-04-06 | Outpatient (CLI) | payer MEDICARE ==
[2017-03-24 14:01] VITALS: BP 118/72
== END | disposition home or self-care (01) ==
LOC: PMGWOUND 10:51
PROVIDERS: ATTEND Emergency Medicine Undersea and Hyperbaric Medicine
DX: I87.312 Chronic venous hypertension (idiopathic) with ulcer of left lower extremity (principal); E11.622 Type 2 diabetes mellitus with other skin ulcer; L97.223 Non-pressure chronic ulcer of left calf with necrosis of muscle; E83.59 Other disorders of calcium metabolism; E11.22 Type 2 diabetes mellitus with diabetic chronic kidney disease; I13.2 Hypertensive heart and chronic kidney disease with heart failure and with stage 5 chronic kidney disease, or end stage renal disease; N18.6 End stage renal disease; I50.9 Heart failure, unspecified; E78.5 Hyperlipidemia, unspecified; E66.9 Obesity, unspecified; M19.91 Primary osteoarthritis, unspecified site; Z85.3 Personal history of malignant neoplasm of breast; Z99.2 Dependence on renal dialysis; Z79.4 Long term (current) use of insulin; Z86.14 Personal history of Methicillin resistant Staphylococcus aureus infection; Z68.39 Body mass index [BMI] 39.0-39.9, adult
CPT/HCPCS: 97597; 97598

== ENCOUNTER → 2017-04-13 | Outpatient (CLI) | payer MEDICARE ==
[2017-03-24 14:01] VITALS: BP 118/72
== END | disposition home or self-care (01) ==
LOC: PMGWOUND 10:47
PROVIDERS: ATTEND Emergency Medicine Undersea and Hyperbaric Medicine
DX: E11.622 Type 2 diabetes mellitus with other skin ulcer (principal); I87.312 Chronic venous hypertension (idiopathic) with ulcer of left lower extremity; L97.223 Non-pressure chronic ulcer of left calf with necrosis of muscle; E83.59 Other disorders of calcium metabolism; I11.0 Hypertensive heart disease with heart failure; I50.9 Heart failure, unspecified; I25.10 Atherosclerotic heart disease of native coronary artery without angina pectoris; M19.90 Unspecified osteoarthritis, unspecified site
CPT/HCPCS: 97597; 97598

== ENCOUNTER → 2017-04-20 | Outpatient (CLI) | payer MEDICARE ==
[2017-03-24 14:01] VITALS: BP 118/72
== END | disposition home or self-care (01) ==
LOC: PMGWOUND 11:00
PROVIDERS: ATTEND Emergency Medicine Undersea and Hyperbaric Medicine
DX: I87.312 Chronic venous hypertension (idiopathic) with ulcer of left lower extremity (principal); E11.622 Type 2 diabetes mellitus with other skin ulcer; L97.223 Non-pressure chronic ulcer of left calf with necrosis of muscle; E83.59 Other disorders of calcium metabolism; I11.0 Hypertensive heart disease with heart failure; I50.9 Heart failure, unspecified; I25.10 Atherosclerotic heart disease of native coronary artery without angina pectoris; M19.90 Unspecified osteoarthritis, unspecified site
CPT/HCPCS: 97606